=== PATIENT | male | born 1960 | race Caucasian/White ===

== ENCOUNTER → 2021-09-27 15:05 | Outpatient (CLI) | payer BC, SELFPAY ==
--- NOTE | ~2021-09-27 | XR_ITS ---
XR cervical spine min 6V 09/27/2021 15:39 Indication: Neck pain. Limited mobility. Degenerative spondylosis. Procedure: 6 views of the cervical spine Comparison: No prior studies for comparison. Findings: There is disc narrowing at C3-4, C5-6 and C6-7. There are prominent marginal osteophytes at C5-6. No acute fracture or traumatic malalignment. There is uncinate hypertrophy at C5-6 and C6-7. L ateral masses are normally aligned. No listhesis. Impression: 1: Mild-moderate cervical spondylosis. Reviewed, dictated and finalized at location A. Impression: 1: Mild-moderate cervical spondylosis.
== END ==
PROVIDERS: PCP Family Medicine; Visit Provider Chiropractor
DX: M54.2 Cervicalgia (principal); M47.812 Spondylosis without myelopathy or radiculopathy, cervical region
CPT/HCPCS: 72052

== ENCOUNTER 2024-03-02 08:04 | Emergency (ER) | payer BC, SELFPAY ==
--- NOTE | 2024-03-02 08:15 | ED.GENADULT ---
HPI - General Adult General Chief complaint: Urogenital-Male Stated complaint: possible UTI Time Seen by Provider: 03/02/24 08:16 Source: patient Mode of arrival: ambulatory Limitations: no limitations History of Present Illness HPI narrative: 63-year-old male patient presents to the [facility] with complaints of urinary symptoms for the past week. Patient states he has had increase in urgency, burning pain with urination and when he describes as cloudy urine. Denies any odor that he is aware of. Denies low back pain or obvious blood. Denies any lower abdominal pain. Denies fevers, body aches or chills. Patient states he does have an enlarged prostate that he is supposed to be having surgery on. Denies any use of Flomax. Related Data Allergies Allergy/AdvReac Type Severity Reaction Status Date / Time morphine Allergy Mild Rash Verified 03/02/24 08:24 Contrast Media Allergy Unknown Rash Uncoded 03/02/24 08:24 Review of Systems Review of Systems: CONSTITUTIONAL: Denies fever, chills, or sweats. EYES: Denies visual changes, redness, or discharge. ENT: Denies rhinorrhea, congestion, sore throat, or otalgia. CARDIOVASCULAR: Denies chest pain, palpitations, or edema. RESPIRATORY: Denies cough or dyspnea. GASTROINTESTINAL: Denies abdominal pain, nausea, vomiting, or diarrhea. GENITOURINARY: Positive dysuria x1 week, denies gross hematuria. SKIN: Denies rash or itching. MUSCULOSKELETAL: Denies back pain, joint pain, or myalgia. NEUROLOGIC: Denies headache, numbness, or weakness. PSYCHIATRIC: Denies anxiety or depression. PMFSH Past Medical History Medical History Hypercholesteremia Surgical History Surgical History History of orthopedic surgery ORIF Right Fibula Hx of appendectomy H/O inguinal hernia repair Comments At the time of my signature I agree with nursing past medical history, surgical, social, and family history. There is no relevant family history pertinent to the presenting complaint. Exam Narrative: GENERAL: Well-appearing, well-nourished, and in no acute distress. HEAD: Normocephalic, atraumatic. EYES: PERRLA and EOMI. ENT: Nares clear, no rhinorrhea or epistaxis. Mucous membranes moist. NECK: Supple. No lymphadenopathy CHEST: Clear to auscultation. No respiratory distress. HEART: Regular rate and rhythm. No murmur heard. Normal peripheral pulses. ABDOMEN: Soft, nontender, nondistended, normal active bowel sounds. no CVA tenderness on percussion EXTREMITIES: Normal range of motion. No edema. SKIN: Warm, dry, no rash. NEURO: No focal deficits. Alert and oriented x3. Course Course Level of Care: Express Care Visit Reevaluation(s) Reevaluation #1: re-evaluated patient notified him that his urine dip is consistent with a urinary tract infection therefore we will discharge him home with an oral antibiotic. Discussed with patient to increase his water intake to help flush out the system as well as he may use some mgdo-awz-pionsoo azo help with the pain. Patient should follow-up with his urologist to evaluate his prostate issue as well. Patient verbalized understanding denies any other questions or concerns at this time. Date: 03/02/24 Time: 08:59 Vital Signs Vital signs: vital signs reviewed. Medical Decision Making MDM Narrative Medical decision making narrative: plan of care for patient is to obtain a urine sample dip the urine to assess for possible urinary tract infection. Will reassess once this has resulted. Differential Diagnosis Differential Diagnosis: Differential diagnosis: Uncomplicated lower UTI, uncomplicated UTI, polynephritis, penile trauma,balanoposthitis, phimosis, paraphimosis, testicular torsion, epididymitis, prostatitis, varicocele, spermatocele, hydrocele, hernia. Critical Care Time Critical Care Time Critical Care Time: No Discharge Plan Discharge Clinical Impression: Urinary tract infection Qualifiers: Urinary tract infection type: acute cystitis Hematuria presence: with hematuria Qualified Code(s): N30.01 - Acute cystitis with hematuria Patient Disposition: Home, Self-Care Condition: Stable Instructions: Antibiotic Form, Urinary Tract Infection in Men (ED) Additional Instructions: We will send a urine culture off to the lab; if the culture identifies an organism that the prescribed antibiotic will not treat, you will receive a phone call from an urgent care staff member and an appropriate antibiotic will be prescribed. -Your symptoms should begin to improve within a day of starting antibiotics. But you should finish all the antibiotic pills you get. Otherwise your infection might come back. -Also recommend: drink more fluid. It might help flush out germs, and it does no harm -Tylenol/ibuprofen prn for pain or fever -Follow-up with your primary care provider for urine recheck or seek ER visit if condition worsens with high fever, nausea, vomiting and severe back pain. Patient Language: Algerian Prescriptions: New nitrofurantoin monohyd/m-cryst [Macrobid] 100 mg capsule 100 mg PO Q12H 5 Days Qty: 10 0RF Rx Instructions: must administer with a meal/food Follow-up/Referrals: Irish,Jorje Elam MD [Primary Care Provider] - Time of Disposition: 08:53
[2024-03-02 08:20] VITALS: BP 149/79; PULSE 61; RESP 18; TEMP 36.3; O2SAT 97
[2024-03-02 09:34] LABS: EDUAAPPEAR Cloudy; EDUABILI Negative (Negative); EDUABLOOD 3+ (Negative); EDUACOLOR1 Yellow; EDUAGLUCOSE Negative (Negative); EDUAKETONE Negative (Negative); EDUALEUKO Negative (Negative); EDUANITRATE Negative (Negative); EDUAPH 5.5; EDUAPROTEIN 3+ (Negative); EDUAUROBILI 0.2
--- OUTSIDE RECORDS SUMMARY | 2024-03-05 21:49 | XMS_ITS | Encounter Summary ---
Author Organization [facility] Address [facility] [facility]. [place], [place] [address] [place] [address] Care Team Providers Care Director Paid Media Name Role Phone Jorje Lainez Primary Care Provider [phone] Reason for Visit * Auth/Cert (Routine) Specialty Diagnoses / Procedures Referred By Star t Referred To Contact Diagnoses BENIGN PROSTATIC HYPERTROPHY WITH URINARY OBSTRUCTION, FREQUENCY OF MICTURITION N40.1, R35.0, E29.1 Procedures CYSTOURETHROSCOPY US TRANSRECTAL CYSTOSCOPY AND TRANSRECTAL ULTRASOUND Ruben Miller MD 3 [facility] [address] [place] [address] Phone: tel: fax: Referral ID Status Reason Start Date Expiration Date Visits Re quested Visits Authorized [id number] 1 1 Encounter Details Date Type Department Care Team (Late st Contact Info) Description 01/31/2024 2:25 PM HR OPERATIONS ADVISOR Anesthesia Event [facility] [place], [place] [id number] Rufus Urbina MD [address] [facility] [address] [id number] Jessica Villanueva, CAD MANAGER 1 [place], [place] [id number] Anesthesia Record Procedure Summary Procedure Name Responsible Anesthesiologist Anesthesia Start Time Anesthesia Stop Time CYSTOSCOPY AND TRANSRECTAL ULTRASOUND (Anus) Rufus Urbina MD 01/31/24 1425 01/31/24 1446 Events Date Time Event Comment 01/31/2024 1129 1129 AN Anesthesia Prepped 1425 An Start Patient ID and consent checked and patient reassessed. 1425 An Start Data 1425 Quick Note SR BRENDAN Guadarrama introduced to the patient and the patient verbally consents for the SRNA to participate in all appropriate aspects of perioperative care under the direct supervision of the HEAVY EQUIPMENT OPERATING ENGINEER. HEAVY EQUIPMENT OPERATING ENGINEER remains present for continuous supervision of the SRNA and maintains responsibility for documentation. 1427 Face Mask Applied 1429 An Induction The patient was reevaluated immediately before moderate or deep sedation use and before anesthesia induction. 1429 Anesthesia Ready 1437 Quick Note Turn left later al. Head in neutral alignment. Arms supported and padded. 1439 An Emergence 1444 an stop data 1446 Post Anesthetic Care Handoff I completed my handoff to the receiving nurse during which we: 1. Identified the patient 2. Identified the responsible provider 3. Reviewed the pertinent medical history 4. Discussed the surgical course 5. Reviewed intra-op anesthesia management and issues during anesthesia 6. Set expectations for post-procedure period 7. Allowed opportunity for questions and acknowledgement of understanding. 1446 An Stop Meds Name Total lidocaine (PF) (XYLOCAINE) 2% injection 100 mg propofol (DIPRIVAN) 200 mg/20 mL injecti on 50 mg propofol (DIPRIVAN) 1000 mg/100 mL infus ion 110.71 mg midazolam (VERSED) 1 mg/mL injection 2 m g fentaNYL (SUBLIMAZE) 100 mcg/2 mL inject ion 50 mcg ceFAZolin (ANCEF) 2 g in NS 100 mL IVPB 2 g * Agents Name O2 Inspired Sevoflurane Sevoflurane Ancillary O2 * Blood No blood administrations on file. Lines, Drains, and Airways Type Details Placement Removal Peripheral IV Placement Date: 01/18 06/10; Placement Time: 1130; Placed Outside of This Facility?: No; Size: 20 G; Orientation: Right; Location: Wrist; Site Prep: Alcohol; Local Anesthetic: None; Insertion attempts: 1; Ultrasound-guided Placement?: No; Patient Tolerance: Tolerated well; Removal Date: 01/31/24; Removal Time: 1610; Removal Reason: Patient Discharged 01/31/24 1130 by Lacey Chew RN 01/31/24 1610 by Gisselle Alberto RN documented in this encounter Social History Tobacco Use Types Packs/Day Years Used Date Smoking Tobacco: Former Cigarettes 1.5 30 1 977 - 2006 Smokeless Tobacco: Never Alcohol Use Standard Drinks/Week Comments Yes 6.7 (1 standard drink = 0.6 oz p ure alcohol) social Sex and Gender Information Value Date Recorded Sex Assigned at Not on file Legal Sex Male 4:30 PM CDT Gender Identity Not on file Sexual Orientation Not on file documented as of this encounter OR Notes * Anesthesia Postprocedure Evaluation - Rufus Urbina MD - 01/31/2024 3:53 PM HR OPERATIONS ADVISOR Anesthesia Post-op Note Benja Gallagher Procedure(s): CYSTOSCOPY AND TRANSRECTAL ULTRASOUND (Anus) Anesthesia type: general Vitals: 01/31/24 1610 BP: (!) 155/87 Vitals: 01/31/24 1610 Pulse: (!) 57 Vitals: 01/31/24 1610 Resp: 16 Vitals: 01/31/24 1610 Temp: 36.2 ??C Vitals: 01/31/24 1610 SpO2: 98% Patient Location: Phase II/Outpatient Level of Consciousness: awake Pain Management: adequate analgesia Airway Patency: patent Respiratory Status: acceptable Cardiovascular Status: acceptable Post-Op Nausea: none Postoperative Hydration: euvolemic There were no known notable events for this encounter. OPERATIONS ADVISOR * Anesthesia Postprocedure Evaluation - Rufus Urbina MD - 01/31/2024 3:00 PM HR OPERATIONS ADVISOR Anesthesia Post-op Note Benja Gallagher Procedure(s): CYSTOSCOPY AND TRANSRECTAL ULTRASOUND (Anus) Anesthesia type: general Vitals: 01/31/24 1445 BP: 125/76 Vitals: 01/31/24 1450 Pulse: (!) 55 Vitals: 01/31/24 1450 Resp: 15 Vitals: 01/31/24 1445 Temp: 36.1 ??C Vitals: 01/31/24 1450 SpO2: 99% Patient Location: PACU Level of Consciousness: awake Pain Management: adequate analgesia Airway Patency: patent Respiratory Status: acceptable Cardiovascular Status: acceptable Post-Op Nausea: none Postoperative Hydration: euvolemic No notable events documented. OPERATIONS ADVISOR * Anesthesia Preprocedure Evaluation - Cliff Moore MD - 01/31/2024 11:28 AM CST Anesthesia ROS/MED History Reviewed: Patient summary , Family history anesthesia, Anesthesia history , Medications , Labs Pre-Anesthetic State: alert, awake and responds appropriately no history of anesthetic complications Pulmonary (+) sleep apnea(-) COPD, asthma Cardiovascular (+) hypertension, hyperlipidemia(-) Valvular problems/Murmurs, past AR, CHF, arrhythmia Neuro/Psych (-) no seizures, no CVA Substance Use (-) smoker, vaping user GI/Hepatic/Renal (+) GERD, (well controlled)(-) PUD, liver disease, renal disease Endo/Other (-) diabetes, normal weight range, blood dyscrasia GENERAL COMMENTS Review of patient's allergies indicates: Contrast [iodine] and Morphine NPO Past Medical History: No date: Acid reflux No date: BPH with urinary obstruction No date: High cholesterol No date: Hypertension No date: Obesity, unspecified No date: Sleep apnea, unspecified Comment: no cpap Past Surgical History: No date: APPENDECTOMY No date: CARPAL TUNNEL RELEASE 01/2023: CYSTOSCOPY No date: HERNIA REPAIR Comment: x2 No date: PC ANESTH LOWER LEG BONE SURG; Right No date: SCREENING COLONOSCOPY NPO Status: Physical Evaluation Airway Mallampati: III Dental (crowns), (implants) Pulmonary Breath sounds clear to auscultation Cardiovascular Rhythm: regular Rate: normal STOP-Bang Assessment: Anesthesia Plan ASA 3 Intravenous Induction Anesthesia type: general Plan for Airway: nasal cannula/simple face mask TIVA Informed Consent Anesthetic plan and risks discussed with patient of whom consent was obtained. . OPERATIONS ADVISOR documented in this encounter Plan of Treatment Not on file documented as of this encounter Visit Diagnoses Not on filedocumented in this encounter Administered Medications Inactive Administered Medications - up to 3 most recent administrations Medication Order MAR Action Action Date Dose Rate Site ceFAZolin (ANCEF) 2 g in NS 100 mL IVPB 2 g, Intravenous, at 400 mL/hr, cutting and splicing supervisor to O.R., 1 dose, First dose on Mon01/31/24 at 1100, Pre-OpIndications:Hype rtrophy of prostate with urinary obstruction,Urinary frequency,Male hypogonadism New Bag 01/31/2024 2:31 PM HR OPERATIONS ADVISOR 2 g fentaNYL (SUBLIMAZE) injection Intravenous, PRN, Starting on Mon01/31/24 at 1430, Until Mon01/31/24 at 1447, Anesthesia Intra-Op Given 01/31/2024 2:30 PM HR OPERATIONS ADVISOR 50 mcg lidocaine (PF) (XYLOCAINE) 2 % injection Intravenous, PRN, Starting on Mon01/31/24 at 1429, Until Mon01/31/24 at 1447, Anesthesia Intra-Op Given 01/31/2024 2:29 PM HR OPERATIONS ADVISOR 100 mg midazolam (VERSED) injection Intravenous, PRN, Starting on Mon01/31/24 at 1425, Until Mon01/31/24 at 1447, Anesthesia Intra-Op Given 01/31/2024 2:25 PM HR OPERATIONS ADVISOR 2 mg propofol (DIPRIVAN) infusion Intravenous, Continuous PRN, Starting on Mon01/31/24 at 1429, Until Mon01/31/24 at 1447, Anesthesia Intra-Op Rate/Dose Change 01/31/2024 2:38 PM HR OPERATIONS ADVISOR 85 mcg/kg/min 57.324 mL/hr New Bag 01/31/2024 2:29 PM HR OPERATIONS ADVISOR 100 mcg/kg/min 67.44 mL/ hr propofol (DIPRIVAN) IV bolus Intravenous, PRN, Starting on Mon01/31/24 at 1429, Until Mon01/31/24 at 1447, Anesthesia Intra-Op Given 01/31/2024 2:29 PM HR OPERATIONS ADVISOR 50 mg documented in this encounter Care Teams Director Paid Media Relationship Specialty Start Date End Date Jorje Lainez DO PCP - General FAMILY PRACTICE 08/12/22 documented as of this encounter
--- OUTSIDE RECORDS SUMMARY | 2024-03-05 21:49 | XMS_ITS | Encounter Summary ---
Author Organization [facility] Address [facility] [place] [address] [place] [address] Care Team Providers Care Studio Operator Name Role Phone Unavailable Primary Care Provider Unavailabl e Encounter Details Date Type Department Care Team (Late st Contact Info) Description 12/16/2006 Emergency [facility] [place] [address] Aubree Hankins MD [address] [place] [address] Social History Tobacco Use Types Packs/Day Years Used Date Smoking Tobacco: Never Assessed Sex and Gender Information Value Date Recorded Sex Assigned at Not on file Legal Sex Male 4:30 PM CDT Gender Identity Not on file Sexual Orientation Not on file documented as of this encounter Plan of Treatment Not on file documented as of this encounter Visit Diagnoses Not on filedocumented in this encounter
--- OUTSIDE RECORDS SUMMARY | 2024-03-05 21:49 | XMS_ITS | Encounter Summary ---
Author Organization [facility] Address [address] [place] [address]. [place] [address] [place] [address] Care Team Providers Care Test Car Driver Name Role Phone Unavailable Primary Care Provider Unavailabl e Reason for Visit * Auth/Cert Specialty Diagnoses / Procedures Referred By Star t Referred To Contact Diagnoses right carpal tunnel syndrome, right cubital tunnel syndrome Procedures WRIST ARTHROSCOP,RELEASE XVERS LIG REVISE ULNAR NERVE AT ELBOW RIGHT ENDOSCOPIC CARPAL TUNNEL RELEASE, POSSIBLE OPEN RIGHT CUBITAL TUNNEL RELEASE, POSSIBLE TRANSPOSITION Referral ID Status Reason Start Date Expiration Date Visits Re quested Visits Authorized [id number] 1 1 Encounter Details Date Type Department Care Team (Late st Contact Info) Description 01/11/2022 10:05 AM CDT Ancillary Procedure [facility] [address] [place] [address] Janett Srinivasan MD [address] [place] [address] [address] Social History Tobacco Use Types Packs/Day Years Used Date Smoking Tobacco: Never Smokeless Tobacco: Never Alcohol Use Standard Drinks/Week Comments Yes 11.7 (1 standard drink = 0.6 oz pure alcohol) Sex and Gender Information Value Date Recorded Sex Assigned at Not on file Legal Sex Male 4:30 PM CDT Gender Identity Not on file Sexual Orientation Not on file COVID-19 Exposure Response Date Recorded In the last 10 days, have yo u been in contact with someone who was confirmed or suspected to have Coronavirus/COVID-19? No / Unsure 01/11/2022 9:56 AM CDT documented as of this encounter Plan of Treatment Not on file documented as of this encounter Procedures Procedure Name Priority Date/Time Associated Diagnosis Comments US GD NDL PLACEMENT ANES Today 01/11/2022 10:04 AM CDT documented in this encounter Results * US GD NDL PLACEMENT ANES (01/11/2022 10:04 AM CDT) Anatomical Region Laterality Modality NA Ultrasound 01/11/2022 8:44 AM CDT Narrative 01/11/2022 8:44 AM CDT This report does not contain a radiologist's interpretation. Please review associated procedure and/or operative report. Procedure Note Javier Baltazar, - 01/11/2022 This report does not contain a radiologist's interpretation. Please review associated procedure and/or operative report. us Janett Srinivasan MD ULTRASOUND Final Result documented in this encounter Visit Diagnoses Not on filedocumented in this encounter
--- OUTSIDE RECORDS SUMMARY | 2024-03-05 21:49 | XMS_ITS | Encounter Summary ---
Author Organization [facility] Address [address] [place] [address]. [place], [place] [address] [place] [address] Care Team Providers Care Hydraulic Press Operator Name Role Phone Jorje Lainez Primary Care Provider [phone] Encounter Details Date Type Department Care Team (Late st Contact Info) Description 02/01/2023 3:40 PM EMAIL MARKETING ASSISTANT - 02/01/2023 11:59 PM [facility] Hospital Encounter [facility] [place] [address] Ruben Miller MD 3 [facility] [address] [facility] [place] [address] Discharge Disposition: Home or Self Care (Routine Discharge) Social History Tobacco Use Types Packs/Day Years Used Date Smoking Tobacco: Former Cigarettes 1.5 30 1 977 - 2007 Smokeless Tobacco: Never Alcohol Use Standard Drinks/Week Comments Yes 6.7 (1 standard drink = 0.6 oz p ure alcohol) social Sex and Gender Information Value Date Recorded Sex Assigned at Not on file Legal Sex Male 4:30 PM CDT Gender Identity Not on file Sexual Orientation Not on file documented as of this encounter Medications at Time of Discharge amLODIPine (NORVASC) 5 MG tablet Take 1 tablet (5 mg total) by mouth daily. aspirin EC (ECOTRIN) 81 MG tablet Take 1 tablet (81 mg total) by mouth daily. omega-3 fatty acid (FISH OIL) 500 MG capsule Take 1 capsule (500 mg total) by mouth daily. omeprazole EC (PRILOSEC OTC) 20 MG tablet Take 1 tablet (20 mg total) by mouth daily. rosuvastatin (CRESTOR) 20 MG tablet Take 1 tablet (20 mg total) by mouth daily. sildenafil (VIAGRA) 100 MG tablet Take 1 tablet (100 mg total) by mouth daily as needed for Erectile Dysfunction. testosterone cypionate (DEPO TESTOSTERONE) 100 MG/ML injection Inject 1 mL (100 mg total) into the muscle once a week. Vitamin D3, cholecalciferol, 2000 UNIT Tab tablet Take 1 tablet (2,000 Units total) by mouth daily. 01/23/2024 documented as of this encounter Plan of Treatment Not on file documented as of this encounter Procedures Procedure Name Priority Date/Time Associated Diagnosis Comments HC URINALYSIS AUTO W/O MICRO Routine 02/01/2023 3:45 PM EMAIL MARKETING ASSISTANT BPH with urinary obstruction Frequency of micturition Hypogonadism male URINE BACTERIA CULTURE Routine 02/01/2023 3:45 PM EMAIL MARKETING ASSISTANT BPH with urinary obstruction Frequency of micturition Hypogonadism male documented in this encounter Results * CULTURE URINE (02/01/2023 3:45 PM EMAIL MARKETING ASSISTANT) SPEC DESCRIPTION URINE CLEAN CATCH 02/01/2023 3:46 PM EMAIL MARKETING ASSISTANT [facility] SPECIAL REQUESTS NO SPECIAL REQUEST 02/01/2023 3:46 PM EMAIL MARKETING ASSISTANT [facility] CULTURE RESULT NO GROWTH 2 DAYS 02/03/2023 7:59 AM EMAIL MARKETING ASSISTANT [facility] URINE SPECIMEN OBTAINED BY CLEAN CATCH PROCEDURE / Unknown 02/01/2023 3:45 PM EMAIL MARKETING ASSISTANT 02/01/2023 3:46 PM EMAIL MARKETING ASSISTANT us Ruben Miller MD MICROBIOLOGY - GENERAL OR DERABLES Final Result [facility] [address] [place] [address], [place] [phone] * URINALYSIS (02/01/2023 3:45 PM EMAIL MARKETING ASSISTANT) SPECIMEN TYPE URINE CLEAN CATCH 02/01/2023 3:46 PM EMAIL MARKETING ASSISTANT [facility] COLOR (U) YELLOW 02/01/2023 3:58 PM EMAIL MARKETING ASSISTANT [facility] TRANSPARENCY CLEAR 02/01/2023 3:58 PM EMAIL MARKETING ASSISTANT [facility] SPECIFIC GRAVITY (U) 1.029 1.001 - 1.030 02/01/2023 3:58 PM EMAIL MARKETING ASSISTANT [facility] U PH 6.0 5.0 - 9.0 02/01/2023 3:58 PM EMAIL MARKETING ASSISTANT [facility] LEUKOCYTES (U) NEGATIVE NEGATIVE 02/01/2023 3:58 PM EMAIL MARKETING ASSISTANT [facility] NITRITES NEGATIVE NEGATIVE 02/01/2023 3:58 PM EMAIL MARKETING ASSISTANT [facility] PROTEIN RANDOM (U) 20 <30 MG/DL 02/01/2023 3:58 PM EMAIL MARKETING ASSISTANT [facility] GLUCOSE (U) NORMAL NORMAL MG/DL 02/01/2023 3:58 PM EMAIL MARKETING ASSISTANT [facility] KETONES MG/DL (U) NEGATIVE NEGATIVE MG/DL 02/01/2023 3:58 PM EMAIL MARKETING ASSISTANT [facility] UROBILINOGEN NORMAL NORMAL MG/DL 02/01/2023 3:58 PM EMAIL MARKETING ASSISTANT [facility] BILIRUBIN (U) NEGATIVE NEGATIVE MG/DL 02/01/2023 3:58 PM EMAIL MARKETING ASSISTANT [facility] BLOOD (U) NEGATIVE NEGATIVE 02/01/2023 3:58 PM EMAIL MARKETING ASSISTANT [facility] URINE SPECIMEN OBTAINED BY CLEAN CATCH PROCEDURE / Unknown 02/01/2023 3:45 PM EMAIL MARKETING ASSISTANT Ruben Miller MD URINE ORDERABLES Final Re sult [facility] [address] [place] [address], documented in this encounter Visit Diagnoses Diagnosis BPH with urinary obstruction Hypertrophy of prostate with urinary obstruction and other lower urinary tract symptoms (LUTS) Frequency of micturition Urinary frequency Hypogonadism male Other testicular hypofunction documented in this encounter Care Teams Hydraulic Press Operator Relationship Specialty Start Date End Date Jorje Lainez DO PCP - General FAMILY PRACTICE 08/12/22 documented as of this encounter
--- OUTSIDE RECORDS SUMMARY | 2024-03-05 21:49 | XMS_ITS | Encounter Summary ---
Author Organization [facility] Address [facility]. [place], [place] [address] [place] [address] Care Team Providers Care Licensed Esthetician Name Role Phone LainezJorje mera Ada YU Primary Care Provider [phone] Reason for Visit * Auth/Cert (Routine) Specialty Diagnoses / Procedures Referred By Star t Referred To Contact Diagnoses BENIGN PROSTATIC HYPERTROPHY WITH URINARY OBSTRUCTION, FREQUENCY OF MICTURITION N40.1, R35.0, E29.1 Procedures FLEXIBLE CYSTOSCOPY Marley Ibrahim MD 3 [facility] [address] [place] [address] Phone: tel: fax: Referral ID Status Reason Start Date Expiration Date Visits Re quested Visits Authorized [id number] 1 1 Encounter Details Date Type Department Care Team (Late st Contact Info) Description 02/07/2023 5:20 AM SOURCER - 02/07/2023 9:10 AM [facility] Hospital Encounter [facility] [place] [address] Marley Ibrahim MD 3 [facility] [address] [place] [address] [id number] Discharge Disposition: Home or Self Care (Routine Discharge) Social History Tobacco Use Types Packs/Day Years Used Date Smoking Tobacco: Former Cigarettes 1.5 30 1 977 - 2007 Smokeless Tobacco: Never Tobacco Cessation:Counseling Given: Not Answered Alcohol Use Standard Drinks/Week Comments Yes 6.7 (1 standard drink = 0.6 oz p ure alcohol) social Sex and Gender Information Value Date Recorded Sex Assigned at Not on file Legal Sex Male 4:30 PM CDT Gender Identity Not on file Sexual Orientation Not on file documented as of this encounter Last Filed Vital Signs Vital Sign Reading Time Taken Comments Blood Pressure 153/80 02/07/2023 9:05 AM SOURCER Pulse 63 02/07/2023 9:05 AM SOURCER Temperature 36.3 ??C (97.3 ??F) 02/07/2023 9:05 AM CS T Respiratory Rate 18 02/07/2023 9:05 AM SOURCER Oxygen Saturation 98% 02/07/2023 9:05 AM SOURCER Inhaled Oxygen Concentration - - Weight 109.8 kg (242 lb 1 oz) 02/07/2023 6:48 AM SOURCER Height 177.8 cm (5' 10 ) 02/07/2023 6:48 AM SOURCER Body Mass Index 34.73 02/07/2023 6:48 AM SOURCER documented in this encounter Discharge Instructions * Discharge Instructions* Lacey Chew RN - 02/07/2023 7:55 AM SOURCER Call if excessive bleeding, voiding difficulties, fevers chills or if any other concerning symptomsdevelop. Because you had anesthesia NO DRIVING FOR 24 HRS/ OR WHILE TAKING NARCOTIC PAIN MEDICATION NO ALCOHOL, NO OPERATING MACHINERY, DO NOT SIGN ANY BINDING CONTRACTS FOR 24 HOURS/ OR WHILE TAKINGNARCOTIC PAIN MEDICATION AVOID GREASY, FRIED OR SPICY FOODS MUST HAVE A RESPONSIBLE ADULT STAY WITH YOU FOR THE REST OF TODAY AND TONIGHT If you have chest pain, shortness of breath, excessive bleeding or drainage, if you cannot hold down anything to eat or drink, or if you cannot urinate, please call 911 or go to the nearest emergencyroom. If you have fever, pain not controlled by your medication, signs of infection such as redness or discharge or swelling at the site, or any other questions or concerns, please call your surgeon. CER CER CER * Attachments The following attachments cannot be sent through Care Everywhere. * Cystoscopy Discharge Instructions (Syrian) * General Anesthesia Discharge Instructions (Syrian) documented in this encounter Medications at Time of Discharge [...] daily. 01/23/2024 documented as of this encounter H&P Notes * Marley Ibrahim MD - 02/07/2023 7:22 AM CST Attending Provider: Marley Ibrahim MD PCP: DO Benja SMITH Nuckolls is an 62-year-old male. Reason for Admission: * No active hospital problems. * HPI: This is a 62-year-old gentleman with history of microscopic hematuria presents today for cystoscopy. In office cystoscopy was declined. Urine culture is negative. Currently feels well with no urinaryor respiratory complaints he had a cough which resolved last week. Past Medical History: Diagnosis Date Acid reflux BPH with urinary obstruction High cholesterol Hypertension Obesity, unspecified Allergies: Allergies Allergen Reactions Contrast [Iodine] Rash Morphine Rash and Swelling Social History Tobacco Use Smoking status: Former Packs/day: 1.50 Years: 30.00 Additional pack years: 0.00 Total pack years: 45.00 Types: Cigarettes Quit date: 2007 Years since quittin.8 Smokeless tobacco: Never Substance Use Topics Alcohol use: Yes Alcohol/week: 6.7 standard drinks of alcohol Types: 4 Cans of beer per week Comment: social Past Surgical History: Procedure Laterality Date APPENDECTOMY HERNIA REPAIR x2 PC ANESTH LOWER LEG BONE SURG Right SCREENING COLONOSCOPY No family history on file. Travel Exposure: No current facility-administered medications on file prior to encounter. Current Outpatient Medications on File Prior to Encounter Medication Sig amLODIPine (NORVASC) 5 MG tablet Take 1 tablet (5 mg total) by mouth daily. aspirin EC (ECOTRIN) 81 MG tablet Take 1 tablet (81 mg total) by mouth daily. omega-3 fatty acid (FISH OIL) 500 MG capsule Take 1 capsule (500 mg total) by mouth daily. omeprazole EC (PRILOSEC OTC) 20 MG tablet Take 1 tablet (20 mg total) by mouth daily. As needed rosuvastatin (CRESTOR) 20 MG tablet Take 1 tablet (20 mg total) by mouth daily. testosterone cypionate (DEPO TESTOSTERONE) 100 MG/ML injection Inject 1 mL (100 mg total) into the muscle once a week. Vitamin D3, cholecalciferol, 2000 UNIT Tab tablet Take 1 tablet (2,000 Units total) by mouth daily. sildenafil (VIAGRA) 100 MG tablet Take 1 tablet (100 mg total) by mouth daily as needed for Erectile Dysfunction. Blood pressure (!) 165/94, pulse 66, temperature 97.9 ??F (36.6 ??C), temperature source Temporal, resp. rate 18, height 1.778 m (5' 10 ), weight 109.8 kg (242 lb 1 oz), SpO2 96 %. Review of Systems Constitutional: Negative. Negative for chills and fever. HENT: Negative. Eyes: Negative. Respiratory: Negative. Negative for shortness of breath. Cardiovascular: Negative. Negative for chest pain. Gastrointestinal: Negative. Negative for abdominal pain, heartburn, nausea and vomiting. Genitourinary: Negative for dysuria, flank pain and hematuria. Musculoskeletal: Negative. Skin: Negative. Neurological: Negative. Negative for dizziness. Endo/Heme/Allergies: Negative. Psychiatric/Behavioral: Negative. Physical Exam Vitals reviewed. Constitutional: Appearance: Normal appearance. HENT: Head: Normocephalic and atraumatic. Mouth/Throat: Pharynx: Oropharynx is clear. Eyes: General: No scleral icterus. Cardiovascular: Rate and Rhythm: Normal rate and regular rhythm. Pulmonary: Effort: Pulmonary effort is normal. No respiratory distress. Breath sounds: No wheezing. Abdominal: General: Abdomen is flat. There is no distension. Neurological: General: No focal deficit present. Mental Status: He is alert and oriented to person, place, and time. Psychiatric: Mood and Affect: Mood normal. Assessment: Microhematuria, history of smoking Plan: Flexible cystoscopy under anesthesia. Risk, benefits, alternatives, nature of the procedure and potential complications reviewed patient is agreeable to proceed risk including the limited to bleeding, infection, trauma to surrounding/adjacent structures damage to the urethra, bladder need for additi onal procedures pending intraoperative findings in addition anesthesia and positioning complications heart attack, stroke, blood clots, pulmonary embolus without possibility antibiotics and complications reviewed. Reports understanding agreeable to proceed all questions answered. MARLEY IBRAHIM MD 02/07/2023 HISTORY AND PHYSICAL INTERVAL NOTE: I have reviewed Benja Yee Aileen History & Physical which was performed within the past 30 days. After examining Benja Joselito Gallagher, no change has occurred in the patient's condition since the H&P was completed. Informed Consent Discussion: Potential benefits, risks, and side effects of the patient's procedure/surgery; the likelihood of the patient achieving his or her goals; and any potential problems that might occur during recuperation were discussed with the patient/family/personal customer service representative teacher. Reasonable alternatives to the patient's proposed procedure/surgery including benefits, risks, and side effects related to the alternatives and the risks related to not receiving the proposed care were also discussed with the patient/family/personal customer service representative teacher. Questions were answered and the patient /family/personal customer service representative teacher verbalized understanding and desires to proceed. CER documented in this encounter OR Notes * Op Note - Marley Ibrahim MD - 02/07/2023 7:52 AM CST FLEXIBLE CYSTOSCOPY Procedure Note Indications: The patient underwent surgery on 02/07/2023 for hematuria. Procedure Details Description of procedure: Patient brought back to the operating room he received monitored anesthesia care via ice to the sedation he was prepped and draped in standard surgical fashion in the supineposition with Betadine to the genitalia. 10 cc of lidocaine urethral jelly were used for local anesthetic. SCD boots were on and functional preoperatively for DVT prophylaxis. Care was taken to not Hy perflex or hyperextend any extremity or bony prominences thoroughly padded. He received a preoperative dose of intravenous cefazolin. After appropriate timeout appropriate patient identifiers were used a 16 [place]ankan flexible cystoscope was inserted urethra the urethra is grossly normal the prostate had trilobar hyperplasia with a moderate size middle lobe with no evidence of stricture. Endoscopy bladder was performed in systematic fashion and the mucosa was grossly normal with no papillary tumor,erythema or mucosal change. He had moderate trabeculation of the bladder wall with no diverticula. He had single orthotopic bilateral ureteral offices effluxing clear yellow urine. The scope was retro flexed and the bladder neck the bladder neck showed median lobe intravesical excursion, no papillary tumors were seen. No stones were seen. The scope was removed and the patient was awoken and transferred to postoperative recovery in stable condition. No immediate complications. I discussed the intraoperative findings with the family Findings: Expected/anticipated Complications: None immediate Estimated Blood Loss: Minimal Drains: Total IV Fluids: See anesthesia record Specimens: * No specimens in log * Implants: None Disposition: PACU Condition: stable CER * OR PreOp - Jessica Villanueva CNP - 02/02/2023 10:40 AM CST Chart reviewed. Per phone interview, patient denies any SOB/CP with 2 FOS or recent changes in activity tolerance in past 6 months. Per phone interview, patient denies having a agriculture intern or previous cardiac testing. EKG found in Care Everywhere copied. EKG 08/06/21 normal sinus rhythm Left axis deviation Abnormal ECG When compared with ECG of 19-SEP-2000 09:47, No significant change was found Rate 66 CER * OR PreOp - Leslie Ni RN - 01/31/2023 10:54 AM CST Can you climb 2 flights of stairs without severe SOB or chest pain? Yes Are you physically able to do the same things today as 6 months ago? Yes Have you had any heart testing? None recently Avg BP? 140/80's Do you have a agriculture intern? No Emailed patient his instructions, verbalized understanding. CER CER documented in this encounter Plan of Treatment Not on file documented as of this encounter Procedures Procedure Name Priority Date/Time Associated Diagnosis Comments CYSTOSCOPY FLEXIBLE 02/07/2023 7 :27 AM SOURCER BENIGN PROSTATIC HYPERTROPHY WITH URINARY OBSTRUCTION, FREQUENCY OF MICTURITION N40.1, R35.0, E29.1 Case Notes SCHED BY FAX 01/16/2023 LCS PHONE ASSESS documented in this encounter Visit Diagnoses Diagnosis BPH with urinary obstruction- Primary Hypertrophy of prostate with urinary obstruction and other lower urinary tract symptoms (LUTS) Frequency of micturition Urinary frequency Hypogonadism male Other testicular hypofunction documented in this encounter Administered Medications Inactive Administered Medications - up to 3 most recent administrations Medication Order MAR Action Action Date Dose Rate Site famotidine (PEPCID) tablet 20 mg 20 mg, Oral, Once, 1 dose, On Mon02/07/23 at 0615, On admission, Pre-Op Given 02/07/2023 6:41 AM SOURCER 20 mg lactated ringers infusion at 10 mL/hr, Intravenous, Continuous, Starting on Mon02/07/23 at 0615, Until Mon02/07/23 at 1154, Infuse at TKO rate, Pre-Op Restarted 02/07/2023 7:28 AM SOURCER Continued by Anesthesia 02/07/2023 7:27 AM SOURCER 10 mL/hr New Bag 02/07/2023 6:41 AM SOURCER 10 mL/hr ondansetron (ZOFRAN-ODT) disintegrating tablet 8 mg 8 mg, Oral, Once, 1 dose, On Mon02/07/23 at 0615, On admission, Pre-Op Given 02/07/2023 6:41 AM SOURCER 8 mg documented in this encounter Active and Recently Administered Medications Times are shown in SOURCER. Scheduled Medication Order 02/05/2023 02/06/2023 02/07/2023 ceFAZolin (ANCEF) 2 g in NS 100 mL IVPB (COMPLETED) 2 g, Intravenous, at 200 mL/hr, call center operations manager to O.R., 1 dose, First dose on Mon02/07/23 at 0615, Pre-Op 0728 (Given - Provid er: Krista Moncada CRNA) famotidine (PEPCID) tablet 20 mg (COMPLETED) 20 mg, Oral, Once, 1 dose, On Mon02/07/23 at 0615, On admission, Pre-Op 0641 (Given - Provid er: Lolis Beverly RN) ondansetron (ZOFRAN-ODT) disintegrating tablet 8 mg (COMPLETED) 8 mg, Oral, Once, 1 dose, On Mon02/07/23 at 0615, On admission, Pre-Op 0641 (Given - Provid er: Lolis Beverly RN) Continuous Medication Order 02/05/2023 02/06/2023 02/07/2023 lactated ringers infusion at 10 mL/hr, Intravenous, Continuous, Starting on Mon02/07/23 at 0615, Until Mon02/07/23 at 1154, Infuse at TKO rate, Pre-Op 0641 (New Bag - Prov ider: Lolis Beverly RN)0727 (Continued by Anesthesia - Provider: Krista Moncada CRNA)0727 (Paused - Provider: Krista Moncada CRNA - Comment: Switch to gravity)0728 (Restarted - Provider: Krista Moncada CRNA)0741 (Infusion Stop Time - Provider: Krista Moncada CRNA) PRN Medication Order 02/05/2023 02/06/2023 02/07/2023 lidocaine 2 % URO-JET jelly (CANCELED) As needed, Starting on Mon02/07/23 at 0735, Until Mon02/07/23 at 0741, Intra-Op 0735 (Given - Provid er: Marley Ibrahim MD) documented in this encounter Care Teams Licensed Esthetician Relationship Specialty Start Date End Date Jorje Lainez DO PCP - General FAMILY PRACTICE 5/26/23 documented as of this encounter
--- OUTSIDE RECORDS SUMMARY | 2024-03-05 21:49 | XMS_ITS | Encounter Summary ---
Author Organization [facility] Address [address] [place] [address]. [place], [place] [address] [place] [address] Care Team Providers Care Rock Duster Name Role Phone Deidra Lainez DO Primary Care Provider [phone] Reason for Referral * Imaging (Routine) - Closed Specialty Diagnoses / Procedures Referred By Star gandara Referred To Contact RADIOLOGY Diagnoses Solitary pulmonary nodule Procedures CT CHEST WO CON Deidra Lainez DO [address] [place], [place] [address] Phone: tel: fax: Referral ID Status Reason Start Date Expiration Date Visits Re quested Visits Authorized [id number] Closed 02/01/2024 03/01/2024 1 1 GENERATION MARKETING MANAGER Reason for Visit * Imaging (Routine) - Closed Specialty Diagnoses / Procedures Referred By Star gandara Referred To Contact RADIOLOGY Diagnoses Solitary pulmonary nodule Procedures CT CHEST WO CON Deidra Lainez DO [address] [address] Phone: tel: fax: Referral ID Status Reason Start Date Expiration Date Visits Re quested Visits Authorized [id number] Closed 02/01/2024 03/01/2024 1 1 Encounter Details Date Type Department Care Team (Latest Contact Info) Description 02/26/2024 8:03 AM LEAD GENERATION MARKETING MANAGER - 02/26/2024 11:59 PM LEAD GENERATION MARKETING MANAGER Hospital Encounter [facility] [address] [place] [address] Deidra Lainez, DO [address] [place] [address] [address] [place] [address] Discharge Disposition: Home or Self Care (Routine [...] total) into the muscle once a week. vitamin D2, ergocalciferol, (DRISDOL) 1.25 mg capsule Take 1 capsule (1.25 mg total) by mouth every 7 days. documented as of this encounter Plan of Treatment Not on file documented as of this encounter Procedures Procedure Name Priority Date/Time Associated Diagnosis Comments CT CHEST WO CON Routine 02/26/2024 8:14 AM LEAD GENERATION MARKETING MANAGER Solitary pulmonary nodule documented in this encounter Results * CT CHEST WO CON (02/26/2024 8:14 AM LEAD GENERATION MARKETING MANAGER) Anatomical Region Laterality Modality Chest Computed Tomogra phy 03/01/2024 9:13 AM LEAD GENERATION MARKETING MANAGER Impressions 03/01/2024 9:25 AM LEAD GENERATION MARKETING MANAGER Impression: 1. Resolution of left peripheral lower lobe probable post infectious inflammatory cluster of tree-in-bud micronodules. 2. Stable bilateral lower lobe sub-6 mm micronodules; no specific follow-up indicated. 3. Sequela of prior granulomatous exposure. 4. Biapical paraseptal emphysema. 5. Hepatic steatosis. 6. No new or acute cardiopulmonary finding; other nonemergent, incidental, stable and potential chronic findings as discussed in the report body above. Ordered By: DEIDRA LAINEZ Interpreted By: Yumiko Aragon MD, 03/01/2024 9:13 AM Narrative 03/01/2024 9:25 AM LEAD GENERATION MARKETING MANAGER [address] [address] Exam: CT CHEST WO CON Exam Date/Time: 02/26/2024 8:04 AM Indication: 63 male pulmonary nodule follow-up. History of smoking, quit 2006. Comparison: CT chest 08/31/2023; CT calcium scoring study 09/14/2022 Technique: Computed tomography of the chest performed without contrast. A dose lowering technique was used for this procedure, which may include, but is not limited to, dose reduction technique, automated exposure control, the use of iterative reconstruction, and ALARA (As Low As Reasonably Achievable) / Image Gently techniques.. CT findings: Support tubes and lines: None. Base of neck/thyroid: Negative. MEDIASTINUM: Heart: Normal in size. No pericardial effusion. Lymph nodes: No supraclavicular, axillary, internal mammary, mediastinal, or hilar adenopathy. VASCULATURE Minimal thoracic aortic atherosclerotic sclerosis. Normal diameter. No central pulmonary arterial enlarged. LUNGS AND PLEURA Lungs: Stable calcified granulomas bilateral lower lobes. Resolution of the probably post infectious inflammatory cluster tree-in-bud micronodules in the posterior left lower lobe. 2000 and morphology of a couple of the bilateral lower lobe sub-6 mm micronodules. These include a 2 mm left lower lobe micronodule (axial lung window image 124) and a right lower lobe micronodule (axial lung window image 92). There is chronic focal curvilinear density in peripheral left upper lobe, that may represent focal subsegmental scarring. No new focal airspace finding. Biapical scarring and paraseptal bullae. Airways are clear and unremarkable without thickening or mucous plugging Pleura: No pleural effusion, thickening, or calcification. UPPER ABDOMEN Stable. Diffuse hepatic steatosis and hepatomegaly. Small sliding hiatal hernia. No acute finding.. BONES/SOFT TISSUES Normal bone density. Multilevel early disc and endplate degenerative change. No concerning focal lytic or blastic lesion. Procedure Note Yumiko Aragon MD - 03/01/[address] [address] Exam: CT CHEST WO CON Exam Date/Time: 02/26/2024 8:04 AM Indication: 63 male pulmonary nodule follow-up. History of smoking, [id number]. Comparison: CT chest 08/31/2023; CT calcium scoring study 09/14/2022 Technique: Computed tomography of the chest performed without contrast. Adose lowering technique was used for this procedure, which may include,but is not limited to, dose reduction technique, automated exposurecontrol, the use of iterative reconstruction, and ALARA (As Low AsReasonably Achievable) / Image Gently techniques.. CT findings: Support tubes and lines: None. Base of neck/thyroid: Negative. MEDIASTINUM: Heart: Normal in size. No pericardial effusion. Lymph nodes: No supraclavicular, axillary, internal mammary, mediastinal,or hilar adenopathy. VASCULATURE Minimal thoracic aortic atherosclerotic sclerosis. Normal diameter. Nocentral pulmonary arterial enlarged. LUNGS AND PLEURA Lungs: Stable calcified granulomas bilateral lower lobes. Resolution of the probably post infectious inflammatory [id number] micronodules in the posterior left lower lobe. 2000 andmorphology of a couple of the bilateral lower lobe sub-6 mm micronodules.These include a 2 mm left lower lobe micronodule (axial lung window [id number]) and a right lower lobe micronodule (axial lung window image 92).There is chronic focal curvilinear density in peripheral left upper lobe,that may represent focal subsegmental scarring. No new focal airspacefinding. Biapical scarring and paraseptal bullae. Airways are clear and unremarkable without thickening or mucous plugging Pleura: No pleural effusion, thickening, or calcification. UPPER ABDOMEN Stable. Diffuse hepatic steatosis and hepatomegaly. Small sliding hiatalhernia. No acute finding.. BONES/SOFT TISSUES Normal bone density. Multilevel early disc and endplate degenerativechange. No concerning focal lytic or blastic lesion. Impression: 1. Resolution of left peripheral lower lobe probable post infectiousinflammatory cluster of tree-in-bud micronodules. 2. Stable bilateral lower lobe sub-6 mm micronodules; no specificfollow-up indicated. 3. Sequela of prior granulomatous exposure. 4. Biapical paraseptal emphysema. 5. Hepatic steatosis. 6. No new or acute cardiopulmonary finding; other nonemergent, incidental,stable and potential chronic findings as discussed in the report bodyabove. Ordered By: DEIDRA LAINEZ Interpreted By: Yumiko Aragon MD, 03/01/2024 9:13 AM us Deidra Lainez DO CT Final Result documented in this encounter Visit Diagnoses Diagnosis Solitary pulmonary nodule documented in this encounter Care Teams Rock Duster Relationship Specialty Start Date End Date Deidra Lainez DO PCP - General FAMILY PRACTICE 08/12/22 documented as of this encounter
--- OUTSIDE RECORDS SUMMARY | 2024-03-05 21:49 | XMS_ITS | Encounter Summary ---
Author Organization [facility] Address [facility]. [place], [place] [address] [place] [address] Care Team Providers Care Theatrical Dresser Name Role Phone Jorje Lainez DO Primary Care Provider [phone] Encounter Details Date Type Department Care Team (Latest Contact Info) Description 02/07/2023 Travel Social History Tobacco Use Types Packs/Day Years [...] Diagnoses Not on filedocumented in this encounter Care Teams Theatrical Dresser Relationship Specialty Start Date End Date Jorje Lainez DO PCP - General FAMILY PRACTICE 08/12/22 documented as of this encounter
--- OUTSIDE RECORDS SUMMARY | 2024-03-05 21:49 | XMS_ITS | Encounter Summary ---
Author Organization [facility] Address [address] [place] [address]. [place] [address] [place] [address] Care Team Providers Care Plate Setter Name Role Phone Unavailable Primary Care Provider Unavailabl e Reason for Visit * Reason Comments Hospital H&P (SCAN) Encounter Details Date Type Department Care Team (Late st Contact Info) Description 09/03/2021 Scan [facility] Information Services [address] [place] [address] Scanned, Documents Hospital H&P (SCAN) Social History Tobacco Use Types Packs/Day Years [...] suspected to have Coronavirus/COVID-19? No / Unsure 08/25/2021 10:05 AM CDT documented as of this encounter Plan of Treatment Not on file documented as of this encounter Visit Diagnoses Not on filedocumented in this encounter
--- OUTSIDE RECORDS SUMMARY | 2024-03-05 21:49 | XMS_ITS | Encounter Summary ---
Author Organization [facility] Address [facility]. [place], [place] [address] [place] [address] Care Team Providers Care Automotive Parts Counter Associate Name Role Phone Jorje Lainez DO Primary Care Provider [phone] Encounter Details Date Type Department Care Team (Latest Contact Info) Description 02/26/2024 Travel Social History Tobacco Use Types Packs/Day [...] on filedocumented in this encounter Care Teams Automotive Parts Counter Associate Relationship Specialty Start Date End Date Jorje Lainez DO PCP - General FAMILY PRACTICE 08/12/22 documented as of this encounter
--- OUTSIDE RECORDS SUMMARY | 2024-03-05 21:49 | XMS_ITS | Encounter Summary ---
Author Organization [facility] Address [address] [place] [address]. [place], [place] [address] [place] [address] Care Team Providers Care Vending Supervisor Name Role Phone Unavailable Primary Care Provider Unavailabl e Encounter Details Date Type Department Care Team (Latest Contact Info) Description 08/25/2021 Travel Social History Tobacco Use Types Packs/Day [...]
--- OUTSIDE RECORDS SUMMARY | 2024-03-05 21:49 | XMS_ITS | Encounter Summary ---
Author Organization [facility] Address [facility] [place] [address] [place] [address] Care Team Providers Care Set Up Mold Technician Name Role Phone Unavailable Primary Care Provider Unavailabl e Reason for Referral * Imaging (Urgent) - Closed Specialty Diagnoses / Procedures Referred By Star gandara Referred To Contact RADIOLOGY Diagnoses . Procedures US NDL PLACEMENT ANES [facility] [address] [place] [address] Phone: tel: Referral ID Status Reason Start Date Expiration Date Visits Re quested Visits Authorized [id number] Closed 01/11/2022 01/10/2023 1 1 Reason for Visit * Auth/Cert Specialty Diagnoses / Procedures Referred By Star gandara Referred To Contact Diagnoses right carpal tunnel syndrome, right cubital tunnel syndrome Procedures WRIST ARTHROSCOP,RELEASE XVERS LIG REVISE ULNAR NERVE AT ELBOW RIGHT ENDOSCOPIC CARPAL TUNNEL RELEASE, POSSIBLE OPEN RIGHT CUBITAL TUNNEL RELEASE, POSSIBLE TRANSPOSITION Referral ID Status Reason Start Date Expiration Date Visits Re quested Visits Authorized [id number] 1 1 Encounter Details Date Type Department Care Team (Latest Contact Info) Description 01/11/2022 9:58 AM CDT - 01/11/2022 2:05 PM CDT Hospital Encounter [facility] [address] [place] [address] Janett Srinivasan MD [address] [place] [address] [address] Discharge Disposition: Home or Self Care (Routine [...] AM CDT documented as of this encounter Last Filed Vital Signs Vital Sign Reading Time Taken Comments Blood Pressure 154/76 01/11/2022 1:45 PM CDT Pulse 58 01/11/2022 2:00 PM CDT Temperature 36.6 ??C (97.9 ??F) 01/11/2022 1:21 PM CD T Respiratory Rate 18 01/11/2022 2:00 PM CDT Oxygen Saturation 96% 01/11/2022 2:00 PM CDT Inhaled Oxygen Concentration - - Weight 108.9 kg (240 lb) 01/03/2022 2:51 PM CDT Height 177.8 cm (5' 10 ) 01/03/2022 2:51 PM CDT Body Mass Index 34.44 01/03/2022 2:51 PM CDT documented in this encounter Discharge Instructions * Discharge Instructions* Marnie Stevens RN - 01/11/2022 1:04 PM CDT REGIONAL/GENERAL ANESTHESIA- DR. SRINIVASAN 1. Routine Vital Signs per PACU Protocol 2. Keep right hand elevated. 3. Encourage active range of motion of fingers within limits of the dressing (unless specifically instructed otherwise). Office appointment on: 01/18 at 8:45 May discharge with discharge instruction sheet from [facility] If an Axillary Block is performed please discharge patient with a sling and instruct patient to remove the sling once the block has worn off and they have regained control of the extremity to allow for elevation. Pain Medications as indicated: ___x___Alternate OTC Extra Strength Tylenol/Ibuprofen as needed JANETT SRINIVASAN MD 01/11/2022 1:04 PM PATIENT INSTRUCTIONS POST-ANESTHESIA IMMEDIATELY FOLLOWING SURGERY: Do not drive or operate machinery for day of surgery. Do not make any important decisions for twenty four hours after surgery or while taking narcotic pain medications or sedatives. If you develop intractable nausea and vomiting or a severe headache please notify yourdoctor immediately. FOLLOW-UP: Please follow up on 01/18/2022 @ 8:45am QUESTIONS?: Please feel free to call your physician or Outpatient Surgery at [phone] Monday through Monday 8:00am to 4:00pm. If you have any questions after hours, you may call the hospital railroad supervisor of engines at [phone]. Discharge Instructions for Hand Surgery The following instructions will help you in the postoperative care for your hand or upper extremity. If you have any questions or if you develop any problems, please feel free to contact us. You may contact us at our office at or after hours you may call [facility] and ask the fruit thinner machine operator to page one of us. 1. It is extremely important to keep the operative hand above the level of the heart at all times. This elevations will reduce swelling which will improve any pain that you might experience. The upper extremely could be elevated on two or three pillows at your side. 2. Unless you are instructed otherwise, it is important to exercise all the fingers of the operatedhand with full flexion to make a fist and full extension to make the fingers straight. The exercises should be performed almost continuously. These exercises will prevent stiffness of the fingers, and would also any swelling of the fingers or the hand and that will significantly improve any degree of pain. Please move the shoulder and the elbow 2-3 times per hour to prevent stiffness. 3. If you had a tendon repair, then follow the instructions that will be given to you regarding movements of the fingers. 4. The dressing, the splint or the cast should be kept dry at all times. This can be achieved by covering it with a plastic bag with bathing or showering. 5. Please do not change the dressing unless you are given other instructions. The dressing will be changed when you come to the office for the postoperative visit. 6. You may be prescribed a strong pain medication or antibiotics. Please follow the label instructions for taking these medications. You should not drive or operate any machinery while you are takingpain medications. If any reactions from medications occur, please stop the medication and contact us as soon as possible. 7. If you develop any of the following, please notify us immediately. A. Severe pain that does not respond to pain medication. B. Swelling of the fingers that does not improve with elevation and exercises. C. Bluish discoloration of the fingers or the fingernails. D. Numbness of the fingers that does not improve 24 hours after the surgery. E. Elevated temperature over 101. 8. If you have not been given an appointment for a postoperative follow-up visit in the office, please contact our office the next business day for an appointment. Our office number is . documented in this encounter Medications at Time [...] total) into the muscle once a week. diclofenac EC (VOLTAREN) 75 MG tablet Take 75 mg by mouth 2 (two) times daily. 01/31/2023 traZODone (DESYREL) 50 MG tablet Take 50 mg by mouth nightly at bedtime. 01/31/2023 Vitamin D3, cholecalciferol, 2000 UNIT Tab tablet Take 1 tablet (2,000 Units total) by mouth daily. 01/23/2024 documented as of this encounter OR Notes * Brief Op Note - Janett Srinivasan MD - 01/11/2022 1:02 PM CDT Patient: Benja Gallagher 1960 [id number] Preoperative Diagnosis: right carpal tunnel syndrome, right cubital tunnel syndrome Postoperative Diagnosis: * No Diagnosis Codes entered * Procedure: Procedure(s): Right - RIGHT ENDOSCOPIC CARPAL TUNNEL RELEASE - Wound Class: Clean Right - RIGHT CUBITAL TUNNEL RELEASE - Wound Class: Clean Surgeon: Surgeon(s): Janett Srinivasan MD Environmental Director: Sulma Gómez Anesthesia: General/Block Implant: * No implants in log * Specimen: * No orders in the log * Estimated Blood Loss: 0 ml Procedure in detail: Please see full operative note for details. Disposition: Patient was taken to the PACU in stable condition. JANETT SRINIVASAN MD 01/11/2022 1:02 PM * Op Note - Janett Srinivasan MD - 01/11/2022 12:00 AM CDT PREOPERATIVE DIAGNOSES: 1. Right carpal tunnel syndrome. 2. Right cubital tunnel syndrome. POSTOPERATIVE DIAGNOSES: 1. Right carpal tunnel syndrome. 2. Right cubital tunnel syndrome. PROCEDURES: 1. Right endoscopic carpal tunnel release. 2. Right cubital tunnel release. SURGEON: Janett Srinivasan MD. POLISHER DIAL: Sulma Gómez. ANESTHESIA: Axillary block with sedation. BLOOD LOSS: Minimal. COMPLICATIONS: None. CONDITION: Stable. DISPOSITION: To recovery room. INDICATIONS FOR PROCEDURE: The patient is a 61-year-old male with the above issues. He failed conservative treatment and wanted to have it surgically treated. He knew the risks and benefits which were including but not limited to infection, bleeding, nerve injury, artery injury and the need for further surgery. He wanted to proceed. DESCRIPTION OF PROCEDURE: The patient was identified preoperatively. The right wrist and elbow wereidentified as correct sites. He was brought to the OR suite and placed supine on the OR table. A nonsterile tourniquet was placed on the patient's right upper arm. The arm was prepped and draped in the usual sterile fashion. A timeout was called which confirmed the patient's name, surgery, and surgical site. My initials were visible on the patient's right wrist and elbow. He was not indicated forany DVT prophylaxis and he did receive preoperative antibiotics as he had scratched his arm. After a timeout was called, the arm was exsanguinated and then the tourniquet was inflated to 250 mmHg. Next, a 7 mm transverse incision was made starting at the palmaris longus tendon and extending in ulnar direction. A 15 blade scalpel was used to go down through the skin. Tenotomy scissors was used to dissect down through the subcutaneous tissues until the distal forearm fascia was identified. A distally-based U- shaped fascial flap was created using the tenotomy scissors. Next, a synovial elevator was placed underneath the transverse carpal ligament which was cleaned off using a gentle scraping motion. Next, the endoscope was placed as far distal as the palmar fat pad which was ensured by palpation in the palm. The blade was triggered and the ligament was released in distal to proximal direction. The scope was once again advanced to make sure it was completely released and it was. Next, using the tenotomy scissors, the fascia was released proximally about 3 cm from the incision. The wound was irrigated with normal saline solution and closed with a 7-0 nylon simple interrupted stitch. Next, a 6 cm slightly curved incision was made overlying the cubital tunnel centered between the medial epicondyle and the olecranon. A 15 blade scalpel was used to go down through the skin. Tenotomyscissors was used to dissect down through the subcutaneous tissue until the fascia was identified. The ulnar nerve was palpable just proximal to the Smith's ligament. The fascia was pierced throughat this level identifying the ulnar nerve. Next, the fascia was released proximally by about 8 cm from the medial epicondyle. Next, the Smith's ligament was released in its more posterior border where it inserted into the olecranon. Next, the fascia overlying the flexor pronator muscle mass was re leased. The muscle was bluntly dissected through and the fascia underneath the muscle mass was released as well. This went as far distal as 8 cm from the medial epicondyle. Next, the elbow was taken through flexion and extension. The nerve did not subluxate anterior to the medial epicondyle and therefore was not transposed. The wound was irrigated with normal saline solution and closed with a 4-0PDS inverted interrupted and a 5-0 nylon simple interrupted stitch. Local was given using 0.75% Marcaine without Epinephrine. Xeroform was placed along with sterile dressing and Minor bandage. The tourniquet was let down, fingers pinked up well, and he was brought to the recovery room in good condition. #[id number] /ROSEMARIE documented in this encounter Plan of Treatment Not on file documented as of this encounter Procedures Procedure Name Priority Date/Time Associated Diagnosis Comments REVISE ULNAR NERVE AT ELBOW 01/11/2022 12:07 PM CDT right carpal tunnel syndrome, right cubital tunnel syndrome Case Notes General/axillary block WRIST ARTHROSCOP,RELEAS E XVERS LIG 01/11/2022 12:07 PM CDT right carpal tunnel syndrome, right cubital tunnel syndrome Case Notes General/axillary block US GD NDL PLACEMENT ANES Today 01/11/2022 10:04 AM CDT documented in this encounter Results * US GD NDL PLACEMENT ANES (01/11/2022 10:04 AM CDT) Anatomical Region Laterality Modality NA Ultrasound 01/11/2022 8:44 AM CDT Narrative 01/11/2022 8:44 AM CDT This report does not contain a radiologist's interpretation. Please review associated procedure and/or operative report. Procedure Note Javier Baltazar MD - 01/11/2022 This report does not contain a radiologist's interpretation. Please review associated procedure and/or operative report. us Janett Srinivasan MD ULTRASOUND Final Result documented in this encounter Visit Diagnoses Not on filedocumented in this encounter Administered Medications Inactive Administered Medications - up to 3 most recent administrations Medication Order MAR Action Action Date Dose Rate Site acetaminophen (TYLENOL) tablet 1,000 mg 1,000 mg, Oral, Once, 1 dose, On Mon01/11/22 at 1030, Maximum dose of acetaminophen is 4000 mg from all sources in 24 hours., Pre-Op Given 01/11/2022 10:51 AM CDT 1,000 mg gabapentin (NEURONTIN) capsule 300 mg 300 mg, Oral, Once, 1 dose, On Mon01/11/22 at 1030, Pre-Op Given 01/11/2022 10:52 AM CDT 300 mg lactated ringers infusion at 10 mL/hr, Intravenous, Continuous, Starting on Mon01/11/22 at 1030, Until Mon01/11/22 at 1708, Infuse at TKO rate, Pre-Op Continued by Anesthesia 01/11/2022 12:07 PM CDT 10 mL/hr New Bag 01/11/2022 10:52 AM CDT 10 mL/hr ondansetron (ZOFRAN-ODT) disintegrating tablet 8 mg 8 mg, Oral, Once, 1 dose, On Mon01/11/22 at 1030, On admission, Pre-Op Given 01/11/2022 10:52 AM CDT 8 mg documented in this encounter Active and Recently Administered Medications Times are shown in CDT. Scheduled Medication Order 01/09/2022 01/10/2022 01/11/2022 acetaminophen (TYLENOL) tablet 1,000 mg (COMPLETED) 1,000 mg, Oral, Once, 1 dose, On Mon01/11/22 at 1030, Maximum dose of acetaminophen is 4000 mg from all sources in 24 hours., Pre-Op 1051 (Given - Provid er: Marnie Stevens RN - Comment: given pre op for post op pain) gabapentin (NEURONTIN) capsule 300 mg (COMPLETED) 300 mg, Oral, Once, 1 dose, On Mon01/11/22 at 1030, Pre-Op 1052 (Given - Provid er: Marnie Stevens RN) ondansetron (ZOFRAN-ODT) disintegrating tablet 8 mg (COMPLETED) 8 mg, Oral, Once, 1 dose, On Mon01/11/22 at 1030, On admission, Pre-Op 1052 (Given - Provid er: Marnie Stevens RN) Continuous Medication Order 01/09/2022 01/10/2022 01/11/2022 lactated ringers infusion at 10 mL/hr, Intravenous, Continuous, Starting on Mon01/11/22 at 1030, Until Mon01/11/22 at 1708, Infuse at TKO rate, Pre-Op 1052 (New Bag - Prov ider: Marnie Stevens RN)1207 (Continued by Anesthesia - Provider: Cliff Nugent CRNA)1256 (Anesthesia Volume Adjustment - Provider: Cliff Nugent CRNA)1350 (Infusion Stop Time - Provider: Manrie Stevens RN) PRN Medication Order 01/09/2022 01/10/2022 01/11/2022 bupivacaine (PF) (MARCAINE) 0.75 % injection (CANCELED) As needed, Starting on Mon01/11/22 at 1251, Until Mon01/11/22 at 1312, Intra-Op 1251 (Given - Provid er: Janett Srinivasan MD) documented in this encounter
--- OUTSIDE RECORDS SUMMARY | 2024-03-05 21:49 | XMS_ITS | Encounter Summary ---
Author Organization [facility] Address [facility] [place] [address] [place] [address] Care Team Providers Care Branch Operations Specialist Name Role Phone Unavailable Primary Care Provider Unavailabl e Encounter Details Date Type Department Care Team (Late st Contact Info) Description 12/09/2010 Abstract [facility] [place] [place], [place] [address] Jorje Lainez, [address] [place] [address] [address] [place] [address] Social History Tobacco Use Types Packs/Day Years Used Date Smoking Tobacco: Never Assessed Sex and Gender Information Value Date Recorded Sex Assigned at Not on file Legal Sex Male 4:30 PM CDT Gender Identity Not on file Sexual Orientation Not on file documented as of this encounter Plan of Treatment Not on file documented as of this encounter Visit Diagnoses Diagnosis Other and unspecified hyperlipidemia documented in this encounter
--- OUTSIDE RECORDS SUMMARY | 2024-03-05 21:49 | XMS_ITS | Encounter Summary ---
Author Organization [facility] Address [address] [place] [address]. [place], [place] [address] [place] [address] Care Team Providers Care Director Design Name Role Phone Jorje Lainez Primary Care Provider [phone] Encounter Details Date Type Department Care Team (Late st Contact Info) Description 01/23/2024 Prep for Procedure [facility] [place] [address] Ruben Miller MD [address] [facility] [address] [place] [address] Social History Tobacco Use Types Packs/Day Years [...] on file documented as of this encounter Results * URINALYSIS (01/25/2024 3:35 PM LANDCARE OFFICER) SPECIMEN TYPE URINE CLEAN CATCH 01/25/2024 3:30 PM LANDCARE OFFICER [facility] COLOR (U) LIGHT YELLOW 01/25/2024 5:07 PM LANDCARE OFFICER [facility] TRANSPARENCY CLEAR 01/25/2024 5:07 PM [facility] SPECIFIC GRAVITY (U) 1.016 1.001 - 1.030 01/25/2024 5:07 PM [facility] U PH 6.5 5.0 - 9.0 01/25/2024 5:07 PM [facility] LEUKOCYTES (U) NEGATIVE NEGATIVE 01/25/2024 5:07 PM [facility] NITRITES NEGATIVE NEGATIVE 01/25/2024 5:07 PM [facility] PROTEIN RANDOM (U) NEGATIVE <30 MG/DL 01/25/2024 5:07 PM [facility] GLUCOSE (U) NORMAL NORMAL MG/DL 01/25/2024 5:07 PM [facility] KETONES MG/DL (U) NEGATIVE NEGATIVE MG/DL 01/25/2024 5:07 PM [facility] UROBILINOGEN NORMAL NORMAL MG/DL 01/25/2024 5:07 PM [facility] BILIRUBIN (U) NEGATIVE NEGATIVE MG/DL 01/25/2024 5:07 PM [facility] BLOOD (U) NEGATIVE NEGATIVE 01/25/2024 5:07 PM [facility] URINE SPECIMEN OBTAINED BY CLEAN CATCH PROCEDURE / Unknown 01/25/2024 3:35 PM LANDCARE OFFICER us Ruben Miller MD URINE ORDERABLES Final Re sult [facility] [address] [place] [address], [place] [phone] * (ABNORMAL) URINE BACTERIA CULTURE (01/25/2024 3:35 PM LANDCARE OFFICER) SPEC DESCRIPTION URINE CLEAN CATCH 01/25/2024 3:30 PM LANDCARE OFFICER [facility] SPECIAL REQUESTS NO SPECIAL REQUEST 01/25/2024 3:30 PM LANDCARE OFFICER [facility] CULTURE RESULT 10,000-49,000 COL/ML DIPHTHEROIDS SUSCEPTIBILTY NOT ROUTINELY PERFORMED. SAVING ISOLATE FOR 5 DAYS. CONTACT MICROBIOLOGY DEPARTMENT IF FURTHER WORKUP IS INDICATED. (A) 01/27/2024 1:55 PM LANDCARE OFFICER [facility] URINE SPECIMEN OBTAINED BY CLEAN CATCH PROCEDURE / Unknown 01/25/2024 3:35 PM LANDCARE OFFICER 01/25/2024 3:43 PM LANDCARE OFFICER us Ruben Miller MD MICROBIOLOGY - GENERAL OR DERABLES Final Result [facility] [address] [place] [address], documented in this encounter Visit Diagnoses Diagnosis Hypertrophy of prostate with urinary obstruction- Primary Hypertrophy of prostate with urinary obstruction and other lower urinary tract symptoms (LUTS) Urinary frequency Male hypogonadism Other testicular hypofunction documented in this encounter Care Teams Director Design Relationship Specialty Start Date End Date Jorje Lainez DO PCP - General FAMILY PRACTICE 08/12/22 documented as of this encounter
--- OUTSIDE RECORDS SUMMARY | 2024-03-05 21:49 | XMS_ITS | Encounter Summary ---
Author Organization [facility] Address [facility] [place] [address] [place] [address] Care Team Providers Care Bakery Machine Mechanic Name Role Phone Unavailable Primary Care Provider Unavailabl e Encounter Details Date Type Department Care Team (Late st Contact Info) Description 02/01/[address] [facility] [address] [place] [address] , Javier Benitez MD Social History Tobacco Use Types Packs/Day Years [...]
--- OUTSIDE RECORDS SUMMARY | 2024-03-05 21:49 | XMS_ITS | Encounter Summary ---
Author Organization [facility] Address [facility]6 [facility] [place] [address] [place] [address] Care Team Providers Care Manager Cancer Name Role Phone Unavailable Primary Care Provider [...] Expiration Date Visits Re quested Visits Authorized [id number] 1 1 Encounter Details Date Type Department Care Team (Late st Contact Info) Description 01/11/2022 12:07 PM CDT Anesthesia Event [facility] [place] [address] [place] [address] Cliff Nugent CRNA [address] [place] [id number] Angel Skinner MD [address] [facility] [address] [place] [address] Anesthesia Record Procedure Summary Procedure Name Responsible Anesthesiologist Anesthesia Start Time Anesthesia Stop Time RIGHT ENDOSCOPIC CARPAL TUNNEL RELEASE (Right: Wrist) Cliff Nugent CRNA 01/11/22 1207 01/11/22 1312 Events Date Time Event Comment 01/11/2022 1015 1015 AN Anesthesia Prepped 1142 AN HELP DESK OPERATOR Prepped 1207 An Start Patient ID and consent checked and patient reassessed. 1207 An Start Data 1210 Face Mask Applied 1212 An Induction The patient was reevaluated immediately before moderate or deep sedation use and before anesthesia induction. 1214 Bite Block Inserted 1214 Anesthesia Ready 1223 An Tourn Inflated 250 mmhg 1255 An Tourn Deflated 1259 Face Mask Removed 1312 An Emergence 1312 an stop data 1312 Post Anesthetic Care Handoff I completed my handoff to the receiving nurse during which we: 1. Identified the patient 2. Identified the responsible provider 3. Reviewed the pertinent medical history 4. Discussed the surgical course 5. Reviewed intra-op anesthesia management and issues during anesthesia 6. Set expectations for post-procedure period 7. Allowed opportunity for questions and acknowledgement of understanding. 1312 An Stop Meds Name Total midazolam 2 mg/2 mL injection 3 mg ROpivacaine 0.5% injection 30 mL lidocaine 2%-EPINEPHrine 1:200,000 injec tion 15 mL dexamethasone (DECADRON) PF 10 mg/mL inj ection 10 mg fentaNYL (SUBLIMAZE) 100 mcg/2 mL inject ion 50 mcg propofol (DIPRIVAN) 200 mg/20 mL injecti on 739.93 mg lidocaine (PF) (XYLOCAINE) 1% injection 50 mg ceFAZolin (ANCEF) 1 g injection 3 g lactated ringers infusion 900 mL * Agents Name O2 N2O Air Ancillary O2 * Blood No blood administrations on file. Lines, Drains, and Airways Type Details Placement Removal Peripheral IV Placement Date: 01/11/22; Placement Time: 1052; Size: 20 G; Orientation: Left; Site Prep: Chlorhexidine; Insertion attempts: 1; Patient Tolerance: Tolerated well; Removal Date: 01/11/22; Removal Time: 1350; Removal Reason: Therapy Completed 01/11/22 1052 by Marnie Stevens RN 01/11/22 1350 by Marnie Stevens RN Supraglottic Airway Placement Date: 01/11/22; Placement Time: 1142; Airway Device: Facemask; Placed By: LISA; Breath Sounds:Clear bilaterally, Equal bilaterally; Breath Sound:Clear Bilaterally; Placement Verified By: Capnography; Removal Date: 01/11/22; Removal Time: 1259; Removal Person: LISA; Removal Reason: End of Case 01/11/22 1142 by Cliff Nugent CRNA 01/11/22 1259 by Cliff Nugent CRNA Surgical/Incision 01/11/22; 1249; Surgical Wound; Other (Comment); Right; Right Arm: closed with sutures- xeroform, kerlix fluffs, kerlix roll, ge wrap x2; 01/11/22; 1708 01/11/22 1249 by Alicia Jamison RN 01/11/22 1708 by Automatic Discharge Provider documented in this encounter Social History Tobacco [...] AM CDT documented as of this encounter OR Notes * Anesthesia Postprocedure Evaluation - Cliff Nugent CRNA - 01/12/2022 9:15 AM CDT Anesthesia Post-op Note Benja Gallagher Procedure(s): RIGHT ENDOSCOPIC CARPAL TUNNEL RELEASE (Right Wrist) RIGHT CUBITAL TUNNEL RELEASE (Right Arm Lower) Anesthesia type: general Vitals: 01/11/22 1345 BP: (!) 154/76 Vitals: 01/11/22 1400 Pulse: 58 Vitals: 01/11/22 1400 Resp: 18 Vitals: 01/11/22 1321 Temp: 36.6 ??C Vitals: 01/11/22 1400 SpO2: 96% Patient Location: Phase II/Outpatient Level of Consciousness: awake, alert and oriented Pain Management: adequate analgesia Airway Patency: patent Respiratory Status: acceptable Cardiovascular Status: acceptable Post-Op Nausea: none Postoperative Hydration: euvolemic There were no known complications for this encounter. * Anesthesia Procedure Notes - Angel Skinner MD - 01/11/2022 11:24 AM CDT Associated Order(s): Peripheral Block Peripheral Block Performed by: Angel Skinner MD Authorized by: Angel Skinner MD Procedure Start: 01/11/2022 11:10 AM Procedure Stop: 01/11/2022 11:15 AM Patient Location: Pre-op Reason for Block: at surgeon's request and post-op pain management patient identified, IV checked, site marked, risks and benefits discussed, consent, monitors and equipment checked, pre-op evaluation and timeout performed Patient Position: Semi-recumbent Monitoring: Blood pressure, continuous pulse ox, ECG/EKG and heart rate Prep: Alcohol swabs Draping: Sterile technique maintained Block Type: Axillary Laterality: Right Injection Technique: Single-shot Technique: ultrasound guided Needle Type: Stimuplex Needle Gauge: 22 G Needle Length: 4 in Needle Localization: Anatomical landmarks and ultrasound guidance Local Volume: 45 Insertion Attempts: 1 Injection Assessment/ Attestation: Incremental injection, local visualized surrounding nerve on ultrasound, negative aspiration for heme, no apparent complications, no paresthesia on injection, ultrasound image saved and well tolerated Consent for Axillary block obtained per request of Dr. Srinivasan. Pt in semirecumbent position with right forearm flexed behind head. 2 mg of IV midazolam given IVP. Right axilla prepped with chlorprep. Using ultrasound and #22 G stimuplex nerve block needle Axillary block done by injecting 30 ml of 0.5 % Ropivacaine+ 15 ml of 2% Lidocaine with epi 1:200,000 and 10 mg of PF Dexamethasone in 5 ml increments with intermittent aspirations. Pt tolerated procedure well. Vitals stable. O2 via Nasal canula * Anesthesia Preprocedure Evaluation - Angel Skinner MD - 01/11/2022 10:13 AM CDT Anesthesia ROS/MED History Reviewed: Patient summary , Family history anesthesia, Anesthesia history , Medications , Unchecked boxes arenot applicable Pre-Anesthetic State: alert, awake and responds appropriately no history of anesthetic complications Pulmonary (+) sleep apnea, (CPAP)(-) asthma, smoker Cardiovascular (+) hypertension, (well controlled)(-) past ID, CAD, angina Neuro/Psych neg neuro/psych ROS (-) no TIA, no CVA, no substance use GI/Hepatic/Renal (+) GERD, (well controlled)(-) liver disease, renal disease Endo/Other (+) obese (-) diabetes, hypothyroidism, hyperthyroidism, arthritis, blood dyscrasia GENERAL COMMENTS -- Contrast (Iodine) -- Rash -- Morphine -- Rash and Swelling Past Medical History: No date: Hypertension Past Surgical History: No date: APPENDECTOMY No date: PC ANESTH LOWER LEG BONE SURG; Right No date: SCREENING COLONOSCOPY Physical Evaluation Airway Mallampati: II TM Distance: >3 FB Neck ROM: normal Dental No notable dental history Pulmonary Pulmonary exam normal Breath sounds clear to auscultation Cardiovascular Rhythm: regular Rate: normal Cardiovascular exam normal Anesthesia Plan ASA 2 Intravenous Induction Anesthesia type: general Plan for Airway: nasal cannula/simple face mask and LMA Plan for Post-op Pain Plan: block, as per surgeon, oral pain medication and IV analgesics Discussed potential risks of preoperative placement of regional nerve blockade (see procedure note)and General Anesthesia including but not limited to corneal abrasion, visual impairment or visual loss, mouth injury, dental damage, sore throat, hoarseness, esophageal injury, awareness under anesthesia, nerve injury, nerve injury due to positioning, aspiration, pneumonia, stroke, cardiac event, adverse drug reactions and . TIVA vs Gen with LMA and Axillary block for post op analgesia per surgeon's request Informed Consent Anesthetic plan and risks discussed with patient of whom consent was obtained. . documented in this encounter Plan of Treatment Not on file documented as of this encounter Procedures Procedure Name Priority Date/Time Associated Diagnosis Comments VA AN PERIPHERAL BLOCK SINGLE-SHOT Routine 01/11/2022 11:24 AM CDT documented in this encounter Results * VA AN PERIPHERAL BLOCK SINGLE-SHOT (01/11/2022 11:24 AM CDT) Narrative Angel Skinner MD - 01/11/2022 11:24 AM CDT Angel Skinner MD ? 01/11/2022 11:40 AM Peripheral Block Performed by: Angel Skinner MD Authorized by: Angel Skinner MD Procedure Start: ??01/11/2022 11:10 AM Procedure Stop: ??01/11/2022 11:15 AM Patient Location: ??Pre-op Reason for Block: at surgeon's request and post-op pain management ?? patient identified, IV checked, site marked, risks and benefits discussed, consent, monitors and equipment checked, pre-op evaluation and timeout performed ?? Patient Position: ??Semi-recumbent Monitoring: ??Blood pressure, continuous pulse ox, ECG/EKG and heart rate Prep: Alcohol swabs ?? Draping: ??Sterile technique maintained Block Type: ??Axillary Laterality: ??Right Injection Technique: ??Single-shot Technique: ultrasound guided ?? Needle Type: ??Stimuplex Needle Gauge: ??22 G Needle Length: ??4 in Needle Localization: ??Anatomical landmarks and ultrasound guidance Local Volume: ??45 Insertion Attempts: ??1 Injection Assessment/ Attestation: ??Incremental injection, local visualized surrounding nerve on ultrasound, negative aspiration for heme, no apparent complications, no paresthesia on injection, ultrasound image saved and well tolerated Consent for Axillary block obtained per request of Dr. Srinivasan. Pt in semirecumbent position with right forearm flexed behind head. 2 mg of IV midazolam given IVP. Right axilla prepped with chlorprep. Using ultrasound and #22 G stimuplex nerve block needle Axillary block done by injecting 30 ml of 0.5% Ropivacaine+ 15 ml of 2% Lidocaine with epi 1:200,000 and 10 mg of PF Dexamethasone in 5 ml increments with intermittent aspirations. Pt tolerated procedure well. Vitals stable. O2 via Nasal canula us Angel Skinner MD [facility] ANESTHESIA Edited Result - Final documented in this encounter Visit Diagnoses Not on filedocumented in this encounter Administered Medications Inactive Administered Medications - up to 3 most recent administrations Medication Order MAR Action Action Date Dose Rate Site ceFAZolin (ANCEF) injection Intravenous, PRN, Starting on Mon01/11/22 at 1211, Until Mon01/11/22 at 1312, Anesthesia Intra-Op Given 01/11/2022 12:11 PM CDT 3 g dexamethasone PF (DECADRON) injection Other, PRN, Starting on Mon01/11/22 at 1115, Until Mon01/11/22 at 1312, Anesthesia Intra-Op Given 01/11/2022 11:15 AM CDT 10 mg fentaNYL (SUBLIMAZE) injection Intravenous, PRN, Starting on Mon01/11/22 at 1209, Until Mon01/11/22 at 1312, Anesthesia Intra-Op Given 01/11/2022 12:09 PM CDT 50 mcg lactated ringers infusion at 10 mL/hr, Intravenous, Continuous, Starting on Mon01/11/22 at 1030, Until Mon01/11/22 at 1708, Infuse at TKO rate, Pre-Op Continued by Anesthesia 01/11/2022 12:07 PM CDT 10 mL/hr New Bag 01/11/2022 10:52 AM CDT 10 mL/hr lidocaine (PF) (XYLOCAINE) 1 % injection Intravenous, PRN, Starting on Mon01/11/22 at 1212, Until Mon01/11/22 at 1312, Anesthesia Intra-Op Given 01/11/2022 12:12 PM CDT 50 mg lidocaine-EPINEPHrine 2 %-1:[id number] injection Other, PRN, Starting on Mon01/11/22 at 1115, Until Mon01/11/22 at 1312, Anesthesia Intra-Op Given 01/11/2022 11:15 AM CDT 15 mLs midazolam (VERSED) injection Intravenous, PRN, Starting on Mon01/11/22 at 1111, Until Mon01/11/22 at 1312, Anesthesia Intra-Op Given 01/11/2022 12:09 PM CDT 1 mg Given 01/11/2022 11:11 AM CDT 2 mg propofol (DIPRIVAN) IV bolus Intravenous, PRN, Starting on Mon01/11/22 at 1212, Until Mon01/11/22 at 1312, Anesthesia Intra-Op Rate/Dose Change 01/11/2022 12:47 PM CDT 120 mcg/kg/min 78.408 mL/hr Rate/Dose Change 01/11/2022 12:42 PM CDT 140 mcg/kg/min 91 .476 mL/hr New Bag 01/11/2022 12:13 PM CDT 160 mcg/kg/min 104.544 mL/hr ropivacaine (NAROPIN) injection Other, PRN, Starting on Mon01/11/22 at 1114, Until Mon01/11/22 at 1312, Anesthesia Intra-Op Given 01/11/2022 11:14 AM CDT 30 mLs documented in this encounter
--- OUTSIDE RECORDS SUMMARY | 2024-03-05 21:49 | XMS_ITS | Encounter Summary ---
Author Organization [facility] Address [facility]6 [facility]. [place], [place] [address] [place] [address] Care Team Providers Care Reticle Printer Name Role Phone Jorje Lainez DO Primary Care Provider [phone] Encounter Details Date Type Department Care Team (Latest Contact Info) Description 02/01/2023 Travel Social History Tobacco Use Types Packs/Day [...] on filedocumented in this encounter Care Teams Reticle Printer Relationship Specialty Start Date End Date Jorje Lainez DO PCP - General FAMILY PRACTICE 08/12/22 documented as of this encounter
--- OUTSIDE RECORDS SUMMARY | 2024-03-05 21:49 | XMS_ITS | Encounter Summary ---
Author Organization [facility] Address [facility]6 [facility]. [place], [place] [address] [place] [address] Care Team Providers Care Vulnerability Assessment Analyst Name Role Phone Jorje Lainez DO Primary Care Provider [phone] Encounter Details Date Type Department Care Team (Latest Contact Info) Description 09/14/2022 Travel Social History Tobacco Use Types Packs/Day [...] on filedocumented in this encounter Care Teams Vulnerability Assessment Analyst Relationship Specialty Start Date End Date Jorje Lainez DO PCP - General FAMILY PRACTICE 08/12/22 documented as of this encounter
--- OUTSIDE RECORDS SUMMARY | 2024-03-05 21:49 | XMS_ITS | Encounter Summary ---
Author Organization [facility] Address [facility]6 [facility]. [place], [place] [address] [place] [address] Care Team Providers Care Sample Tailor Name Role Phone Jorje Lainez DO Primary Care Provider [phone] Encounter Details Date Type Department Care Team (Latest Contact Info) Description 01/31/2023 Travel Social History Tobacco Use Types Packs/Day [...] on filedocumented in this encounter Care Teams Sample Tailor Relationship Specialty Start Date End Date Jorje Lainez DO PCP - General FAMILY PRACTICE 08/12/22 documented as of this encounter
--- OUTSIDE RECORDS SUMMARY | 2024-03-05 21:49 | XMS_ITS | Encounter Summary ---
Author Organization [facility] Address [facility]6 [facility]. [place], [place] [address] [place] [address] Care Team Providers Care Inspector Aide Name Role Phone Jorje Lainez Primary Care Provider [phone] Reason for Visit * Auth/Cert (Routine) Specialty Diagnoses / Procedures Referred By Star t Referred To Contact Diagnoses BENIGN PROSTATIC HYPERTROPHY WITH URINARY OBSTRUCTION, FREQUENCY OF MICTURITION N40.1, R35.0, E29.1 Procedures FLEXIBLE CYSTOSCOPY Marley Ibrahim MD 3 [facility] [address] [place] [address] Phone: tel: fax: Referral ID Status Reason Start Date Expiration Date Visits Re quested Visits Authorized [id number] 1 1 Encounter Details Date Type Department Care Team (Late st Contact Info) Description 02/07/2023 7:30 AM SUPERVISOR CAB - 02/07/2023 8:25 AM SUPERVISOR CAB Surgery [place] [address] Marley Ibrahim MD 3 [facility] [address] [place] [id number] FLEXIBLE CYSTOSCOPY Surgery Details Date/Time Status Location OR Service Patient Class Case Class Case Type Trauma Case? 02/07/2023 7:30 AM Posted [facility] OR OR 10 Urology Short Stay/Outpat ient Surgery E - Elective No Panel 1 Procedure LRB Anes Op Region Wound Class Comments FLEXIBLE CYSTOSCOPY N/A Choice Bladder Clean Cont aminated Surgeon Surgeon Role Service Panel Marley Ibrahim MD Primary Urology 1 Case Notes SCHED BY FAX 01/16/2023 LCS PHONE ASSESS documented in this encounter Social History Tobacco Use Types Packs/Day Years Used Date Smoking Tobacco: Former Cigarettes 1.5 30 1 977 - 2006 Smokeless Tobacco: Never Tobacco Cessation:Counseling Given: Not [...] Sign Reading Time Taken Comments Blood Pressure 125/74 02/07/2023 8:20 AM SUPERVISOR CAB Pulse 62 02/07/2023 8:20 AM SUPERVISOR CAB Temperature 36.8 ??C (98.2 ??F) 02/07/2023 8:12 AM CS T Respiratory Rate 18 02/07/2023 8:20 AM SUPERVISOR CAB Oxygen Saturation 96% 02/07/2023 8:20 AM SUPERVISOR CAB Inhaled Oxygen Concentration - - Weight 109.8 kg (242 lb 1 oz) 02/07/2023 6:48 AM SUPERVISOR CAB Height 177.8 cm (5' 10 ) 02/07/2023 6:48 AM SUPERVISOR CAB Body Mass Index 34.73 02/07/2023 6:48 AM SUPERVISOR CAB documented in this encounter Discharge Instructions * Discharge Instructions* Lacey Chew RN - 02/07/2023 7:55 AM SUPERVISOR CAB Call if excessive bleeding, voiding difficulties, fevers [...] questions or concerns, please call your surgeon. RVISOR CAB RVISOR CAB RVISOR CAB * Attachments The following attachments cannot be sent through Care Everywhere. * Cystoscopy Discharge Instructions (Puerto Rican) * General Anesthesia Discharge Instructions (Puerto Rican) documented in this encounter Medications at Time [...] Marley Ibrahim MD PCP: DO Benja SMITH Joselito Gallagher is an 62-year-old male. Reason for Admission: [...] pack years: 45.00 Types: Cigarettes Quit date: 2006 Years since quittin.8 Smokeless tobacco: Never Substance [...] PHYSICAL INTERVAL NOTE: I have reviewed Benja Gallagher History & Physical which was performed within the past 30 days. After examining Benja Gallagher, no change has occurred in the patient's condition since the H&P was completed. Informed Consent Discussion: Potential benefits, risks, and side effects of the patient's procedure/surgery; the likelihood of the patient achieving his or her goals; and any potential problems that might occur during recuperation were discussed with the patient/family/personal field representative/health education. Reasonable alternatives to the patient's proposed procedure/surgery including benefits, risks, and side effects related to the alternatives and the risks related to not receiving the proposed care were also discussed with the patient/family/personal field representative/health education. Questions were answered and the patient /family/personal field representative/health education verbalized understanding and desires to proceed. RVISOR CAB documented in this encounter OR Notes * [...] appropriate patient identifiers were used a 16 Maltese flexible cystoscope was inserted urethra the urethra [...] * Implants: None Disposition: PACU Condition: stable RVISOR CAB * OR PreOp - Jessica Villanueva CNP - 02/02/2023 10:40 AM CST Chart reviewed. Per phone interview, patient denies any SOB/CP with 2 FOS or recent changes in activity tolerance in past 6 months. Per phone interview, patient denies having a phone specialist or previous cardiac testing. EKG found in Care Everywhere copied. EKG 08/06/21 normal sinus rhythm Left axis deviation Abnormal ECG When compared with ECG of 19-SEP-2000 09:47, No significant change was found Rate 66 RVISOR CAB * OR PreOp - Leslie Ni RN - 01/31/2023 10:54 AM CST Can you climb 2 flights of stairs without severe SOB or chest pain? Yes Are you physically able to do the same things today as 6 months ago? Yes Have you had any heart testing? None recently Avg BP? 140/80's Do you have a phone specialist? No Emailed patient his instructions, verbalized understanding. RVISOR CAB RVISOR CAB documented in this encounter Plan of Treatment Not on file documented as of this encounter Procedures Procedure Name Priority Date/Time Associated Diagnosis Comments CYSTOSCOPY FLEXIBLE 02/07/2023 7 :27 AM SUPERVISOR CAB BENIGN PROSTATIC HYPERTROPHY WITH URINARY OBSTRUCTION, FREQUENCY OF MICTURITION N40.1, R35.0, E29.1 Case Notes SCHED BY FAX 01/16/2023 LCS PHONE ASSESS documented in this encounter Visit Diagnoses Not on filedocumented in this encounter Administered Medications Inactive Administered Medications - up to 3 most recent administrations Medication Order MAR Action Action Date Dose Rate Site famotidine (PEPCID) tablet 20 mg 20 mg, Oral, Once, 1 dose, On Mon02/07/23 at 0615, On admission, Pre-Op Given 02/07/2023 6:41 AM SUPERVISOR CAB 20 mg lactated ringers infusion at 10 mL/hr, Intravenous, Continuous, Starting on Mon02/07/23 at 0615, Until Mon02/07/23 at 1154, Infuse at TKO rate, Pre-Op Restarted 02/07/2023 7:28 AM SUPERVISOR CAB Continued by Anesthesia 02/07/2023 7:27 AM SUPERVISOR CAB 10 mL/hr New Bag 02/07/2023 6:41 AM SUPERVISOR CAB 10 mL/hr lidocaine 2 % URO-JET jelly As needed, Starting on Mon02/07/23 at 0735, Until Mon02/07/23 at 0741, Intra-Op Given 02/07/2023 7:35 AM SUPERVISOR CAB 1 Application. Operative Site ondansetron (ZOFRAN-ODT) disintegrating tablet 8 mg 8 mg, Oral, Once, 1 dose, On Mon02/07/23 at 0615, On admission, Pre-Op Given 02/07/2023 6:41 AM SUPERVISOR CAB 8 mg documented in this encounter Active and Recently Administered Medications Times are shown in SUPERVISOR CAB. Scheduled Medication Order 02/05/2023 02/06/2023 02/07/2023 ceFAZolin (ANCEF) 2 g in NS 100 mL IVPB (COMPLETED) 2 g, Intravenous, at 200 mL/hr, scallop cutter to O.R., 1 dose, First dose on [...] MD) documented in this encounter Care Teams Inspector Aide Relationship Specialty Start Date End Date Jorje Lainez DO PCP - General FAMILY PRACTICE 08/12/22 documented as of this encounter
--- OUTSIDE RECORDS SUMMARY | 2024-03-05 21:49 | XMS_ITS | Encounter Summary ---
Author Organization [facility] Address [address] [place] [address]. [place], [place] [id number] [place] [address] Care Team Providers Care Supervisor Self Service Store Name Role Phone Jorje Lainez Primary Care Provider [phone] Reason for Referral * Imaging (Routine) - Closed Specialty Diagnoses / Procedures Referred By Barbieac t Referred To Contact RADIOLOGY Diagnoses Screening for heart disease Procedures CT HEART DIAG CALCIUM SCORE Otis Bass MD [address] [place] [address] Phone: tel: fax: Referral ID Status Reason Start Date Expiration Date Visits Re quested Visits Authorized [id number] Closed 08/12/2022 09/12/2023 1 1 Reason for Visit * Imaging (Routine) - Closed Specialty Diagnoses / Procedures Referred By Contac t Referred To Contact RADIOLOGY Diagnoses Screening for heart disease Procedures CT HEART DIAG CALCIUM SCORE Otis Bass MD [address] [place] [address] Phone: tel: fax: Referral ID Status Reason Start Date Expiration Date Visits Re quested Visits Authorized [id number] Closed 08/12/2022 09/12/2023 1 1 Encounter Details Date Type Department Care Team (Late st Contact Info) Description 09/14/2022 3:32 PM CDT - 09/14/2022 11:59 PM CDT Hospital Encounter [place] [address] [address] Otis Bass MD [address] [place] [address] Discharge Disposition: Home or Self Care (Routine [...] Name Priority Date/Time Associated Diagnosis Comments CT HEART DIAG CALCIUM SCORE Routine 09/14/2022 4:14 PM CDT Screening for heart disease documented in this encounter Results * CT HEART DIAG CALCIUM SCORE (09/14/2022 4:14 PM CDT) Anatomical Region Laterality Modality Computed Tomogra phy 09/15/2022 5:10 AM CDT Impressions 09/15/2022 5:13 AM CDT IMPRESSION:===== 1. Total Score: 28 Mild plaque, moderate risk, low likelihood of significant stenosis (<50%). 2. 3 mm pulmonary nodule. ??Fleischner Society guidelines recommend optional follow-up noncontrast chest CT in 12 months for high risk individuals. ??No specific follow-up indicated for low risk individuals. Any follow-up recommendations contained in this report for incidentally detected pulmonary nodules were made according to current recommended guidelines based at a minimum on nodule size and patient risk factors. Referred By: OTIS BASS Interpreted By: Glenn Thompson MD, 09/15/2022 5:10 AM Narrative 09/15/2022 5:13 AM CDT EXAMINATION: Multislice Helical CT Coronary Calcium Scoring EXAM DATE/TIME: 09/14/2022 3:59 PM REASON FOR EXAM: Screening for heart disease COMPARISON: None TECHNIQUE: ??Multislice helical CT images of the proximal coronary arteries with a computer generated calcification score. Automated exposure control was utilized for dose reduction. Results: Left main: 18.9 ?LAD: 9.1 Circumflex: 0 ? Right coronary: 0 ?? Total Score: 28 ? Comments: Multiple old left rib fractures in [id number]. ??Calcified granuloma in the superior segment left lower lobe. ??3 mm nodule posterior right lung on image 53 of series 3. ??Visualized central airways are patent. ??Calcified left hilar lymph nodes. ??No pericardial effusion. ??Visualized portion of thoracic aorta normal in caliber. ??No acute abnormalities in the visualized upper abdomen. ??Mild hepatic steatosis. Calcium score guidelines: Total Score* Calcium Plaque Kinsey ??*Risk ?*Probability of significant CAD 0 ?No Plaque ?Very Low ? Very unlikely 1-10 ?Minimal Plaque ? Low ?Unlikely 11-100 ?Mild Plaque ?Moderate ? Low likelihood of significant ? stenosis <50% ? 101-400 ? Moderate Plaque ?Moderately High ?Moderate likelihood of ? significant stenosis (>50%) Over 400 ?Extensive Plaque ? High ?High likelihood of ?significant stenosis (>50%) The amount of coronary artery calcification correlates with the severity of coronary atherosclerosis and the probability of future significant event. Calcification is not site specific for stenosis and does not identify non-calcified atherosclerotic plaque, but rather indicates the extent of atherosclerosis in the coronary arteries overall. The score may be used as an indicator for risk factor modification or additional cardiac testing. Significant change in calcium score over time may be indicative of subsequent disease development or useful as a benchmark to assess preventative programs. ===== Procedure Note Glenn Thompson MD - 09/15/2022 EXAMINATION: Multislice Helical CT Coronary Calcium Scoring EXAM DATE/TIME: 09/14/2022 3:59 PM REASON FOR EXAM: Screening for heart disease COMPARISON: None TECHNIQUE: Multislice helical CT images of the proximal coronary arterieswith a computer generated calcification score. Automated exposure controlwas utilized for dose reduction. Results: Left main: 18.9 LAD: 9.1 Circumflex: 0 Right coronary: 0 Total Score: 28 Comments: Multiple old left rib fractures in [id number]. Calcifiedgranuloma in the superior segment left lower lobe. 3 mm nodule posteriorright lung on image 53 of series 3. Visualized central airways arepatent. Calcified left hilar lymph nodes. No pericardial effusion.Visualized portion of thoracic aorta normal in caliber. No acuteabnormalities in the visualized upper abdomen. Mild hepatic steatosis. Calcium score guidelines: Total Score* Calcium Plaque Kinsey *Risk *Probability ofsignificant CAD 0 No Plaque Very LowVery unlikely 1-10 Minimal Plaque LowUnlikely 11-100 Mild Plaque ModerateLow likelihood of significant stenosis <50% 101-400 Moderate Plaque Moderately HighModerate likelihood of significant stenosis (>50%) Over 400 Extensive Plaque HighHigh likelihood of significant stenosis (>50%) The amount of coronary artery calcification correlates with the severityof coronary atherosclerosis and the probability of future significantevent. Calcification is not site specific for stenosis and does not identify non- calcifiedatherosclerotic plaque, but rather indicates the extent of atherosclerosisin the coronary arteries overall. The score may be used as an indicator for risk factor modification oradditional cardiac testing. Significant change in calcium score over timemay be indicative of subsequent disease development or useful as a benchmark to assess preventativeprograms. ===== IMPRESSION:===== 1. Total Score: 28 Mild plaque, moderate risk, low likelihood ofsignificant stenosis (<50%). 2. 3 mm pulmonary nodule. Fleischner Society guidelines recommendoptional follow-up noncontrast chest CT in 12 months for high riskindividuals. No specific follow- up indicated for low risk individuals. Any follow-up recommendations contained in this report for incidentallydetected pulmonary nodules were made according to current recommendedguidelines based at a minimum on nodule size and patient risk factors. Referred By: OTIS BASS Interpreted By: Glenn Thompson MD, 09/15/2022 5:10 AM us Otis Bass MD CT Final Res ult documented in this encounter Visit Diagnoses Diagnosis Screening for heart disease Screening for other and unspecified cardiovascular conditions documented in this encounter Care Teams Supervisor Self [employer] Store Relationship Specialty Start Date End Date Jorje Lainez DO PCP - General FAMILY PRACTICE 08/12/22 documented as of this encounter
--- OUTSIDE RECORDS SUMMARY | 2024-03-05 21:49 | XMS_ITS | Encounter Summary ---
Author Organization [facility] Address [facility]. [place], [place] [id number] [place] [address] Care Team Providers Care Toe Stapler Name Role Phone Deidra Lainez Primary Care Provider [phone] Reason for Visit * Auth/Cert (Routine) Specialty Diagnoses / Procedures Referred By Star t Referred To Contact Diagnoses BENIGN PROSTATIC HYPERTROPHY WITH URINARY OBSTRUCTION, FREQUENCY OF MICTURITION N40.1, R35.0, E29.1 Procedures CYSTOURETHROSCOPY US TRANSRECTAL CYSTOSCOPY AND TRANSRECTAL ULTRASOUND Marley Ibrahim MD [address] [facility] [address] [place] [address] Phone: tel: fax: Referral ID Status Reason Start Date Expiration Date Visits Re quested Visits Authorized [id number] 1 1 Encounter Details Date Type Department Care Team (Late st Contact Info) Description 01/31/2024 2:03 PM MANUFACTURER'S SERVICE REPRESENTATIVE - 01/31/2024 2:50 PM MANUFACTURER'S SERVICE REPRESENTATIVE Surgery [facility] [place], [place] [id number] Marley Ibrahim MD [address] [facility] [address] [place] [address] [phone] CYSTOSCOPY AND TRANSRECTAL ULTRASOUND Surgery Details Date/Time Status Location OR Service Patient Class Case Class Case Type Trauma Case? 01/31/2024 2:03 PM Posted [facility] OR OR 1 Urology Short Stay/Outpati ent Surgery E - Elective No Panel 1 Procedure LRB Anes Op Region Wound Class Comments CYSTOSCOPY AND TRANSRECTAL ULTRASOUND N/A Choice Anus Clean Contaminated Surgeon Surgeon Role Service Panel Marley Ibrahim MD Primary Urology 1 Case Notes SCHED BY FAX 01/19/2024 [facility] PHONE ASSESS Special Needs [facility] # [id number] documented in this encounter Social History Tobacco [...] Sign Reading Time Taken Comments Blood Pressure 125/76 01/31/2024 2:45 PM MANUFACTURER'S SERVICE REPRESENTATIVE Pulse 55 01/31/2024 2:50 PM MANUFACTURER'S SERVICE REPRESENTATIVE Temperature 36.1 ??C (97 ??F) 01/31/2024 2:45 PM MANUFACTURER'S SERVICE REPRESENTATIVE Respiratory Rate 15 01/31/2024 2:50 PM MANUFACTURER'S SERVICE REPRESENTATIVE Oxygen Saturation 99% 01/31/2024 2:50 PM MANUFACTURER'S SERVICE REPRESENTATIVE Inhaled Oxygen Concentration - - Weight 112.4 kg (247 lb 12.8 oz) 2023 11:00 AM MANUFACTURER'S SERVICE REPRESENTATIVE Height 177.8 cm (5' 10 ) 01/31/2024 11: 00 AM MANUFACTURER'S SERVICE REPRESENTATIVE Body Mass Index 35.56 01/31/2024 11:00 AM MANUFACTURER'S SERVICE REPRESENTATIVE documented in this encounter Discharge Instructions * Discharge Instructions* Gisselle Alberto RN - 01/31/2024 2:53 PM MANUFACTURER'S SERVICE REPRESENTATIVE Because you had anesthesia, we suggest these things: -Avoid greasy, fried or spicy foods for today -Have a responsible adult stay with you the rest of today and overnight -No alcohol, driving, making major decision or operating machinery for 24 hours or while taking pain medication If you have chest pain, shortness of [...] questions or concerns, please call your surgeon. FACTURER'S SERVICE REPRESENTATIVE FACTURER'S SERVICE REPRESENTATIVE FACTURER'S SERVICE REPRESENTATIVE * Attachments The following attachments cannot be sent through Care Everywhere. * Cystoscopy Discharge Instructions (Tongan) * Transrectal Ultrasound (Tongan) * General Anesthesia Discharge Instructions (Tongan) documented in this encounter Medications at Time [...] 7 days. documented as of this encounter H&P Notes * Marley Ibrahim MD - 01/31/2024 2:00 PM CST Attending Provider: Marley Ibrahim MD PCP: DEIDRA LAINEZ DO Benja Gallagher is an 63-year-old male. Reason for Admission: * No active hospital problems. * HPI: This is a 63-year-old gentleman with a history of BPH who underwent prostate artery embolization however only side was able to be treated he has persistent lower urinary tract symptoms despite this. He has persistent obstructive LUTS. He presents today for diagnostic cystoscopy and transrectal ultrasound to assess for change in bladder volume and evaluate his lower urinary tract. His urine culture showed 10-40 9K diphtheroids his urinalysis was otherwise unremarkable. Ultimately he is interested in undergoing a aqua ablation of the prostate Past Medical History: Diagnosis Date Acid reflux BPH with urinary obstruction High cholesterol Hypertension Obesity, unspecified Sleep apnea, unspecified no cpap Allergies: Allergies Allergen Reactions Contrast [Iodine] Rash Morphine Rash and Swelling Social History Tobacco Use Smoking status: Former Current packs/day: 0.00 Average packs/day: 1.5 packs/day for 30.0 years (45.0 ttl pk-yrs) Types: Cigarettes Start date: 1976 Quit date: 2006 Years since quittin.8 Smokeless tobacco: Never Substance Use Topics Alcohol use: Yes Alcohol/week: 6.7 standard drinks of alcohol Types: 4 Cans of beer per week Comment: social Past Surgical History: Procedure Laterality Date APPENDECTOMY CARPAL TUNNEL RELEASE CYSTOSCOPY 01/2023 HERNIA REPAIR x2 PC ANESTH LOWER LEG [...] 1 capsule (1.25 mg total) by mouth every7 days. Blood pressure (!) 140/78, pulse 64, temperature 98.1 ??F (36.7 ??C), temperature source Temporal, resp. rate 16, height 1.778 m (5' 10 ), weight 112.4 kg (247 lb 12.8 oz), SpO2 95%. Review of Systems Constitutional: Negative. Negative for chills and fever. HENT: Negative. Eyes: Negative. Respiratory: Negative. Cardiovascular: Negative. Gastrointestinal: Negative. Genitourinary: Negative. Musculoskeletal: Negative. Skin: Negative. Neurological: Negative. Endo/Heme/Allergies: Negative. Psychiatric/Behavioral: Negative. Physical Exam Constitutional: Appearance: Normal appearance. HENT: Head: Normocephalic and atraumatic. Mouth/Throat: Mouth: Mucous membranes are moist. Eyes: General: No scleral icterus. Cardiovascular: Rate and Rhythm: Normal rate and regular rhythm. Pulmonary: Effort: Pulmonary effort is normal. No respiratory distress. Breath sounds: No wheezing. Abdominal: General: Abdomen is flat. There is no distension. Tenderness: There is no abdominal tenderness. Neurological: General: No focal deficit present. Mental Status: He is alert and oriented to person, place, and time. Psychiatric: Mood and Affect: Mood normal. Assessment: BPH with LUTS Plan: Diagnostic cystoscopy, transrectal ultrasound Patient unable to tolerate this in the office plan for this here under IV sedation. The risk, benefits alternatives, nature the procedure and potential complications were reviewed he voiced understanding is agreeable proceed MARLEY IBRAHIM MD 01/31/2024 FACTURER'S SERVICE REPRESENTATIVE documented in this encounter Nursing Notes * Cathy Boyer RN - 01/31/2024 3:19 PM CSTSummary: PACU No complaints of eye pain or irritation, no redness noted upon discharge from PACU. FACTURER'S SERVICE REPRESENTATIVE * Cathy Boyer RN - 01/31/2024 3:00 PM CSTSummary: PACU Called patient's , [place] for update. FACTURER'S SERVICE REPRESENTATIVE * Sharon Garcia RN - 01/31/2024 2:59 PM CSTSummary: Intraoperative Nursing Note Warm blankets applied to the patient upon arrival to the OR. Patient's requested to be updated after the procedure by Dr. Ibrahim. FACTURER'S SERVICE REPRESENTATIVE documented in this encounter OR Notes * Op Note - Marley Ibrahim MD - 01/31/2024 2:48 PM CST CYSTOSCOPY AND TRANSRECTAL ULTRASOUND Procedure Note Indications: The patient underwent surgery on 01/31/2024 for BPH with LUTS. Procedure Details Description of procedure: Patient brought back to the operating room received a IV sedation via MAC, was prepped and draped in standard surgical fashion in the supine position baby soap to the genitalia. He received a preoperative dose of intravenous 2 g cefazolin. SCD boots were on and functional preoperatively for DVT prophylaxis. After appropriate timeout and appropriate patient identifiers were used, the urethra was anesthetized with use of 10 cc of 2% lidocaine jelly. A 16 Bruneian cystoscope was inserted into the urethra, the urethra was grossly normal, the prostatic urethra was obstructive with prostate had trilobar hyperplasia with a small ball valving 5 mm middle lobe. Endoscopy the bladder was performed in systematic fashion there were no papillary tumors, erythematous lesions foreign bodies or mucosal abnormalities visualized. He had single orthotopic bilateral ureter orifices effluxing clear yellow urine. There were no other anomalies seen. The scope was retroflexed to inspect the bladder neck the bladder neck appeared grossly normal. The cystoscope was removed. Patient was subsequently repositioned in the left lateral decubitus position, the transrectal ultrasound probewas inserted into the rectum and volume study was obtained. Prostate measured ~ 60 cc in size. 48mmW, 38.5mm H, 61.3mm L. Patient was awoken and transferred to postoperative recovery in stable condition there were no immediate complications I discussed the intraoperative findings with the family all questions answered. Findings: 60 cc prostate small middle lobe Complications: None immediate Estimated Blood Loss: Minimal Drains: Total IV Fluids: See anesthesia records Specimens: * No specimens in log * Implants: None Disposition: PACU Condition: stable FACTURER'S SERVICE REPRESENTATIVE * OR PreOp - Jessica Villanueva CNP - 01/23/2024 12:57 PM CST Chart reviewed. Per phone interview, patient denies any SOB/CP with 2 FOS or recent changes in activity tolerance in past 6 months. Per phone interview, patient denies having a foundation relations director. PreviousEKG in Care Everywhere and results copied. EKG 08/06/21 Normal sinus rhythm Left axis deviation Abnormal ECG When compared with ECG of 19-SEP-2000 09:47, No significant change was found Rate 66 FACTURER'S SERVICE REPRESENTATIVE * OR PreOp - Janessa Oro RN - 01/23/2024 11:41 AM CST Can you climb 2 flights of stairs without CP or extreme SOB? yes Are you physically able to do the same things today that you could 6 months ago? yes Any recent heart testing? (EKG, stress test, Echo?) no - see EKG 2021 - [facility] Do you see a foundation relations director? Who is it? No Will get urine test this week Instructions emailed to patient- patient received instructions Per Starla with Dr Ibrahim- keep consent order as it is and patient does not need to hold asa- patientaware Dr Ibrahim informed of urine culture- ok to proceed FACTURER'S SERVICE REPRESENTATIVE FACTURER'S SERVICE REPRESENTATIVE FACTURER'S SERVICE REPRESENTATIVE FACTURER'S SERVICE REPRESENTATIVE documented in this encounter Plan of Treatment Not on file documented as of this encounter Procedures Procedure Name Priority Date/Time Associated Diagnosis Comments BIOPSY PROSTATE TRANSRECTAL WITH ULTRASOUND 01/31/2024 2:24 PM MANUFACTURER'S SERVICE REPRESENTATIVE BENIGN PROSTATIC HYPERTROPHY WITH URINARY OBSTRUCTION, FREQUENCY OF MICTURITION N40.1, R35.0, E29.1 Case Notes SCHED BY FAX 01/19/2024 LCS PHONE ASSESS Special Needs [facility] # [phone] documented in this encounter Visit Diagnoses Not on filedocumented in this encounter Administered Medications Inactive Administered Medications - up to 3 most recent administrations Medication Order MAR Action Action Date Dose Rate Site lidocaine 2 % URO-JET jelly As needed, Starting on Mon01/31/24 at 1436, Until Mon01/31/24 at 1459, Intra-Op Given 01/31/2024 2:36 PM MANUFACTURER'S SERVICE REPRESENTATIVE 10 mLs Operative Site oxyCODONE immediate release (ROXICODONE) tablet 5 mg 5 mg, Oral, Once as needed, Mild pain (Scale 1 - 3), 1 dose, Starting on Mon01/31/24 at 1443, Until Mon01/31/24 at 1515, Do not administer if patient is overly sedated, SpO2 LESS than 90%, or Respiratory Rate LESS than 12., PACU Given 01/31/2024 3:15 PM MANUFACTURER'S SERVICE REPRESENTATIVE 5 mg documented in this encounter Active and Recently Administered Medications Times are shown in MANUFACTURER'S SERVICE REPRESENTATIVE. Scheduled Medication Order 01/29/2024 01/30/2024 01/31/2024 ceFAZolin (ANCEF) 2 g in NS 100 mL IVPB (COMPLETED) 2 g, Intravenous, at 400 mL/hr, body recall instructor to O.R., 1 dose, First dose on Mon01/31/24 at 1100, Pre-Op 1431 (New Bag - Prov ider: May Mathur CRNA) PRN Medication Order 01/29/2024 01/30/2024 01/31/2024 lidocaine 2 % URO-JET jelly (CANCELED) As needed, Starting on Mon01/31/24 at 1436, Until Mon01/31/24 at 1459, Intra-Op 1436 (Given - Provid er: Marley Ibrahim MD) oxyCODONE immediate release (ROXICODONE) tablet 5 mg (COMPLETED) 5 mg, Oral, Once as needed, Mild pain (Scale 1 - 3), 1 dose, Starting on Mon01/31/24 at 1443, Until Mon01/31/24 at 1515, Do not administer if patient is overly sedated, SpO2 LESS than 90%, or Respiratory Rate LESS than 12., PACU 1515 (Given - Provid er: Cathy Boyer RN - Comment: preventive) documented in this encounter Care Teams Toe Stapler Relationship Specialty Start Date End Date Deidra Lainez DO PCP - General FAMILY PRACTICE 08/12/22 documented as of this encounter
--- OUTSIDE RECORDS SUMMARY | 2024-03-05 21:49 | XMS_ITS | Data Portability ---
Author Organization [facility], [facility] Address [address] [address] Care Team Providers Care Manhole Builder Name Role Phone AMYSTEVE CUNNINGHAM Primary Care Provider Unavailabl e Assessment No assessment recorded. Plan of Treatment Reminders Order Date Submit Date Provider Last Modified By Organization Details Last Modified Time Details Appointments None recorded. Lab None recorded. Referral None recorded. Procedures None recorded. Surgeries None recorded. Imaging XR, elbow - rm 14 2018 019 [email or web address] Not available 9 13:56:06 XR, shoulder - rm 14 2018 019 [email or web address] Not available 9 13:56:06 Medication Orders diclofenac sodium 75 mg tablet,jeannie yed release 2018 019 [email or web address] [id number], [address], [place], [id number], 9 13:56:06 Patient TargetsNo targets recorded. Patient Instructions Encounter Date Encounter Id Patient Instructions Last Modified By Organization Details Last Modified Time 11/29/2018 [id number] shoulder pain: care instructions [email or web address] Not available 11/29/2018 13:56:06 Reason for Referral None Reported. Problems No Known Problems Procedures Surgical History Date Name Laterality Status Provider Name and Address Organization Details Recorded Time 7 Orthopedic Surgery completed Elvis Georges [facility] [employer] 11/29/2018 12:17:23 1 Hernia Repair completed Elvis Georges [facility] [employer] 11/29/2018 12:17:05 Imaging Results None recorded. Procedure Notes None recorded. Medical Equipment None Reported. Allergies No known drug allergies Medications Name Sig Start Date Stop Date Status Note LastModified by Organization Details LastModified Time azithromycin 250 mg tablet active Not Available Not Availabl e Not Available sildenafil 100 mg tablet active Not Available Not Available No t Available simvastatin 40 mg tablet active Not Available Not Available No t Available neomycin-polym yxin-dexameth 3.5 mg/mL-10,000 unit/mL-0.1% eye drops active Not Available Not Available No t Available diclofenac sodium 75 mg tablet,delayed release TAKE 1 TABLET BY MOUTH TWICE DAILY 019 active Not Available Not Available Not Avai lable doxycycline hyclate 100 mg tablet active Not Available Not Available Not Available neomycin 3.5 mg/g-polymyxin B 10,000 unit/g-dexamet h 0.1 % eye oint active Not Available Not Available Not Available Restasis 0.05 % eye drops in a dropperette active Not Available Not Availabl e Not Available Vitals Date Recorded Body height Body mass index (BMI) Body weight Heart rate Systolic blood pressure Diastolic blood pressure Provider Name and Address Organization Details Last Updated DateTime 9 177.8 cm 32.3 kg/m2 682629. 28 g 64 /min 161 mm[Hg] 94 mm[Hg] Elvis Georges [facility] [employer] 9 12:15:31 Social History Question Answer Notes LastModified by Organizat ion Details LastModified Time Tobacco Smoking Status Never Smoker Elvis Georges [facility] [employer] 11/29/2018 12:16:49 How Much Tobacco Do You Smoke? No [email or web address] Information not available 11/29/2018 Sex: Unknown Functional Status None recorded. Mental Status None recorded. Family History Relationship Description Onset Age of this Age Resolved Age Notes LastModified by Organization Details LastModified Time Unspecified Relation Hypercholest erolemia [email or web address] Not available 2018 12:16:45 Medical History Condition Response HIV or AIDS N Coronary Artery Disease N Hyperthyroidism N Blood Clots N COPD N Depression N Anxiety Disorder N Stroke N Neck Injury N Rheumatoid Arthritis N Fibromyalgia N Kidney Disease N Tuberculosis N Asthma N Peripheral Vascular Disease N Sleep Disorder N Pulmonary Embolism N Lung Disease N Pacemaker N Liver Disease N Thyroid Problems N Anemia N Multiple Sclerosis N Heart Attack (AR) N Diabetes N Lupus N Aneurysm N Heart Disease N Hypertension N Gout N Kidney Stones N Head Trauma/Injury N Arthritis N Cancer N Leg or Foot Ulcers N Headaches N Heart Problems N Migraines N Ulcers N Bleeding Disorder N Urinary Tract Infection N Back Problems N GERD/Reflux N Hepatitis N Hernia Y Hypothyroidism N High Cholesterol N Tendon Tear N Seizures/Epilepsy N Diverticulitis N Osteoporosis N Past Encounters Encounter ID Performer Location Encounter Start Date Encounter Closed Date Diagnosis/Indication Diagnosis SNOMED-CT Code Diagnosis ICD10 Code [id number] [facility] [id number] [facility] [place] [phone] 11/29/2018 11:15:55 11/29/2018 13:03:51 Shoulder pain 88808109 M25.511 Pain in elbow 70432274 M 25.521 Health Concerns Section Related Observation LastModified by Organization Detai ls LastModified Time None Recorded Concern Status LastModified by Organization Details LastModified Time None Recorded Advance Directives Directive None Recorded Payers Encounter Date Sequence Insurance Name Policy Number Policy Randolph Covered Member ID Randolph Member ID Guarantor Name 11/29/2018 1 FÉLIX-[place]: JEM HEARD (PPO) [id number] Benja Gallagher [id number] Benja Gallagher
--- OUTSIDE RECORDS SUMMARY | 2024-03-05 21:49 | XMS_ITS | Encounter Summary ---
Author Organization [facility] Address [facility]6 [facility]. [place], [place] [address] [place] [address] Care Team Providers Care Sole Blacker Name Role Phone Unavailable Primary Care Provider Unavailabl e Encounter Details Date Type Department Care Team (Latest Contact Info) Description 01/03/2022 Travel Social History Tobacco Use Types Packs/Day [...] suspected to have Coronavirus/COVID-19? No / Unsure 01/03/2022 2:41 PM CDT documented as of this encounter Plan of Treatment Not on file documented as of this encounter Visit Diagnoses Not on filedocumented in this encounter
--- OUTSIDE RECORDS SUMMARY | 2024-03-05 21:49 | XMS_ITS | Encounter Summary ---
Author Organization [facility] Address [facility]6 [facility]. [place], [place] [address] [place] [address] Care Team Providers Care Protection Consultant Name Role Phone Jorje Lainez DO Primary Care Provider [phone] Encounter Details Date Type Department Care Team (Latest Contact Info) Description 08/31/2023 Travel Social History Tobacco Use Types Packs/Day [...] on filedocumented in this encounter Care Teams Protection Consultant Relationship Specialty Start Date End Date Jorje Lainez DO PCP - General FAMILY PRACTICE 08/12/22 documented as of this encounter
--- OUTSIDE RECORDS SUMMARY | 2024-03-05 21:49 | XMS_ITS | Encounter Summary ---
Author Organization [facility] Address [facility]6 [facility]. [place], [place] [address] [place] [address] Care Team Providers Care Field Support Engineer Name Role Phone LainezJorje mera Ada YU Primary Care Provider [phone] Reason for Visit * Auth/Cert (Routine) Specialty Diagnoses / Procedures Referred By Star t Referred To Contact Diagnoses BENIGN PROSTATIC HYPERTROPHY WITH URINARY OBSTRUCTION, FREQUENCY OF MICTURITION N40.1, R35.0, E29.1 Procedures FLEXIBLE CYSTOSCOPY Ruben Miller MD 3 [facility] [address] [place] [address] Phone: tel: fax: Referral ID Status Reason Start Date Expiration Date Visits Re quested Visits Authorized [id number] 1 1 Encounter Details Date Type Department Care Team (Late st Contact Info) Description 02/07/2023 7:27 AM PLANT ETIOLOGIST Anesthesia Event [place] [address] Kapil Ruiz MD [address] [place] [address] [phone] (Work) Jessica Villanueva CNP [address] [place], [place] [id number] Anesthesia Record Procedure Summary Procedure Name Responsible Anesthesiologist Anesthesia Start Time Anesthesia Stop Time FLEXIBLE CYSTOSCOPY (Bladder) Kapil Ruiz MD 02/07/23 0727 02/07/23 0745 Events Date Time Event Comment 02/07/2023 0640 0640 AN Anesthesia Prepped 0727 An Start Patient ID and consent checked and patient reassessed. 0727 An Start Data 0729 Face Mask Applied 0730 An Induction The patient was reevaluated immediately before moderate or deep sedation use and before anesthesia induction. 0733 Anesthesia Ready 0739 An Emergence 0739 an stop data 0745 Post Anesthetic Care Handoff I completed my handoff to the receiving nurse during which we: 1. Identified the patient 2. Identified the responsible provider 3. Reviewed the pertinent medical history 4. Discussed the surgical course 5. Reviewed intra-op anesthesia management and issues during anesthesia 6. Set expectations for post-procedure period 7. Allowed opportunity for questions and acknowledgement of understanding. 0745 An Stop Meds Name Total ceFAZolin (ANCEF) 2 g in NS 100 mL IVPB 2 g midazolam (VERSED) 1 mg/mL injection 2 m g fentaNYL (SUBLIMAZE) 100 mcg/2 mL inject ion 50 mcg lidocaine (PF) (XYLOCAINE) 2% injection 50 mg propofol (DIPRIVAN) 200 mg/20 mL injecti on 264.7 mg lactated ringers infusion 400 mL * Agents Name O2 * Blood No blood administrations on file. Lines, Drains, and Airways Type Details Placement Removal Peripheral IV Placement Date: 02/07/23; Placement Time: 0640; Placed Outside of This Facility?: No; Size: 18 G; Orientation: Left; Location: Wrist; Site Prep: Chlorhexidine; Local Anesthetic: None; Insertion attempts: 1; Ultrasound-guided Placement?: No; Patient Tolerance: Tolerated well; Removal Date: 02/07/23; Removal Time: 1149 02/07/23 0640 by Lolis Beverly RN 02/07/23 1149 by Automatic Discharge Provider documented in this [...] OR Notes * Anesthesia Postprocedure Evaluation - Kapil Ruiz MD - 02/07/2023 10:20 AM CST Anesthesia Post-op Note Benja Gallagher Procedure(s): FLEXIBLE CYSTOSCOPY (Bladder) Anesthesia type: general Vitals: 02/07/23904 BP: (!) 153/80 Vitals: 02/07/23 09 Pulse: 63 Vitals: 02/07/2305 Resp: 18 Vitals: 02/07/23904 Temp: 36.3 ??C Vitals: 02/07/23904 SpO2: 98% Patient Location: Phase II/Outpatient Level of Consciousness: awake, alert and oriented Pain Management: adequate analgesia Airway Patency: patent Respiratory Status: spontaneous ventilation, nonlabored ventilation and room air Cardiovascular Status: hemodynamically stable Post-Op Nausea: none Postoperative Hydration: euvolemic There were no known notable events for this encounter. T ETIOLOGIST * Anesthesia Postprocedure Evaluation - Kapil Ruiz MD - 02/07/2023 10:20 AM CST Anesthesia Post-op Note Bejna Gallagher Procedure(s): FLEXIBLE CYSTOSCOPY (Bladder) Anesthesia type: general Vitals: 02/07/23904 BP: (!) 153/80 Vitals: 02/07/23904 Pulse: 63 Vitals: 02/07/23904 Resp: 18 Vitals: 02/07/23904 Temp: 36.3 ??C Vitals: 02/07/23904 SpO2: 98% Patient Location: PACU Level of Consciousness: awake, alert and oriented Pain Management: adequate analgesia Airway Patency: patent Respiratory Status: spontaneous ventilation, nonlabored ventilation, unassisted and acceptable Cardiovascular Status: hemodynamically stable Post-Op Nausea: none Postoperative Hydration: euvolemic There were no known notable events for this encounter. T ETIOLOGIST * Anesthesia Preprocedure Evaluation - Kapil Ruiz MD - 02/06/2023 12:29 PM CST Anesthesia ROS/MED History Reviewed: Patient summary , Family history anesthesia, Anesthesia history , Medications Pre-Anesthetic State: alert, awake and responds appropriately no history of anesthetic complications Pulmonary (+) sleep apnea, (CPAP)(-) asthma Cardiovascular (+) hypertension, (well controlled), hyperlipidemia(-) past MT, CAD, angina Neuro/Psych neg neuro/psych ROS (-) no TIA, no CVA Substance Use (-) smoker GI/Hepatic/Renal (+) GERD, (well controlled)(-) liver disease, renal disease Endo/Other (+) obese (-) diabetes, hypothyroidism, hyperthyroidism, arthritis, blood dyscrasia GENERAL COMMENTS -- Contrast [Iodine] -- Rash -- Morphine -- Rash and Swelling Past Medical History: No date: Hypertension Past Surgical History: No date: APPENDECTOMY No date: PC ANESTH LOWER LEG BONE SURG; Right No date: SCREENING COLONOSCOPY NPO Status: Physical Evaluation Airway Mallampati: III TM Distance: >3 FB Neck ROM: normal Dental No notable dental history Pulmonary Pulmonary exam normal Breath sounds clear to auscultation Cardiovascular Rhythm: regular Rate: normal Cardiovascular exam normal Other findings: Height 1.778 m (5' 10 ), weight 104.3 kg (230 lb). No results for input(s): WBC , RBC , HGB , HCT , PLT , NA , K , CL , CO2 , AGAP , BUN , CR , BUNCREATININ , GFRNON , GFR , GLU , CA in the last 72 hours. STOP-Bang Assessment: Anesthesia Plan ASA 2 Intravenous Induction Anesthesia type: general Plan for Airway: nasal cannula/simple face mask Plan for Post-op Pain Plan: as per surgeon, oral pain medication and IV analgesics Discussed potential risks of General Anesthesia including but not limited to corneal abrasion, visual impairment or visual loss, mouth injury, dental damage, sore throat, hoarseness, esophageal injury, awareness under anesthesia, nerve injury due to positioning, aspiration, pneumonia, stroke, cardiac event, adverse drug reactions and . Tiva anesthetic planned and discussed. Possible GA as needed. Informed Consent Anesthetic plan and risks discussed with patient of whom consent was obtained. . T ETIOLOGIST documented in this encounter Plan of Treatment Not on file documented as of this encounter Visit Diagnoses Not on filedocumented in this encounter Administered Medications Inactive Administered Medications - up to 3 most recent administrations Medication Order MAR Action Action Date Dose Rate Site ceFAZolin (ANCEF) 2 g in NS 100 mL IVPB 2 g, Intravenous, at 200 mL/hr, orthopedically impaired teacher to O.R., 1 dose, First dose on Mon02/07/23 at 0615, Pre-OpIndications:BPH with urinary obstruction,Frequency of micturition,Hypogonadism male Given 02/07/2023 7:28 AM PLANT ETIOLOGIST 2 g fentaNYL (SUBLIMAZE) injection Intravenous, PRN, Starting on Mon02/07/23 at 0735, Until Mon02/07/23 at 0745, Anesthesia Intra-Op Given 02/07/2023 7:35 AM PLANT ETIOLOGIST 50 mcg lactated ringers infusion at 10 mL/hr, Intravenous, Continuous, Starting on Mon02/07/23 at 0615, Until Mon02/07/23 at 1154, Infuse at TKO rate, Pre-Op Restarted 02/07/2023 7:28 AM PLANT ETIOLOGIST Continued by Anesthesia 02/07/2023 7:27 AM PLANT ETIOLOGIST 10 mL/hr New Bag 02/07/2023 6:41 AM PLANT ETIOLOGIST 10 mL/hr lidocaine (PF) (XYLOCAINE) 2 % injection Intravenous, PRN, Starting on Mon02/07/23 at 0729, Until Mon02/07/23 at 0745, Anesthesia Intra-Op Given 02/07/2023 7:29 AM PLANT ETIOLOGIST 50 mg midazolam (VERSED) injection Intravenous, PRN, Starting on Mon02/07/23 at 0728, Until Mon02/07/23 at 0745, Anesthesia Intra-Op Given 02/07/2023 7:28 AM PLANT ETIOLOGIST 2 mg propofol (DIPRIVAN) IV bolus Intravenous, PRN, Starting on Mon02/07/23 at 0729, Until Mon02/07/23 at 0745, Anesthesia Intra-Op New Bag 02/07/2023 7:36 AM PLANT ETIOLOGIST 100 mcg/kg/min 65.88 mL/hr New Bag 02/07/2023 7:30 AM PLANT ETIOLOGIST 100 mcg/kg/min 65.88 mL/ hr Given 02/07/2023 7:29 AM PLANT ETIOLOGIST 100 mg documented in this encounter Care Teams Field Support Engineer Relationship Specialty Start Date End Date Jorje Lainez DO PCP - General FAMILY PRACTICE 08/12/22 documented as of this encounter
--- OUTSIDE RECORDS SUMMARY | 2024-03-05 21:49 | XMS_ITS | Encounter Summary ---
Author Organization [facility] Address [facility]. [place], [place] [address] [place] [address] Care Team Providers Care Slice Cutting Machine Operator Name Role Phone Unavailable Primary Care Provider Unavailabl e Encounter Details Date Type Department Care Team (Late st Contact Info) Description 08/06/2008 Abstract [facility] [place] [address] Jorje Lainez, DO [address] [place] [phone] Social History Tobacco Use Types Packs/Day Years [...]
--- OUTSIDE RECORDS SUMMARY | 2024-03-05 21:49 | XMS_ITS | Encounter Summary ---
Author Organization [facility] Address [facility]6 [place] [address] [place] [address] Care Team Providers Care Supervising Chef Name Role Phone Unavailable Primary Care Provider [...] Expiration Date Visits Re quested Visits Authorized [id number] 1 1 Encounter Details Date Type Department Care Team (Late st Contact Info) Description 01/11/2022 12:40 PM CDT - 01/11/2022 1:20 PM CDT Surgery [address] [address] Janett Srinivasan MD [address] [place] [address] [address] RIGHT ENDOSCOPIC CARPAL TUNNEL RELEASE Surgery Details Date/Time Status Location OR Service Patient Class Case Class Case Type Trauma Case? 01/11/2022 12:40 PM Posted [facility] OR OR 2 Orthopedics Short Stay/Outpat ient Surgery E - Elective No Panel 1 Procedure LRB Anes Op Region Wound Class Comments RIGHT ENDOSCOPIC CARPAL TUNN EL RELEASE Right General/Block Wrist Clean RIGHT CUBITAL TUNNEL RELEASE Right General/Block Arm Low er Clean Surgeon Surgeon Role Service Panel Janett Srinivasan MD Primary Orthopedics 1 Case Notes General/axillary block documented in this encounter Social History Tobacco [...] Sign Reading Time Taken Comments Blood Pressure 128/69 01/11/2022 1:18 PM CDT Pulse 57 01/11/2022 1:18 PM CDT Temperature 36.8 ??C (98.3 ??F) 01/11/2022 11:20 AM C DT Respiratory Rate 20 01/11/2022 1:18 PM CDT Oxygen Saturation 94% 01/11/2022 1:18 PM CDT Inhaled Oxygen Concentration - - [...] May discharge with discharge instruction sheet from [facility] If an Axillary Block is performed please [...] call your physician or Outpatient Surgery at [phone] Monday through Monday 8:00am to 4:00pm. If you have any questions after hours, you may call the hospital solar panel installation supervisor at [phone]. Discharge Instructions for Hand Surgery The following instructions will help you in the postoperative care for your hand or upper extremity. If you have any questions or if you develop any problems, please feel free to contact us. You may contact us at our office at or after hours you may call [facility] and ask the automatic profile shaper operator to page one of us. 1. [...] 1:02 PM CDT Patient: Benja Gallagher 1960 [id number] Preoperative Diagnosis: right carpal tunnel syndrome, right cubital tunnel syndrome Postoperative Diagnosis: * No Diagnosis Codes entered * Procedure: Procedure(s): Right - RIGHT ENDOSCOPIC CARPAL TUNNEL RELEASE - Wound Class: Clean Right - RIGHT CUBITAL TUNNEL RELEASE - Wound Class: Clean Surgeon: Surgeon(s): Janett Srinivasan MD Spline Rolling Machine Job Setter: Sulma Gómez Anesthesia: General/Block Implant: * No [...] cubital tunnel release. SURGEON: Janett Srinivasan MD. ADMINISTRATIVE UNDERWRITER: Sulma Gómez. ANESTHESIA: Axillary block with sedation. [...] to the recovery room in good condition. #[id number] /ROSEMARIE documented in this encounter Plan of [...] Given 01/11/2022 10:51 AM CDT 1,000 mg bupivacaine (PF) (MARCAINE) 0.75 % injection As needed, Starting on Mon01/11/22 at 1251, Until Mon01/11/22 at 1312, Intra-Op Given 01/11/2022 12:51 PM CDT 13 mLs Right Arm gabapentin (NEURONTIN) capsule 300 mg 300 mg, [...] Nugent CRNA)1350 (Infusion Stop Time - Provider: Marnie Stevens RN) PRN Medication Order 01/09/2022 01/10/2022 01/11/2022 bupivacaine (PF) (MARCAINE) 0.75 % injection (CANCELED) As needed, Starting on Mon01/11/22 at 1251, Until Mon01/11/22 at 1312, Intra-Op 1251 (Given - Provid er: Janett Srinivasan MD) documented in this encounter
--- OUTSIDE RECORDS SUMMARY | 2024-03-05 21:49 | XMS_ITS | Encounter Summary ---
Author Organization [facility] Address [facility]6 [facility]. [place], [place] [address] [place] [address] Care Team Providers Care Assistant Passenger Locomotive Engineer Name Role Phone Jorje Lainez DO Primary Care Provider [phone] Encounter Details Date Type Department Care Team (Latest Contact Info) Description 01/31/2024 Travel Social History Tobacco Use Types Packs/Day [...] on filedocumented in this encounter Care Teams Assistant Passenger Locomotive Engineer Relationship Specialty Start Date End Date Jorje Lainez DO PCP - General FAMILY PRACTICE 08/12/22 documented as of this encounter
--- OUTSIDE RECORDS SUMMARY | 2024-03-05 21:49 | XMS_ITS | Encounter Summary ---
Author Organization [facility] Address [address] [place] [address]. [place], [place] [address] [place] [address] Care Team Providers Care Boom Truck Driver Name Role Phone Jorje Lainez Primary Care Provider [phone] Encounter Details Date Type Department Care Team (Late st Contact Info) Description 01/25/2024 3:29 PM PHYSICIAN - 01/25/2024 11:59 PM [facility] Hospital Encounter [facility] [place] [address] Ruben Miller MD 3 [facility] Suite [facility] [place] [address] Discharge Disposition: Home or Self Care (Routine [...] Comments HC URINALYSIS AUTO W/O MICRO Routine 01/25/2024 3:35 PM PHYSICIAN Hypertrophy of prostate with urinary obstruction Urinary frequency Male hypogonadism URINE BACTERIA CULTURE Routine 01/25/2024 3:35 PM PHYSICIAN Hypertrophy of prostate with urinary obstruction Urinary frequency Male hypogonadism documented in this encounter Results * URINALYSIS (01/25/2024 3:35 PM PHYSICIAN) SPECIMEN TYPE URINE CLEAN CATCH 01/25/2024 3:30 PM [facility] COLOR (U) LIGHT YELLOW 01/25/2024 5:07 PM [facility] TRANSPARENCY CLEAR 01/25/2024 5:07 PM [facility] SPECIFIC GRAVITY (U) 1.016 1.001 - 1.030 01/25/2024 5:07 PM [facility] U PH 6.5 5.0 - 9.0 01/25/2024 5:07 PM [facility] LEUKOCYTES (U) NEGATIVE NEGATIVE 01/25/2024 5:07 PM [facility] NITRITES NEGATIVE NEGATIVE 01/25/2024 5:07 PM PHYSICIAN [facility] PROTEIN RANDOM (U) NEGATIVE <30 MG/DL 01/25/2024 5:07 PM PHYSICIAN [facility] GLUCOSE (U) NORMAL NORMAL MG/DL 01/25/2024 5:07 PM PHYSICIAN [facility] KETONES MG/DL (U) NEGATIVE NEGATIVE MG/DL 01/25/2024 5:07 PM PHYSICIAN [facility] UROBILINOGEN NORMAL NORMAL MG/DL 01/25/2024 5:07 PM PHYSICIAN [facility] BILIRUBIN (U) NEGATIVE NEGATIVE MG/DL 01/25/2024 5:07 PM PHYSICIAN [facility] BLOOD (U) NEGATIVE NEGATIVE 01/25/2024 5:07 PM PHYSICIAN [facility] URINE SPECIMEN OBTAINED BY CLEAN CATCH PROCEDURE / Unknown 01/25/2024 3:35 PM PHYSICIAN Ruben Miller MD URINE ORDERABLES Final Re sult [facility] [address] [place] [id number], * (ABNORMAL) URINE BACTERIA CULTURE (01/25/2024 3:35 PM PHYSICIAN) SPEC DESCRIPTION URINE CLEAN CATCH 01/25/2024 3:30 PM PHYSICIAN [facility] SPECIAL REQUESTS NO SPECIAL REQUEST 01/25/2024 3:30 PM PHYSICIAN [facility] CULTURE RESULT 10,000-49,000 COL/ML DIPHTHEROIDS SUSCEPTIBILTY NOT ROUTINELY PERFORMED. SAVING ISOLATE FOR 5 DAYS. CONTACT MICROBIOLOGY DEPARTMENT IF FURTHER WORKUP IS INDICATED. (A) 01/27/2024 1:55 PM PHYSICIAN [facility] URINE SPECIMEN OBTAINED BY CLEAN CATCH PROCEDURE / Unknown 01/25/2024 3:35 PM PHYSICIAN 01/25/2024 3:43 PM PHYSICIAN us Ruben Miller MD MICROBIOLOGY - GENERAL OR DERABLES Final Result [facility] [address] [place] [address], documented in this encounter Visit Diagnoses Diagnosis Hypertrophy of prostate with urinary obstruction Hypertrophy of prostate with urinary obstruction and other lower urinary tract symptoms (LUTS) Urinary frequency Male hypogonadism Other testicular hypofunction documented in this encounter Care Teams Boom Truck Driver Relationship Specialty Start Date End Date Jorje Lainez DO PCP - General FAMILY PRACTICE 08/12/22 documented as of this encounter
--- OUTSIDE RECORDS SUMMARY | 2024-03-05 21:49 | XMS_ITS | Encounter Summary ---
Author Organization [facility] Address formerly [facility]6 [facility]. [place], [place] [address] [place] [address] Care Team Providers Care Custom Miller Name Role Phone Unavailable Primary Care Provider Unavailabl e Encounter Details Date Type Department Care Team (Late st Contact Info) Description 06/15/2007 Abstract [place] [address] Jorje Lainez, DO [address] [place] [id number] Social History Tobacco Use Types Packs/Day Years [...]
--- OUTSIDE RECORDS SUMMARY | 2024-03-05 21:49 | XMS_ITS | Encounter Summary ---
Author Organization [facility] Address Counts include 234 beds at the [facility]6 [facility]. [place], [place] [address] [place] [address] Care Team Providers Care Spring Tester Name Role Phone Deidra Lainez Primary Care Provider [phone] Reason for Visit * Auth/Cert (Routine) Specialty Diagnoses / Procedures Referred By Star t Referred To Contact Diagnoses BENIGN PROSTATIC HYPERTROPHY WITH URINARY OBSTRUCTION, FREQUENCY OF MICTURITION N40.1, R35.0, E29.1 Procedures CYSTOURETHROSCOPY US TRANSRECTAL CYSTOSCOPY AND TRANSRECTAL ULTRASOUND Marley Miller MD 3 [facility] [address] [place] [address] Phone: tel: fax: Referral ID Status Reason Start Date Expiration Date Visits Re quested Visits Authorized [id number] 1 1 Encounter Details Date Type Department Care Team (Late st Contact Info) Description 01/31/2024 10:38 AM [facility] - 01/31/2024 4:15 PM [facility] Hospital Encounter [facility] [place] [address] Marley Miller MD 3 [facility] [address] [place] [id number] Discharge Disposition: Home or Self Care (Routine [...] Sign Reading Time Taken Comments Blood Pressure 155/87 01/31/2024 4:10 PM KICKING MACHINE OPERATOR Pulse 57 01/31/2024 4:10 PM KICKING MACHINE OPERATOR Temperature 36.2 ??C (97.1 ??F) 01/31/2024 4:10 PM CS T Respiratory Rate 16 01/31/2024 4:10 PM KICKING MACHINE OPERATOR Oxygen Saturation 98% 01/31/2024 4:10 PM KICKING MACHINE OPERATOR Inhaled Oxygen Concentration - - Weight 112.4 kg (247 lb 12.8 oz) 2023 11:00 AM KICKING MACHINE OPERATOR Height 177.8 cm (5' 10 ) 01/31/2024 11: 00 AM KICKING MACHINE OPERATOR Body Mass Index 35.56 01/31/2024 11:00 AM KICKING MACHINE OPERATOR documented in this encounter Discharge Instructions * Discharge Instructions* Gisselle Alberto RN - 01/31/2024 2:53 PM KICKING MACHINE OPERATOR Because you had anesthesia, we suggest these [...] questions or concerns, please call your surgeon. ING MACHINE OPERATOR ING MACHINE OPERATOR ING MACHINE OPERATOR * Attachments The following attachments cannot be sent through Care Everywhere. * Cystoscopy Discharge Instructions (American) * Transrectal Ultrasound (American) * General Anesthesia Discharge Instructions (American) documented in this encounter Medications at Time [...] of this encounter H&P Notes * Marley Miller MD - 01/31/2024 2:00 PM CST Attending Provider: Marley Miller MD PCP: DEIDRA LAINEZ DO Benja Mojica Steele is an 63-year-old male. Reason for Admission: [...] he voiced understanding is agreeable proceed MARLEY MILLER MD 01/31/2024 ING MACHINE OPERATOR documented in this encounter Nursing Notes * Cathy Boyer RN - 01/31/2024 3:19 PM CSTSummary: PACU No complaints of eye pain or irritation, no redness noted upon discharge from PACU. ING MACHINE OPERATOR * Cathy Boyer RN - 01/31/2024 3:00 PM CSTSummary: PACU Called patient's , [place] for update. ING MACHINE OPERATOR * Sharon Garcia RN - 01/31/2024 2:59 PM CSTSummary: Intraoperative Nursing Note Warm blankets applied to the patient upon arrival to the OR. Patient's requested to be updated after the procedure by Dr. Miller. ING MACHINE OPERATOR documented in this encounter OR Notes * Op Note - Marley Miller MD - 01/31/2024 2:48 PM CST CYSTOSCOPY [...] cc of 2% lidocaine jelly. A 16 [place] cystoscope was inserted into the urethra, the [...] * Implants: None Disposition: PACU Condition: stable ING MACHINE OPERATOR * OR PreOp - Jessica Villanueva CNP - 01/23/2024 12:57 PM CST Chart reviewed. Per phone interview, patient denies any SOB/CP with 2 FOS or recent changes in activity tolerance in past 6 months. 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 PreviousEKG in Care Everywhere and results copied. EKG 08/06/21 Normal sinus rhythm Left axis deviation Abnormal ECG When compared with ECG of 19-SEP-2000 09:47, No significant change was found Rate 66 ING MACHINE OPERATOR * OR PreOp - Janessa Oro RN - 01/23/2024 11:41 AM CST Can you climb 2 flights of stairs without CP or extreme SOB? yes Are you physically able to do the same things today that you could 6 months ago? yes Any recent heart testing? (EKG, stress test, Echo?) no - see EKG 2021 - Do you see a on air talent? Who is it? No Will get urine test this week Instructions emailed to patient- patient received instructions Per Starla with Dr Miller- keep consent order as it is and patient does not need to hold asa- patientaware Dr Miller informed of urine culture- ok to proceed ING MACHINE OPERATOR ING MACHINE OPERATOR ING MACHINE OPERATOR ING MACHINE OPERATOR documented in this encounter Plan of Treatment Not on file documented as of this encounter Procedures Procedure Name Priority Date/Time Associated Diagnosis Comments BIOPSY PROSTATE TRANSRECTAL WITH ULTRASOUND 01/31/2024 2:24 PM KICKING MACHINE OPERATOR BENIGN PROSTATIC HYPERTROPHY WITH URINARY OBSTRUCTION, FREQUENCY OF MICTURITION N40.1, R35.0, E29.1 Case Notes SCHED BY FAX 01/19/2024 LCS PHONE ASSESS Special Needs [facility] # [phone] documented in this encounter Visit Diagnoses Diagnosis Hypertrophy of prostate with urinary obstruction- Primary Hypertrophy of prostate with urinary obstruction and other lower urinary tract symptoms (LUTS) Urinary frequency Male hypogonadism Other testicular hypofunction BPH with obstruction/lower urinary tract symptoms Hypertrophy of prostate with urinary obstruction and other lower urinary tract symptoms (LUTS) documented in this encounter Administered Medications Inactive Administered Medications - up to 3 most recent administrations Medication Order MAR Action Action Date Dose Rate Site oxyCODONE immediate release (ROXICODONE) tablet 5 mg 5 mg, Oral, Once as needed, Mild pain (Scale 1 - 3), 1 dose, Starting on Mon01/31/24 at 1443, Until Mon01/31/24 at 1515, Do not administer if patient is overly sedated, SpO2 LESS than 90%, or Respiratory Rate LESS than 12., PACU Given 01/31/2024 3:15 PM KICKING MACHINE OPERATOR 5 mg documented in this encounter Active and Recently Administered Medications Times are shown in KICKING MACHINE OPERATOR. Scheduled Medication Order 01/29/2024 01/30/2024 01/31/2024 ceFAZolin (ANCEF) 2 g in NS 100 mL IVPB (COMPLETED) 2 g, Intravenous, at 400 mL/hr, callisthenics instructor to O.R., 1 dose, First dose on Mon01/31/24 at 1100, Pre-Op 1431 (New Bag - Prov ider: May Mathur CRNA) PRN Medication Order 01/29/2024 01/30/2024 01/31/2024 lidocaine 2 % URO-JET jelly (CANCELED) As needed, Starting on Mon01/31/24 at 1436, Until Mon01/31/24 at 1459, Intra-Op 1436 (Given - Provid er: Marley Miller MD) oxyCODONE immediate release (ROXICODONE) tablet 5 [...] preventive) documented in this encounter Care Teams Spring Tester Relationship Specialty Start Date End Date Deidra Lainez DO PCP - General FAMILY PRACTICE 08/12/22 documented as of this encounter
--- OUTSIDE RECORDS SUMMARY | 2024-03-05 21:49 | XMS_ITS | Encounter Summary ---
Author Organization [facility] Address [address] [place] [address]. [place], [place] [address] [place] [address] Care Team Providers Care Sagger Maker Name Role Phone Deidra Lainez DO Primary Care Provider [phone] Reason for Referral * Imaging (Routine) - Closed Specialty Diagnoses / Procedures Referred By Star gandara Referred To Contact RADIOLOGY Diagnoses Solitary pulmonary nodule Procedures CT CHEST WO CON Deidra Lainez DO [address] [place], [place] [address] Phone: tel: fax: Referral ID Status Reason Start Date Expiration Date Visits Re quested Visits Authorized [id number] Closed 08/25/2023 09/23/2023 1 1 Reason for Visit * Imaging (Routine) - Closed Specialty Diagnoses / Procedures Referred By Star gandara Referred To Contact RADIOLOGY Diagnoses Solitary pulmonary nodule Procedures CT CHEST WO CON Deidra Lainez DO [address] [address] Phone: tel: fax: Referral ID Status Reason Start Date Expiration Date Visits Re quested Visits Authorized [id number] Closed 08/25/2023 09/23/2023 1 1 Encounter Details Date Type Department Care Team (Latest Contact Info) Description 08/31/2023 3:56 PM CDT - 08/31/2023 11:59 PM CDT Hospital Encounter [facility] [address] [place] [address] Deidra Lainez, DO [address] [place] [address] [address] [place] [address] Discharge Disposition: Home or Self Care (Routine [...] Diagnosis Comments CT CHEST WO CON Routine 08/31/2023 4:07 PM CDT Solitary pulmonary nodule documented in this encounter Results * CT CHEST WO CON (08/31/2023 4:07 PM CDT) Anatomical Region Laterality Modality Chest Computed Tomogra phy 09/06/2023 10:1 1 AM CDT Impressions 09/06/2023 10:15 AM CDT IMPRESSION: 1. ?? 3 mm nodule right lower lobe unchanged compared with 09/14/2022, no specific follow-up necessary, consistent with Fleischner Society criteria. 2. ??Cluster of tree-in-bud opacities of the left lower lobe is progressive, but most likely postinflammatory. ??As a precaution, 6 month follow-up CT chest without contrast recommended. 3. ??Mild emphysema. 4. ??Atherosclerosis and coronary calcifications. 5. ??Diffuse hepatic steatosis. Referred By: DEIDRA LAINEZ Interpreted By: Maxime Brewer MD, 09/06/2023 10:11 AM Narrative 09/06/2023 10:15 AM CDT EXAMINATION: CT CHEST WITHOUT CONTRAST EXAM DATE: 08/31/2023 3:57 PM REASON FOR EXAM: ??solitary pulmonary nodule ?? COMPARISON: Coronary calcium CT from 09/06/2022 TECHNIQUE: Axial images through the chest without intravenous contrast. Dose lowering technique was used for this study which may include, but is not limited to, dose reduction techniques, automated exposure control, use of iterative ??reconstruction and ALARA (As low As Reasonably Achievable)/Image Gently techniques. FINDINGS: 3 mm nodule right lower lobe axial image 96, stable. Calcified granulomas indicate healed granulomatous disease. Mild paraseptal and centrilobular emphysema. ??Subsegmental atelectasis left upper lobe is stable. Cluster of tree-in-bud opacities of the left lower lobe is progressive, likely postinflammatory. Airways within normal limits. No axillary or supraclavicular lymphadenopathy. Atherosclerosis and coronary calcifications. Limited evaluation of the upper abdomen demonstrates diffuse hepatic steatosis. Bones: Scattered degenerative changes of the spine. Procedure Note Maxime Brewer MD - 09/06/2023 EXAMINATION: CT CHEST WITHOUT CONTRAST EXAM DATE: 08/31/2023 3:57 PM REASON FOR EXAM: solitary pulmonary nodule COMPARISON: Coronary calcium CT from 09/06/2022 TECHNIQUE: Axial images through the chest without intravenous contrast. Dose lowering technique was used for this study which may include, but isnot limited to, dose reduction techniques, automated exposure control, use of iterativereconstruction and ALARA (As low As Reasonably Achievable)/Image Gently techniques. FINDINGS: 3 mm nodule right lower lobe axial image 96, stable. Calcified granulomas indicate healed granulomatous disease. Mild paraseptal and centrilobular emphysema. Subsegmental atelectasisleft upper lobe is stable. Cluster of tree-in-bud opacities of the left lower lobe is progressive,likely postinflammatory. Airways within normal limits. No axillary or supraclavicular lymphadenopathy. Atherosclerosis and coronary calcifications. Limited evaluation of the upper abdomen demonstrates diffuse hepaticsteatosis. Bones: Scattered degenerative changes of the spine. IMPRESSION: 1. 3 mm nodule right lower lobe unchanged compared with 09/14/2022, nospecific follow-up necessary, consistent with Fleischner Societycriteria. 2. Cluster of tree-in-bud opacities of the left lower lobe isprogressive, but most likely postinflammatory. As a precaution, 6 monthfollow-up CT chest without contrast recommended. 3. Mild emphysema. 4. Atherosclerosis and coronary calcifications. 5. Diffuse hepatic steatosis. Referred By: DEIDRA LAINEZ Interpreted By: Maxime Brewer MD, 09/06/2023 10:11 AM Deidra Lainez DO CT Final Result documented in this encounter Visit Diagnoses Diagnosis Solitary pulmonary nodule documented in this encounter Care Teams Sagger Maker Relationship Specialty Start Date End Date Deidra Lainez DO PCP - General FAMILY PRACTICE 08/12/22 documented as of this encounter
--- OUTSIDE RECORDS SUMMARY | 2024-03-05 21:49 | XMS_ITS | Encounter Summary ---
Author Organization [facility] Address [address] [place] [address]. [place], [place] [address] [place] [address] Care Team Providers Care In Room Dining Server Name Role Phone Jorje Lainez Primary Care Provider [phone] Encounter Details Date Type Department Care Team (Late st Contact Info) Description 01/31/2023 Prep for Procedure [facility] [place] [address] Ruben Miller MD 3 [facility] Suite [facility] [place], [place] [address] Social History Tobacco Use Types Packs/Day Years [...] documented as of this encounter Results * CULTURE URINE (02/01/2023 3:45 PM PETROPHYSICAL ENGINEER) SPEC DESCRIPTION URINE CLEAN CATCH 02/01/2023 3:46 PM PETROPHYSICAL ENGINEER [facility] SPECIAL REQUESTS NO SPECIAL REQUEST 02/01/2023 3:46 PM PETROPHYSICAL ENGINEER [facility] CULTURE RESULT NO GROWTH 2 DAYS 02/03/2023 7:59 AM PETROPHYSICAL ENGINEER [facility] URINE SPECIMEN OBTAINED BY CLEAN CATCH PROCEDURE / Unknown 02/01/2023 3:45 PM PETROPHYSICAL ENGINEER 02/01/2023 3:46 PM PETROPHYSICAL ENGINEER us Ruben Miller MD MICROBIOLOGY - GENERAL OR DERABLES Final Result [facility] [address] [place] [address], [place] [phone] * URINALYSIS (02/01/2023 3:45 PM PETROPHYSICAL ENGINEER) SPECIMEN TYPE URINE CLEAN CATCH 02/01/2023 3:46 PM PETROPHYSICAL ENGINEER [facility] COLOR (U) YELLOW 02/01/2023 3:58 PM [facility] TRANSPARENCY CLEAR 02/01/2023 3:58 PM PETROPHYSICAL ENGINEER [facility] SPECIFIC GRAVITY (U) 1.029 1.001 - 1.030 02/01/2023 3:58 PM PETROPHYSICAL ENGINEER [facility] U PH 6.0 5.0 - 9.0 02/01/2023 3:58 PM [facility] LEUKOCYTES (U) NEGATIVE NEGATIVE 02/01/2023 3:58 PM PETROPHYSICAL ENGINEER [facility] NITRITES NEGATIVE NEGATIVE 02/01/2023 3:58 PM PETROPHYSICAL ENGINEER [facility] PROTEIN RANDOM (U) 20 <30 MG/DL 02/01/2023 3:58 PM PETROPHYSICAL ENGINEER [facility] GLUCOSE (U) NORMAL NORMAL MG/DL 02/01/2023 3:58 PM [facility] KETONES MG/DL (U) NEGATIVE NEGATIVE MG/DL 02/01/2023 3:58 PM [facility] UROBILINOGEN NORMAL NORMAL MG/DL 02/01/2023 3:58 PM PETROPHYSICAL ENGINEER [facility] BILIRUBIN (U) NEGATIVE NEGATIVE MG/DL 02/01/2023 3:58 PM PETROPHYSICAL ENGINEER [facility] BLOOD (U) NEGATIVE NEGATIVE 02/01/2023 3:58 PM PETROPHYSICAL ENGINEER [facility] URINE SPECIMEN OBTAINED BY CLEAN CATCH PROCEDURE / Unknown 02/01/2023 3:45 PM PETROPHYSICAL ENGINEER us Ruben Miller MD URINE ORDERABLES Final Re sult [facility] [address] [place] [address], [place] [phone] documented in this encounter Visit Diagnoses Diagnosis BPH (benign prostatic hyperplasia)- Primary Unspecified hyperplasia of prostate without urinary obstruction and other lower urinary tract symptoms (LUTS) BPH with urinary obstruction Hypertrophy of prostate with urinary obstruction and other lower urinary tract symptoms (LUTS) Frequency of micturition Urinary frequency Hypogonadism male Other testicular hypofunction documented in this encounter Care Teams In Room Dining Server Relationship Specialty Start Date End Date Jorje Lainez DO PCP - General FAMILY PRACTICE 08/12/22 documented as of this encounter
--- OUTSIDE RECORDS SUMMARY | 2024-03-05 21:49 | XMS_ITS | Encounter Summary ---
Author Organization [facility] Address [address] [place] [address]. [place], [place] [address] [place] [address] Care Team Providers Care Tutor Name Role Phone Unavailable Primary Care Provider Unavailabl e Encounter Details Date Type Department Care Team (Latest Contact Info) Description 01/11/2022 Travel Social History Tobacco Use Types Packs/Day [...]
--- OUTSIDE RECORDS SUMMARY | 2024-03-05 21:49 | XMS_ITS | Encounter Summary ---
Author Organization [facility] Address [facility]. [place], [place] [address] [place] [address] Care Team Providers Care Retail Wireless Sales Representative Name Role Phone Jorje Lainez DO Primary Care Provider [phone] Encounter Details Date Type Department Care Team (Latest Contact Info) Description 01/25/2024 Travel Social History Tobacco Use Types Packs/Day [...] on filedocumented in this encounter Care Teams Retail Wireless Sales Representative Relationship Specialty Start Date End Date Jorje Lainez DO PCP - General FAMILY PRACTICE 08/12/22 documented as of this encounter
--- OUTSIDE RECORDS SUMMARY | 2024-03-05 21:49 | XMS_ITS | Clinical Summary ---
Author Organization [facility] Address [address] [place] [address] [place] [address] Care Team Providers Care Delivery Table Operator Name Role Phone Deidra Lainez Primary Care Provider [phone] Allergies Active Allergy Reactions Criticality Noted Date Comments Iodine Rash Low 01/03/2022 Morphine Rash,Swelling Low 08/25/2021 Medications rosuvastatin (CRESTOR) 20 MG tablet Take 1 tablet (20 mg total) by mouth daily. Active amLODIPine (NORVASC) 5 MG tablet Take 1 tablet (5 mg total) by mouth daily. Active omeprazole EC (PRILOSEC OTC) 20 MG tablet Take 1 tablet (20 mg total) by mouth daily. Active sildenafil (VIAGRA) 100 MG tablet Take 1 tablet (100 mg total) by mouth daily as needed for Erectile Dysfunction. Active omega-3 fatty acid (FISH OIL) 500 MG capsule Take 1 capsule (500 mg total) by mouth daily. Active testosterone cypionate (DEPO TESTOSTERONE) 100 MG/ML injection Inject 1 mL (100 mg total) into the muscle once a week. Active aspirin EC (ECOTRIN) 81 MG tablet Take 1 tablet (81 mg total) by mouth daily. Active vitamin D2, ergocalciferol, (DRISDOL) 1.25 mg capsule Take 1 capsule (1.25 mg total) by mouth every 7 days. Active Active Problems Problem Noted Date Diagnosed Date BPH with obstruction/lower urinary tract symptom s 01/31/2024 Encounters Date Type Department Care Team Description 02/26/2024 8:03 AM SHOP TECHNICIAN - 02/26/2024 11:59 PM SHOP TECHNICIAN Hospital Encounter [facility] [address] [place] [address] Deidra Lainez DO Discharge Disposition: Home or Self Care (Routine Discharge) 02/26/2024 Travel 01/31/2024 2:25 PM SHOP TECHNICIAN Anesthesia Event [place] [address] Rufus Urbina MD Jarvis, Brittany L, SAND MOLDER 01/31/2024 2:03 PM SHOP TECHNICIAN - 01/31/2024 2:50 PM SHOP TECHNICIAN Surgery [facility] [place] [address] Ruben Miller MD CYSTOSCOPY AND TRANSRECTAL ULTRASOUND 01/31/2024 10:38 AM SHOP TECHNICIAN - 01/31/2024 4:15 PM SHOP TECHNICIAN Hospital Encounter [facility] [address] Ruben Miller MD Discharge Disposition: Home or Self Care (Routine Discharge) 01/31/2024 Travel 01/25/2024 3:29 PM SHOP TECHNICIAN - 01/25/2024 11:59 PM SHOP TECHNICIAN [place] [address] Ruben Miller MD Discharge Disposition: Home or Self Care (Routine Discharge) 01/25/2024 Travel 01/23/2024 [place] [address] Ruben Miller MD from Last 3 Months Social History Tobacco Use Types Packs/Day Years [...] on file Sexual Orientation Not on file Last Filed Vital Signs Vital Sign Reading Time Taken Comments Blood Pressure 155/87 01/31/2024 4:10 PM SHOP TECHNICIAN Pulse 57 01/31/2024 4:10 PM SHOP TECHNICIAN Temperature 36.2 ??C (97.1 ??F) 01/31/2024 4:10 PM CS T Respiratory Rate 16 01/31/2024 4:10 PM SHOP TECHNICIAN Oxygen Saturation 98% 01/31/2024 4:10 PM SHOP TECHNICIAN Inhaled Oxygen Concentration - - Weight 112.4 kg (247 lb 12.8 oz) 2023 11:00 AM SHOP TECHNICIAN Height 177.8 cm (5' 10 ) 01/31/2024 11: 00 AM SHOP TECHNICIAN Body Mass Index 35.56 01/31/2024 11:00 AM SHOP TECHNICIAN Plan of Treatment Health Maintenance Due Date Last Done Comments Colorectal Cancer Screening Colonoscopy (10 Years) 1960 Annual Physical 05/21/1963 Hepatitis C 1978 DTaP, Tdap and Td Vaccines ( 1 - Tdap) 05/21/1979 Zoster Vaccines (1 of 2) 2010 RSV Immunization or 60+ Years (1 - 1-dose 60+ series) 2020 COVID-19 Vaccine (3 - 2023-2 5 season) 2023 11/18/2020, 10/13/2020 Influenza Adult (#1) 2023 12/18/2020, 01/10/2020, 12/17/2018 Meningococcal Vaccine Aged Out No anabela dhaval eligible based on patient's age to complete this topic Pneumococcal Vaccine: Pediatrics (0 to 5 Years) and At-Risk Patients (6 to 64 Years) Aged Out No longer eligible b ased on patient's age to complete this topic RSV Immunizations Under 20 Months Aged Out No longer eligible b ased on patient's age to complete this topic Medical Devices Implanted Type Area Bottom Cementer Device Identifier Shelf Expiration Date Model / Serial / Lot Plate Plate Right: Leg Procedures Procedure Name Priority Date/Time Associated Diagnosis Comments CT CHEST WO CON Routine 02/26/2024 8:14 AM SHOP TECHNICIAN Solitary pulmonary nodule BIOPSY PROSTATE TRANSRECTAL WITH ULTRASOUND 01/31/2024 2:24 PM SHOP TECHNICIAN BENIGN PROSTATIC HYPERTROPHY WITH URINARY OBSTRUCTION, FREQUENCY OF MICTURITION N40.1, R35.0, E29.1 Case Notes SCHED BY FAX 01/19/2024 LCS PHONE ASSESS Special Needs RAJIV TO # [id number] URINE BACTERIA CULTURE Routine 01/25/2024 3:35 PM SHOP TECHNICIAN Hypertrophy of prostate with urinary obstruction Urinary frequency Male hypogonadism HC URINALYSIS AUTO W/O MICRO Routine 01/25/2024 3:35 PM SHOP TECHNICIAN Hypertrophy of prostate with urinary obstruction Urinary frequency Male hypogonadism from Last 3 Months Results * CT CHEST WO CON (02/26/2024 8:14 AM SHOP TECHNICIAN) Anatomical Region Laterality Modality Chest Computed Tomogra phy 03/01/2024 9:13 AM SHOP TECHNICIAN Impressions 03/01/2024 9:25 AM SHOP TECHNICIAN Impression: 1. Resolution of left peripheral lower [...] 03/01/2024 9:13 AM Narrative 03/01/2024 9:25 AM SHOP TECHNICIAN [address] [address] Exam: CT CHEST WO CON Exam Date/Time: [...] Procedure Note Yumiko Aragon MD - 03/01/2024 [address] [place] [address] Exam: CT CHEST WO CON Exam Date/Time: 02/26/2024 8:04 AM Indication: 63 male pulmonary nodule follow-up. History of smoking, [id number]. Comparison: CT chest 08/31/2023; CT calcium scoring [...] Resolution of the probably post infectious inflammatory [id number]-[id number] micronodules in the posterior left lower lobe. 2000 andmorphology of a couple of the bilateral lower lobe sub-6 mm micronodules.These include a 2 mm left lower lobe micronodule (axial lung window [id number]) and a right lower lobe micronodule (axial [...] us Deidra Lainez DO CT Final Result * URINALYSIS (01/25/2024 3:35 PM SHOP TECHNICIAN) SPECIMEN TYPE URINE CLEAN CATCH 01/25/2024 3:30 PM SHOP TECHNICIAN [facility] COLOR (U) LIGHT YELLOW 01/25/2024 5:07 PM SHOP TECHNICIAN [facility] TRANSPARENCY CLEAR 01/25/2024 5:07 PM [facility] SPECIFIC GRAVITY (U) 1.016 1.001 - 1.030 01/25/2024 5:07 PM SHOP TECHNICIAN [facility] U PH 6.5 5.0 - 9.0 01/25/2024 5:07 PM [facility] LEUKOCYTES (U) NEGATIVE NEGATIVE 01/25/2024 5:07 PM [facility] NITRITES NEGATIVE NEGATIVE 01/25/2024 5:07 PM [facility] PROTEIN RANDOM (U) NEGATIVE <30 MG/DL 01/25/2024 5:07 PM [facility] GLUCOSE (U) NORMAL NORMAL MG/DL 01/25/2024 5:07 PM [facility] KETONES MG/DL (U) NEGATIVE NEGATIVE MG/DL 01/25/2024 5:07 PM [facility] UROBILINOGEN NORMAL NORMAL MG/DL 01/25/2024 5:07 PM [facility] BILIRUBIN (U) NEGATIVE NEGATIVE MG/DL 01/25/2024 5:07 PM [facility] BLOOD (U) NEGATIVE NEGATIVE 01/25/2024 5:07 PM [facility] URINE SPECIMEN OBTAINED BY CLEAN CATCH PROCEDURE / Unknown 01/25/2024 3:35 PM SHOP TECHNICIAN us Ruben Miller MD URINE ORDERABLES Final Re sult [facility] [address] [place] [address], * (ABNORMAL) URINE BACTERIA CULTURE (01/25/2024 3:35 PM SHOP TECHNICIAN) SPEC DESCRIPTION URINE CLEAN CATCH 01/25/2024 3:30 PM SHOP TECHNICIAN [facility] SPECIAL REQUESTS NO SPECIAL REQUEST 01/25/2024 3:30 PM SHOP TECHNICIAN [facility] CULTURE RESULT 10,000-49,000 COL/ML DIPHTHEROIDS SUSCEPTIBILTY NOT ROUTINELY PERFORMED. SAVING ISOLATE FOR 5 DAYS. CONTACT MICROBIOLOGY DEPARTMENT IF FURTHER WORKUP IS INDICATED. (A) 01/27/2024 1:55 PM SHOP TECHNICIAN [facility] URINE SPECIMEN OBTAINED BY CLEAN CATCH PROCEDURE / Unknown 01/25/2024 3:35 PM SHOP TECHNICIAN 01/25/2024 3:43 PM SHOP TECHNICIAN Ruben Miller MD MICROBIOLOGY - GENERAL OR DERABLES Final Result [facility] [address] [place] [address], from Last 3 Months Insurance Care Teams Delivery Table Operator Relationship Specialty Start Date End Date Deidra Lainez DO PCP - General FAMILY PRACTICE 08/12/22
--- OUTSIDE RECORDS SUMMARY | 2024-03-05 21:51 | XMS_ITS | Encounter Summary ---
Author Organization [facility] Healthcare Address [address] [place] [address] Care Team Providers Care Pe Electrical Engineer Name Role Phone Jorje Coburn DO Primary Care Provider + Reason for Visit * Reason Onset Date Comments Medication Request 10/26/2023 Encounter Details Date Type Department Care Team (Late st Contact Info) Description 10/26/2023 Telephone [facility] Medical Group Family Medicine [address] [place] [address] Jorje Coburn DO [address] [place] [address] [address] [place] [address] Medication Request Social History Tobacco Use Types Packs/Day Years Used Date Smoking Tobacco: Former Cigarettes 2 30 0 11/18/1976 - 11/18/2006 Smokeless Tobacco: Never Alcohol Use Standard Drinks/Week Comments Yes 0 (1 standard drink = 0.6 oz pur e alcohol) AUDIT-C Answer Date Recorded Q1: How often do you have a drink containing alc ohol? 2-4 times a month 10/04/2022 Q2: How many drinks containi ng alcohol do you have on a typical day when you are drinking? 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 Patient needs medications represcribed. If needed, Pharmacy(s) medication(s) should be sent to: NA Additional Comments: Caller advised that patient is out of refills. Patient last OV was 10/04/22. Advised that he would need to schedule New Patient appointment at practice. Caller advised she will try to reach Dr. Coburn at his other location. She will call back if she needs further assistance. Does message need to be routed? No documented in this encounter Plan of Treatment Not on file documented as of this encounter Visit Diagnoses Not on filedocumented in this encounter Care Teams Pe Electrical Engineer Relationship Specialty Start Date End Date Jorje Coburn DO PCP - General Family Medicine 06/18/18 documented as of this encounter
--- OUTSIDE RECORDS SUMMARY | 2024-03-05 21:51 | XMS_ITS | Encounter Summary ---
Author Organization [facility] Healthcare Address [address] [place] [address] Care Team Providers Care Manufacturing Manager Name Role Phone Jorje Coburn DO Primary Care Provider + Encounter Details Date Type Department Care Team (Latest Contact Info) Description 09/14/2022 4:05 PM CDT - 09/14/2022 11:59 PM CDT Hospital Encounter [facility] [address] [place] [address] Discharge Disposition: Discharge to home or self care Social History Tobacco Use Types Packs/Day Years Used Date Smoking Tobacco: Never Smokeless Tobacco: Never Alcohol Use Standard Drinks/Week Comments Yes 0 (1 standard drink = 0.6 oz pur e alcohol) AUDIT-C Answer Date Recorded Q1: How often do you have a drink containing alc ohol? 2-4 times a month 04/11/2022 Q2: How many drinks containi ng alcohol do you have on a typical day when you are drinking? 5 or 6 04/11/2022 Q3: How often do you have si x or more drinks on one occasion? 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 Gender Identity Not on file Sexual Orientation Not on file documented as of this encounter Medications at Time of Discharge cholecalciferol (VITAMIN D-3) 2,000 unit tablet 1 tablet (2,000 Units total) daily metoprolol XL (TOPROL-XL) 25 mg extended release tablet Take 1 tablet (25 mg total) by mouth daily 30 tablet 4 08/09/2022 omega-3 fatty acids (LOVAZA) 1 gram capsule Take 1 capsule (1,000 mg total) by mouth 09/25/2016 omeprazole (PriLOSEC) 20 mg capsuleIndicatio ns:Stomach acid Take 1 capsule (20 mg total) by mouth daily 90 capsule 3 08/09/2022 rosuvastatin (CRESTOR) 20 mg tabletIndication s:Dyslipidemia Take 1 tablet (20 mg total) by mouth daily 90 tablet 3 08/09/2022 sildenafiL (VIAGRA) 100 mg tablet TAKE 1 TABLET BY MOUTH ONCE DAILY NEEDED 6 tablet 02/03/2020 tamsulosin (FLOMAX) 0.4 mg extended release capsule Take 1 capsule (0.4 mg total) by mouth daily 90 capsule 3 08/09/2022 testosterone cypionate (DEPO-TESTOTERON E) 100 mg/mL injection Inject 100 mg/mL into the muscle as instructed amLODIPine (NORVASC) 10 mg tabletIndication s:Hypertension, essential Take 0.5 tablets (5 mg total) by mouth daily 45 tablet 3 08/09/2022 3 fexofenadine (AVE) 180 mg tablet TAKE 1 TABLET BY MOUTH DAILY NEEDED (ALLERGIES). 90 tablet 07/14/2022 3 documented as of this encounter Discharge Disposition Disposition Code Departure Means Destination Discharge to home or self care documented in this encounter Plan of Treatment Not on file documented as of this encounter Procedures Procedure Name Priority Date/Time Associated Diagnosis Comments CT BODY OUTSIDE REFERENCE Routine 09/14/2022 4:05 PM CDT documented in this encounter Results * CT Body Outside Reference (09/14/2022 4:05 PM CDT) Narrative [facility] - 11/09/2022 11:12 AM CDT This order has been auto-finalized and does not contain a result. us Provider Transcribed Order IMG CT PROCEDURES Fin al Result [facility] documented in this encounter Visit Diagnoses Not on filedocumented in this encounter Care Teams Manufacturing Manager Relationship Specialty Start Date End Date Jorje Coburn DO PCP - General Family Medicine 06/18/18 documented as of this encounter
--- OUTSIDE RECORDS SUMMARY | 2024-03-05 21:51 | XMS_ITS | Encounter Summary ---
Author Organization [facility] Healthcare Address [address] [place] [address] Care Team Providers Care Entry Analyst Name Role Phone Jorje Coburn DO Primary Care Provider + Reason for Visit * Reason Onset Date Comments Medical Question/Miscellaneous 03/02/2023 Encounter Details Date Type Department Care Team (Late st Contact Info) Description 03/02/2023 Telephone [facility] Medical Group Family Medicine [address] [place] [address] Jorje Coburn DO [address] [place] [address] [address] [place] [address] Medical Question/Miscellaneous Social History Tobacco Use Types Packs/Day Years [...] on file Legal Sex Male 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 He will continue to monitor and call if he becomes symptomatic. LE STITCH OPERATOR * Telephone Encounter - Jorje Coburn DO - 03/02/2023 12:49 PM SADDLE STITCH OPERATOR The daytime average is in the normal range but on the low end of normal if he is feeling fine I do not have any problems with this medication if he is feeling tired we can adjust LE STITCH OPERATOR * Telephone Encounter - Susanna Bob MA - 03/02/2023 8:21 AM CST Medical Question/Miscellaneous Caller???s Concern: heart rate readings Wants to make s sure the BP meds aren't making heart rate to low. Nights average of 46 Day average of 64 Does message need to be routed? Yes-Action Needed LE STITCH OPERATOR documented in this encounter Plan of Treatment Not on file documented as of this encounter Visit Diagnoses Not on filedocumented in this encounter Care Teams Entry Analyst Relationship Specialty Start Date End Date Jorje Coburn DO PCP - General Family Medicine 06/18/18 documented as of this encounter
--- OUTSIDE RECORDS SUMMARY | 2024-03-05 21:51 | XMS_ITS | Encounter Summary ---
Author Organization [facility] Healthcare Address [address] [place] [address] Care Team Providers Care Hat Brusher Machine Name Role Phone Jorje Coburn DO Primary Care Provider + Reason for Visit * Reason Onset Date Comments Medication Request 02/15/2023 Encounter Details Date Type Department Care Team (Late st Contact Info) Description 02/15/[address] 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 ANALYSIS OR RESEARCH SAFETY INSPECTOR relayed message from PRASANNA Reyes and notified caller of the prescription that was sent. Caller understands - no additional questions. Does message need to be routed? No VIORAL HEALTH CARE MANAGER * Telephone Encounter - Sharon Guo RN - 02/16/2023 12:19 PM CST Left VM to call back VIORAL HEALTH CARE MANAGER * Telephone Encounter - Shayy Reyes PA - 02/15/2023 8:05 PM CST I'm not seeing any encounters advising discontinuing metoprolol but if he's not taking and BP is doing okay, he can remain off. VIORAL HEALTH CARE MANAGER * Telephone Encounter - Sharon Guo RN - 02/15/2023 4:30 PM CST Per has been on amlodipine 5 mg or half of a 10 mg tab, would like to have a 5 mg tab as they are hard to break. She thinks he was to stop the metoprolol. Sent a 5 mg tab to see if they will letit go through the insurance. Need to know more about if he is to be off the metoprolol? VIORAL HEALTH CARE MANAGER * Telephone Encounter - June - 02/15/2023 3:54 PM CST Medication Question/Clarification Medication Name(s): metoprolol XL (TOPROL-XL) 25 mg extended release tablet amLODIPine (NORVASC) 10 mg tablet What is the question or clarification needed? Pt spouse stated that one of the above medication wasto be discontinued and they are not sure which one/ also the pt spilled some of the amLODIPine (NORVASC) 10 mg tablet and the pharmacy stated that to early for a refill and wants to know if there is any samples of the medication If needed, Pharmacy(s) medication(s) should be sent to: n/a Additional Comments: please call [facility] Does message need to be routed? Yes-Action Needed VIORAL HEALTH CARE MANAGER documented in this encounter Plan of Treatment Not on file documented as of this encounter Visit Diagnoses Not on filedocumented in this encounter Discontinued Medications Medication Sig Discontinue Reason Start Date End Da te amLODIPine (NORVASC) 10 mg tabletIndications:Hypert ension, essential Take 0.5 tablets (5 mg total) by mouth daily 08/09/2022 02/15/2023 documented as of this encounter Care Teams Hat Brusher Machine Relationship Specialty Start Date End Date Jorje Coburn DO PCP - General Family Medicine 06/18/18 documented as of this encounter
--- OUTSIDE RECORDS SUMMARY | 2024-03-05 21:51 | XMS_ITS | Encounter Summary ---
Author Organization [facility] Address [address] [place] [address] Care Team Providers Care Senior Physician Name Role Phone Jorje Coburn DO Primary Care Provider + Reason for Referral * MRI/CAT/PET Scan (Routine) - Closed Specialty Diagnoses / Procedures Referred By Contjenae t Referred To Contact Radiology Diagnoses Pulmonary nodule Procedures CT Chest WO Contrast Jorje Coburn DO Phone: tel: fax: [facility] [address] [place] [address] Referral ID Status Reason Start Date Expiration Date Visits Re quested Visits Authorized [id number] Closed 11/15/2022 12/15/2023 1 1 Encounter Details Date Type Department Care Team (Late st Contact Info) Description 11/15/2022 Orders Only [facility] Family Medicine [address] [place] [address] Jorje Coburn DO [address] [place] [address] Pulmonary nodule (Primary Dx) Social History Tobacco Use Types Packs/Day Years [...] on file 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 Gender Identity Not on file Sexual Orientation Not on file documented as of this encounter Plan of Treatment Scheduled Orders Name Type Priority Associated Diagnoses Orde r Schedule CT Chest WO Contrast Imaging Schedule Routine, Read Routine (OP Routine) Pulmonary nodule Expected: 11/16/2023, Expires: 11/15/2024 documented as of this encounter Visit Diagnoses Diagnosis Pulmonary nodule- Primary Other diseases of lung, not elsewhere classified documented in this encounter Care Teams Senior Physician Relationship Specialty Start Date End Date Jorje Coburn DO PCP - General Family Medicine 06/18/18 documented as of this encounter
--- OUTSIDE RECORDS SUMMARY | 2024-03-05 21:51 | XMS_ITS | Encounter Summary ---
Author Organization [facility] Healthcare Address [address] [place] [address] Care Team Providers Care Journal Clerk Name Role Phone Jorje Coburn DO Primary Care Provider + Reason for Visit * Reason Onset Date Comments Medical Records Request 01/17/2023 Encounter Details Date Type Department Care Team (Late st Contact Info) Description 01/17/2023 Telephone [facility] Medical [facility] Family Medicine [address] [place] [address] Jorje Coburn DO [address] [place] [address] [address] [place] [address] Medical Records Request Social History Tobacco Use Types Packs/Day [...] on file 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 Can the one from 04/2022 be faxed to them? Does message need to be routed? Yes-Action Needed * Telephone Encounter - Karin Roman - 01/17/2023 12:09 PM CDT Labs printed and faxed. * Telephone Encounter - Yumiko Castro - 01/17/2023 8:44 AM CDT Medical Records Request Request Type: Records Request Practice Will Complete What records are being requested:most recent hemoglobin A1c and CBC with auto differential Who will the records be sent to (if being sent to another doctor, list the doctor's name and specialty)? Dr. Rufus Rojas's Office Date Needed: [facility] Delivery Method: Fax Fax number to use for return of records: [phone] Additional Comments/Concerns: n/a Does the message need to be routed? Yes-Action Needed documented in this encounter Plan of Treatment Not on file documented as of this encounter Visit Diagnoses Not on filedocumented in this encounter Care Teams Journal Clerk Relationship Specialty Start Date End Date Jorje Coburn DO PCP - General Family Medicine 06/18/18 documented as of this encounter
--- OUTSIDE RECORDS SUMMARY | 2024-03-05 21:51 | XMS_ITS | Encounter Summary ---
Author Organization [facility] Address [address] [place] [address] Care Team Providers Care Press Brake Operator Name Role Phone Jorje Coburn DO Primary Care Provider + Reason for Referral * MRI/CAT/PET Scan (Routine) - Closed Specialty Diagnoses / Procedures Referred By Star gandara Referred To Contact Radiology Diagnoses Pulmonary nodule Procedures CT Chest WO Contrast Jorje Coburn DO Phone: tel: fax: [address] [phone] Referral ID Status Reason Start Date Expiration Date Visits Re quested Visits Authorized [id number] Closed 10/19/2022 11/17/2022 1 1 Reason for Visit * MRI/CAT/PET Scan (Routine) - Closed Specialty Diagnoses / Procedures Referred By Star gandara Referred To Contact Radiology Diagnoses Pulmonary nodule Procedures CT Chest WO Contrast Jorje Coburn DO Phone: tel: fax: [address] [phone] Referral ID Status Reason Start Date Expiration Date Visits Re quested Visits Authorized [id number] Closed 10/19/2022 11/17/2022 1 1 Encounter Details Date Type Department Care Team (Latest Contact Info) Description 11/07/2022 4:28 PM CDT - 11/07/2022 11:59 PM CDT Hospital Encounter [facility] [address] [place] [address] Pulmonary nodule Discharge Disposition: Discharge to home or self [...] on file 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 Gender Identity Not on file Sexual Orientation Not on file documented as of this encounter Medications at Time of Discharge cholecalciferol (VITAMIN D-3) 2,000 unit tablet 1 tablet (2,000 Units total) daily cyanocobalamin (Vitamin B-12) 1,000 mcg tabletIndication s:Prevention of Vitamin B12 Deficiency Take 1 tablet (1,000 mcg total) by mouth daily metoprolol XL (TOPROL-XL) 25 mg extended [...] Date/Time Associated Diagnosis Comments CT CHEST WO CONTRAST Schedule Routine, Read Routine (OP Routine) 11/07/2022 5:24 PM CDT Pulmonary nodule documented in this encounter Results * CT Chest WO Contrast (11/07/2022 5:24 PM CDT) Anatomical Region Laterality Modality Body N/A Computed Tomogra phy 11/10/2022 2:23 PM CDT Narrative 11/10/2022 2:35 PM CDT EXAM DESCRIPTION: ?? CT CHEST WO CONTRAST REASON FOR STUDY: ?? Lung nodule, < 6mm, high cancer risk, initial follow up exam, pulmonary nodule ?? Annual follow up lung nodule ?? TECHNIQUE: CT scan of the chest performed without intravenous contrast using helical scanning technique. Reconstructed coronal and sagittal MPR images reviewed. ??All images stored on PACS. ??Automated exposure control was used as a dose optimization technique for this examination. COMPARISON: Coronary ??calcium score CT dated 09/14/2022 REFERENCE: Per ACR white paper recommendations, unless otherwise specified no follow-up imaging is recommended for incidental renal and adrenal lesions per consensus recommendations based on imaging criteria. Further lab evaluation could be pursued based on clinical findings. FINDINGS: The sensitivity for detection of solid visceral lesions is diminished without the use of intravenous contrast. LUNGS: ?? There are multiple calcified granulomas within the lung parenchyma. ?? There are 2 clustered pulmonary nodules with central popcorn calcifications which may represent pulmonary hamartomas or calcified granulomas. ??These pulmonary nodules are unchanged from the prior study on 09/14/2022. ??There is a 3 mm pulmonary nodule ??identified on series 3, image 196 which may have a tiny focus of internal calcification. ??Mild emphysematous changes are noted. PLEURA: ?? No effusion. No pneumothorax. MEDIASTINUM/NICOLE: ?? No identified masses or abnormal nodes. HEART: ?? Heart size is normal with no pericardial effusion. CORONARY ARTERY CALCIFICATION: ??Please refer to prior coronary CT for further details VASCULATURE: ?? Mild atherosclerotic calcification of the thoracic aorta without aneurysm. AXILLA: ?? No adenopathy. CHEST WALL: ?? No masses. ??No subcutaneous air. HARDWARE/LINES/TUBES: ?? None. UPPER ABDOMEN: ?? No significant abnormality. MUSCULOSKELETAL: ?? No significant abnormality. OTHER: ?? No other significant abnormality. IMPRESSION: Right lower lobe 3 mm pulmonary nodule is unchanged from 09/14/2022. ??This may have a small internal focus of calcification. ??Chest CT 1 year from 09/14/2022 could be considered per Fleischner criteria if the patient is high risk for lung cancer. ??There are multiple benign granulomas and likely hamartomas. THIS IS AN ELECTRONICALLY VERIFIED FINAL REPORT 11/10/2022 2:35 PM - Electronically signed by ??Mukund Tilley M.D. MM: MM D: ??11/10/2022 2:35 PM T: ??11/10/2022 2:35 PM Report ID: [id number] Reading Location: ??[id number] Procedure Note Mukund Tilley MD - 11/10/2022 EXAM DESCRIPTION: CT CHEST WO CONTRAST REASON FOR STUDY: Lung nodule, < 6mm, high cancer risk, initial followup exam, pulmonary nodule Annual follow up lung nodule TECHNIQUE: CT scan of the chest performed without intravenous contrastusing helical scanning technique. Reconstructed coronal and sagittal MPR images reviewed. All images stored on PACS. Automated exposure control was usedas a dose optimization technique for this examination. COMPARISON: Coronary calcium score CT dated 09/14/2022 REFERENCE: Per ACR white paper recommendations, unless otherwise specifiedno follow-up imaging is recommended for incidental renal and adrenal lesionsper consensus recommendations based on imaging criteria. Further labevaluation could be pursued based on clinical findings. FINDINGS: The sensitivity for detection of solid visceral lesions is diminished without the use of intravenous contrast. LUNGS: There are multiple calcified granulomas within the lungparenchyma. There are 2 clustered pulmonary nodules with central popcorncalcifications which may represent pulmonary hamartomas or calcified granulomas. These pulmonary nodules are unchanged from the prior study on 09/14/2022. Thereis a 3 mm pulmonary nodule identified on series 3, image 196 which may havea tiny focus of internal calcification. Mild emphysematous changes arenoted. PLEURA: No effusion. No pneumothorax. MEDIASTINUM/NICOLE: No identified masses or abnormal nodes. HEART: Heart size is normal with no pericardial effusion. CORONARY ARTERY CALCIFICATION: Please refer to prior coronary CT forfurther details VASCULATURE: Mild atherosclerotic calcification of the thoracic aorta without aneurysm. AXILLA: No adenopathy. CHEST WALL: No masses. No subcutaneous air. HARDWARE/LINES/TUBES: None. UPPER ABDOMEN: No significant abnormality. MUSCULOSKELETAL: No significant abnormality. OTHER: No other significant abnormality. IMPRESSION: Right lower lobe 3 mm pulmonary nodule is unchanged from 09/14/2022. This may have a small internal focus of calcification. ChestCT 1 year from 09/14/2022 could be considered per Fleischner criteria if the patient is high risk for lung cancer. There are multiple benigngranulomas and likely hamartomas. THIS IS AN ELECTRONICALLY VERIFIED FINAL REPORT 11/10/2022 2:35 PM - Electronically signed by Mukund Tilley M.D. MM: MM Report ID: [id number] Reading Location: [id number] Jorje Coburn DO [facility] CT PROCEDURES Final Result documented in this encounter Visit Diagnoses Diagnosis Pulmonary nodule Other diseases of lung, not elsewhere classified documented in this encounter Care Teams Press Brake Operator Relationship Specialty Start Date End Date Jorje Coburn DO PCP - General Family Medicine 06/18/18 documented as of this encounter
--- OUTSIDE RECORDS SUMMARY | 2024-03-05 21:51 | XMS_ITS | Encounter Summary ---
Author Organization [facility] Address [address] [place] [address] Care Team Providers Care Urgent Care Nurse Practitioner Name Role Phone Jorje Coburn DO Primary Care Provider + Reason for Referral * MRI/CAT/PET Scan (Routine) - Closed Specialty Diagnoses / Procedures Referred By Contjenae t Referred To Contact Radiology Diagnoses Pulmonary nodule Procedures CT Chest WO Contrast Jorje Coburn DO Phone: tel: fax: [address] [phone] Referral ID Status Reason Start Date Expiration Date Visits Re quested Visits Authorized [id number] Closed 10/19/2022 11/17/2022 1 1 Reason for Visit * Reason Onset Date Comments Lung Screening 10/17/2022 Encounter Details Date Type Department Care Team (Late st Contact Info) Description 10/17/2022 Telephone [facility] [address] [place] [id number] Martha Peguero RN Lung Screening Social History Tobacco Use Types Packs/Day Years [...] on file 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 * Telephone Encounter - Jorje Coburn DO - 10/17/2022 5:30 PM CDT We can just order a CT of the chest diagnosis pulmonary nodule * Telephone Encounter - Nithya Anne RN - 10/17/2022 5:05 PM CDT Do you want me to order the CT of chest since they can't do a CT lung CA screen? * Telephone Encounter - Martha Peguero RN - 10/17/2022 2:12 PM CDT Phoned patient regarding lung screening hx form. Upon assessing smoking hx he tells me he quit smoking November of 2006. I inform him that he quit smoking over 15 years ago so he is not in lung screen criteria. Informed him that I would reach out to office for guidance on next step since there was a nodule seen on a cardiac screening. Phoned Nithya at office. Informed her patient is not in screening criteria due to quitting smoking in 2006. Asked Nithya if would like toget a CT chest for nodule follow up and when would he like that. She states she will ask him for next step. documented in this encounter Plan of Treatment Not on file documented as of this encounter Results * CT Chest WO [...] PM T: ??11/10/2022 2:35 PM Report ID: [id number] Reading Location: ??[id number] Procedure Note Mukund Tilley MD - 11/10/2022 [...] Mukund Tilley M.D. MM: MM Report ID: [id number] Reading Location: [place] [address] Jorje Coburn DO [facility] CT PROCEDURES Final Result documented in this encounter Visit Diagnoses Diagnosis Pulmonary nodule- Primary Other diseases of lung, not elsewhere classified Pulmonary nodule Other diseases of lung, not elsewhere classified documented in this encounter Care Teams Urgent Care Nurse Practitioner Relationship Specialty Start Date End Date Jorje Coburn DO PCP - General Family Medicine 06/18/18 documented as of this encounter
--- OUTSIDE RECORDS SUMMARY | 2024-03-05 21:51 | XMS_ITS | Clinical Summary ---
Author Organization [facility] Address [address] [place] [address] Care Team Providers Care Metal Bumper Name Role Phone Jorje Coburn DO Primary Care Provider + Allergies Active Allergy Reactions Criticality Noted Date Comments Iodinated Contrast Media Swelling Medium 09/25/2016 Iodine Rash Medium 01/03/2022 Morphine Rash Medium 09/25/2016 Medications testosterone cypionate (DEPO-TESTOTERO NE) 100 mg/mL injection Inject 100 mg/mL into the muscle as instructed Active omega-3 fatty acids (LOVAZA) 1 gram capsule Take 1 capsule (1,000 mg total) by mouth 7 Active cholecalciferol (VITAMIN D-3) 2,000 unit tablet 1 tablet (2,000 Units total) daily Active sildenafiL (VIAGRA) 100 mg tablet TAKE 1 TABLET BY MOUTH ONCE DAILY NEEDED 6 tablet 0 Active omeprazole (PriLOSEC) 20 mg capsuleIndicati ons:Stomach acid Take 1 capsule (20 mg total) by mouth daily 90 capsule 3 3 Active rosuvastatin (CRESTOR) 20 mg tabletIndicatio ns:Dyslipidemia Take 1 tablet (20 mg total) by mouth daily 90 tablet 3 3 Active tamsulosin (FLOMAX) 0.4 mg extended release capsule Take 1 capsule (0.4 mg total) by mouth daily 90 capsule 3 3 Active metoprolol XL (TOPROL-XL) 25 mg extended release tablet Take 1 tablet (25 mg total) by mouth daily 30 tablet 4 3 Active cyanocobalamin (Vitamin B-12) 1,000 mcg tabletIndicatio ns:Prevention of Vitamin B12 Deficiency Take 1 tablet (1,000 mcg total) by mouth daily Active fexofenadine (AVE) 180 mg tablet TAKE 1 TABLET BY MOUTH DAILY NEEDED (ALLERGIES). 90 tablet 1 3 Active amLODIPine (NORVASC) 5 mg tablet Take 1 tablet (5 mg total) by mouth daily 90 tablet 1 3 Active Active Problems Problem Noted Date Diagnosed Date Pulmonary nodule 10/04/2022 Assessment & Plan (10/04/2022 12:13 PM CDT): Get a CT coronary calcium score. His overall score was 28 which puts him in the range of mild plaquing. He did have a 3 mm pulmonary nodule. I will recheck a CT lung cancer screen in 12 months Thyromegaly 08/09/2022 Assessment & Plan (08/09/2022 8:10 AM CDT): Right sided Will order a thyroid us Benign prostatic hyperplasia with urinary freque ncy 05/10/2022 Assessment & Plan (10/04/2022 12:15 PM CDT): Psa is normal Assessment & Plan (08/09/2022 8:02 AM CDT): psa is normal Up 4 x night Assessment & Plan (05/10/2022 9:16 AM RABBIT BREEDER): Add flomax Severe obesity (BMI 35.0-39.9) with comorbidity 04/11/2022 Assessment & Plan (10/04/2022 12:14 PM CDT): Healthy diet Has lost 10 pounds Assessment & Plan (08/09/2022 8:00 AM CDT): Healthy diet Assessment & Plan (05/10/2022 9:08 AM RABBIT BREEDER): Healthy diet Weight loss Assessment & Plan (04/11/2022 9:05 AM RABBIT BREEDER): Healthy diet Hypertension, essential 08/06/2021 Assessment & Plan (10/04/2022 12:14 PM CDT): Patient is well controlled. Continue current treatment. Assessment & Plan (08/09/2022 8:05 AM CDT): Remains on amlodipine 5 mg Add toprol xl 25 mg daily Chronic condition Not at goal Assessment & Plan (06/22/2022 11:34 AM CDT): Elevated today but not feeling well. Continue norvasc 10 mg daily. F/u in 6 weeks as scheduled for recheck. Assessment & Plan (05/10/2022 9:09 AM RABBIT BREEDER): Cont amlodipine Assessment & Plan (04/11/2022 9:04 AM RABBIT BREEDER): Check bp routinely Update Assessment & Plan (08/13/2021 7:27 AM CDT): He has been on amlodipine for 1 week. His blood pressure is borderline. He is cleared for surgery. We need to continue to monitor his blood pressure and see where sees at after a full month of treatment. Assessment & Plan (08/06/2021 10:08 AM CDT): New diagnosis. Recommend starting medication. Patient is very hesitant but discussed risks of leaving BP untreated including heart attack, stroke, and renal failure. Patient will work on cutting back on salt, increasing exercise to at least 30 minutes 5 days a week, and losing weight. I do recommend starting amlodipine 5 mg daily as well. Patient hesitant but agreeable. Discussed BP will need to be better before I clear him for surgery. Obstructive sleep apnea 01/20/2021 Assessment & Plan (08/09/2022 8:01 AM CDT): Doing ok Fatigue 09/16/2020 Psychophysiological insomnia 09/16/2020 Dyslipidemia 06/18/2018 Assessment & Plan (10/04/2022 12:14 PM CDT): Patient is well controlled. Continue current treatment. Assessment & Plan (08/09/2022 8:00 AM CDT): He remains on rosuvastatin 20 mg daily I will check a coronary calcium CT screen Assessment & Plan (05/10/2022 9:09 AM RABBIT BREEDER): Continue rosuvastatin 20 mg daily Assessment & Plan (06/18/2018 3:55 PM CDT): REFILL MED ROUTINE LAB Annual physical exam 06/18/2018 Assessment & Plan (04/11/2022 8:58 AM RABBIT BREEDER): Chart reviewed Lab ordered Assessment & Plan (10/12/2020 5:14 PM CDT): hgb sl [facility] Will discuss testosterone with [facility] Assessment & Plan (06/18/2018 3:56 PM CDT): ROUTINE LABS Resolved Problems Problem Noted Date Diagnosed Date Resolved Date Snoring 09/16/2020 08/09/2022 Sleep disorder 09/16/2020 08/09/2022 Hypersomnia 09/16/2020 08/09/2022 Overweight 09/16/2020 05/10/2022 Bronchitis 05/21/2019 05/10/2022 Assessment & Plan (05/21/2019 5:52 PM RABBIT BREEDER): z tigre\cbc Acute non-recurrent frontal sinusitis 06/18/2018 08/09/2022 Immunizations Name Administration Dates Next Due Influenza, Quadrivalent, Spl it, Preservative Free, Intramuscular 01/10/2020,12/17/2018 Influenza, Unspecified 05/10/2022(Deferr ed: Patient Refused),04/11/2022(Deferred: Patient Refused),01/19/2022(Deferred: Patient Refused),01/06/2022(Deferred: Patient Refused),12/18/2020,12/18/2020(Deferre d: Patient Refused) Surgical History Surgery Date Site/Laterality Comments HERNIA REPAIR CARPAL TUNNEL RELEASE Medical History Medical History Date Comments Neck mass Inguinal hernia Hyperlipidemia Family History Medical History Relation Name Comments Mental illness Father Diabetes Mother Relation Name Status Comments Father Mother Social History Tobacco Use Types Packs/Day Years Used Date Smoking Tobacco: Former Cigarettes 2 30 0 11/18/1976 - 11/18/2006 Smokeless Tobacco: Never Tobacco Cessation:Counseling Given: Not Answered Alcohol Use Standard Drinks/Week Comments Yes 0 [...] on file 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 Gender Identity Not on file Sexual Orientation Not on file Obstetrics History Last Filed Vital Signs Vital Sign Reading Time Taken Comments Blood Pressure 136/82 10/04/2022 11:01 AM CDT Pulse 57 10/04/2022 11:01 AM CDT Temperature 36.7 ??C (98 ??F) 10/04/2022 11:01 AM CDT Respiratory Rate 18 10/04/2022 11:01 AM CDT Oxygen Saturation 96% 10/04/2022 11:01 AM CDT Inhaled Oxygen Concentration - - Weight 112 kg (247 lb) 10/04/2022 11:01 AM CDT Height 177.8 cm (5' 10 ) 10/04/2022 11:01 AM CDT Body Mass Index 35.44 10/04/2022 11:01 AM CDT Plan of Treatment Health Maintenance Due Date Last Done Comments DTaP/Tdap/Td Vaccine (1 - Tdap) 05/21/1971 Hepatitis B Screening 1978 Zoster Vaccine (1 of 2) 2010 Regular Well Visit/Exam 18-64 04/11/2023 04/11/2022, 10/12/2020 Depression Screening 08/10/2023 08/09/2022, 08/06/2021, 06/18/2018 Covid-19 Vaccine ( season) 2023 11/18/2020, 10/13/2020 Influenza Vaccine (#1) 2023 , 01/10/2020, 12/17/2018 Prostate Cancer Screening-PSA 04/22/2024 04/22/2022, 10/09/2020, 01/02/2019, Additional history exists Colon Cancer Screening-Colonoscopy 02/24/2031 02/24/2021 Colon Cancer Screening-CT Colonography Discontinued 02/24/2021 Colon Cancer Screening-DNA Stool Discontinued 02/24/2021 Colon Cancer Screening-FIT Discontinued 02/24/2021 Colon Cancer Screening-Sigmoidoscopy Discontinued 02/24/2021 Hepatitis C Screening Completed 04/22/2022 Pneumococcal vaccine <65 Aged Out No longer eligible based on patient's age to complete this topic Procedures Procedure Name Priority Date/Time Associated Diagnosis Comments HEPATITIS C ANTIBODY Routine 04/22/2022 6:16 AM RABBIT BREEDER Need for hepatitis C screening test PSA SCREEN Routine 04/22/2022 6:16 AM RABBIT BREEDER COLONOSCOPY Routine 02/24/2021 from Last 3 Months or Most Recently Relevant to Health Maintenance Results * PSA screen (04/22/2022 6:16 AM RABBIT BREEDER) PSA 1.61 < OR = 4.00 ng/mL [facility] Comment: The total PSA value from this assay system is standardized against the WHO standard. The test result will be approximately 20% lower when compared to the equimolar-standardized total PSA (Alexia Kristi). Comparison of serial PSA results should be interpreted with this fact in mind. This test was performed using the Siemens chemiluminescent method. Values obtained from different assay methods cannot be used interchangeably. PSA levels, regardless of value, should not be interpreted as absolute evidence of the presence or absence of disease. 04/22/2022 6:16 AM RABBIT BREEDER 04/22/2022 6:19 AM RABBIT BREEDER Narrative [facility] - 04/23/2022 3:01 AM RABBIT BREEDER FASTING:YES FASTING: YES Jorje Coburn DO LAB BLOOD ORDERABLES Fin al Result Performing Organization Address [facility] de Phone Number [facility] [address] [place] [address] * Hepatitis C antibody (04/22/2022 6:16 AM RABBIT BREEDER) Hep C Ab NON-REACTI VE NON-REACT GLORIA [facility] SIGNAL TO CUT-OFF 0.06 <1.00 [facility] Comment: HCV antibody was non-reactive. There is no laboratory evidence of HCV infection. In most cases, no further action is required. However, if recent HCV exposure is suspected, a test for HCV RNA (test code 45650) is suggested. For additional information please refer to http://education.LogLogic/faq/DVT65m8 (This link is being provided for informational/ educational purposes only.) Blood specimen (specimen) 04/22/2022 6:16 AM RABBIT BREEDER 04/22/2022 6:19 AM RABBIT BREEDER Narrative [facility] - 04/23/2022 3:01 AM RABBIT BREEDER FASTING:YES FASTING: YES Jorje Coburn DO LAB MICROBIOLOGY - GENER AL ORDERABLES Final Result Performing Organization Address [facility] de Phone Number [facility] [address] [place] [address] * (ABNORMAL) Colonoscopy (02/24/2021) Anatomical Region Laterality Modality Other 02/24/2021 Historical Provider ENDOSCOPY PROCEDURES Anna l Result from Last 3 Months or Most Recently Relevant to Health Maintenance Insurance ANTHEM ACCESS CHOICE ANTHEM ACCESS CHOICE Care Teams Metal Bumper Relationship Specialty Start Date End Date Jorje Coburn DO PCP - General Family Medicine 06/18/18
--- OUTSIDE RECORDS SUMMARY | 2024-03-05 21:51 | XMS_ITS | Encounter Summary ---
Author Organization [facility] Address [address] [place] [address] Care Team Providers Care Peoplesoft Programmer Name Role Phone Jorje Coburn DO Primary Care Provider + Reason for Visit * Reason Comments Hypertension Hyperlipidemia Encounter Details Date Type Department Care Team (Late st Contact Info) Description 10/04/2022 11:15 AM CDT Office Visit [facility] Family Medicine [address] [place] [address] Jorje Coburn DO [address] [place] [address] Pulmonary nodule (Primary Dx); Severe obesity (BMI 35.0-39.9) with comorbidity (HCC); Hypertension, essential; Dyslipidemia; Benign prostatic hyperplasia with urinary frequency; Cigarette nicotine dependence in remission Social History Tobacco Use Types Packs/Day Years [...] on file 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 Subjective/Objective Patient ID: Benja Gallagher is a 62 y.o. male. Chief Complaint Hypertension and Hyperlipidemia HPI Routine check Doing well Watching diet Past Medical History: Diagnosis Date Hyperlipidemia Inguinal hernia Neck mass Past Surgical History: Procedure Laterality Date CARPAL TUNNEL RELEASE HERNIA REPAIR Patient Active Problem List Diagnosis Date Noted Pulmonary nodule 10/04/2022 Thyromegaly 08/09/2022 Benign prostatic hyperplasia with urinary frequency 05/10/2022 Severe obesity (BMI 35.0-39.9) with comorbidity (HCC) 04/11/2022 Hypertension, essential 08/06/2021 Obstructive sleep apnea 01/20/2021 Fatigue 09/16/2020 Psychophysiological insomnia 09/16/2020 Dyslipidemia 06/18/2018 Annual physical exam 06/18/2018 Current Outpatient Medications Medication Sig Dispense Refill cholecalciferol (VITAMIN D-3) 2,000 unit tablet 1 tablet (2,000 Units total) daily cyanocobalamin (Vitamin B-12) 1,000 mcg tablet Take 1 tablet (1,000 mcg total) by mouth daily fexofenadine (AVE) 180 mg tablet TAKE 1 TABLET BY MOUTH DAILY NEEDED (ALLERGIES). 90 tablet 0 metoprolol XL (TOPROL-XL) 25 mg extended release tablet Take 1 tablet (25 mg total) by mouth daily 30 tablet 4 omega-3 fatty acids (LOVAZA) 1 gram capsule Take 1 capsule (1,000 mg total) by mouth omeprazole (PriLOSEC) 20 mg capsule Take 1 capsule (20 mg total) by mouth daily 90 capsule 3 rosuvastatin (CRESTOR) 20 mg tablet Take 1 tablet (20 mg total) by mouth daily 90 tablet 3 sildenafiL (VIAGRA) 100 mg tablet TAKE 1 TABLET BY MOUTH ONCE DAILY NEEDED 6 tablet 0 tamsulosin (FLOMAX) 0.4 mg extended release capsule Take 1 capsule (0.4 mg total) by mouth daily 90capsule 3 testosterone cypionate (DEPO-TESTOTERONE) 100 mg/mL injection Inject 100 mg/mL into the muscle as instructed amLODIPine (NORVASC) 10 mg tablet Take 0.5 tablets (5 mg total) by mouth daily (Patient not taking:Reported on 10/04/2022) 45 tablet 3 No current facility-administered medications for this visit. Allergies as of 10/04/2022 - Reviewed 10/04/2022 Allergen Reaction Noted Iodinated contrast media Swelling 09/25/2016 Iodine Rash 01/03/2022 Morphine Rash 09/25/2016 Social History Tobacco Use Smoking status: Never Smokeless tobacco: Never Substance and Sexual Activity Drug use: Yes Types: Alcohol Comment: occas Sexual activity: Defer Alcohol Use: Heavy Drinker (10/04/2022) AUDIT-C Frequency of Alcohol Consumption: 2-4 times a month Average Number of Drinks: 3 or 4 Frequency of Binge Drinking: Less than monthly Family History Problem Relation Age of Onset Diabetes Mother Mental illness Father PHQ Screening Review of Systems Constitutional: Negative for activity change. HENT: Negative for congestion. Eyes: Negative for visual disturbance. Respiratory: Negative for shortness of breath. Cardiovascular: Negative for chest pain. Gastrointestinal: Negative for abdominal pain. Endocrine: Negative for polyuria. Genitourinary: Negative for difficulty urinating. Musculoskeletal: Negative for arthralgias. BP 136/82 Pulse 57 Temp 36.7 ??C (98 ??F) Resp 18 Ht 177.8 cm (5' 10 ) Wt 112 kg (247 lb) SpO2 96% BMI 35.44 kg/m?? Physical Exam Constitutional: Appearance: Normal appearance. HENT: Head: Atraumatic. Cardiovascular: Rate and Rhythm: Regular rhythm. Heart sounds: Normal heart sounds. Pulmonary: Breath sounds: Normal breath sounds. Abdominal: Palpations: Abdomen is soft. Musculoskeletal: Cervical back: Neck supple. Neurological: Mental Status: He is oriented to person, place, and time. No visits with results within 2 Week(s) from this visit. Latest known visit with results is: Office Visit on 08/13/2021 Component Date Value Hep C Ab 04/22/2022 NON-REACTIVE SIGNAL TO CUT-OFF 04/22/2022 0.06 Hgb A1C 04/22/2022 5.6 PSA 04/22/2022 1.61 WBC 04/22/2022 5.6 RBC, POC 04/22/2022 6.03 (H) Hgb 04/22/2022 17.6 (H) Hct 04/22/2022 55.5 (H) MCV 04/22/2022 92.0 MCH 04/22/2022 29.2 MCHC 04/22/2022 31.7 (L) Rdw 04/22/2022 13.5 Platelets 04/22/2022 184 MPV 04/22/2022 11.2 Neutrophils, abs 04/22/2022 3,158 Lymphocytes, abs 04/22/2022 1,663 Monocyte abs 04/22/2022 599 Eosinophils, abs 04/22/2022 151 Basophils, abs 04/22/2022 28 Neutrophils 04/22/2022 56.4 Lymphocyte pct 04/22/2022 29.7 Monocytes 04/22/2022 10.7 Eosinophils 04/22/2022 2.7 Basophils 04/22/2022 0.5 Glucose 04/22/2022 108 (H) BUN 04/22/2022 17 Creatinine 04/22/2022 1.18 eGFR 04/22/2022 70 BUN/creat ratio 04/22/2022 NOT APPLICABLE Sodium 04/22/2022 136 Potassium, pl 04/22/2022 4.2 Chloride 04/22/2022 100 CO2 04/22/2022 29 Calcium 04/22/2022 9.2 Assessment/Plan Diagnoses and all orders for this visit: Pulmonary nodule (R91.1) (Primary) Assessment & Plan: Get a CT coronary calcium score. His overall score was 28 which puts him in the range of mild plaquing. He did have a 3 mm pulmonary nodule. I will recheck a CT lung cancer screen in 12 months Severe obesity (BMI 35.0-39.9) with comorbidity (HCC) (E66.01) Assessment & Plan: Healthy diet Has lost 10 pounds Hypertension, essential (I10) Assessment & Plan: Patient is well controlled. Continue current treatment. Dyslipidemia (E78.5) Assessment & Plan: Patient is well controlled. Continue current treatment. Benign prostatic hyperplasia with urinary frequency (N40.1, R35.0) Assessment & Plan: Psa is normal Jorje Coburn DO documented in this encounter Miscellaneous Notes * Assessment & Plan Note - Jorje Coburn, - 10/04/2022 12:15 PM CDT Associated Problem(s): Benign prostatic hyperplasia with urinary frequency Psa is normal * Assessment & Plan Note - Jorje Coburn DO - 10/04/2022 12:14 PM CDT Associated Problem(s): Dyslipidemia Patient is well controlled. Continue current treatment. * Assessment & Plan Note - Jorje Coburn DO - 10/04/2022 12:14 PM CDT Associated Problem(s): Hypertension, essential Patient is well controlled. Continue current treatment. * Assessment & Plan Note - Jorje Coburn DO - 10/04/2022 12:14 PM CDT Associated Problem(s): Severe obesity (BMI 35.0-39.9) with comorbidity (HCC) Healthy diet Has lost 10 pounds * Assessment & Plan Note - Jorje Coburn DO - 10/04/2022 12:13 PM CDT Associated Problem(s): Pulmonary nodule Get a CT coronary calcium score. His overall score was 28 which puts him in the range of mild plaquing. He did have a 3 mm pulmonary nodule. I will recheck a CT lung cancer screen in 12 months documented in this encounter Plan of Treatment Not on file documented as of this encounter Visit Diagnoses Diagnosis Pulmonary nodule- Primary Other diseases of lung, not elsewhere classified Severe obesity (BMI 35.0-39.9) with comorbidity (HCC) Hypertension, essential Unspecified essential hypertension Dyslipidemia Other and unspecified hyperlipidemia Benign prostatic hyperplasia with urinary frequency Cigarette nicotine dependence in remission documented in this encounter Historical Medications * This list may reflect changes made after this encounter. cyanocobalamin (Vitamin B-12) 1,000 mcg tabletIndications :Prevention of Vitamin B12 Deficiency Take 1 tablet (1,000 mcg total) by mouth daily added in this encounter Care Teams Peoplesoft Programmer Relationship Specialty Start Date End Date Jorje Coburn DO PCP - General Family Medicine 06/18/18 documented as of this encounter
--- OUTSIDE RECORDS SUMMARY | 2024-03-05 21:51 | XMS_ITS | Referral Summary ---
Author Organization [facility] [place] [facility] Address [address] [place] [address] Care Team Providers Care Residential Tech Name Role Phone Jorje Coburn DO Primary [...] night Assessment & Plan (05/10/2022 9:16 AM JOCKEY AGENT): Add flomax Severe obesity (BMI 35.0-39.9) with comorbidity 04/11/2022 Assessment & Plan (10/04/2022 12:14 PM CDT): Healthy diet Has lost 10 pounds Assessment & Plan (08/09/2022 8:00 AM CDT): Healthy diet Assessment & Plan (05/10/2022 9:08 AM JOCKEY AGENT): Healthy diet Weight loss Assessment & Plan (04/11/2022 9:05 AM JOCKEY AGENT): Healthy diet Hypertension, essential 08/06/2021 Assessment & [...] recheck. Assessment & Plan (05/10/2022 9:09 AM JOCKEY AGENT): Cont amlodipine Assessment & Plan (04/11/2022 9:04 AM JOCKEY AGENT): Check bp routinely Update Assessment & Plan [...] screen Assessment & Plan (05/10/2022 9:09 AM JOCKEY AGENT): Continue rosuvastatin 20 mg daily Assessment & Plan (06/18/2018 3:55 PM CDT): REFILL MED ROUTINE LAB Annual physical exam 06/18/2018 Assessment & Plan (04/11/2022 8:58 AM JOCKEY AGENT): Chart reviewed Lab ordered Assessment & Plan (10/12/2020 5:14 PM CDT): hgb sl high basa Will discuss testosterone with [facility] Assessment & Plan (06/18/2018 3:56 PM CDT): ROUTINE LABS Resolved Problems Problem Noted Date Diagnosed Date Resolved Date Snoring 09/16/2020 08/09/2022 Sleep disorder 09/16/2020 08/09/2022 Hypersomnia 09/16/2020 08/09/2022 Overweight 09/16/2020 05/10/2022 Bronchitis 05/21/2019 05/10/2022 Assessment & Plan (05/21/2019 5:52 PM JOCKEY AGENT): z [id number]\cbc Acute non-recurrent frontal sinusitis 06/18/2018 08/09/2022 Immunizations Name Administration Dates Next Due Influenza, Quadrivalent, Spl it, Preservative Free, Intramuscular 01/10/2020,12/17/2018 Influenza, Unspecified 05/10/2022(Deferr ed: Patient Refused),04/11/2022(Deferred: Patient Refused),01/19/2022(Deferred: Patient Refused),01/06/2022(Deferred: Patient Refused),12/18/2020,12/18/2020(Deferre d: Patient Refused) Social History Tobacco Use Types Packs/Day Years [...] on file Legal Sex Male 1:20 AM JOCKEY AGENT Gender Identity Not on file Sexual Orientation [...] 10/04/2022 11:01 AM CDT Plan of Treatment Not on file Procedures Procedure Name Priority Date/Time Associated Diagnosis Comments HEPATITIS C ANTIBODY Routine 04/22/2022 6:16 AM JOCKEY AGENT Need for hepatitis C screening test PSA SCREEN Routine 04/22/2022 6:16 AM JOCKEY AGENT COLONOSCOPY Routine 02/24/2021 from Last 3 Months or Most Recently Relevant to Health Maintenance Results * PSA screen (04/22/2022 6:16 AM JOCKEY AGENT) PSA 1.61 < OR = 4.00 ng/mL [...] or absence of disease. 04/22/2022 6:16 AM JOCKEY AGENT 04/22/2022 6:19 AM JOCKEY AGENT Narrative [facility] - 04/23/2022 3:01 AM JOCKEY AGENT FASTING:YES FASTING: YES Jorje Coburn DO LAB BLOOD ORDERABLES Fin al Result [facility] [address] [place] [address] * Hepatitis C antibody (04/22/2022 6:16 AM JOCKEY AGENT) Hep C Ab NON-REACTI VE NON-REACT GLORIA [facility] SIGNAL TO CUT-OFF 0.06 <1.00 [facility] Comment: HCV antibody was non-reactive. There is no laboratory evidence of HCV infection. In most cases, no further action is required. However, if recent HCV exposure is suspected, a test for HCV RNA (test code 47606) is suggested. For additional information please refer to http://education.BackTrack.CrowdCan.Do/faq/WPF97g6 (This link is being provided for informational/ educational purposes only.) Blood specimen (specimen) 04/22/2022 6:16 AM JOCKEY AGENT 04/22/2022 6:19 AM JOCKEY AGENT Narrative [facility] - 04/23/2022 3:01 AM JOCKEY AGENT FASTING:YES FASTING: YES Jorje Coburn DO LAB MICROBIOLOGY - GENER AL ORDERABLES Final Result [facility] [address] [place] [id number] * (ABNORMAL) Colonoscopy (02/24/2021) Anatomical Region Laterality Modality Other 02/24/2021 Historical Provider MD ENDOSCOPY PROCEDURES Anna l Result from Last 3 Months or Most Recently Relevant to Health Maintenance Insurance [employer] CHOICE [employer] Care Teams Residential Tech Relationship Specialty Start Date End Date Jorje Coburn DO PCP - General Family Medicine 06/18/18
--- OUTSIDE RECORDS SUMMARY | 2024-03-05 21:52 | XMS_ITS | Encounter Summary ---
Author Organization [facility] Address [address] [place] [address] Care Team Providers Care Pt Escort Name Role Phone Jorje Coburn DO Primary Care Provider + Reason for Visit * Reason Onset Date Comments Med Refill 08/01/2022 Encounter Details Date Type Department Care Team (Late st Contact Info) Description 08/01/2022 Telephone [facility] Family Medicine [address] [place] [address] Jorje Coburn DO [address] [place] [address] [address] [place] [address] Med Refill Social History Tobacco Use Types Packs/Day Years [...] points, staff should administer the PHQ-9) 0 08/06/2021 Sex and Gender Information Value Date Recorded Sex Assigned at Not on file 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 * Telephone Encounter - Jorje Coburn DO - 08/04/2022 5:56 PM CDT Amlodipine 10 mg is known to cause people to have peripheral edema we can cut him down to 5 and seehow he does over the next week. Cut him down to 5 mg of amlodipine daily * Telephone Encounter - Sharon Guo RN - 08/04/2022 2:18 PM CDT Spoke with who said to call patient. Per patient no SOB or difficulty breathing, no change in urination, no fever, no redness and just a little bit of swelling in feet and legs, hand swelling gone now and pedal edema improved today but not gone. Was wondering if could be related to his new medications? * Telephone Encounter - Sharon Guo RN - 08/02/2022 10:44 AM CDT Left VM to call back * Telephone Encounter - Jorje Coburn DO - 08/01/2022 6:43 PM CDT Please call the patient give me a new note. Is he having any shortness of breath is he having any trouble urinating has he had any other recent medical issues? * Telephone Encounter - Haydee Castorena - 08/01/2022 1:01 PM CDT Symptom Based Call Caller's Callback #: [phone] Chief Complaint(s): A few days ago Duration: Swelling on his arms and leg area. Not painful and red. What type of symptom(s) is the patient experiencing? Non-Emergent. Is this a new or reoccurring symptom(s)? New What have you tried to help your symptom(s)? NA Why was appointment not scheduled? Patient refusing appointment regardless of availability. Additional Comments: Patient wanting to get Dr. Coburn advice. Does message need to be routed? Yes-Action Needed documented in this encounter Plan of Treatment Not on file documented as of this encounter Visit Diagnoses Diagnosis Hypertension, essential Unspecified essential hypertension documented in this encounter Discontinued Medications Medication Sig Discontinue Reason Start Date End Da te amLODIPine (NORVASC) 10 mg tabletIndications:Hypert ension, essential Take 1 tablet (10 mg total) by mouth daily Reorder 06/22/2022 08/05/2022 documented as of this encounter Care Teams Pt Escort Relationship Specialty Start Date End Date Jorje Coburn DO PCP - General Family Medicine 06/18/18 documented as of this encounter
--- OUTSIDE RECORDS SUMMARY | 2024-03-05 21:52 | XMS_ITS | Encounter Summary ---
Author Organization [facility] Address [address] [place] [address] Care Team Providers Care Microbiology Director Name Role Phone Jorje Coburn DO Primary Care Provider + Reason for Visit * Reason Onset Date Comments Medication Request 08/17/2022 Call Back 08/17/2022 Encounter Details Date Type Department Care Team (Late st Contact Info) Description 08/17/2022 Telephone [facility] Family Medicine [address] [place] [address] Jorje Coburn DO [address] [place] [address] [address] [place] [address] Medication Request; Call Back Social History Tobacco Use Types Packs/Day Years [...] on file 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 I advisedpatient is to take metoprolol and amlodipine, Per Dr. Coburn instructions. See attached, she voices understanding. Caller???s Call back #: n/a Does message need to be routed? No * Telephone Encounter - Jorje Coburn DO - 08/17/2022 5:55 PM CDT He is to take both the metoprolol and the amlodipine * Telephone Encounter - Una Caputo - 08/17/2022 8:40 AM CDT Medication Question/Clarification Medication Name(s): Blood pressure medications-patient unsure of the names What is the question or clarification needed? Does patient need to take both or only the newly prescribed medication If needed, Pharmacy(s) medication(s) should be sent to: \ Caller???s Callback #: [phone] Additional Comments: none Does message need to be routed? Yes-Action Needed documented in this encounter Plan of Treatment Not on file documented as of this encounter Visit Diagnoses Not on filedocumented in this encounter Care Teams Microbiology Director Relationship Specialty Start Date End Date Jorje Coburn DO PCP - General Family Medicine 06/18/18 documented as of this encounter
--- OUTSIDE RECORDS SUMMARY | 2024-03-05 21:52 | XMS_ITS | Encounter Summary ---
Author Organization [facility] Address [address] [place] [address] Care Team Providers Care Floor Polisher Name Role Phone Jorje Coburn DO Primary Care Provider + Reason for Visit * Reason Comments Follow-up Encounter Details Date Type Department Care Team (Late st Contact Info) Description 05/10/2022 8:15 AM BARNWORKER GROOM Office Visit [facility] [address] [place] [address] Jorje Coburn DO [address] [place] [address] Severe obesity (BMI 35.0-39.9) with comorbidity (CMS/HCC) (HCC) (Primary Dx); Hypertension, essential; Dyslipidemia; Benign prostatic hyperplasia with urinary frequency Social History Tobacco Use Types Packs/Day Years Used Date Smoking Tobacco: Never Smokeless Tobacco: Never Tobacco Cessation:Counseling Given: Not [...] on file Legal Sex Male 1:20 AM BARNWORKER GROOM Gender Identity Not on file Sexual Orientation Not on file documented as of this encounter Last Filed Vital Signs Vital Sign Reading Time Taken Comments Blood Pressure 140/82 05/10/2022 8:21 AM BARNWORKER GROOM Pulse 56 05/10/2022 8:21 AM BARNWORKER GROOM Temperature 36.7 ??C (98 ??F) 05/10/2022 8:21 AM BARNWORKER GROOM Respiratory Rate 18 05/10/2022 8:21 AM BARNWORKER GROOM Oxygen Saturation 95% 05/10/2022 8:21 AM BARNWORKER GROOM Inhaled Oxygen Concentration - - Weight 115 kg (253 lb 9.6 oz) 05/10/2022 8:21 AM BARNWORKER GROOM Height 177.8 cm (5' 10 ) 05/10/2022 8:21 AM BARNWORKER GROOM Body Mass Index 36.39 05/10/2022 8:21 AM BARNWORKER GROOM documented in this encounter Ordered Prescriptions Prescription Sig Dispense Quantity Refills Last Filled Start Date End Date tamsulosin (FLOMAX) 0.4 mg extended release capsule Take 1 capsule (0.4 mg total) by mouth daily 90 capsule 4 05/10/2022 3 documented in this encounter Progress Notes * Jorje Coburn, DO - 05/10/2022 8:15 AM CST Images from the original note were not included. Subjective/Objective Patient ID: Benja Gallagher is a 61 y.o. male. Chief Complaint Follow-up HPI Routine follow up Past Medical History: Diagnosis Date Hyperlipidemia Inguinal hernia Neck mass Past Surgical History: Procedure Laterality Date CARPAL TUNNEL RELEASE HERNIA REPAIR Patient Active Problem List Diagnosis Date Noted Benign prostatic hyperplasia with urinary frequency 05/10/2022 Severe obesity (BMI 35.0-39.9) with comorbidity (CMS/HCC) (HCC) 04/11/2022 Hypertension, essential 08/06/2021 Obstructive sleep apnea 01/20/2021 Snoring 09/16/2020 Sleep disorder 09/16/2020 Hypersomnia 09/16/2020 Fatigue 09/16/2020 Psychophysiological insomnia 09/16/2020 Acute non-recurrent frontal sinusitis 06/18/2018 Dyslipidemia 06/18/2018 Annual physical exam 06/18/2018 Current Outpatient Medications Medication Sig Dispense Refill amLODIPine (NORVASC) 10 mg tablet Take 1 tablet (10 mg total) by mouth daily 90 tablet 0 cholecalciferol (VITAMIN D-3) 2,000 unit tablet 2,000 Units daily fexofenadine (AVE) 180 mg tablet Take 1 tablet (180 mg total) by mouth daily as needed (allergies) 90 tablet 0 omega-3 fatty acids (LOVAZA) 1 gram capsule Take 1,000 mg by mouth omeprazole (PriLOSEC) 20 mg capsule Take 1 capsule (20 mg total) by mouth daily 90 capsule 1 rosuvastatin (CRESTOR) 20 mg tablet Take 1 tablet (20 mg total) by mouth daily 90 tablet 0 sildenafiL (VIAGRA) 100 mg tablet TAKE 1 TABLET BY MOUTH ONCE DAILY NEEDED 6 tablet 0 testosterone cypionate (DEPO-TESTOTERONE) 100 mg/mL injection Inject 100 mg/mL into the muscle as instructed tamsulosin (FLOMAX) 0.4 mg extended release capsule Take 1 capsule (0.4 mg total) by mouth daily 90capsule 4 No current facility-administered medications for this visit. Allergies as of 05/10/2022 - Reviewed 05/10/2022 Allergen Reaction Noted Iodinated contrast media Swelling 09/25/2016 Iodine Rash 01/03/2022 Morphine Rash 09/25/2016 Social History Tobacco Use Smoking status: Never Smokeless tobacco: Never Substance and Sexual Activity Drug use: Yes Types: Alcohol Comment: occas Sexual activity: Defer Alcohol Use: Heavy Drinker Frequency of Alcohol Consumption: 2-4 times a month Average Number of Drinks: 5 or 6 Frequency of Binge Drinking: Less than monthly [...] difficulty urinating. Musculoskeletal: Negative for arthralgias. BP 140/82 Pulse 56 Temp 36.7 ??C (98 ??F) Resp 18 Ht 177.8 cm (5' 10 ) Wt 115 kg (253 lb 9.6 oz) SpO2 95% BMI 36.39 kg/m?? Physical Exam Constitutional: Appearance: Normal appearance. HENT: Head: Atraumatic. Cardiovascular: Rate and Rhythm: Regular rhythm. Heart sounds: Normal heart sounds. Pulmonary: Breath sounds: Normal breath sounds. Abdominal: Palpations: Abdomen is soft. Musculoskeletal: Cervical back: Neck supple. No visits with results within 2 Week(s) [...] Diagnoses and all orders for this visit: Severe obesity (BMI 35.0-39.9) with comorbidity (CMS/HCC) (HCC) (E66.01) (Primary) Assessment & Plan: Healthy diet Weight loss Hypertension, essential (I10) Assessment & Plan: Cont amlodipine Dyslipidemia (E78.5) Assessment & Plan: Continue rosuvastatin 20 mg daily Benign prostatic hyperplasia with urinary frequency (N40.1, R35.0) Assessment & Plan: Add flomax Other orders - tamsulosin (FLOMAX) 0.4 mg extended release capsule; Take 1 capsule (0.4 mg total) by mouth daily My total encounter time on 05/10/2022 was 20 minutes which was spent in the activities documented inthe note. This includes time spent prior to the visit and after the visit in direct care of the patient. This time does not include time spent in any separately reportable services. Jorje Coburn DO WORKER GROOM documented in this encounter Miscellaneous Notes * Assessment & Plan Note - Jorje Coburn DO - 05/10/2022 9:16 AM BARNWORKER GROOM Associated Problem(s): Benign prostatic hyperplasia with urinary frequency Add flomax WORKER GROOM * Assessment & Plan Note - Jorje Coburn DO - 05/10/2022 9:09 AM BARNWORKER GROOM Associated Problem(s): Dyslipidemia Continue rosuvastatin 20 mg daily WORKER GROOM * Assessment & Plan Note - Jorje Coburn DO - 05/10/2022 9:08 AM BARNWORKER GROOM Associated Problem(s): Hypertension, essential Cont amlodipine WORKER GROOM * Assessment & Plan Note - Jorje Coburn DO - 05/10/2022 9:08 AM BARNWORKER GROOM Associated Problem(s): Severe obesity (BMI 35.0-39.9) with comorbidity (HCC) Healthy diet Weight loss WORKER GROOM documented in this encounter Plan of Treatment Not on file documented as of this encounter Visit Diagnoses Diagnosis Severe obesity (BMI 35.0-39.9) with comorbidity (HCC)- Primary Hypertension, essential Unspecified essential hypertension Dyslipidemia Other and unspecified hyperlipidemia Benign prostatic hyperplasia with urinary frequency documented in this encounter Care Teams Floor Polisher Relationship Specialty Start Date End Date Jorje Coburn DO PCP - General Family Medicine 06/18/18 documented as of this encounter
--- OUTSIDE RECORDS SUMMARY | 2024-03-05 21:52 | XMS_ITS | Encounter Summary ---
Author Organization [facility] Address [address] [place] [address] Care Team Providers Care Graphics Software Engineer Name Role Phone Jorje Coburn DO Primary Care Provider + Reason for Visit * Reason Comments Follow-up BP Encounter Details Date Type Department Care Team (Late st Contact Info) Description 08/13/2021 7:15 AM CDT Office Visit [facility] Family Medicine [address] [place] [phone] Jorje Coburn DO [address] [place], [place] [id number] Need for hepatitis C screening test (Primary Dx); Hypertension, essential Social History Tobacco Use Types Packs/Day Years Used Date Smoking Tobacco: Never Smokeless Tobacco: Never Alcohol Use Standard Drinks/Week Comments Yes 0 (1 standard drink = 0.6 oz pur e alcohol) AUDIT-C Answer Date Recorded Q1: How often do you have a drink containing alc ohol? 2-4 times a month 01/20/2021 Average Number of Drinks Not on file 021 Q3: How often do you have si x or more drinks on one occasion? Never 01/20/2021 PHQ-2 Answer Date Recorded PHQ-2 Total Score (If total score is 3 or more points, staff should administer the PHQ-9) 0 08/06/2021 Sex and Gender Information Value Date Recorded Sex Assigned at Not on file Legal Sex Male 1:20 AM REJOINER Gender Identity Not on file Sexual Orientation Not on file documented as of this encounter Last Filed Vital Signs Vital Sign Reading Time Taken Comments Blood Pressure 140/86 08/13/2021 7:04 AM CDT Pulse 68 08/13/2021 7:04 AM CDT Temperature 36.2 ??C (97.2 ??F) 08/13/2021 7:04 AM CD T Respiratory Rate 18 08/13/2021 7:04 AM CDT Oxygen Saturation 96% 08/13/2021 7:04 AM CDT Inhaled Oxygen Concentration - - Weight 114.2 kg (251 lb 12.8 oz) 08/13/2021 7:04 AM CDT Height 177.8 cm (5' 10 ) 08/13/2021 7:04 AM CDT Body Mass Index 36.13 08/13/2021 7:04 AM CDT documented in this encounter Progress Notes * Jorje Coburn, DO - 08/13/2021 7:15 AM CDT Images from the original note were not included. Subjective/Objective Patient ID: Benja Gallagher is a 61 y.o. male. Chief Complaint Follow-up (BP) HPI Follow-up blood pressure. His EKG is normal sinus rhythm with no acute changes. Ventricular rate of66. Chest x-ray shows no active disease. CBC Chem 7 PT INR normal. Very slight elevation of his hemoglobin. He is here for follow-up blood pressure check. He is taking amlodipine at 5 mg daily. Past Medical History: Diagnosis Date ??? Hyperlipidemia ??? Inguinal hernia ??? Neck mass Past Surgical History: Procedure Laterality Date ??? HERNIA REPAIR Patient Active Problem List Diagnosis Date Noted ??? Hypertension, essential 08/06/2021 ??? Obstructive sleep apnea 01/20/2021 ??? Snoring 09/16/2020 ??? Sleep disorder 09/16/2020 ??? Hypersomnia 09/16/2020 ??? Overweight 09/16/2020 ??? Fatigue 09/16/2020 ??? Psychophysiological insomnia 09/16/2020 ??? Bronchitis 05/21/2019 ??? Acute non-recurrent frontal sinusitis 06/18/2018 ??? Dyslipidemia 06/18/2018 ??? Annual physical exam 06/18/2018 Current Outpatient Medications Medication Sig Dispense Refill ??? amLODIPine (NORVASC) 5 mg tablet TAKE 1 TABLET(5 MG) BY MOUTH DAILY 90 tablet 0 ??? cholecalciferol (VITAMIN D-3) 2,000 unit tablet 2,000 Units daily ??? diclofenac DR (VOLTAREN) 75 mg EC tablet Take 75 mg by mouth 2 (two) times a day ??? omega-3 fatty acids (LOVAZA) 1 gram capsule Take 1,000 mg by mouth ??? omeprazole (PriLOSEC) 20 mg capsule TAKE 1 CAPSULE BY MOUTH EVERY DAY DIRECTED ??? rosuvastatin (CRESTOR) 20 mg tablet Take 1 tablet (20 mg total) by mouth daily 90 tablet 1 ??? sildenafiL (VIAGRA) 100 mg tablet TAKE 1 TABLET BY MOUTH ONCE DAILY NEEDED 6 tablet 0 ??? testosterone cypionate (DEPO-TESTOTERONE) 100 mg/mL injection Inject 100 mg/mL into the muscle as instructed ??? traZODone (DESYREL) 50 mg tablet Take 1 tablet (50 mg total) by mouth nightly 30 tablet 2 No current facility-administered medications for this visit. Allergies as of 08/13/2021 - Reviewed 08/13/2021 Allergen Reaction Noted ??? Iodinated contrast media Swelling 09/25/2016 ??? Morphine Rash 09/25/2016 Social History Socioeconomic History ??? Marital status: Tobacco Use ??? Smoking status: Never Smoker ??? Smokeless tobacco: Never Used Vaping Use ??? Vaping Use: Never used Substance and Sexual Activity ??? Alcohol use: Yes ??? Drug use: Yes Types: Alcohol Comment: occas Family History Problem Relation Age of Onset ??? Diabetes Mother ??? Mental illness Father PHQ Screening Review of Systems Constitutional: Negative for activity change. HENT: Negative for congestion. Eyes: Negative for visual disturbance. Respiratory: Negative for shortness of breath. Cardiovascular: Negative for chest pain. Gastrointestinal: Negative for abdominal pain. Endocrine: Negative for polyuria. Genitourinary: Negative for difficulty urinating. Musculoskeletal: Negative for arthralgias. BP 140/86 Pulse 68 Temp 36.2 ??C (97.2 ??F) Resp 18 Ht 177.8 cm (5' 10 ) Wt 114.2 kg (251lb 12.8 oz) SpO2 96% BMI 36.13 kg/m?? Physical Exam Constitutional: Appearance: Normal appearance. HENT: Head: Atraumatic. Cardiovascular: Rate and Rhythm: Normal rate and regular rhythm. Heart sounds: Normal heart sounds. Pulmonary: Effort: Pulmonary effort is normal. Breath sounds: Normal breath sounds. Abdominal: Palpations: Abdomen is soft. Musculoskeletal: Cervical back: Neck supple. Neurological: Mental Status: He is oriented to person, place, and time. Hospital Outpatient Visit on 08/06/2021 Component Date Value ??? Ventricular Rate EKG/Min 08/06/2021 66 ??? Atrial Rate 08/06/2021 66 ??? MS-Interval (MSEC) 08/06/2021 182 ??? QRS-Interval (MSEC) 08/06/2021 94 ??? QT-Interval (MSEC) 08/06/2021 360 ??? QTc 08/06/2021 377 ??? P [place] 08/06/2021 28 ??? R [place] 08/06/2021 -43 ??? T [place] 08/06/2021 8 ??? Diagnosis 08/06/2021 Value:Normal sinus rhythm Left axis deviation Abnormal ECG When compared with ECG of 19-SEP-2000 09:47, No significant change was found Office Visit on 08/06/2021 Component Date Value ??? WBC 08/12/2021 5.9 ??? RBC, POC 08/12/2021 5.64 ??? Hgb 08/12/2021 18.0 (A) ??? Hct 08/12/2021 52.5 (A) ??? MCV 08/12/2021 93.1 ??? MCH 08/12/2021 31.9 ??? MCHC 08/12/2021 34.3 ??? Rdw 08/12/2021 13.0 ??? Platelets 08/12/2021 172 ??? MPV 08/12/2021 11.3 ??? Neutrophils, abs 08/12/2021 3,157 ??? Lymphocytes, abs 08/12/2021 1,959 ??? Monocyte abs 08/12/2021 566 ??? Eosinophils, abs 08/12/2021 171 ??? Basophils, abs 08/12/2021 47 ??? Neutrophils 08/12/2021 53.5 ??? Lymphocyte pct 08/12/2021 33.2 ??? Monocytes 08/12/2021 9.6 ??? Eosinophils 08/12/2021 2.9 ??? Basophils 08/12/2021 0.8 ??? Glucose 08/12/2021 98 ??? BUN 08/12/2021 18 ??? Creatinine 08/12/2021 1.06 ??? eGFR NON-AFR. AUSTRIAN 08/12/2021 75 ??? EGFR 08/12/2021 87 ??? BUN/creat ratio 08/12/2021 NOT APPLICABLE ??? Sodium 08/12/2021 137 ??? Potassium, pl 08/12/2021 4.5 ??? Chloride 08/12/2021 102 ??? CO2 08/12/2021 27 ??? Calcium 08/12/2021 9.2 ??? Protein, sr 08/12/2021 7.7 ??? Albumin 08/12/2021 4.4 ??? GLOBULIN 08/12/2021 3.3 ??? Alb/glob ratio 08/12/2021 1.3 ??? Bilirubin, total 08/12/2021 0.8 ??? Alk phos 08/12/2021 44 ??? AST 08/12/2021 25 ??? ALT (SGPT) 08/12/2021 30 ??? INR 08/12/2021 1.1 ??? PT 08/12/2021 10.8 ??? aPTT 08/12/2021 32 Assessment/Plan Diagnoses and all orders for this visit: Hypertension, essential (I10) (Primary) Assessment & Plan: He has been on amlodipine for 1 week. His blood pressure is borderline. He is cleared for surgery. We need to continue to monitor his blood pressure and see where sees at after a full month of treatment. Jorje Coburn DO documented in this encounter Miscellaneous Notes * Assessment & Plan Note - Jorje Coburn DO - 08/13/2021 7:27 AM CDT Associated Problem(s): Hypertension, essential He has been on amlodipine for 1 week. His blood pressure is borderline. He is cleared for surgery. We need to continue to monitor his blood pressure and see where sees at after a full month of treatment. * Addendum Note - Karla Temple MA - 08/13/2021 7:15 AM CDTAddended by: KARLA TEMPLE on: 08/13/2021 07:36 AM Modules accepted: Orders documented in this encounter Plan of Treatment Not on file documented as of this encounter Procedures Procedure Name Priority Date/Time Associated Diagnosis Comments PSA SCREEN Routine 04/22/2022 6:16 AM REJOINER CBC WITH AUTO DIFFERENTIAL Routine 04/22/2022 6:16 AM REJOINER HEPATITIS C ANTIBODY Routine 04/22/2022 6:16 AM REJOINER Need for hepatitis C screening test HEMOGLOBIN A1C Routine 04/22/2022 6:16 AM REJOINER BASIC METABOLIC PANEL Routine 04/22/2022 6:16 AM REJOINER documented in this encounter Results * (ABNORMAL) Basic metabolic panel (04/22/2022 6:16 AM REJOINER) Glucose 108(H) 65 - 99 mg/dL [facility] Comment: ? Fasting reference interval For someone without known diabetes, a glucose value between 100 and 125 mg/dL is consistent with prediabetes and should be confirmed with a follow-up test. BUN 17 7 - 25 mg/dL [facility] Creatinine 1.18 0.70 - 1.35 mg/dL [facility] eGFR 70 > OR = 60 mL/min/1. 73m2 [facility] Comment: The eGFR is based on the CKD-EPI 2020 equation. To calculate the new eGFR from a previous Creatinine or Cystatin C result, go to https://www.kidney.org/professionals/ kdoqi/gfr%5Fcalculator BUN/creat ratio NOT APPLICABLE 6 - 22 (calc) [facility] Sodium 136 135 - 146 mmol/L [facility] Potassium, pl 4.2 3.5 - 5.3 mmol/L [facility] Chloride 100 98 - 110 mmol/L [facility] CO2 29 20 - 32 mmol/L [facility] Calcium 9.2 8.6 - 10.3 mg/dL [facility] 04/22/2022 6:16 AM REJOINER 04/22/2022 6:19 AM REJOINER Narrative [facility] - 04/23/2022 3:01 AM REJOINER FASTING:YES FASTING: YES Jorje Coburn DO LAB BLOOD ORDERABLES Fin al Result [facility] [address] [place] [address] * (ABNORMAL) CBC with auto differential (04/22/2022 6:16 AM REJOINER) WBC 5.6 3.8 - 10.8 Thousand/u L [facility] RBC, POC 6.03(H) 4.20 - 5.80 Million/uL [facility] Hgb 17.6(H) 13.2 - 17.1 g/dL [facility] Hct 55.5(H) 38.5 - 50.0 % [facility] MCV 92.0 80.0 - 100.0 fL [facility] MCH 29.2 27.0 - 33.0 pg [facility] MCHC 31.7(L) 32.0 - 36.0 g/dL [facility] Rdw 13.5 11.0 - 15.0 % [facility] Platelets 184 140 - 400 Thousand/u L [facility] MPV 11.2 7.5 - 12.5 fL [facility] Neutrophils, abs 3,158 1,500 - 7,800 cells/uL [facility] Lymphocytes, abs 1,663 850 - 3,900 cells/uL [facility] Monocyte abs 599 200 - 950 cells/uL [facility] Eosinophils, abs 151 15 - 500 cells/uL [facility] Basophils, abs 28 0 - 200 cells/uL [facility] Neutrophils 56.4 % [facility] Lymphocyte pct 29.7 % [facility] Monocytes 10.7 % [facility] Eosinophils 2.7 % [facility] Basophils 0.5 % [facility] 04/22/2022 6:16 AM REJOINER 04/22/2022 6:19 AM REJOINER Narrative [facility] - 04/23/2022 3:01 AM REJOINER FASTING:YES FASTING: YES Jorje Coburn DO LAB BLOOD ORDERABLES Fin al Result [facility] [address] [place] [address] * PSA screen (04/22/2022 6:16 AM REJOINER) PSA 1.61 < OR = 4.00 ng/mL [...] or absence of disease. 04/22/2022 6:16 AM REJOINER 04/22/2022 6:19 AM REJOINER Narrative [facility] - 04/23/2022 3:01 AM REJOINER FASTING:YES FASTING: YES Jorje Coburn DO LAB BLOOD ORDERABLES Fin al Result Performing Organization Address [facility]/ZIP Co de Phone Number [facility] [address] [place] [address] * Hemoglobin A1c (04/22/2022 6:16 AM REJOINER) Pathologist [facility] Hgb A1C 5.6 <5.7 % of total Hgb [facility] Comment: For the purpose of screening for the presence of diabetes: <5.7% ? Consistent with the absence of diabetes 5.7-6.4% ?Consistent with increased risk for diabetes ?(prediabetes) > or =6.5% ??Consistent with diabetes This assay result is consistent with a decreased risk of diabetes. Currently, no consensus exists regarding use of hemoglobin A1c for diagnosis of diabetes in children. According to [place] Diabetes Association (ADA) guidelines, hemoglobin A1c <7.0% represents optimal control in non- diabetic patients. Different metrics may apply to specific patient populations. Standards of Medical Care in Diabetes(ADA). ?? 04/22/2022 6:16 AM REJOINER 04/22/2022 6:19 AM REJOINER Narrative [facility] - 04/23/2022 3:01 AM REJOINER FASTING:YES FASTING: YES Jorje Coburn DO LAB BLOOD ORDERABLES Fin al Result Performing Organization Address [facility] Co de Phone Number [facility] [address] [place] [address] * Hepatitis C antibody (04/22/2022 6:16 AM REJOINER) Pathologist [facility] Hep C Ab NON-REACTI VE NON-REACT GLORIA [facility] SIGNAL TO CUT-OFF 0.06 <1.00 [facility] Comment: HCV antibody was non-reactive. There is no laboratory evidence of HCV infection. In most cases, no further action is required. However, if recent HCV exposure is suspected, a test for HCV RNA (test code 32029) is suggested. For additional information please refer to http://education.FittingRoom/faq/YSB35n1 (This link is being provided for informational/ educational purposes only.) Blood specimen (specimen) 04/22/2022 6:16 AM REJOINER 04/22/2022 6:19 AM REJOINER Narrative [facility] - 04/23/2022 3:01 AM REJOINER FASTING:YES FASTING: YES Jorje Coburn DO LAB MICROBIOLOGY - GENER AL ORDERABLES Final Result Performing Organization Address City/State/[facility] Co de Phone Number [facility] [address] [place] [address] documented in this encounter Visit Diagnoses Diagnosis Need for hepatitis C screening test- Primary Special screening examination for other specified viral diseases Hypertension, essential Unspecified essential hypertension documented in this encounter Care Teams Graphics Software Engineer Relationship Specialty Start Date End Date Jorje Coburn DO PCP - General Family Medicine 06/18/18 documented as of this encounter
--- OUTSIDE RECORDS SUMMARY | 2024-03-05 21:52 | XMS_ITS | Encounter Summary ---
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 He declined making a follow up. He stated he will try again to start using it. * Telephone Encounter - Alyssa Kaur, JUAN JOSE - 10/25/2021 10:56 AM CDT Pt was last seen on 05/12/2021 and was to follow up in 3 months. Please contact pt to schedule appt. Will need appt for cpap supplies. documented in this encounter Plan of Treatment Not on file documented as of this encounter Visit Diagnoses Not on filedocumented in this encounter Care Teams Electric Trucker Relationship Specialty Start Date End Date Jorje Coburn DO PCP - General Family Medicine 06/18/18 documented as of this encounter
--- OUTSIDE RECORDS SUMMARY | 2024-03-05 21:52 | XMS_ITS | Encounter Summary ---
Author Organization [facility] Address [address] [place] [address] Care Team Providers Care Carton Forming Machine Operator Name Role Phone [place]Jorje Sheldon Claude Primary Care Provider + Encounter Details Date Type Department Care Team (Late st Contact Info) Description 05/12/2021 Orders Only [facility] Pulmonology [address] [place] [address] Alyssa Kaur, JUAN JOSE Obstructive sleep apnea (Primary Dx) Social History Tobacco Use Types [...] Never 01/20/2021 PHQ-2 Answer Date Recorded PHQ-2 Score 0 11/09/2018 Sex and Gender Information Value Date Recorded Sex Assigned at Not on file 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 Gender Identity Not on file Sexual Orientation Not on file documented as of this encounter Progress Notes * Alyssa Kaur, JUAN JOSE - 05/12/2021 3:40 PM CST Order for cpap supplies has been sent to [facility] EE GRINDER documented in this encounter Plan of Treatment Not on file documented as of this encounter Visit Diagnoses Diagnosis Obstructive sleep apnea- Primary Obstructive sleep apnea (adult) (pediatric) documented in this encounter Care Teams Carton Forming Machine Operator Relationship Specialty Start Date End Date Jorje Coburn DO PCP - General Family Medicine 06/18/18 documented as of this encounter
--- OUTSIDE RECORDS SUMMARY | 2024-03-05 21:52 | XMS_ITS | Encounter Summary ---
Author Organization [facility] Address [address] [place] [address] Care Team Providers Care Cabin Service Agent Name Role Phone Jorje Coburn DO Primary Care Provider + Reason for Visit * Reason Onset Date Comments Medication Request 04/19/2022 Encounter Details Date Type Department Care Team (Late st Contact Info) Description 04/19/2022 Telephone [facility] Family Medicine [address] [place] [address] Jorje Coburn DO [address] [place] [address] [address] [place] [address] Medication Request Social History Tobacco [...] on file 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 Gender Identity Not on file Sexual Orientation Not on file documented as of this encounter Ordered Prescriptions Prescription Sig Dispense Quantity Refills Last Filled Start Date End Date fexofenadine (AVE) 180 mg tablet Take 1 tablet (180 mg total) by mouth daily as needed (allergies) 90 tablet 04/19/2022 07/14/2022 documented in this encounter Miscellaneous Notes * Telephone Encounter - Sharon Guo RN - 04/19/2022 3:34 PM CST sent RANCE LEGAL ASSISTANT * Telephone Encounter - Janett Devine - 04/19/2022 2:29 PM CST Medication sent to wrong pharmacy Medication Name(s): fexofenadine (AVE) 180 mg tablet Correct Pharmacy Medication should be sent to? [id number] Caller's Callback #: [phone] Additional Comments: none Does message need to be routed? Yes-Action Needed RANCE LEGAL ASSISTANT documented in this encounter Plan of Treatment Not on file documented as of this encounter Visit Diagnoses Not on filedocumented in this encounter Discontinued Medications Medication Sig Discontinue Reason Start Date End Da te fexofenadine (AVE) 180 mg tablet Take 1 tablet (180 mg total) by mouth daily as needed (allergies) Reorder 04/11/2022 04/19/2022 documented as of this encounter Care Teams Cabin Service Agent Relationship Specialty Start Date End Date Jorje Coburn DO PCP - General Family Medicine 06/18/18 documented as of this encounter
--- OUTSIDE RECORDS SUMMARY | 2024-03-05 21:52 | XMS_ITS | Encounter Summary ---
Author Organization [facility] Address [address] [place] [address] Care Team Providers Care Preparation Plant Supervisor Name Role Phone Jorje Coburn DO Primary Care Provider + Reason for Visit * Reason Onset Date Comments need copy of nerve conduction study 06/29/2021 Encounter Details Date Type Department Care Team (Late st Contact Info) Description 06/29/2021 Telephone [facility] Family Medicine [address] [place] [address] Jorje Coburn DO [address] [place] [address] need copy of nerve conduction study Social History Tobacco Use Types Packs/Day Years [...] on file 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 Can schedule his annual for September as well. * Telephone Encounter - Sharon Guo RN - 06/30/2021 10:41 AM CDT Copy mailed to patient * Telephone Encounter - Deonna Henderson - 06/30/2021 10:08 AM CDT Please mail copy of NCS on your desk to him. Pharmacy stated he is on his last refill so he needs to get his annual labs drawn. Can that be put in system? * Telephone Encounter - Sharon Guo RN - 06/29/2021 4:51 PM CDT Left VM to call back, found NCS under [facility] from 04/05/2016. Printed and scanned to media. Copy on my desk. * Telephone Encounter - Deonna Henderson - 06/29/2021 2:16 PM CDT Benja was sent to a Hand Physcian and now they needs to know nerve conductivity test that was done. They don't remember what hand specialist they was sent to . Around 5 years Call back number is [phone] documented in this encounter Plan of Treatment Scheduled Orders Name Type Priority Associated Diagnoses Orde r Schedule CBC with auto differential Lab Routine Annual physical exam Expected: 06/30/2021, Expires: 06/30/2022 Comprehensive metabolic panel Lab Routine Annual physical exam Expected: 06/30/2021, Expires: 06/30/2022 TSH reflex to free T4 Lab Routine Annual physical exam Expected: 06/30/2021, Expires: 06/30/2022 Lipid panel Lab Routine Annual physical exam Expected: 06/30/2021, Expires: 06/30/2022 PSA screen Lab Routine Screening for prostate cancer Expected: 06/30/2021, Expires: 06/30/2022 documented as of this encounter Visit Diagnoses Diagnosis Annual physical exam- Primary Routine general medical examination at a [facility] care facility Screening for prostate cancer Special screening for malignant neoplasm of prostate Prediabetes Other abnormal glucose documented in this encounter Discontinued Medications Medication Sig Discontinue Reason Start Date End Da te rosuvastatin (CRESTOR) 20 mg tablet TAKE 1 TABLET(20 MG) BY MOUTH DAILY Reorder 03/02/2021 06/30/2021 documented as of this encounter Care Teams Preparation Plant Supervisor Relationship Specialty Start Date End Date Jorje Coburn DO PCP - General Family Medicine 06/18/18 documented as of this encounter
--- OUTSIDE RECORDS SUMMARY | 2024-03-05 21:52 | XMS_ITS | Encounter Summary ---
Author Organization [facility] Address [address] [place] [address] Care Team Providers Care Bi Developer Name Role Phone Jorje Coburn DO Primary Care Provider + Reason for Visit * Diagnostic Imaging (Routine) - Closed Specialty Diagnoses / Procedures Referred By Star gandara Referred To Contact Diagnoses Thyromegaly Procedures US Thyroid Jorje Coburn DO Phone: tel: fax: External Order Referral ID Status Reason Start Date Expiration Date Visits Re quested Visits Authorized [id number] Closed 08/09/2022 09/08/2023 1 1 Encounter Details Date Type Department Care Team (Latest Contact Info) Description 08/19/2022 7:44 AM CDT - 08/19/2022 11:59 PM CDT Hospital Encounter [address] [address] Discharge Disposition: Discharge to home or self [...] on file 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 US THYROID REASON FOR STUDY: ?? Enlarged thyroid felt by doctor for 1 week. TECHNIQUE: Ultrasound of the thyroid was performed with grayscale and color doppler. COMPARISON: Thyroid ultrasound 10/01/2013 FINDINGS: RIGHT: The right thyroid lobe measures ??4.7 x 2 x 1.9 ??cm. ??The right thyroid lobe is normal in echotexture. LEFT: The left thyroid lobe measures ??4.5 x 1.7 x 1.5 ??cm. ??The left thyroid lobe is normal in echotexture. ISTHMUS: The isthmus measures ??0.5 cm ??in AP dimension. ??The isthmus is normal in echotexture. VASCULARITY: ??Normal. OTHER: ??No other significant finding. IMPRESSION: No sonographic abnormality of the thyroid. ACR TI-RADS Risk Category: ??Not applicable REFERENCE: According to the ACR Thyroid Imaging, Reporting and Data System (TI-RADS): White Paper of the ACR TI-RADS Committee Jul, 2016 recommendations regarding the management of thyroid nodules are as follows: 1. ?? TI-RADS 1: Risk of malignancy <2%, no FNA or follow up required. 2. ?? TI-RADS 2: Risk of malignancy <2%, no FNA or follow up required. 3. ?? TI-RADS 3: Risk of malignancy 2%-5%. Nodules 1.5 cm or greater follow up at 1, 3 and 5 years recommended, for nodules 2.5 cm or greater FNA recommended. 4. ?? TI-RADS 4: Risk of malignancy 5%-20% Nodules 1.0 cm or greater follow up at 1, 2, 3 and 5 years recommended, for nodules 1.5 cm or greater FNA recommended 5. ?? TI-RADS 5: Risk of malignancy >20%. Nodules 0.5 cm or greater annual follow up for 5 years recommended, for nodules 1.0 cm or greater FNA recommended. THIS IS AN ELECTRONICALLY VERIFIED FINAL REPORT 08/21/2022 6:01 PM - Electronically signed by ??Douglas MCCARTY D: ??08/21/2022 6:01 PM T: Report ID: [id number] Reading Location: ??[id number] Procedure Note Douglas Sidhu MD - 08/21/2022 EXAM DESCRIPTION: US THYROID REASON FOR STUDY: Enlarged thyroid felt by doctor for 1 week. TECHNIQUE: Ultrasound of the thyroid was performed with grayscale andcolor doppler. COMPARISON: Thyroid ultrasound 10/01/2013 FINDINGS: RIGHT: The right thyroid lobe measures 4.7 x 2 x 1.9 cm. The right thyroid lobe is normal in echotexture. LEFT: The left thyroid lobe measures 4.5 x 1.7 x 1.5 cm. The leftthyroid lobe is normal in echotexture. ISTHMUS: The isthmus measures 0.5 cm in AP dimension. The isthmus isnormal in echotexture. VASCULARITY: Normal. OTHER: No other significant finding. IMPRESSION: No sonographic abnormality of the thyroid. ACR TI-RADS Risk Category: Not applicable REFERENCE: According to the ACR Thyroid Imaging, Reporting and Data System (TI-RADS): White Paper of the ACR TI-RADS Committee Jul, 2016recommendations regarding the management of thyroid nodules are as follows: 1. TI-RADS 1: Risk of malignancy <2%, no FNA or follow up required. 2. TI-RADS 2: Risk of malignancy <2%, no FNA or follow up required. 3. TI-RADS 3: Risk of malignancy 2%-5%. Nodules 1.5 cm or greater followup at 1, 3 and 5 years recommended, for nodules 2.5 cm or greater FNArecommended. 4. TI-RADS 4: Risk of malignancy 5%-20% Nodules 1.0 cm or greater followup at 1, 2, 3 and 5 years recommended, for nodules 1.5 cm or greater FNA recommended 5. TI-RADS 5: Risk of malignancy >20%. Nodules 0.5 cm or greater annual follow up for 5 years recommended, for nodules 1.0 cm or greater FNA recommended. THIS IS AN ELECTRONICALLY VERIFIED FINAL REPORT 08/21/2022 6:01 PM - Electronically signed by Douglas MCCARTY T: Report ID: [id number] Reading Location: [place] [address] us Jorje Coburn DO IMG US PROCEDURES Final Result documented in this encounter Visit Diagnoses Not on filedocumented in this encounter Care Teams Bi Developer Relationship Specialty Start Date End Date Jorje Coburn DO PCP - General Family Medicine 06/18/18 documented as of this encounter
--- OUTSIDE RECORDS SUMMARY | 2024-03-05 21:52 | XMS_ITS | Encounter Summary ---
Author Organization [facility] Address [address] [place] [address] Care Team Providers Care Power Generation Technician Name Role Phone Jorje Coburn DO Primary Care Provider + Reason for Referral * Cardiology (Routine) - Closed Specialty Diagnoses / Procedures Referred By Star t Referred To Contact Diagnoses Preop examination Procedures ECG 12 lead Shayy Reyes PA Phone: tel: fax: [address] [phone] Referral ID Status Reason Start Date Expiration Date Visits Re quested Visits Authorized [id number] Closed 08/06/2021 09/05/2022 1 1 Reason for Visit * Cardiology (Routine) - Closed Specialty Diagnoses / Procedures Referred By Star gandara Referred To Contact Diagnoses Preop examination Procedures ECG 12 lead Shayy Reyes PA Phone: tel: fax: [address] [phone] Referral ID Status Reason Start Date Expiration Date Visits Re quested Visits Authorized [id number] Closed 08/06/2021 09/05/2022 1 1 Encounter Details Date Type Department Care Team (Latest Contact Info) Description 08/06/2021 10:30 AM CDT - 08/06/2021 10:52 AM CDT Hospital Encounter [facility] Cardiac Testing 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 Gender Identity Not on file Sexual Orientation Not on file documented as of this encounter Medications at Time of Discharge cholecalciferol (VITAMIN D-3) 2,000 unit tablet 1 tablet (2,000 Units total) daily omega-3 fatty acids (LOVAZA) 1 gram capsule Take 1 capsule (1,000 mg total) by mouth 09/25/2016 sildenafiL (VIAGRA) 100 mg tablet TAKE 1 TABLET BY MOUTH ONCE DAILY NEEDED 6 tablet 02/03/2020 testosterone cypionate (DEPO-TESTOTERON E) 100 mg/mL injection Inject 100 mg/mL into the muscle as instructed jakob HOUSTON) 75 mg EC tablet Take 75 mg by mouth 2 (two) times a day 3 omeprazole (PriLOSEC) 20 mg capsule TAKE 1 CAPSULE BY MOUTH EVERY DAY DIRECTED 02/24/2021 2 rosuvastatin (CRESTOR) 20 mg tablet Take 1 tablet (20 mg total) by mouth daily 90 tablet 1 06/30/2021 2 traZODone (DESYREL) 50 mg tablet Take 1 tablet (50 mg total) by mouth nightly 30 tablet 2 05/12/2021 3 documented as of this encounter Discharge Disposition Disposition Code Departure Means Destination Discharge to home or self care documented in this encounter Plan of Treatment Not on file documented as of this encounter Procedures Procedure Name Priority Date/Time Associated Diagnosis Comments ECG 12-LEAD Routine 08/06/2021 10:51 AM CDT Preop examination documented in this encounter Results * ECG 12 lead (08/06/2021 10:51 AM CDT) Ventricular Rate EKG/Min 66 BPM [facility] Atrial Rate 66 BPM [facility] WV-Interval (MSEC) 182 ms [facility] QRS-Interval (MSEC) 94 ms [facility] QT-Interval (MSEC) 360 ms [facility] QTc 377 ms [facility] P [place] 28 degrees [facility] R [place] -43 degrees [facility] T [place] 8 degrees [facility] Diagnosis Normal sinus rhythm Left axis deviation Abnormal ECG When compared with ECG of 19-SEP-2000 09:47, No significant change was found [facility] 08/06/2021 10:5 1 AM CDT 08/07/2021 1:05 AM CDT us Shayy MIMS ECG ORDERABLES Final Result [facility] documented in this encounter Visit Diagnoses Diagnosis Preop examination Unspecified pre-operative examination documented in this encounter Care Teams Power Generation Technician Relationship Specialty Start Date End Date Jorje Coburn DO PCP - General Family Medicine 06/18/18 documented as of this encounter
--- OUTSIDE RECORDS SUMMARY | 2024-03-05 21:52 | XMS_ITS | Encounter Summary ---
Author Organization [facility] Address [address] [place] [address] Care Team Providers Care Side Seam Envelope Machine Operator Name Role Phone Jorje Coburn DO Primary Care Provider + Reason for Visit * Reason Onset Date Comments Medical Question/Miscellaneous 08/16/2022 Encounter Details Date Type Department Care Team (Late st Contact Info) Description 08/16/2022 Telephone [facility] Family Medicine [address] [place] [address] Jorje Coburn DO [address] [place] [address] Medical Question/Miscellaneous Social History Tobacco [...] on file 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 Gender Identity Not on file Sexual Orientation Not on file documented as of this encounter Miscellaneous Notes * Telephone Encounter - Sharon Guo RN - 08/18/2022 11:23 AM CDT See duplicate encounter * Telephone Encounter - Sharon Guo RN - 08/16/2022 2:19 PM CDT Left VM to call back * Telephone Encounter - Sharon Guo RN - 08/16/2022 12:54 PM CDT Per last office visit: Hypertension, essential (I10) Assessment & Plan: Remains on amlodipine 5 mg Add toprol xl 25 mg daily Chronic condition Not at goal * Telephone Encounter - Vanesa Toscano - 08/16/2022 12:32 PM CDT Medical Question/Miscellaneous Caller???s Concern: Pt's called stating at the patient's last office visit, he was advised to start an additional blood pressure medication, and to cut in half the medication he is currently taking. She also stated, the patient did not remember being advised to start a new medication. The is requesting the patient be called with the correct instructions regarding his blood pressure medications. Please advise Caller???s Call back #: [phone] Does message need to be routed? Yes-Action Needed documented in this encounter Plan of Treatment Not on file documented as of this encounter Visit Diagnoses Not on filedocumented in this encounter Care Teams Side Seam Envelope Machine Operator Relationship Specialty Start Date End Date Jorje Coburn DO PCP - General Family Medicine 06/18/18 documented as of this encounter
--- OUTSIDE RECORDS SUMMARY | 2024-03-05 21:52 | XMS_ITS | Encounter Summary ---
Author Organization [facility] Address [address] [place] [address] Care Team Providers Care Cementing Bulk Material Operator Name Role Phone Jorje Coburn DO Primary Care Provider + Reason for Visit * Reason Onset Date Comments Appointment 05/05/2021 Encounter Details Date Type Department Care Team (Late st Contact Info) Description 05/05/2021 Telephone [facility] Pulmonology & Sleep Clinic [address] [address] Yumiko Krishnamurthy MA Appointment Social History Tobacco Use Types Packs/Day Years [...] on file 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 Stated that he has not been using his cpap machine due to being intolerant of the mask. Patient will speak to the doctor during OV appt. LE OPERATOR GARMENTS documented in this encounter Plan of Treatment Not on file documented as of this encounter Visit Diagnoses Not on filedocumented in this encounter Care Teams Cementing Bulk Material Operator Relationship Specialty Start Date End Date Jorje Coburn DO PCP - General Family Medicine 06/18/18 documented as of this encounter
--- OUTSIDE RECORDS SUMMARY | 2024-03-05 21:52 | XMS_ITS | Encounter Summary ---
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 Gender Identity Not on file Sexual Orientation Not on file documented as of this encounter Plan of Treatment Not on file documented as of this encounter Procedures Procedure Name Priority Date/Time Associated Diagnosis Comments SCAN - PATHOLOGY 02/24/2021 documented in this encounter Results * SCAN - PATHOLOGY (02/24/2021) us Provider Scanning Final Result documented in this encounter Visit Diagnoses Not on filedocumented in this encounter Care Teams Alteration Inspector Relationship Specialty Start Date End Date Jorje Coburn DO PCP - General Family Medicine 06/18/18 documented as of this encounter
--- OUTSIDE RECORDS SUMMARY | 2024-03-05 21:52 | XMS_ITS | Encounter Summary ---
Author Organization [facility] Address [address] [address] Care Team Providers Care Bookkeeping Clerk Name Role Phone Jorje Coburn DO Primary Care Provider + Reason for Referral * Diagnostic Imaging (Routine) - Closed Specialty Diagnoses / Procedures Referred By Star gandara Referred To Contact Diagnoses Thyromegaly Procedures US Thyroid Jorje Coburn DO Phone: tel: fax: External Order Referral ID Status Reason Start Date Expiration Date Visits Re quested Visits Authorized [id number] Closed 08/09/2022 09/08/2023 1 1 * MRI/CAT/PET Scan (Routine) - Closed Specialty Diagnoses / Procedures Referred By Star gandara Referred To Contact Diagnoses Dyslipidemia Procedures CT Coronary Calcium Scoring Jorje Coburn DO Phone: tel: fax: External Order Referral ID Status Reason Start Date Expiration Date Visits Re quested Visits Authorized [id number] Closed 08/09/2022 09/08/2023 1 1 Reason for Visit * Reason Comments Follow-up Encounter Details Date Type Department Care Team (Late st Contact Info) Description 08/09/2022 7:45 AM CDT Office Visit [facility] Family Medicine [address] [place] [address] [address] [place] [address] Jorje Coburn, DO [address] [facility] [address] [place] [address] Severe obesity (BMI 35.0-39.9) with comorbidity (HCC) (Primary Dx); Stomach acid; Dyslipidemia; Hypertension, essential; Benign prostatic hyperplasia with urinary frequency; Obstructive sleep apnea; Thyromegaly Social History Tobacco Use Types Packs/Day Years [...] on file 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 Gender Identity Not on file Sexual Orientation Not on file documented as of this encounter Last Filed Vital Signs Vital Sign Reading Time Taken Comments Blood Pressure 148/94 08/09/2022 7:49 AM CDT Pulse 57 08/09/2022 7:49 AM CDT Temperature 36.7 ??C (98 ??F) 08/09/2022 7:49 AM CDT Respiratory Rate 18 08/09/2022 7:49 AM CDT Oxygen Saturation 96% 08/09/2022 7:49 AM CDT Inhaled Oxygen Concentration - - Weight 116.6 kg (257 lb) 08/09/2022 7:49 AM CDT Height 177.8 cm (5' 10 ) 08/09/2022 7:49 AM CDT Body Mass Index 36.88 08/09/2022 7:49 AM CDT documented in this encounter Ordered Prescriptions Prescription Sig Dispense Quantity Refills Last Filled Start Date End Date metoprolol XL (TOPROL-XL) 25 mg extended release tablet Take 1 tablet (25 mg total) by mouth daily 30 tablet 4 08/09/2022 tamsulosin (FLOMAX) 0.4 mg extended release capsule Take 1 capsule (0.4 mg total) by mouth daily 90 capsule 3 08/09/2022 rosuvastatin (CRESTOR) 20 mg tabletIndications: Dyslipidemia Take 1 tablet (20 mg total) by mouth daily 90 tablet 3 08/09/2022 omeprazole (PriLOSEC) 20 mg capsuleIndications :Stomach acid Take 1 capsule (20 mg total) by mouth daily 90 capsule 3 08/09/2022 amLODIPine (NORVASC) 10 mg tabletIndications: Hypertension, essential Take 0.5 tablets (5 mg total) by mouth daily 45 tablet 3 08/09/2022 3 documented in this encounter Progress Notes * Jorje Coburn, DO - 08/09/2022 7:45 AM CDT Images from the original note were not included. Subjective/Objective Patient ID: Benja Gallagher is a 62 y.o. male. Chief Complaint Follow-up HPI Routine check Wishes to check coronary calcium score with a ct Past Medical History: Diagnosis Date Hyperlipidemia Inguinal hernia Neck mass Past Surgical History: Procedure Laterality Date CARPAL TUNNEL RELEASE HERNIA REPAIR Patient Active Problem List Diagnosis Date Noted Thyromegaly 08/09/2022 Benign prostatic hyperplasia with urinary frequency 05/10/2022 Severe obesity (BMI 35.0-39.9) with comorbidity (HCC) 04/11/2022 Hypertension, essential 08/06/2021 Obstructive sleep apnea 01/20/2021 Fatigue 09/16/2020 Psychophysiological insomnia 09/16/2020 Dyslipidemia 06/18/2018 Annual physical exam 06/18/2018 Current Outpatient Medications Medication Sig Dispense Refill cholecalciferol (VITAMIN D-3) 2,000 unit tablet 1 tablet (2,000 Units total) daily fexofenadine (AVE) 180 mg tablet TAKE 1 TABLET BY MOUTH DAILY NEEDED (ALLERGIES). 90 tablet 0 omega-3 fatty acids (LOVAZA) 1 gram capsule Take 1 capsule (1,000 mg total) by mouth sildenafiL (VIAGRA) 100 mg tablet TAKE 1 TABLET BY MOUTH ONCE DAILY NEEDED 6 tablet 0 testosterone cypionate (DEPO-TESTOTERONE) 100 mg/mL injection Inject 100 mg/mL into the muscle as instructed amLODIPine (NORVASC) 10 mg tablet Take 0.5 tablets (5 mg total) by mouth daily 45 tablet 3 metoprolol XL (TOPROL-XL) 25 mg extended release tablet Take 1 tablet (25 mg total) by mouth daily 30 tablet 4 omeprazole (PriLOSEC) 20 mg capsule Take 1 capsule (20 mg total) by mouth daily 90 capsule 3 rosuvastatin (CRESTOR) 20 mg tablet Take 1 tablet (20 mg total) by mouth daily 90 tablet 3 tamsulosin (FLOMAX) 0.4 mg extended release capsule Take 1 capsule (0.4 mg total) by mouth daily 90capsule 3 No current facility-administered medications for this visit. Allergies as of 08/09/2022 - Reviewed 08/09/2022 Allergen Reaction Noted Iodinated contrast media Swelling 09/25/2016 Iodine Rash 01/03/2022 Morphine Rash 09/25/2016 Social History Tobacco Use Smoking status: Never Smokeless tobacco: Never Substance and Sexual Activity Drug use: Yes Types: Alcohol Comment: occas Sexual activity: Defer Alcohol Use: Heavy Drinker (04/11/2022) AUDIT-C Frequency of Alcohol Consumption: 2-4 times a month Average Number of Drinks: 5 or 6 Frequency of Binge Drinking: Less than monthly Family History Problem Relation Age of Onset Diabetes Mother Mental illness Father PHQ Screening Over the last 2 weeks, how often have you been bothered by any of the following problems? Little Interest or Pleasure in Doing Things: Not at all Feeling Down, Depressed, or Hopeless: Not at all PHQ-2 Total Score (If total score is 3 or more points, staff should administer the PHQ-9): 0 Over the past 2 weeks, how often have you been bothered by any of the following problems? Little Interest or Pleasure in Doing Things: Not at all Feeling Down, Depressed, or Hopeless: Not at all PHQ-2 Total Score (If total score is 3 or more points, staff should administer the PHQ-9): 0 Review of Systems Constitutional: Negative for activity change. HENT: Negative for congestion. Eyes: Negative for visual disturbance. Respiratory: Negative for shortness of breath. Cardiovascular: Negative for chest pain. Gastrointestinal: Negative for abdominal pain. Endocrine: Negative for polyuria. Genitourinary: Negative for difficulty urinating. Musculoskeletal: Negative for arthralgias. BP 148/94 Pulse 57 Temp 36.7 ??C (98 ??F) Resp 18 Ht 177.8 cm (5' 10 ) Wt 116.6 kg (257 lb) SpO2 96% BMI 36.88 kg/m?? Physical Exam Constitutional: Appearance: Normal appearance. [...] visit: Severe obesity (BMI 35.0-39.9) with comorbidity (HCC) (E66.01) (Primary) Assessment & Plan: Healthy diet Stomach acid (R12) - omeprazole (PriLOSEC) 20 mg capsule; Take 1 capsule (20 mg total) by mouth daily Dyslipidemia (E78.5) Assessment & Plan: He remains on rosuvastatin 20 mg daily I will check a coronary calcium CT screen Orders: - rosuvastatin (CRESTOR) 20 mg tablet; Take 1 tablet (20 mg total) by mouth daily Hypertension, essential (I10) Assessment & Plan: Remains on amlodipine 5 mg Add toprol xl 25 mg daily Chronic condition Not at goal Orders: - amLODIPine (NORVASC) 10 mg tablet; Take 0.5 tablets (5 mg total) by mouth daily Benign prostatic hyperplasia with urinary frequency (N40.1, R35.0) Assessment & Plan: psa is normal Up 4 x night Obstructive sleep apnea (G47.33) Assessment & Plan: Doing ok Thyromegaly (E01.0) Assessment & Plan: Right sided Will order a thyroid us Other orders - tamsulosin (FLOMAX) 0.4 mg extended release capsule; Take 1 capsule (0.4 mg total) by mouth daily - metoprolol XL (TOPROL-XL) 25 mg extended release tablet; Take 1 tablet (25 mg total) by mouth daily Jorje Coburn DO documented in this encounter Miscellaneous Notes * Assessment & Plan Note - Jorje Coburn DO - 08/09/2022 8:10 AM CDT Associated Problem(s): Thyromegaly Right sided Will order a thyroid us * Assessment & Plan Note - Jorje Coburn, - 08/09/2022 8:01 AM CDT Associated Problem(s): Obstructive sleep apnea Doing ok * Assessment & Plan Note - Jorje Coburn DO - 08/09/2022 8:00 AM CDT Associated Problem(s): Benign prostatic hyperplasia with urinary frequency psa is normal Up 4 x night * Assessment & Plan Note - Jorje Coburn DO - 08/09/2022 8:00 AM CDT Associated Problem(s): Dyslipidemia He remains on rosuvastatin 20 mg daily I will check a coronary calcium CT screen * Assessment & Plan Note - Jorje Coburn DO - 08/09/2022 8:00 AM CDT Associated Problem(s): Hypertension, essential Remains on amlodipine 5 mg Add toprol xl 25 mg daily Chronic condition Not at goal * Assessment & Plan Note - Jorje Coburn DO - 08/09/2022 8:00 AM CDT Associated Problem(s): Severe obesity (BMI 35.0-39.9) with comorbidity (HCC) Healthy diet * Addendum Note - Nithya Anne RN - 08/09/2022 7:45 AM CDTAddended by: NITHYA ANNE on: 08/09/2022 08:23 AM Modules accepted: Orders documented in this encounter Plan of Treatment Not on file documented as of this encounter Procedures Procedure Name Priority Date/Time Associated Diagnosis Comments CT HEART CALCIUM Schedule Routine, Read Routine (OP Routine) 09/14/2022 Dyslipidemia US THYROID Schedule Routine, Read Routine (OP Routine) 08/19/2022 8:15 AM CDT Thyromegaly documented in this encounter Results * CT Coronary Calcium Scoring (09/14/2022) Anatomical Region Laterality Modality Chest Computed Tomogra phy Jorje Coburn DO IMG CT PROCEDURES Final Result * US Thyroid (08/19/2022 8:15 AM CDT) [...] D: ??08/21/2022 6:01 PM T: Report ID: [id number] Reading Location: ??[id number] Procedure Note Douglas Sidhu MD - 08/21/2022 [...] 6:01 PM - Electronically signed by Douglas Sidhu M.D. LB T: Report ID: [id number] Reading Location: [place] [address] Jorje Coburn DO IMG US PROCEDURES Final Result documented in this encounter Visit Diagnoses Diagnosis Severe obesity (BMI 35.0-39.9) with comorbidity (HCC)- Primary Stomach acid Heartburn Dyslipidemia Other and unspecified hyperlipidemia Hypertension, essential Unspecified essential hypertension Benign prostatic hyperplasia with urinary frequency Obstructive sleep apnea Obstructive sleep apnea (adult) (pediatric) Thyromegaly Goiter, unspecified documented in this encounter Discontinued Medications Medication Sig Discontinue Reason Start Date End Da te omeprazole (PriLOSEC) 20 mg capsuleIndications:Stom ach acid Take 1 capsule (20 mg total) by mouth daily Reorder 06/22/2022 08/09/2022 rosuvastatin (CRESTOR) 20 mg tabletIndications:Dysli pidemia Take 1 tablet (20 mg total) by mouth daily Reorder 06/22/2022 08/09/2022 tamsulosin (FLOMAX) 0.4 mg extended release capsule Take 1 capsule (0.4 mg total) by mouth daily Reorder 06/22/2022 08/09/2022 amLODIPine (NORVASC) 10 mg tabletIndications:Hyper tension, essential Take 0.5 tablets (5 mg total) by mouth daily Reorder 08/05/2022 08/09/2022 methylPREDNISolone (MEDROL DOSEPACK) 4 mg Dosepack Take as directed on package. Therapy completed 06/22/2022 08/09/2022 documented as of this encounter Care Teams Bookkeeping Clerk Relationship Specialty Start Date End Date Jorje Coburn DO PCP - General Family Medicine 06/18/18 documented as of this encounter
--- OUTSIDE RECORDS SUMMARY | 2024-03-05 21:52 | XMS_ITS | Encounter Summary ---
Author Organization [facility] Address [address] [place] [address] Care Team Providers Care Cooling Tower Operator Name Role Phone Jorje Coburn DO Primary Care Provider + Reason for Visit * Reason Onset Date Comments Appointment Request 03/08/2022 Encounter Details Date Type Department Care Team (Late st Contact Info) Description 03/08/2022 Telephone [facility] Family Medicine [address] [place] [address] Jorje Coburn DO [address] [place] [address] [address] [place] [address] Appointment Request Social History Tobacco Use Types Packs/Day [...] on file 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 Gender Identity Not on file Sexual Orientation Not on file documented as of this encounter Ordered Prescriptions Prescription Sig Dispense Quantity Refills Last Filled Start Date End Date rosuvastatin (CRESTOR) 20 mg tabletIndications: Dyslipidemia Take 1 tablet (20 mg total) by mouth daily 90 tablet 03/09/2022 3 omeprazole (PriLOSEC) 20 mg capsuleIndications :Stomach acid Take 1 capsule (20 mg total) by mouth daily 90 capsule 03/09/2022 3 amLODIPine (NORVASC) 5 mg tabletIndications: Hypertension, essential Take 1 tablet (5 mg total) by mouth daily 90 tablet 03/09/2022 3 documented in this encounter Miscellaneous Notes * Telephone Encounter - Nithya Bingham RN - 03/09/2022 8:45 AM CST Medications have been refilled. Instruct patient to be sure to keep 04-11-22 appointment in order for more refills. Unable to contact patient. ING MACHINE OPERATOR * Telephone Encounter - Jorje Coburn DO - 03/08/2022 5:51 PM WOOLING MACHINE OPERATOR Okay to refill. What I can see him earlier fit him in on the schedule any time that works for him ING MACHINE OPERATOR * Telephone Encounter - Nithya Bingham RN - 03/08/2022 11:31 AM WOOLING MACHINE OPERATOR Advise if meds can be ordered before office visit. ING MACHINE OPERATOR * Telephone Encounter - Susanna Bob MA - 03/08/2022 11:10 AM CST Appointment Request What visit type does the patient need? Visit Type: Established Patient What is the reason for the visit? Follow up and med refills What is the reason we were unable to schedule the appointment? Current appointment availability didnot meet patient's need. Into Apr If applicable, were all members of the patient's PCP care team offered (e.g., nurse practioner(s), physician accountant assistant(s)) ? Yes Caller's Callback #: [phone] Additional Comments: he needs meds refilled, I will send request. Does message need to be routed? Yes-Action Needed ING MACHINE OPERATOR documented in this encounter Plan of Treatment Not on file documented as of this encounter Visit Diagnoses Diagnosis Hypertension, essential- Primary Unspecified essential hypertension Stomach acid Heartburn Dyslipidemia Other and unspecified hyperlipidemia documented in this encounter Discontinued Medications Medication Sig Discontinue Reason Start Date End Da te amLODIPine (NORVASC) 5 mg tablet Take 1 tablet (5 mg total) by mouth daily Reorder 03/08/2022 03/09/2022 omeprazole (PriLOSEC) 20 mg capsule Take 1 capsule (20 mg total) by mouth daily Reorder 03/08/2022 03/09/2022 rosuvastatin (CRESTOR) 20 mg tablet Take 1 tablet (20 mg total) by mouth daily Reorder 03/08/2022 03/09/2022 documented as of this encounter Care Teams Cooling Tower Operator Relationship Specialty Start Date End Date Jorje Coburn DO PCP - General Family Medicine 06/18/18 documented as of this encounter
--- OUTSIDE RECORDS SUMMARY | 2024-03-05 21:52 | XMS_ITS | Encounter Summary ---
Author Organization [facility] Address [address] [place] [address] Care Team Providers Care Grapple Skidder Operator Name Role Phone Jorje Coburn DO Primary Care Provider + Reason for Visit * Reason Onset Date Comments Medical Question/Miscellaneous 04/28/2022 Encounter Details Date Type Department Care Team (Late st Contact Info) Description 04/28/2022 Telephone [facility] Family Medicine 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 Gender Identity Not on file Sexual Orientation Not on file documented as of this encounter Ordered Prescriptions Prescription Sig Dispense Quantity Refills Last Filled Start Date End Date amLODIPine (NORVASC) 10 mg tabletIndications: Hypertension, essential Take 1 tablet (10 mg total) by mouth daily 90 tablet 04/28/2022 06/22/2022 documented in this encounter Miscellaneous Notes * Telephone Encounter - Sharon Guo RN - 04/28/2022 5:03 PM CST noted CITY PLANNING ANALYST * Telephone Encounter - Rosalind Salvador - 04/28/2022 4:56 PM CST Call Back Caller???s Concern: Called back to see if someone had reviewed the BP readings. Let her know that they had been reviewed and an increase in medication was sent into the pharmacy. Caller???s Call back #: [phone] Does message need to be routed? Yes-FYI Only CITY PLANNING ANALYST * Telephone Encounter - Rosalind Barbosa PA - 04/28/2022 4:44 PM CAPACITY PLANNING ANALYST Increase amlodipine to 10mg CITY PLANNING ANALYST * Telephone Encounter - Nithya Bingham RN - 04/28/2022 4:24 PM CST Could you please check the media under patient supplied info and advise about BP readings? CITY PLANNING ANALYST * Telephone Encounter - Una Caputo - 04/28/2022 3:56 PM CST Medical Question/Miscellaneous Caller???s Concern: [place], patients , called in and wanted to know if Dr. Coburn had seen the blood pressures reported. Patient and are going out of town and would like to know if any changes to medication need to be made. They are leaving to go out of town for a week on Monday and would like to be able to pickle maker any changed medication before they leave if necessary Caller???s Call back #: [phone] Does message need to be routed?Yes-Action Needed CITY PLANNING ANALYST documented in this encounter Plan of Treatment Not on file documented as of this encounter Visit Diagnoses Diagnosis Hypertension, essential Unspecified essential hypertension documented in this encounter Discontinued Medications Medication Sig Discontinue Reason Start Date End Da te amLODIPine (NORVASC) 5 mg tabletIndications:Hypert ension, essential Take 1 tablet (5 mg total) by mouth daily Reorder 03/09/2022 04/28/2022 documented as of this encounter Care Teams Grapple Skidder Operator Relationship Specialty Start Date End Date Jorje Coburn DO PCP - General Family Medicine 06/18/18 documented as of this encounter
--- OUTSIDE RECORDS SUMMARY | 2024-03-05 21:52 | XMS_ITS | Encounter Summary ---
Author Organization [facility] Address [address] [facility] [address] [place] [address] Care Team Providers Care Formula Checker Name Role Phone Jorje Coburn DO Primary Care Provider + Encounter Details Date Type Department Care Team (Late st Contact Info) Description 05/12/2021 8:30 AM HOME BASED ASSISTANT Office Visit [facility] [address] [address] Dona Daniels MD [address] [facility] [address] [address] Obstructive sleep apnea (Primary Dx); Psychophysiological insomnia; Fatigue, unspecified type; Overweight; Hypersomnia Social History Tobacco Use Types Packs/Day Years [...] on file Legal Sex Male 1:20 AM HOME BASED ASSISTANT Gender Identity Not on file Sexual Orientation Not on file documented as of this encounter Last Filed Vital Signs Vital Sign Reading Time Taken Comments Blood Pressure 180/94 05/12/2021 8:21 AM HOME BASED ASSISTANT Pulse 74 05/12/2021 8:21 AM HOME BASED ASSISTANT Temperature 36.3 ??C (97.4 ??F) 05/12/2021 8:21 AM CS T Respiratory Rate 18 05/12/2021 8:21 AM HOME BASED ASSISTANT Oxygen Saturation 96% 05/12/2021 8:21 AM HOME BASED ASSISTANT Inhaled Oxygen Concentration - - Weight 117 kg (258 lb) 05/12/2021 8:21 AM HOME BASED ASSISTANT Height - - Body Mass Index 37.02 01/20/2021 8:09 AM CDT documented in this encounter Ordered Prescriptions Prescription Sig Dispense Quantity Refills Last Filled Start Date End Date traZODone (DESYREL) 50 mg tablet Take 1 tablet (50 mg total) by mouth nightly 30 tablet 2 05/12/2021 3 documented in this encounter Progress Notes * Dona Daniels MD - 05/12/2021 8:30 AM CST Subjective/Objective Patient ID: Benja Gallagher is a 60 y.o. male. Chief Complaint No chief complaint on file. HPI Active sleep problem list: Moderate obstructive sleep apnea syndrome, AHI 33 per hour, lowest oxygen saturation 77%. Hypersomnia. Overweight. Insomnia. Snoring. Fatigue. He does have a dog and a cat at home. His cat sometimes sleeps in his bed. Patient is here for follow-up. He had home sleep study which showed he has moderate obstructive sleep apnea with AHI 33 per hour. His lowest oxygen saturation was 77%. He spent 12 minutes with low oxygen saturation. He continued to have sleep disturbances and fatigue. Patient has been using CPAP but he is still having little trouble tolerating fullface mask. He is asking for a different mask. He relates to me that he is using it on off probably about an hour or 2. Allergies Allergen Reactions ??? Iodinated Contrast Media Swelling ??? Morphine Rash Review of Systems Constitutional: Negative for appetite change, chills, fatigue and fever. HENT: Negative for congestion, ear pain, mouth sores, tinnitus and voice change. Eyes: Negative for photophobia and pain. Respiratory: Negative for choking and stridor. Cardiovascular: Negative for chest pain and palpitations. Gastrointestinal: Negative for abdominal distention, abdominal pain and nausea. Endocrine: Negative for cold intolerance and polyphagia. Genitourinary: Negative for dysuria and hematuria. Musculoskeletal: Negative for gait problem and joint swelling. Skin: Negative for pallor and rash. Allergic/Immunologic: Negative for immunocompromised state. Neurological: Negative for seizures and facial asymmetry. Hematological: Negative for adenopathy. Does not bruise/bleed easily. Psychiatric/Behavioral: Negative for agitation and confusion. Vitals BP (!) 180/94 Pulse 74 Temp 36.3 ??C (97.4 ??F) Resp 18 Wt 117 kg (258 lb) SpO2 96% BMI 37.02 kg/m?? Physical Exam Constitutional: General: He is not in acute distress. Appearance: He is well-developed. He is not diaphoretic. HENT: Head: Normocephalic and atraumatic. Neck: Thyroid: No thyromegaly. Cardiovascular: Rate and Rhythm: Normal rate and regular rhythm. Heart sounds: No murmur heard. No gallop. Pulmonary: Effort: Pulmonary effort is normal. No accessory muscle usage or respiratory distress. Breath sounds: Normal breath sounds and air entry. No stridor. Chest: Chest wall: No mass, deformity or tenderness. Breasts: Right: No mass. Left: No mass. Abdominal: General: Bowel sounds are normal. There is no distension. Palpations: Abdomen is soft. Tenderness: There is no abdominal tenderness. Musculoskeletal: General: No tenderness or deformity. Normal range of motion. Cervical back: Normal range of motion and neck supple. Lymphadenopathy: Cervical: No cervical adenopathy. Skin: General: Skin is warm and dry. Capillary Refill: Capillary refill takes less than 2 seconds. Findings: No erythema or rash. Neurological: Mental Status: He is alert and oriented to person, place, and time. Cranial Nerves: No cranial nerve deficit. Coordination: Coordination normal. Psychiatric: Behavior: Behavior normal. Diagnoses and all orders for this visit: Obstructive sleep apnea (Primary) Psychophysiological insomnia Fatigue, unspecified type Overweight Hypersomnia Results: Lab Results Component Value Date WBC 6.6 11/11/2020 HGB 18.4 (H) 11/11/2020 HCT 54.2 (H) 11/11/2020 MCV 91.1 11/11/2020 LABPLAT 177 11/11/2020 Plan: Patient will return back in 3 months for re-evaluation. I will order new nasal mask, Eson and headgear. I will give the patient trazodone 50 mg at bedtime to be used on as needed basis to help desensitize the patient for the CPAP. DME is [employer]. I will get download. Patient was advised about keeping the pets out of his bedroom. Patient also was advised about sleep hygiene. He was advised about diet and exercise program for weight reduction. Patient will be sent for home sleep study for further evaluation. He did not receive COVID-19 vaccine. Patient was encouraged to call us with any inquiry, concern for question about their condition, lab work, x-rays or CT scans at any time, please see further details for assessment and plan in HPI THIS NOTE WAS CREATED IN PART WITH THE ASSISTANCE OF [employer] VOICE RECOGNITION SOFTWARE. DIRECTOR OF INTELLIGENCE VARIANCES MAY OCCUR. BASED ASSISTANT BASED ASSISTANT documented in this encounter Plan of Treatment Not on file documented as of this encounter Visit Diagnoses Diagnosis Obstructive sleep apnea- Primary Obstructive sleep apnea (adult) (pediatric) Psychophysiological insomnia Persistent disorder of initiating or maintaining sleep Fatigue, unspecified type Overweight Hypersomnia Hypersomnia, unspecified documented in this encounter Historical Medications * This list may reflect changes made after this encounter. omeprazole (PriLOSEC) 20 mg capsule TAKE 1 CAPSULE BY MOUTH EVERY DAY DIRECTED 02/24/2021 03/08/2022 added in this encounter Care Teams Formula Checker Relationship Specialty Start Date End Date Jorje Coburn DO PCP - General Family Medicine 06/18/18 documented as of this encounter
--- OUTSIDE RECORDS SUMMARY | 2024-03-05 21:52 | XMS_ITS | Encounter Summary ---
Author Organization [facility] Address [address] [place] [address] Care Team Providers Care Complaint Manager Name Role Phone Jorje Coburn DO Primary Care Provider + Reason for Referral * Diagnostic Imaging (Routine) - Closed Specialty Diagnoses / Procedures Referred By Star gandara Referred To Contact Diagnoses Preop examination Procedures XR Chest Pa Lateral 2 Views Shayy Reyes PA Phone: tel: fax: [address] [phone] Referral ID Status Reason Start Date Expiration Date Visits Re quested Visits Authorized [id number] Closed 08/06/2021 09/05/2022 1 1 Reason for Visit * Diagnostic Imaging (Routine) - Closed Specialty Diagnoses / Procedures Referred By Star gandara Referred To Contact Diagnoses Preop examination Procedures XR Chest Pa Lateral 2 Views Shayy Reyes PA Phone: tel: fax: [address] [phone] Referral ID Status Reason Start Date Expiration Date Visits Re quested Visits Authorized [id number] Closed 08/06/2021 09/05/2022 1 1 Encounter Details Date Type Department Care Team (Latest Contact Info) Description 08/06/2021 10:53 AM CDT - 08/06/2021 11:59 PM CDT Hospital Encounter [facility] Diagnostic Imaging [address] [place] [address] Preop examination Discharge Disposition: Discharge to home [...] on file 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 Gender Identity Not on file Sexual Orientation [...] into the muscle as instructed amLODIPine (NORVASC) 5 mg tablet TAKE 1 TABLET(5 MG) BY MOUTH DAILY 90 tablet 08/06/[address] (VOLTAREN) 75 mg EC tablet [...] Procedure Name Priority Date/Time Associated Diagnosis Comments XR CHEST PA LATERAL 2 VIEWS Schedule Routine, Read Routine (OP Routine) 08/06/2021 11:14 AM CDT Preop examination documented in this encounter Results * XR Chest Pa Lateral 2 Views (08/06/2021 11:14 AM CDT) Anatomical Region Laterality Modality Body, Chest N/A Computed Radiogr aphy 08/07/2021 12:0 0 AM CDT Narrative 08/07/2021 12:01 AM CDT EXAM DESCRIPTION: ?? XR CHEST PA LATERAL 2 VIEWS REASON FOR STUDY: ?? preop exam ?? Pre op cxr, pt has no current chest complaints, this is a follow up because pt had high bp last check up ? TECHNIQUE: ?? Frontal ??and lateral radiographic views of the chest acquired. COMPARISON: ?? 09/28/2016 FINDINGS: LUNGS/PLEURA: ?? No focal consolidation or pneumothorax. No pleural effusion. ?? Calcified granuloma left mid lung. HEART/MEDIASTINUM: ?? Heart size is normal. Normal mediastinal and hilar contours. HARDWARE/LINES/TUBES: ?? None. BONES: ?? Old, healed left rib fractures. ??Old, healed fracture of the left clavicle. OTHER: ?? No other significant finding. IMPRESSION: ?? No acute cardiopulmonary abnormality. THIS IS AN ELECTRONICALLY VERIFIED FINAL REPORT 08/07/2021 12:01 AM - Electronically signed by ??Wilner Mosquera M.D. KT D: ??08/07/2021 12:01 AM T: Report ID: [id number] Reading Location: ??[id number] Procedure Note Wilner Mosquera MD - 08/07/2021 EXAM DESCRIPTION: XR CHEST PA LATERAL 2 VIEWS REASON FOR STUDY: preop exam Pre op cxr, pt has no current chest complaints, this is a follow upbecause pt had high bp last check up TECHNIQUE: Frontal and lateral radiographic views of the chestacquired. COMPARISON: 09/28/2016 FINDINGS: LUNGS/PLEURA: No focal consolidation or pneumothorax. Nopleural effusion. Calcified granuloma left mid lung. HEART/MEDIASTINUM: Heart size is normal. Normal mediastinal and hilar contours. HARDWARE/LINES/TUBES: None. BONES: Old, healed left rib fractures. Old, healed fracture of the left clavicle. OTHER: No other significant finding. IMPRESSION: No acute cardiopulmonary abnormality. THIS IS AN ELECTRONICALLY VERIFIED FINAL REPORT 08/07/2021 12:01 AM - Electronically signed by Wilner Mosquera M.D. KT T: Report ID: [id number] Reading Location: [place] [address] Shayy [facility] IM[facility] XR PROCEDURES Final Result documented in this encounter Visit Diagnoses Diagnosis Preop examination Unspecified pre-operative examination documented in this encounter Care Teams Complaint Manager Relationship Specialty Start Date End Date Jorje Coburn DO PCP - General Family Medicine 06/18/18 documented as of this encounter
--- OUTSIDE RECORDS SUMMARY | 2024-03-05 21:52 | XMS_ITS | Encounter Summary ---
Author Organization [facility] Address [address] [facility] [address] [place] [address] Care Team Providers Care Homicide Investigator Name Role Phone DepewJorje Sheldon Claude Primary Care Provider + Encounter Details Date Type Department Care Team (Late st Contact Info) Description 01/21/2021 Orders Only [facility] Pulmonology [address] [facility] [address] [place] [address] Alyssa Kaur, JUAN JOSE Obstructive [...] Average Number of Drinks Not on file Q3: How often do you have si x or more drinks on one occasion? 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 Gender Identity Not on file Sexual Orientation Not on file documented as of this encounter Progress Notes * Alyssa Kaur, JUAN JOSE - 01/21/2021 11:29 AM CDT Order for auto cpap has been sent to [facility] documented in this encounter Plan of Treatment Not on file documented as of this encounter Visit Diagnoses Diagnosis Obstructive sleep apnea- Primary Obstructive sleep apnea (adult) (pediatric) documented in this encounter Care Teams Homicide Investigator Relationship Specialty Start Date End Date Jorje Coburn DO PCP - General Family Medicine 06/18/18 documented as of this encounter
--- OUTSIDE RECORDS SUMMARY | 2024-03-05 21:52 | XMS_ITS | Encounter Summary ---
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 BLENDER * Telephone Encounter - Luz Marina Lopez - 04/19/2021 8:08 AM CST Patient is requesting a new CPAP mask style, DME is [facility]. BLENDER documented in this encounter Plan of Treatment Not on file documented as of this encounter Visit Diagnoses Diagnosis Obstructive sleep apnea- Primary Obstructive sleep apnea (adult) (pediatric) documented in this encounter Care Teams Director Of Student Aid Relationship Specialty Start Date End Date Jorje Coburn DO PCP - General Family Medicine 06/18/18 documented as of this encounter
--- OUTSIDE RECORDS SUMMARY | 2024-03-05 21:52 | XMS_ITS | Encounter Summary ---
Author Organization [facility] Address [address] [facility] [address] [place] [address] Care Team Providers Care Proof Technician Name Role Phone Jorje Coburn DO Primary Care Provider + Reason for Visit * Reason Comments Pre-op Exam Pt is having left ca rpal tunnel surgery on 01/21 Encounter Details Date Type Department Care Team (Late st Contact Info) Description 01/19/2022 9:00 AM CDT Office Visit [facility] Family Medicine [address] [facility] [address] [place] [address] Shayy Reyes PA [address] [place] [phone] Preop examination (Primary Dx) Social History Tobacco Use Types [...] on file Legal Sex Male 1:20 AM BURSAR Gender Identity Not on file Sexual Orientation Not on file documented as of this encounter Last Filed Vital Signs Vital Sign Reading Time Taken Comments Blood Pressure 130/82 01/19/2022 8:51 AM CDT Pulse 73 01/19/2022 8:51 AM CDT Temperature 36.6 ??C (97.8 ??F) 01/19/2022 8:51 AM CD T Respiratory Rate 18 01/19/2022 8:51 AM CDT Oxygen Saturation 95% 01/19/2022 8:51 AM CDT Inhaled Oxygen Concentration - - Weight 113.2 kg (249 lb 9.6 oz) 01/19/2022 8:51 AM CDT Height 177.8 cm (5' 10 ) 01/19/2022 8:51 AM CDT Body Mass Index 35.81 01/19/2022 8:51 AM CDT documented in this encounter Progress Notes * Shayy Reyes PA - 01/19/2022 9:00 AM CDT Images from the original note were not included. Visit Date: 01/19/2022 Patient ID: Benja Gallagher is a 61 y.o. male. Chief Complaint(s): Pre-op Exam (Pt is having left carpal tunnel surgery on 01/21) HPI: Benja Gallagher is a 61 y.o. male here today for preop exam for left carpal tunnel release. Scheduled on 01/21/22. Had labs, EKG, and CXR in July as was originally scheduled in August but then got postponed. Had right side done on 01/11/22 without issue. His surgeon requires an updated H&P within 30days of this 2nd procedure and his last appt was 12/16/21. He denies any chest pain, SOB, or BLE edema. Feels well. Current Outpatient Medications Medication Sig Dispense Refill amLODIPine (NORVASC) 5 mg tablet TAKE 1 TABLET(5 MG) BY MOUTH DAILY 90 tablet 1 cholecalciferol (VITAMIN D-3) 2,000 unit tablet 2,[address] (VOLTAREN) 75 mg EC tablet Take 75 mg by mouth 2 (two) times a day omega-3 fatty acids (LOVAZA) 1 gram capsule Take 1,000 mg by mouth omeprazole (PriLOSEC) 20 mg capsule TAKE 1 CAPSULE BY MOUTH EVERY DAY DIRECTED rosuvastatin (CRESTOR) 20 mg tablet TAKE 1 TABLET(20 MG) BY MOUTH DAILY 90 tablet 1 sildenafiL (VIAGRA) 100 mg tablet TAKE 1 TABLET BY MOUTH ONCE DAILY NEEDED 6 tablet 0 testosterone cypionate (DEPO-TESTOTERONE) 100 mg/mL injection Inject 100 mg/mL into the muscle as instructed traZODone (DESYREL) 50 mg tablet Take 1 tablet (50 mg total) by mouth nightly 30 tablet 2 No current facility-administered medications for this visit. Allergies as of 01/19/2022 - Reviewed 01/19/2022 Allergen Reaction Noted Iodinated contrast media Swelling 09/25/2016 Iodine Rash 01/03/2022 Morphine Rash 09/25/2016 Review of Systems: Review of Systems Constitutional: Negative for chills and fever. Respiratory: Negative for shortness of breath. Cardiovascular: Negative for chest pain. Gastrointestinal: Negative for abdominal pain and vomiting. Skin: Negative for rash. Physical Examination: Vitals: 01/19/22 0851 BP: 130/82 BP Location: Left arm Patient Position: Sitting Pulse: 73 Resp: 18 Temp: 36.6 ??C (97.8 ??F) TempSrc: Temporal SpO2: 95% Weight: 113.2 kg (249 lb 9.6 oz) Height: 177.8 cm (5' 10 ) Physical Exam Vitals and nursing note reviewed. Constitutional: General: He is not in acute distress. Appearance: Normal appearance. HENT: Head: Normocephalic and atraumatic. Eyes: Extraocular Movements: Extraocular movements intact. Conjunctiva/sclera: Conjunctivae normal. Pupils: Pupils are equal, round, and reactive to light. Cardiovascular: Rate and Rhythm: Normal rate and regular rhythm. Heart sounds: Normal heart sounds. Pulmonary: Effort: Pulmonary effort is normal. No respiratory distress. Breath sounds: Normal breath sounds. No stridor. No wheezing, rhonchi or rales. Abdominal: General: There is no distension. Palpations: Abdomen is soft. Tenderness: There is no abdominal tenderness. There is no right CVA tenderness or left CVA tenderness. Musculoskeletal: Cervical back: Normal range of motion. Right lower leg: No edema. Left lower leg: No edema. Lymphadenopathy: Cervical: No cervical adenopathy. Skin: General: Skin is warm and dry. Findings: No lesion or rash. Neurological: General: No focal deficit present. Mental Status: He is alert and oriented to person, place, and time. Motor: No weakness. Gait: Gait normal. Psychiatric: Mood and Affect: Mood normal. Behavior: Behavior normal. Thought Content: Thought content normal. Judgment: Judgment normal. PHQ Screening Results Reviewed: No results found for this or any previous visit (from the past 2 hour(s)). No visits with results within 2 Week(s) from this visit. Latest known visit with results is: Hospital Outpatient Visit on 08/06/2021 Component Date Value Ventricular Rate EKG/Min 08/06/2021 66 Atrial Rate 08/06/2021 66 [place]-Interval (MSEC) 08/06/2021 182 QRS-Interval (MSEC) 08/06/2021 94 QT-Interval (MSEC) 08/06/2021 360 QTc 08/06/2021 377 P [place] 08/06/2021 28 R [place] 08/06/2021 -43 T [place] 08/06/2021 8 Diagnosis 08/06/2021 Value:Normal sinus rhythm Left axis deviation Abnormal ECG When compared with ECG of 19-SEP-2000 09:47, No significant change was found Assessment/Plan Diagnoses and all orders for this visit: Preop examination (Z01.818) (Primary) Comments: Cleared for left carpal tunnel release 01/21/22. Return if symptoms worsen or fail to improve. PRASANNA Bullock documented in this encounter Plan of Treatment Not on file documented as of this encounter Visit Diagnoses Diagnosis Preop examination- Primary Unspecified pre-operative examination documented in this encounter Care Teams Proof Technician Relationship Specialty Start Date End Date Jorje Coburn DO PCP - General Family Medicine 06/18/18 documented as of this encounter
--- OUTSIDE RECORDS SUMMARY | 2024-03-05 21:52 | XMS_ITS | Encounter Summary ---
Author Organization [facility] Address [address] [address] Care Team Providers Care Attorney Lawyer Name Role Phone Jorje Coburn DO Primary Care Provider + Reason for Referral * Diagnostic Imaging (Routine) - Closed Specialty Diagnoses / Procedures Referred By Contac t Referred To Contact Diagnoses Preop examination Procedures XR Chest Pa Lateral 2 Views Shayy Reyes PA Phone: tel: fax: [address] [phone] Referral ID Status Reason Start Date Expiration Date Visits Re quested Visits Authorized [id number] Closed 08/06/2021 09/05/2022 1 1 * Cardiology (Routine) - Closed Specialty Diagnoses / Procedures Referred By Contac t Referred To Contact Diagnoses Preop examination Procedures ECG 12 lead Shayy Reyes PA Phone: tel: fax: [address] [phone] Referral ID Status Reason Start Date Expiration Date Visits Re quested Visits Authorized [id number] Closed 08/06/2021 09/05/2022 1 1 Reason for Visit * Reason Comments surgical clearence Carpel tunnel Encounter Details Date Type Department Care Team (Rachel Contact Info) Description 08/06/2021 9:45 AM CDT Office Visit [facility] Family Medicine [facility] [address] [place] [phone] Shayy Reyes PA [address] [facility] [place] [address] Preop examination (Primary Dx); Hypertension, essential Social History Tobacco [...] on file 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 Gender Identity Not on file Sexual Orientation Not on file documented as of this encounter Last Filed Vital Signs Vital Sign Reading Time Taken Comments Blood Pressure 170/96 08/06/2021 10:06 AM CDT Pulse 69 08/06/2021 9:46 AM CDT Temperature 36.6 ??C (97.9 ??F) 08/06/2021 9:46 AM CD T Respiratory Rate 18 08/06/2021 9:46 AM CDT Oxygen Saturation 96% 08/06/2021 9:46 AM CDT Inhaled Oxygen Concentration - - Weight 113 kg (249 lb 3.2 oz) 08/06/2021 9:46 AM CDT Height 177.8 cm (5' 10 ) 08/06/2021 9:46 AM CDT Body Mass Index 35.76 08/06/2021 9:46 AM CDT documented in this encounter Ordered Prescriptions Prescription Sig Dispense Quantity Refills Last Filled Start Date End Date amLODIPine (NORVASC) 5 mg tablet Take 1 tablet (5 mg total) by mouth daily 30 tablet 1 08/06/2021 08/06/2021 documented in this encounter Progress Notes * Shayy Reyes PA - 08/06/2021 9:45 AM CDT Images from the original note were not included. Visit Date: 08/06/2021 Patient ID: Benja Gallagher is a 61 y.o. male. Chief Complaint(s): surgical clearence (Carpel tunnel ) HPI: Benja Gallagher is a 61 y.o. male here today for surgical clearance. Scheduled for bilateral carpal tunnel release 08/31/21 at [facility]. No chest pain, SOB, orthopnea, or BLE edema. Does have history of PEDRITO. Followed by pulm. Semi-compliant with CPAP machine. BP has been running high at his last few pulmonology appointments. States he checks at home but it's all over the place . Current Outpatient Medications Medication Sig Dispense Refill ??? cholecalciferol (VITAMIN D-3) 2,000 unit tablet [...] mg/mL into the muscle as instructed ??? amLODIPine (NORVASC) 5 mg tablet Take 1 tablet (5 mg total) by mouth daily 30 tablet 1 ??? traZODone (DESYREL) 50 mg tablet Take 1 tablet (50 mg total) by mouth nightly 30 tablet 2 No current facility-administered medications for this visit. Allergies as of 08/06/2021 - Reviewed 08/06/2021 Allergen Reaction Noted ??? Iodinated contrast media Swelling 09/25/2016 ??? Morphine Rash 09/25/2016 Review of Systems: Review of Systems Constitutional: Negative for chills and fever. Respiratory: Negative for shortness of breath. Cardiovascular: Negative for chest pain. Gastrointestinal: Negative for abdominal pain and vomiting. Skin: Negative for rash. Physical Examination: Vitals: 08/06/21 0946 08/06/21 1006 BP: 160/90 170/96 Pulse: 69 Resp: 18 Temp: 36.6 ??C (97.9 ??F) SpO2: 96% Weight: 113 kg (249 lb 3.2 oz) Height: 177.8 cm (5' 10 ) [...] dry. Findings: No lesion or rash. Neurological: Mental Status: He is alert. Results Reviewed: No results found for this or any previous visit (from the past 2 hour(s)). No visits with results within 2 Week(s) from this visit. Latest known visit with results is: Telephone on 10/14/2020 Component Date Value ??? WBC 11/11/2020 6.6 ??? RBC, POC 11/11/2020 5.95 (A) ??? Hgb 11/11/2020 18.4 (A) ??? Hct 11/11/2020 54.2 (A) ??? MCV 11/11/2020 91.1 ??? MCH 11/11/2020 30.9 ??? MCHC 11/11/2020 33.9 ??? Rdw 11/11/2020 13.2 ??? Platelets 11/11/2020 177 ??? MPV 11/11/2020 10.7 ??? Neutrophils, abs 11/11/2020 3,524 ??? Lymphocytes, abs 11/11/2020 2,145 ??? Monocyte abs 11/11/2020 700 ??? Eosinophils, abs 11/11/2020 178 ??? Basophils, abs 11/11/2020 53 ??? Neutrophils 11/11/2020 53.4 ??? Lymphocyte pct 11/11/2020 32.5 ??? Monocytes 11/11/2020 10.6 ??? Eosinophils 11/11/2020 2.7 ??? Basophils 11/11/2020 0.8 Assessment/Plan Diagnoses and all orders for this visit: Preop examination (Z01.818) (Primary) Comments: Evaluation per orders. Does need better BP control before clearance. Follow up in 1 week. Orders: - ECG 12 lead; Future - XR Chest Pa Lateral 2 Views; Future - CBC with auto differential; Future - Comprehensive metabolic panel; Future - Protime-INR; Future - aPTT; Future Hypertension, essential (I10) Assessment & Plan: New diagnosis. Recommend starting medication. Patient is very hesitant but discussed risks of leaving BP untreated including heart attack, stroke, and renal failure. Patient will work on cutting backon salt, increasing exercise to at least 30 minutes 5 days a week, and losing weight. I do recommend starting amlodipine 5 mg daily as well. Patient hesitant but agreeable. Discussed BP will need to be better before I clear him for surgery. Other orders - amLODIPine (NORVASC) 5 mg tablet; Take 1 tablet (5 mg total) by mouth daily Return in about 1 week (around 08/13/2021). PRASANNA Bullock documented in this encounter Miscellaneous Notes * Assessment & Plan Note - Shayy Reyes PA - 08/06/2021 10:07 AM CDTAssociated Problem(s): Hypertension, essential New diagnosis. Recommend starting medication. Patient is very hesitant but discussed risks of leaving BP untreated including heart attack, stroke, and renal failure. Patient will work on cutting backon salt, increasing exercise to at least 30 minutes 5 days a week, and losing weight. I do recommend starting amlodipine 5 mg daily as well. Patient hesitant but agreeable. Discussed BP will need to be better before I clear him for surgery. documented in this encounter Plan of Treatment Not on file documented as of this encounter Procedures Procedure Name Priority Date/Time Associated Diagnosis Comments CBC WITH AUTO DIFFERENTIAL Routine 08/12/2021 6:27 AM CDT Preop examination APTT Routine 08/12/2021 6:27 AM CDT Preop examination PROTIME-INR Routine 08/12/2021 6:27 AM CDT Preop examination COMPREHENSIVE METABOLIC PANEL Routine 08/12/2021 6:27 AM CDT Preop examination documented in this encounter Results * aPTT (08/12/2021 6:27 AM CDT) aPTT 32 23 - 32 sec [facility] Comment: This test has not been validated for monitoring unfractionated heparin therapy. For testing that is validated for this type of therapy, please refer to the Heparin Anti-Xa assay (test code 77676). For additional information, please refer to http://education.ShoutWire.[employer]/faq/UBF370 (This link is being provided for informational/educational purposes only.) Blood specimen (specimen) 08/12/2021 6:27 AM CDT 08/12/2021 6:27 AM CDT Narrative [facility] - 08/13/2021 5:08 AM CDT FASTING:YES FASTING: YES us Shayy [facility] LAB BLOOD ORDERABLES Final Resul t [facility] [address] [place] [address] * Protime-INR (08/12/2021 6:27 AM CDT) Pathologist [facility] INR 1.1 [facility] Comment: Reference Range ? 0.9-1.1 Moderate-intensity Warfarin Therapy 2.0-3.0 Higher-intensity Warfarin Therapy ?? 3.0-4.0 PT 10.8 9.0 - 11.5 sec [facility] Comment: For additional information, please refer to http://education.[employer]/faq/EVJ016 (This link is being provided for informational/ educational purposes only.) Blood specimen (specimen) 08/12/2021 6:27 AM CDT 08/12/2021 6:27 AM CDT Narrative [facility] - 08/13/2021 5:08 AM CDT FASTING:YES FASTING: YES Shayy MIM[facility] LAB BLOOD ORDERABLES Final Resul t [facility] [address] [place] [address] * Comprehensive metabolic panel (08/12/2021 6:27 AM CDT) Pathologist [facility] Glucose 98 65 - 99 mg/dL [facility] Comment: ? Fasting reference interval BUN 18 7 - 25 mg/dL [facility] Creatinine 1.06 0.70 - 1.25 mg/dL [facility] Comment: For patients >49 years of age, the reference limit for Creatinine is approximately 13% higher for people identified as -Micronesian. eGFR NON-AFR. MALIAN 75 > OR = 60 mL/min/1 .73m2 [facility] EGFR 87 > OR = 60 mL/min/1 .73m2 [facility] BUN/creat ratio NOT APPLICABLE 6 (calc) [facility] Sodium 137 135 - 146 mmol/L [facility] Potassium, pl 4.5 3.5 - 5.3 mmol/L [facility] Chloride 102 98 - 110 mmol/L [facility] CO2 27 20 - 32 mmol/L [facility] Calcium 9.2 8.6 - 10.3 mg/dL [facility] Protein, sr 7.7 6.1 - 8.1 g/dL [facility] Albumin 4.4 3.6 - 5.1 g/dL [facility] GLOBULIN 3.3 1.9 - 3.7 g/dL (calc) [facility] Alb/glob ratio 1.3 1.0 - 2.5 (calc) [facility] Bilirubin, total 0.8 0.2 - 1.2 mg/dL [facility] Alk phos 44 35 - 144 U/L [facility] AST 25 10 - 35 U/L [facility] ALT (SGPT) 30 9 - 46 U/L [facility] Blood specimen (specimen) 08/12/2021 6:27 AM CDT 08/12/2021 6:27 AM CDT Narrative [facility] - 08/13/2021 5:08 AM CDT FASTING:YES FASTING: YES us Shayy MIMS LAB BLOOD ORDERABLES Final Resul t [facility] [address] [place] [address] * (ABNORMAL) CBC with auto differential (08/12/2021 6:27 AM CDT) WBC 5.9 3.8 - 10.8 Thousand/u L [facility] RBC, POC 5.64 4.20 - 5.80 Million/uL [facility] Hgb 18.0(H) 13.2 - 17.1 g/dL [facility] Hct 52.5(H) 38.5 - 50.0 % [facility] MCV 93.1 80.0 - 100.0 fL [facility] MCH 31.9 27.0 - 33.0 pg [facility] MCHC 34.3 32.0 - 36.0 g/dL [facility] Rdw 13.0 11.0 - 15.0 % [facility] Platelets 172 140 - 400 Thousand/u L [facility] MPV 11.3 7.5 - 12.5 fL [facility] Neutrophils, abs 3,157 1,500 - 7,800 cells/uL [facility] Lymphocytes, abs 1,959 850 - 3,900 cells/uL [facility] Monocyte abs 566 200 - 950 cells/uL [facility] Eosinophils, abs 171 15 - 500 cells/uL [facility] Basophils, abs 47 0 - 200 cells/uL [facility] Neutrophils 53.5 % [facility] Lymphocyte pct 33.2 % [facility] Monocytes 9.6 % [facility] Eosinophils 2.9 % [facility] Basophils 0.8 % [facility] Blood specimen (specimen) 08/12/2021 6:27 AM CDT 08/12/2021 6:27 AM CDT Narrative [facility] - 08/13/2021 5:08 AM CDT FASTING:YES FASTING: YES Shayy MIMS LAB BLOOD ORDERABLES Final Resul t [facility] [address] [place] [address] * XR Chest Pa Lateral 2 Views [...] D: ??08/07/2021 12:01 AM T: Report ID: [id number] Reading Location: ??[id number] Procedure Note Wilner Mosquera MD - 08/07/2021 [...] Wilner Mosquera M.D. KT T: Report ID: [id number] Reading Location: [id number] Shayy MIMS IMG XR PROCEDURES Final Result * ECG 12 lead (08/06/2021 10:51 AM CDT) Ventricular Rate EKG/Min 66 BPM [facility] Atrial Rate 66 BPM [facility] FL-Interval (MSEC) 182 ms [facility] QRS-Interval (MSEC) 94 ms [facility] QT-Interval (MSEC) 360 ms [facility] QTc 377 ms [facility] P [place] 28 degrees [facility] R [place] -43 degrees [facility] T [place] 8 degrees [facility] Diagnosis Normal sinus rhythm Left axis deviation Abnormal ECG When compared with ECG of 19-SEP-2000 09:47, No significant change was found [facility] 08/06/2021 10:5 1 AM CDT 08/07/2021 1:05 AM CDT us Shayy MIMS ECG ORDERABLES Final Result [facility] documented in this encounter Visit Diagnoses Diagnosis Preop examination- Primary Unspecified pre-operative examination Hypertension, essential Unspecified essential hypertension Preop examination Unspecified pre-operative examination documented in this encounter Care Teams Attorney Lawyer Relationship Specialty Start Date End Date Jorje Coburn DO PCP - General Family Medicine 06/18/18 documented as of this encounter
--- OUTSIDE RECORDS SUMMARY | 2024-03-05 21:52 | XMS_ITS | Encounter Summary ---
Author Organization [facility] Address [address] [facility] [address] [place] [address] Care Team Providers Care Distribution Spec Name Role Phone Jorje Coburn DO Primary Care Provider + Reason for Visit * Reason Comments Cough Sinus Problem Congestion, wheezing at night Headache Sinus headache Encounter Details Date Type Department Care Team (Late st Contact Info) Description 06/22/2022 11:15 AM CDT Office Visit [facility] Family Medicine [address] [facility] [address] [place] [address] Shayy Reyes PA [address] [place] [phone] Bronchitis (Primary Dx); Hypertension, essential; Stomach acid; Dyslipidemia Social History Tobacco Use Types Packs/Day Years [...] on file 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 Gender Identity Not on file Sexual Orientation Not on file documented as of this encounter Last Filed Vital Signs Vital Sign Reading Time Taken Comments Blood Pressure 150/78 06/22/2022 11:10 AM CDT Pulse 68 06/22/2022 11:10 AM CDT Temperature 36.5 ??C (97.7 ??F) 06/22/2022 1 1:10 AM CDT Respiratory Rate 18 06/22/2022 11:1 0 AM CDT Oxygen Saturation 97% 06/22/2022 11: 10 AM CDT Inhaled Oxygen Concentration - - Weight 115.5 kg (254 lb 9.6 oz) 023 11:10 AM CDT Height 177.8 cm (5' 10 ) 06/22/2022 11: 10 AM CDT Body Mass Index 36.53 06/22/2022 11:10 AM CDT documented in this encounter Ordered Prescriptions Prescription Sig Dispense Quantity Refills Last Filled Start Date End Date tamsulosin (FLOMAX) 0.4 mg extended release capsule Take 1 capsule (0.4 mg total) by mouth daily 90 capsule 1 06/22/2022 3 rosuvastatin (CRESTOR) 20 mg tabletIndications: Dyslipidemia Take 1 tablet (20 mg total) by mouth daily 90 tablet 1 06/22/2022 3 omeprazole (PriLOSEC) 20 mg capsuleIndications :Stomach acid Take 1 capsule (20 mg total) by mouth daily 90 capsule 1 06/22/2022 3 amLODIPine (NORVASC) 10 mg tabletIndications: Hypertension, essential Take 1 tablet (10 mg total) by mouth daily 90 tablet 1 06/22/2022 3 methylPREDNISolone (MEDROL DOSEPACK) 4 mg Dosepack Take as directed on package. 21 tablet 06/22/2022 3 azithromycin (ZITHROMAX) 250 mg tablet Take 2 tabs (500 mg) by mouth today, than 1 tab (250 mg) daily for 4 days. 6 tablet 06/22/2022 3 documented in this encounter Progress Notes * Shayy Reyes PA - 06/22/2022 11:15 AM CDT Images from the original note were not included. Visit Date: 06/22/2022 Patient ID: Benja Gallagher is a 62 y.o. male. Chief Complaint(s): Cough, Sinus Problem (Congestion, wheezing at night), and Headache (Sinus headache) HPI: Benja Gallagher is a 62 y.o. male here today for cough, sinus congestion, headache, and wheezing forthe past 3 weeks. No fever or difficulty breathing. Have a lot of sinus drainage. Has tried OTC decongestants. Current Outpatient Medications Medication Sig Dispense Refill cholecalciferol (VITAMIN D-3) 2,000 unit tablet 1 tablet (2,000 Units total) daily fexofenadine (AVE) 180 mg tablet Take [...] instructed amLODIPine (NORVASC) 10 mg tablet Take 1 tablet (10 mg total) by mouth daily 90 tablet 1 azithromycin (ZITHROMAX) 250 mg tablet Take 2 tabs (500 mg) by mouth today, than 1 tab (250 mg) daily for 4 days. 6 tablet 0 methylPREDNISolone (MEDROL DOSEPACK) 4 mg Dosepack Take as directed on package. 21 tablet 0 omeprazole (PriLOSEC) 20 mg capsule Take 1 capsule (20 mg total) by mouth daily 90 capsule 1 rosuvastatin (CRESTOR) 20 mg tablet Take 1 tablet (20 mg total) by mouth daily 90 tablet 1 tamsulosin (FLOMAX) 0.4 mg extended release capsule Take 1 capsule (0.4 mg total) by mouth daily 90capsule 1 No current facility-administered medications for this visit. Allergies as of 06/22/2022 - Reviewed 06/22/2022 Allergen Reaction Noted Iodinated contrast media Swelling 09/25/2016 Iodine Rash 01/03/2022 Morphine Rash 09/25/2016 Review of Systems: Review of Systems Constitutional: Negative for chills and fever. HENT: Positive for congestion, rhinorrhea and sinus pressure. Negative for sore throat. Eyes: Negative for discharge. Respiratory: Positive for cough and wheezing. Negative for shortness of breath. Cardiovascular: Negative for chest pain. Gastrointestinal: Negative for abdominal pain, diarrhea, nausea and vomiting. Musculoskeletal: Negative for myalgias. Skin: Negative for rash. Neurological: Positive for headaches. Physical Examination: Vitals: 06/22/22 1110 BP: 150/78 BP Location: Left arm Patient Position: Sitting Pulse: 68 Resp: 18 Temp: 36.5 ??C (97.7 ??F) TempSrc: Temporal SpO2: 97% Weight: 115.5 kg (254 lb 9.6 oz) Height: 177.8 cm (5' 10 ) Physical Exam Vitals and nursing note reviewed. Constitutional: General: He is not in acute distress. Appearance: Normal appearance. He is not toxic-appearing. HENT: Head: Normocephalic and atraumatic. Right Ear: Tympanic membrane, ear canal and external ear normal. Left Ear: Tympanic membrane, ear canal and external ear normal. Nose: Congestion present. Mouth/Throat: Mouth: Mucous membranes are moist. Pharynx: Oropharynx is clear. Eyes: Extraocular Movements: Extraocular movements intact. Conjunctiva/sclera: Conjunctivae normal. Pupils: Pupils are equal, round, and reactive to light. Cardiovascular: Rate and Rhythm: Normal rate and regular rhythm. Heart sounds: Normal heart sounds. Pulmonary: Effort: Pulmonary effort is normal. No respiratory distress. Breath sounds: No stridor. Wheezing and rhonchi present. No rales. Musculoskeletal: General: Normal range of motion. Cervical back: Normal range of motion and neck supple. No tenderness. Lymphadenopathy: Cervical: No cervical adenopathy. Skin: General: Skin is warm and dry. Capillary Refill: Capillary refill takes less than 2 seconds. Neurological: General: No focal deficit present. Mental Status: He is alert and oriented to person, place, and time. Psychiatric: Behavior: Behavior normal. Thought Content: Thought content normal. PHQ Screening Results Reviewed: No results [...] Diagnoses and all orders for this visit: Bronchitis (J40) (Primary) Comments: Start zpak and medrol dosepak. Hypertension, essential (I10) Assessment & Plan: Elevated today but not feeling well. Continue norvasc 10 mg daily. F/u in 6 weeks as scheduled for recheck. Orders: - amLODIPine (NORVASC) 10 mg tablet; Take 1 tablet (10 mg total) by mouth daily Stomach acid (R12) - omeprazole (PriLOSEC) 20 mg capsule; Take 1 capsule (20 mg total) by mouth daily Dyslipidemia (E78.5) - rosuvastatin (CRESTOR) 20 mg tablet; Take 1 tablet (20 mg total) by mouth daily Other orders - azithromycin (ZITHROMAX) 250 mg tablet; Take 2 tabs (500 mg) by mouth today, than 1 tab (250 mg) daily for 4 days. - methylPREDNISolone (MEDROL DOSEPACK) 4 mg Dosepack; Take as directed on package. - tamsulosin (FLOMAX) 0.4 mg extended release capsule; Take 1 capsule (0.4 mg total) by mouth daily Complete all medications as prescribed. Push fluids and monitor temperature for fever. Can use humidifier/steam for congestion. Elevating head of bed can help reduce nighttime cough. May use OTC cough suppressants/expectorant if needed: Robitussin, Delsym, or Mucinex. Avoid decongestant if contraindicated. Recommend saline sinus washes as tolerated. Tylenol/Motrin for pain or fever. Practice goodhandwashing to avoid spreading illness. If shortness of breath, chest pain, wheezing, etc. develop or worsen, call office or go to ER/urgicare. If symptoms worsening or not improving despite treatment, return to office or go to urgicare/ER. Return in about 6 weeks (around 08/03/2022) for Next scheduled follow up. PRASANNA Bullock documented in this encounter Miscellaneous Notes * Assessment & Plan Note - Shayy Reyes PA - 06/22/2022 11:34 AM CDTAssociated Problem(s): Hypertension, essential Elevated today but not feeling well. Continue norvasc 10 mg daily. F/u in 6 weeks as scheduled for recheck. documented in this encounter Plan of Treatment Not on file documented as of this encounter Visit Diagnoses Diagnosis Bronchitis- Primary Bronchitis, not specified as acute or chronic Hypertension, essential Unspecified essential hypertension Stomach acid Heartburn Dyslipidemia Other and unspecified hyperlipidemia documented in this encounter Discontinued Medications Medication Sig Discontinue Reason Start Date End Da te amLODIPine (NORVASC) 5 mg tablet Duplicate order 05/04/2022 06/22/2022 amLODIPine (NORVASC) 10 mg tabletIndications:Hypert ension, essential Take 1 tablet (10 mg total) by mouth daily Reorder 04/28/2022 06/22/2022 omeprazole (PriLOSEC) 20 mg capsuleIndications:Stoma ch acid Take 1 capsule (20 mg total) by mouth daily Reorder 04/29/2022 06/22/2022 tamsulosin (FLOMAX) 0.4 mg extended release capsule Take 1 capsule (0.4 mg total) by mouth daily Reorder 05/10/2022 06/22/2022 rosuvastatin (CRESTOR) 20 mg tabletIndications:Dyslip idemia TAKE 1 TABLET(20 MG) BY MOUTH DAILY Reorder 06/09/2022 06/22/2022 documented as of this encounter Historical Medications * This list may reflect changes made after this encounter. Medication Sig Dispense Quantity Refills Last Filled Start D ate End Date amLODIPine (NORVASC) 5 mg tablet 05/04/2022 06/22/2022 added in this encounter Care Teams Distribution Spec Relationship Specialty Start Date End Date Jorje Coburn DO PCP - General Family Medicine 06/18/18 documented as of this encounter
--- OUTSIDE RECORDS SUMMARY | 2024-03-05 21:52 | XMS_ITS | Encounter Summary ---
Author Organization [facility] Address [address] [place] [address] Care Team Providers Care Architectural Associate Name Role Phone Jorje Coburn DO Primary Care Provider + Reason for Visit * Reason Onset Date Comments Carpal Naomy Release Surgical Clearance 2021 Encounter Details Date Type Department Care Team (Late st Contact Info) Description 08/23/2021 Telephone [facility] Family Medicine [address] [place] [address] Jorje Coburn, [address] [facility] [address] [place] [address] Carpal Naomy Release Surgical Clearance Social History Tobacco Use Types Packs/Day Years [...] on file 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 Copy scanned into pt's chart. Thanks! * Telephone Encounter - Nadia Forrester MA - 08/23/2021 8:22 AM CDT We received surgical clearance fax from [facility] regarding pt's Right endoscopic carpal tunnel release, R. Cubital tunnel release, excision of ganglion of Right hand. The clearance form has been placed in Dr. Coburn folder. Thanks! documented in this encounter Plan of Treatment Not on file documented as of this encounter Visit Diagnoses Not on filedocumented in this encounter Care Teams Architectural Associate Relationship Specialty Start Date End Date Jorje oCburn DO PCP - General Family Medicine 06/18/18 documented as of this encounter
--- OUTSIDE RECORDS SUMMARY | 2024-03-05 21:52 | XMS_ITS | Encounter Summary ---
Author Organization 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 Gender Identity Not on file Sexual Orientation Not on file documented as of this encounter Plan of Treatment Not on file documented as of this encounter Procedures Procedure Name Priority Date/Time Associated Diagnosis Comments SCAN - RADIOLOGY/IMAGING 09/27/2021 documented in this encounter Results * SCAN - RADIOLOGY/IMAGING (09/27/2021) Anatomical Region Laterality Modality Other us Provider Scanning Final Result documented in this encounter Visit Diagnoses Not on filedocumented in this encounter Care Teams High Scaler Relationship Specialty Start Date End Date Jorje Coburn DO PCP - General Family Medicine 06/18/18 documented as of this encounter
--- OUTSIDE RECORDS SUMMARY | 2024-03-05 21:52 | XMS_ITS | Encounter Summary ---
Author Organization [facility] Address [address] [place] [address] Care Team Providers Care Grievance And Appeals Coordinator Name Role Phone Jorje Coburn DO Primary Care Provider + Reason for Visit * Reason Comments Surgery clearance Encounter Details Date Type Department Care Team (Late st Contact Info) Description 12/16/2021 8:00 AM CDT Office Visit [facility] Family Medicine [address] [place] [phone] Shayy Reyes PA [address] [place] [address] Preop examination (Primary Dx) Social History [...] on file 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 Gender Identity Not on file Sexual Orientation Not on file documented as of this encounter Last Filed Vital Signs Vital Sign Reading Time Taken Comments Blood Pressure 130/82 12/16/2021 8:05 AM CDT Pulse 70 12/16/2021 8:05 AM CDT Temperature 36.6 ??C (97.8 ??F) 12/16/2021 8:05 AM CD T Respiratory Rate 16 12/16/2021 8:05 AM CDT Oxygen Saturation 98% 12/16/2021 8:05 AM CDT Inhaled Oxygen Concentration - - Weight 116.1 kg (256 lb) 12/16/2021 8:05 AM CDT Height 177.8 cm (5' 10 ) 12/16/2021 8:05 AM CDT Body Mass Index 36.73 12/16/2021 8:05 AM CDT documented in this encounter Progress Notes * Shayy Reyes PA - 12/16/2021 8:00 AM CDT Images from the original note were not included. Visit Date: 12/16/2021 Patient ID: Benja Gallagher is a 61 y.o. male. Chief Complaint(s): Surgery clearance HPI: Benja Gallagher is a 61 y.o. male here today for preop exam for bilateral carpal tunnel syndrome repair. Scheduled on 01/11/22. Had labs, EKG, and CXR in July as was originally scheduled in August but then got postponed. He denies any chest pain, SOB, or [...] medications for this visit. Allergies as of 12/16/2021 - Reviewed 12/16/2021 Allergen Reaction Noted Iodinated contrast media Swelling 09/25/2016 Morphine Rash 09/25/2016 Review of Systems: Review of Systems Constitutional: Negative for chills and fever. Respiratory: Negative for shortness of breath. Cardiovascular: Negative for chest pain. Gastrointestinal: Negative for abdominal pain and vomiting. Skin: Negative for rash. Physical Examination: Vitals: 12/16/21 0805 BP: 130/82 BP Location: Right arm Patient Position: Sitting Pulse: 70 Resp: 16 Temp: 36.6 ??C (97.8 ??F) SpO2: 98% Weight: 116.1 kg (256 lb) Height: 177.8 cm (5' 10 ) Physical [...] (MSEC) 08/06/2021 360 QTc 08/06/2021 377 P [place] 08/06/2021 28 R [place] 08/06/2021 -43 T [place] 08/06/2021 8 Diagnosis 08/06/2021 Value:Normal sinus rhythm Left axis deviation Abnormal ECG When compared with ECG of 19-SEP-2000 09:47, No significant change was found Assessment/Plan Diagnoses and all orders for this visit: Preop examination (Z01.818) (Primary) Comments: Cleared for carpal tunnel release. Labs, EKG, and CXR from July reviewed. Return if symptoms worsen or fail to improve. PRASANNA Bullock documented in this encounter Plan of Treatment Not on file documented as of this encounter Visit Diagnoses Diagnosis Preop examination- Primary Unspecified pre-operative examination documented in this encounter Care Teams Grievance And Appeals Coordinator Relationship Specialty Start Date End Date Jorje Coburn DO PCP - General Family Medicine 06/18/18 documented as of this encounter
--- OUTSIDE RECORDS SUMMARY | 2024-03-05 21:52 | XMS_ITS | Encounter Summary ---
Author Organization [facility] Address [address] [place] [address] Care Team Providers Care Roll Over Press Operator Name Role Phone Jorje Coburn DO Primary Care Provider + Reason for Visit * Reason Comments Follow-up Encounter Details Date Type Department Care Team (Late st Contact Info) Description 04/11/2022 8:15 AM SPRING TACKER Office Visit [facility] Family Medicine [address] [place] [address] Jorje Coburn DO [address] [place] [address] Annual physical exam (Primary Dx); Hypertension, essential; Severe obesity (BMI 35.0-39.9) with comorbidity (CMS/HCC) (HCC); Screening PSA (prostate specific antigen) Social History Tobacco Use Types Packs/Day Years [...] on file 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 Gender Identity Not on file Sexual Orientation Not on file documented as of this encounter Last Filed Vital Signs Vital Sign Reading Time Taken Comments Blood Pressure 170/94 04/11/2022 8:27 AM SPRING TACKER Pulse 68 04/11/2022 8:27 AM SPRING TACKER Temperature 36.7 ??C (98.1 ??F) 04/11/2022 8:27 AM CS T Respiratory Rate 20 04/11/2022 8:27 AM SPRING TACKER Oxygen Saturation 96% 04/11/2022 8:27 AM SPRING TACKER Inhaled Oxygen Concentration - - Weight 117.2 kg (258 lb 6.4 oz) 04/11/2022 8:27 AM SPRING TACKER Height 177.8 cm (5' 10 ) 04/11/2022 8:27 AM SPRING TACKER Body Mass Index 37.08 04/11/2022 8:27 AM SPRING TACKER documented in this encounter Ordered Prescriptions Prescription Sig Dispense Quantity Refills Last Filled Start Date End Date fexofenadine (AVE) 180 mg tablet Take 1 tablet (180 mg total) by mouth daily as needed (allergies) 90 tablet 4 04/11/2022 04/19/2022 documented in this encounter Progress Notes * Jorje Coburn, DO - 04/11/2022 8:15 AM CST Images from the original note were not included. Subjective/Objective Patient ID: Benja Gallagher is a 61 y.o. male. Chief Complaint Follow-up HPI Annual physical Doing well Optho wants a a1c Past Medical History: Diagnosis Date Hyperlipidemia Inguinal hernia Neck mass Past Surgical History: Procedure Laterality Date CARPAL TUNNEL RELEASE HERNIA REPAIR Patient Active Problem List Diagnosis Date Noted Severe obesity (BMI 35.0-39.9) with comorbidity (CMS/HCC) (HCC) 04/11/2022 Hypertension, essential 08/06/2021 Obstructive sleep apnea 01/20/2021 Snoring 09/16/2020 Sleep disorder 09/16/2020 Hypersomnia 09/16/2020 Overweight 09/16/2020 Fatigue 09/16/2020 Psychophysiological insomnia 09/16/2020 Bronchitis 05/21/2019 Acute non-recurrent frontal sinusitis 06/18/2018 Dyslipidemia 06/18/2018 Annual physical exam 06/18/2018 Current Outpatient Medications Medication Sig Dispense Refill amLODIPine (NORVASC) 5 mg tablet Take 1 tablet (5 mg total) by mouth daily 90 tablet 0 cholecalciferol (VITAMIN D-3) 2,000 unit tablet 2,000 Units daily omega-3 fatty acids (LOVAZA) 1 gram capsule Take 1,000 mg by mouth omeprazole (PriLOSEC) 20 mg capsule Take 1 capsule (20 mg total) by mouth daily 90 capsule 0 rosuvastatin (CRESTOR) 20 mg tablet Take 1 tablet (20 mg total) by mouth daily 90 tablet 0 sildenafiL (VIAGRA) 100 mg tablet TAKE 1 TABLET BY MOUTH ONCE DAILY NEEDED 6 tablet 0 testosterone cypionate (DEPO-TESTOTERONE) 100 mg/mL injection Inject 100 mg/mL into the muscle as instructed fexofenadine (AVE) 180 mg tablet Take 1 tablet (180 mg total) by mouth daily as needed (allergies) 90 tablet 4 No current facility-administered medications for this visit. Allergies as of 04/11/2022 - Reviewed 04/11/2022 Allergen Reaction Noted Iodinated contrast media Swelling [...] Father PHQ Screening Review of Systems Constitutional: Negative. HENT: Negative. Eyes: Negative. Respiratory: Negative. Cardiovascular: Negative. Gastrointestinal: Negative. BP 170/94 (BP Location: Left arm, Patient Position: Sitting) Pulse 68 Temp 36.7 ??C (98.1 ??F) Resp 20 Ht 177.8 cm (5' 10 ) Wt 117.2 kg (258 lb 6.4 oz) SpO2 96% BMI 37.08 kg/m?? Physical Exam Constitutional: Appearance: Normal appearance. [...] EKG/Min 08/06/2021 66 Atrial Rate 08/06/2021 66 WA-Interval (MSEC) 08/06/2021 182 QRS-Interval (MSEC) 08/06/2021 94 QT-Interval (MSEC) 08/06/2021 360 QTc 08/06/2021 377 P [place] 08/06/2021 28 R [place] 08/06/2021 -43 T [place] 08/06/2021 8 Diagnosis 08/06/2021 Value:Normal sinus rhythm Left axis deviation Abnormal ECG When compared with ECG of 19-SEP-2000 09:47, No significant change was found Assessment/Plan Diagnoses and all orders for this visit: Annual physical exam (Z00.00) (Primary) Assessment & Plan: Chart reviewed Lab ordered Hypertension, essential (I10) Assessment & Plan: Check bp routinely Update Severe obesity (BMI 35.0-39.9) with comorbidity (CMS/HCC) (HCC) (E66.01) Assessment & Plan: Healthy diet Other orders - fexofenadine (AVE) 180 mg tablet; Take 1 tablet (180 mg total) by mouth daily as needed (allergies) Jorje Coburn DO NG TACKER documented in this encounter Miscellaneous Notes * Assessment & Plan Note - Jorje Coburn DO - 04/11/2022 9:05 AM SPRING TACKER Associated Problem(s): Severe obesity (BMI 35.0-39.9) with comorbidity (HCC) Healthy diet NG TACKER * Assessment & Plan Note - Jorje Coburn DO - 04/11/2022 9:04 AM SPRING TACKER Associated Problem(s): Hypertension, essential Check bp routinely Update NG TACKER * Assessment & Plan Note - Jorej Coburn DO - 04/11/2022 8:57 AM SPRING TACKER Associated Problem(s): Annual physical exam Chart reviewed Lab ordered NG TACKER * Addendum Note - Chloe Dupree MA - 04/11/2022 8:15 AM CSTAddended by: CHLOE DUPREE on: 04/11/2022 09:16 AM Modules accepted: Orders NG TACKER documented in this encounter Plan of Treatment Not on file documented as of this encounter Visit Diagnoses Diagnosis Annual physical exam- Primary Routine general medical examination at a health care facility Hypertension, essential Unspecified essential hypertension Severe obesity (BMI 35.0-39.9) with comorbidity (HCC) Screening PSA (prostate specific antigen) Special screening for malignant neoplasm of prostate documented in this encounter Discontinued Medications Medication Sig Discontinue Reason Start Date End Da te traZODone (DESYREL) 50 mg tablet Take 1 tablet (50 mg total) by mouth nightly Therapy completed 05/12/2021 04/11/[address] (VOLTAREN) 75 mg EC tablet Take 75 mg by mouth 2 (two) times a day Therapy completed 04/11/2022 documented as of this encounter Orders Lab Orders Without Results Count Last Ordered D ate First Ordered Date BASIC METABOLIC PANEL 1 04/11/2022 CBC WITH AUTO DIFFERENTIAL 1 04/11/2022 HEMOGLOBIN A1C 1 04/11/2022 PSA SCREEN 1 04/11/2022 documented in this encounter Care Teams Roll Over Press Operator Relationship Specialty Start Date End Date Jorje Coburn DO PCP - General Family Medicine 06/18/18 documented as of this encounter
--- OUTSIDE RECORDS SUMMARY | 2024-03-05 21:52 | XMS_ITS | Encounter Summary ---
Author Organization [facility] Address [address] [place] [address] Care Team Providers Care Auto Heater Mechanic Name Role Phone Jorje Coburn DO Primary Care Provider + Reason for Visit * Reason Onset Date Comments Medical Question/Miscellaneous 09/02/2022 Call Back 09/02/2022 Encounter Details Date Type Department Care Team (Late st Contact Info) Description 09/02/2022 Telephone [facility] Family Medicine [address] [place] [address] Jorje Coburn, [address] [place] [address] [address] [place] [address] Medical Question/Miscellaneous; Call Back Social History Tobacco Use Types [...] on file 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 States the office did not get complete message. Patient has a new Fit Bit and pulse rate has gone down to 42 while sleeping. Asked to verify medications and she said she could not as she is at work. Explained Dr. Coburn out of the office; Dr. Verduzco said to watch itbelow 60. If develops any symptoms ER. Patient has 10-13-22 appointment w/Dr. Coburn. * Telephone Encounter - Susanna Bob MA - 09/02/2022 1:40 PM CDT Call Back Caller???s Concern: Patient called, stated his told him to call the office, he has questions about his heart rate, I see where Alexandra left a message for his , call warm transferred to backline. Spoke with Alicia. Caller???s Call back #: n/a Does message need to be routed? No * Telephone Encounter - Alexandra Ellis Ma, MA - 09/02/2022 1:12 PM CDT Detailed message left on voicemail. * Telephone Encounter - Jorje Verduzco MD - 09/02/2022 1:09 PM CDT Below 60 * Telephone Encounter - Yumiko Castro - 09/02/2022 12:45 PM CDT Medical Question/Miscellaneous Caller???s Concern: Juana, patient's spouse, calling. She states when they went to turkey picker patients blood pressure medication, that the pharmacist warned them to watch out for a drop in heart rate.Caller wants to know what is too low of a heart rate. Please advise Caller???s Call back #: [phone] Does message need to be routed? Yes-Action Needed documented in this encounter Plan of Treatment Not on file documented as of this encounter Visit Diagnoses Not on filedocumented in this encounter Care Teams Auto Heater Mechanic Relationship Specialty Start Date End Date Jorje Coburn DO PCP - General Family Medicine 06/18/18 documented as of this encounter
--- OUTSIDE RECORDS SUMMARY | 2024-03-05 21:52 | XMS_ITS | Encounter Summary ---
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 TROMECHANICAL EQUIPMENT ASSEMBLER documented in this encounter Plan of Treatment Not on file documented as of this encounter Visit Diagnoses Not on filedocumented in this encounter Care Teams Primary Care Physician Relationship Specialty Start Date End Date Jorje Coburn DO PCP - General Family Medicine 06/18/18 documented as of this encounter
--- OUTSIDE RECORDS SUMMARY | 2024-03-05 21:53 | XMS_ITS | Encounter Summary ---
Author Organization [facility] Address [address] [place] [address] Care Team Providers Care Promotion Manager Name Role Phone Jorje Coburn DO Primary Care Provider + Encounter Details Date Type Department Care Team (Late st Contact Info) Description 10/14/2020 Telephone [facility] Family Medicine [address] [place] [address] Jorje Coburn DO [address] [place] [address] Social History Tobacco Use Types Packs/Day Years Used Date Smoking Tobacco: Never Smokeless Tobacco: Never Alcohol Use Standard Drinks/Week Comments Yes 0 (1 standard drink = 0.6 oz pur e alcohol) AUDIT-C Answer Date Recorded Frequency of Alcohol Consumption 2-4 times a mon06/18/2018 Average Number of Drinks 1 or 2 019 Frequency of Binge Drinking Not on file 03/2018 PHQ-2 Answer Date Recorded PHQ-2 Score 0 11/09/2018 Sex and Gender Information Value Date Recorded Sex Assigned at Not on file 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 He states he is not taking baby Asprin yet, but his will go to the pharmacy today and get some. Pt is aware to get blood work completed in 4 weeks. Cbc ordered and mailedto pt. * Telephone Encounter - Xenia Jiménez MA - 10/14/2020 2:18 PM CDT ----- Message from Jorje Coburn DO sent at 10/12/2020 1:13 PM CDT ----- Hemoglobin is slightly high at 18.2. Is he taking a baby aspirin a day? I would recheck a CBC in 4 weeks. He should be taking a baby aspirin daily let me know documented in this encounter Plan of Treatment Not on file documented as of this encounter Procedures Procedure Name Priority Date/Time Associated Diagnosis Comments CBC WITH AUTO DIFFERENTIAL Routine 11/11/2020 6:17 AM CDT Elevated hemoglobin (CMS/HCC) (HCC) documented in this encounter Results * (ABNORMAL) CBC with auto differential (11/11/2020 6:17 AM CDT) WBC 6.6 3.8 - 10.8 Thousand/u L [facility] RBC, POC 5.95(H) 4.20 - 5.80 Million/uL [facility] Hgb 18.4(H) 13.2 - 17.1 g/dL [facility] Hct 54.2(H) 38.5 - 50.0 % [facility] MCV 91.1 80.0 - 100.0 fL [facility] MCH 30.9 27.0 - 33.0 pg [facility] MCHC 33.9 32.0 - 36.0 g/dL [facility] Rdw 13.2 11.0 - 15.0 % [facility] Platelets 177 140 - 400 Thousand/u L [facility] MPV 10.7 7.5 - 12.5 fL [facility] Neutrophils, abs 3,524 1,500 - 7,800 cells/uL [facility] Lymphocytes, abs 2,145 850 - 3,900 cells/uL [facility] Monocyte abs 700 200 - 950 cells/uL [facility] Eosinophils, abs 178 15 - 500 cells/uL [facility] Basophils, abs 53 0 - 200 cells/uL [facility] Neutrophils 53.4 % [facility] Lymphocyte pct 32.5 % [facility] Monocytes 10.6 % [facility] Eosinophils 2.7 % [facility] Basophils 0.8 % [facility] Blood specimen (specimen) 11/11/2020 6:17 AM CDT 11/11/2020 6:17 AM CDT Jorje Coburn DO LAB BLOOD ORDERABLES Fin al Result [facility] [address] [place] [address] documented in this encounter Visit Diagnoses Diagnosis Elevated hemoglobin (CMS/HCC) (HCC)- Primary documented in this encounter Care Teams Promotion Manager Relationship Specialty Start Date End Date Jorje Coburn DO PCP - General Family Medicine 06/18/18 documented as of this encounter
--- OUTSIDE RECORDS SUMMARY | 2024-03-05 21:53 | XMS_ITS | Encounter Summary ---
Author Organization [facility] Address [address] [place] [address] Care Team Providers Care Head Turbine Operator Name Role Phone Jorje Coburn DO Primary Care Provider + Reason for Visit * Reason Onset Date Comments Med Refill 09/01/2020 Encounter Details Date Type Department Care Team (Late st Contact Info) Description 09/01/2020 Telephone [facility] Family Medicine [address] [place] [address] Jorje Coburn DO [address] [address] [place], [place] [id number] Med Refill Social History Tobacco Use Types [...] on file 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 documented in this encounter Plan of Treatment Not on file documented as of this encounter Visit Diagnoses Not on filedocumented in this encounter Discontinued Medications Medication Sig Discontinue Reason Start Date End Da te rosuvastatin (CRESTOR) 20 mg tablet Take 1 tablet (20 mg total) by mouth daily Reorder 01/21/2020 09/01/2020 documented as of this encounter Care Teams Head Turbine Operator Relationship Specialty Start Date End Date Jorje Coburn DO PCP - General Family Medicine 06/18/18 documented as of this encounter
--- OUTSIDE RECORDS SUMMARY | 2024-03-05 21:53 | XMS_ITS | Encounter Summary ---
Author Organization [facility] Address [address] [place] [address] Care Team Providers Care Loss Claim Clerk Name Role Phone Jorje Coburn DO Primary Care Provider + Reason for Visit * Reason Comments Med Refill Sinusitis x 3 DAYS Nasal Congestion Encounter Details Date Type Department Care Team (Late st Contact Info) Description 06/18/2018 3:15 PM CDT Office Visit [facility] Family Medicine [address] [place] [phone] Jorje Coburn DO [address] [place] [address] Annual physical exam (Primary Dx); Acute non-recurrent frontal sinusitis; Dyslipidemia Social History Tobacco Use Types Packs/Day Years Used Date Smoking Tobacco: Never Smokeless Tobacco: Never Alcohol Use Standard Drinks/Week Comments Yes 0 (1 standard drink = 0.6 oz pur e alcohol) AUDIT-C Answer Date Recorded Frequency of Alcohol Consumption 2-4 times a mon06/18/2018 Average Number of Drinks 1 or 2 019 Frequency of Binge Drinking Not on file 03/2018 Sex and Gender Information Value Date Recorded Sex Assigned at Not on file 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 Gender Identity Not on file Sexual Orientation Not on file documented as of this encounter Last Filed Vital Signs Vital Sign Reading Time Taken Comments Blood Pressure 154/78 06/18/2018 3:32 PM CDT Pulse 70 06/18/2018 3:32 PM CDT Temperature 36.8 ??C (98.3 ??F) 06/18/2018 3:32 PM CD T Respiratory Rate - - Oxygen Saturation 97% 06/18/2018 3:32 PM CDT Inhaled Oxygen Concentration - - Weight 110.4 kg (243 lb 6.4 oz) 06/18/2018 3:32 PM CDT Height 177.8 cm (5' 10 ) 06/18/2018 3:32 PM CDT Body Mass Index 34.92 06/18/2018 3:32 PM CDT documented in this encounter Ordered Prescriptions Prescription Sig Dispense Quantity Refills Last Filled Start Date End Date simvastatin (ZOCOR) 40 mg tablet Take 1 tablet (40 mg total) by mouth nightly 90 tablet 06/19/2018 9 simvastatin (ZOCOR) 40 mg tablet Take 1 tablet (40 mg total) by mouth nightly 90 tablet 06/18/2018 9 azithromycin (ZITHROMAX) 250 mg tablet Take 2 tabs (500 mg) by mouth today, than 1 daily for 4 days. 6 tablet 06/18/2018 9 documented in this encounter Progress Notes * Jorje Coburn, DO - 06/18/2018 3:15 PM CDT Subjective/Objective Patient ID: Benja Gallagher is a 58 y.o. male. Chief Complaint Med Refill; Sinusitis (x 3 DAYS ); and Nasal Congestion HPI SINUS INFECTION HEAD CONGESTION SORE THROAT 3-4 DAYS Review of Systems Constitutional: Negative for activity change, appetite change and fatigue. HENT: Negative for sinus pressure and sore throat. Eyes: Negative for pain and visual disturbance. Respiratory: Negative for apnea, cough, chest tightness and shortness of breath. Cardiovascular: Negative for chest pain and palpitations. Gastrointestinal: Negative for abdominal distention, abdominal pain and nausea. Endocrine: Negative for cold intolerance, heat intolerance and polyuria. Genitourinary: Negative for difficulty urinating and frequency. Musculoskeletal: Negative for arthralgias and back pain. Skin: Negative for color change and rash. Allergic/Immunologic: Negative for environmental allergies and food allergies. Neurological: Negative for dizziness, speech difficulty and headaches. Hematological: Negative for adenopathy. Does not bruise/bleed easily. Psychiatric/Behavioral: Negative for confusion and sleep disturbance. BP 154/78 Pulse 70 Temp 36.8 ??C (98.3 ??F) Ht 177.8 cm (5' 10 ) Wt 110.4 kg (243 lb 6.4 oz) SpO2 97% BMI 34.92 kg/m?? Physical Exam Constitutional: He is oriented to person, place, and time. He appears well- developed and well-nourished. HENT: Head: Normocephalic and atraumatic. Right Ear: External ear normal. Left Ear: External ear normal. Nose: Nose normal. Mouth/Throat: Oropharynx is clear and moist. Eyes: Conjunctivae and EOM are normal. Neck: Normal range of motion. Neck supple. No thyromegaly present. Cardiovascular: Normal rate, regular rhythm and normal heart sounds. Pulmonary/Chest: Effort normal and breath sounds normal. Abdominal: Soft. He exhibits no distension. There is no tenderness. Musculoskeletal: Normal range of motion. He exhibits no deformity. Lymphadenopathy: He has no cervical adenopathy. Neurological: He is alert and oriented to person, place, and time. Coordination normal. Skin: Skin is warm and dry. Psychiatric: He has a normal mood and affect. His behavior is normal. Judgment and thought content normal. Nursing note and vitals reviewed. Assessment/Plan Diagnoses and all orders for this visit: Annual physical exam (Z00.00) (Primary) Assessment & Plan: ROUTINE LABS Orders: - CBC with auto differential; Future - Comprehensive metabolic panel; Future - Hepatic function panel; Future - PSA screen; Future - Lipid panel; Future - TSH; Future Acute non-recurrent frontal sinusitis (J01.10) Comments: lonnie landeros Dyslipidemia (E78.5) Assessment & Plan: REFILL MED ROUTINE LAB Orders: - CBC with auto differential; Future - Comprehensive metabolic panel; Future - Hepatic function panel; Future - PSA screen; Future - Lipid panel; Future - TSH; Future Other orders - azithromycin (ZITHROMAX) 250 mg tablet; Take 2 tabs (500 mg) by mouth today, than 1 daily for 4 days. - simvastatin (ZOCOR) 40 mg tablet; Take 1 tablet (40 mg total) by mouth nightly documented in this encounter Miscellaneous Notes * Assessment & Plan Note - Jorje Coburn DO - 06/18/2018 3:56 PM CDT Associated Problem(s): Annual physical exam ROUTINE LABS * Assessment & Plan Note - Jorje Coburn DO - 06/18/2018 3:55 PM CDT Associated Problem(s): Dyslipidemia REFILL MED ROUTINE LAB * Addendum Note - Melida Guillory MA - 06/18/2018 3:15 PM CDTAddended by: MELIDA GUILLORY on: 06/19/2018 10:12 AM Modules accepted: Orders * Addendum Note - Melida Guillory MA - 06/18/2018 3:15 PM CDTAddended by: MELIDA GUILLORY on: 06/19/2018 03:51 PM Modules accepted: Orders documented in this encounter Plan of Treatment Not on file documented as of this encounter Visit Diagnoses Diagnosis Annual physical exam- Primary Routine general medical examination at a health care facility Acute non-recurrent frontal sinusitis Dyslipidemia Other and unspecified hyperlipidemia documented in this encounter Discontinued Medications Medication Sig Discontinue Reason Start Date End Da te simvastatin (ZOCOR) 40 mg tablet TK 1 T PO QD IN THE BARRIE Reorder 05/23/2018 06/18/2018 simvastatin (ZOCOR) 40 mg tablet Take 1 tablet (40 mg total) by mouth nightly 06/18/2018 06/19/2018 documented as of this encounter Historical Medications * This list may reflect changes made after this encounter. cholecalciferol (VITAMIN D-3) 2,000 unit tablet 1 tablet (2,000 Units total) daily omega-3 fatty acids (LOVAZA) 1 gram capsule Take 1 capsule (1,000 mg total) by mouth 09/25/2016 testosterone cypionate (DEPO-TESTOTERON E) 100 mg/mL injection Inject 100 mg/mL into the muscle as instructed sildenafil (VIAGRA) 100 mg tablet 100 mg daily 06/12/2015 9 simvastatin (ZOCOR) 40 mg tablet TK 1 T PO QD IN THE BARRIE 0 05/23/2018 9 added in this encounter Orders Lab Orders Without Results Count Last Ordered D ate First Ordered Date CBC WITH AUTO DIFFERENTIAL 1 06/18/2018 COMPREHENSIVE METABOLIC PANEL 1 06/18/2018 HEPATIC FUNCTION PANEL 1 06/18/2018 LIPID PANEL 1 06/18/2018 PSA SCREEN 1 06/18/2018 TSH 1 06/18/2018 documented in this encounter Care Teams Loss Claim Clerk Relationship Specialty Start Date End Date Jorje Coburn DO PCP - General Family Medicine 06/18/18 documented as of this encounter
--- OUTSIDE RECORDS SUMMARY | 2024-03-05 21:53 | XMS_ITS | Encounter Summary ---
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 Gender Identity Not on file Sexual Orientation Not on file documented as of this encounter Ordered Prescriptions Prescription Sig Dispense Quantity Refills Last Filled Start Date End Date simvastatin (ZOCOR) 40 mg tablet Take 1 tablet (40 mg total) by mouth nightly 90 tablet 9 09/18/2018 9 documented in this encounter Plan of Treatment Not on file documented as of this encounter Visit Diagnoses Not on filedocumented in this encounter Discontinued Medications Medication Sig Discontinue Reason Start Date End Da te simvastatin (ZOCOR) 40 mg tablet Take 1 tablet (40 mg total) by mouth nightly Reorder 06/19/2018 09/18/2018 documented as of this encounter Care Teams Works Manager Relationship Specialty Start Date End Date Jorje Coburn DO PCP - General Family Medicine 06/18/18 documented as of this encounter
--- OUTSIDE RECORDS SUMMARY | 2024-03-05 21:53 | XMS_ITS | Encounter Summary ---
Author Organization [facility] Address [address] [place] [id number] Care Team Providers Care Instrument Maintenance Supervisor Name Role Phone Jorje Coburn DO Primary Care Provider + Reason for Visit * Reason Comments Follow-up Encounter Details Date Type Department Care Team (Late st Contact Info) Description 01/20/2021 8:15 AM CDT Office Visit [facility] [address] [address] Dona Daniels MD [address] [facility] [address] [address] Obstructive sleep apnea (Primary Dx); Psychophysiological insomnia; [...] on file 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 Gender Identity Not on file Sexual Orientation Not on file documented as of this encounter Last Filed Vital Signs Vital Sign Reading Time Taken Comments Blood Pressure 162/96 01/20/2021 8:09 AM CDT Pulse 69 01/20/2021 8:09 AM CDT Temperature 36.6 ??C (97.8 ??F) 01/20/2021 8:09 AM CD T Respiratory Rate 18 01/20/2021 8:09 AM CDT Oxygen Saturation 96% 01/20/2021 8:09 AM CDT Inhaled Oxygen Concentration - - Weight 114.8 kg (253 lb) 01/20/2021 8:09 AM CDT Height 177.8 cm (5' 10 ) 01/20/2021 8:09 AM CDT Body Mass Index 36.3 01/20/2021 8:09 AM CDT documented in this encounter Progress Notes * Dona Daniels MD - 01/20/2021 8:15 AM CDT Subjective/Objective Patient ID: Benja Gallagher is a 60 y.o. male. Chief Complaint Chief Complaint Patient presents with ??? Follow-up HPI Active sleep problem list: Moderate obstructive [...] continued to have sleep disturbances and fatigue. Allergies Allergen Reactions ??? Iodinated Contrast Media [...] Negative for agitation and confusion. Vitals BP 162/96 Pulse 69 Temp 36.6 ??C (97.8 ??F) Resp 18 Ht 177.8 cm (5' 10 ) Wt 114.8 kg (253 lb) SpO2 96% BMI 36.30 kg/m?? Physical Exam Constitutional: General: He is [...] 3 months for re-evaluation. I will order auto CPAP, 5-17 cm of water with heated humidity and supplies from [employer]. He was informed about his sleep study. Patient was advised about keeping the pets out of his bedroom. He was advised about the pathophysiology ofobstructive sleep apnea and the complication of untreated obstructive sleep apnea. Patient also wasadvised about sleep hygiene. He was advised about diet and exercise program for weight reduction. Patient will be sent for home sleep study for further evaluation. He did not receive COVID-19 vaccine. Patient was encouraged to call us with any inquiry, concern for question about their condition, lab work, x- rays or CT scans at any time, please see further details for assessment and plan in HPI THIS NOTE WAS CREATED IN PART WITH THE ASSISTANCE OF [email or web address] VOICE RECOGNITION SOFTWARE. ELECTRIC ARC FURNACE OPERATOR VARIANCES MAY OCCUR. documented in this encounter Plan of Treatment Not on file documented as of this encounter Visit Diagnoses Diagnosis Obstructive sleep apnea- Primary Obstructive sleep apnea (adult) (pediatric) Psychophysiological insomnia Persistent disorder of initiating or maintaining sleep Fatigue, unspecified type Overweight Hypersomnia Hypersomnia, unspecified documented in this encounter Care Teams Instrument Maintenance Supervisor Relationship Specialty Start Date End Date Jorje Coburn DO PCP - General Family Medicine 06/18/18 documented as of this encounter
--- OUTSIDE RECORDS SUMMARY | 2024-03-05 21:53 | XMS_ITS | Encounter Summary ---
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
--- OUTSIDE RECORDS SUMMARY | 2024-03-05 21:53 | XMS_ITS | Encounter Summary ---
Author Organization [facility] Address [address] [place] [address] Care Team Providers Care Employment Adjudicator Name Role Phone Jorje Coburn DO Primary Care Provider + Encounter Details Date Type Department Care Team (Late st Contact Info) Description 01/03/2019 Orders Only [facility] Medical [facility] Family Medicine [address] [place] [address] Jorje Coburn DO [address] [place] [address] Dyslipidemia (Primary Dx) Social History Tobacco Use Types [...] on file 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 [facility] 01/11/2019 6:57 AM CDT 01/11/2019 6:57 AM CDT Narrative [facility] - 01/12/2019 2:17 AM CDT FASTING:YES FASTING: YES Resulting Agency Comment Performing Organization Information: ?Site ID: [place] ?Name: [facility] ?Address: [address] [place] [id number] ?Director: Jony Roman D.O., MPH Jorje Coburn DO LAB BLOOD ORDERABLES Fin al Result [facility] - [place], [place] * (ABNORMAL) Lipid panel (01/11/2019 6:57 AM CDT) Pathologist [facility] Cholesterol 228(H) <200 mg/dL [facility] [place] HDL 29(L) >40 mg/dL [facility] [employer] [employer] [place] Triglycerides 601(H) <150 mg/dL [facility] - [place] Comment: If a non-fasting specimen was collected, consider repeat triglyceride testing on a fasting specimen if clinically indicated. Kiser et al. J. of Clin. Lipidol. 2015;9:129-169. There is increased risk of pancreatitis when the triglyceride concentration is very high (> or = 500 mg/dL, especially if > or = 1000 mg/dL). Kiser et al. J. of Clin. Lipidol. 2015;9:129-169. LDL mg/dL (calc) [facility] - [place] Comment: LDL cholesterol not calculated. Triglyceride levels greater than 400 mg/dL invalidate calculated LDL results. Reference range: <100 Desirable range <100 mg/dL for primary prevention; ?? <70 mg/dL for patients with CHD or diabetic patients with > or = 2 CHD risk factors. LDL-C is now calculated using the Dale calculation, which is a validated novel method providing better accuracy than the Friedewald equation in the estimation of LDL-C. Dashawn DÍAZ et al. CM. 2013;310(19): 3977-8512 (http://education.[employer]/faq/VXV224) Chol/HDL ratio 7.9(H) <5.0 (calc) [facility] [place] Non-HDL, (LDL+VLDL) 199(H) <130 mg/dL (calc) [facility] [place] Comment: For patients with diabetes plus 1 major ASCVD risk factor, treating to a non-HDL-C goal of <100 mg/dL (LDL-C of <70 mg/dL) is considered a therapeutic option. Blood specimen (specimen) 01/11/2019 6:57 AM CDT 01/11/2019 6:57 AM CDT Narrative [facility] - 01/12/2019 2:17 AM CDT FASTING:YES FASTING: YES Resulting Agency Comment Performing Organization Information: ?Site ID: [place] ?Name: [facility] ?Address: [address] [phone] ?Director: Jony Roman D.O., MPH Jorje Coburn DO LAB BLOOD ORDERABLES Fin al Result [facility] [place] * (ABNORMAL) CBC with auto differential (01/11/2019 6:57 AM CDT) WBC 6.0 3.8 - 10.8 Thousand/u L [facility] [place] RBC, POC 5.65 4.20 - 5.80 Million/uL [facility] [place] Hgb 18.0(H) 13.2 - 17.1 g/dL [facility] [place] Hct 51.4(H) 38.5 - 50.0 % [facility] [place] MCV 91.0 80.0 - 100.0 fL [facility] [place] MCH 31.9 27.0 - 33.0 pg [facility] [place] MCHC 35.0 32.0 - 36.0 g/dL [facility] [place] Rdw 13.6 11.0 - 15.0 % [facility] [place] Platelets 201 140 - 400 Thousand/u L [facility] [place] MPV 10.7 7.5 - 12.5 fL [facility] [place] Neutrophils, abs 2,994 1,500 - 7,800 cells/uL [facility] [place] Lymphocytes, abs 2,226 850 - 3,900 cells/uL [facility] [place] Monocyte abs 576 200 - 950 cells/uL [facility] [place] Eosinophils, abs 162 15 - 500 cells/uL [facility] [place] Basophils, abs 42 0 - 200 cells/uL [facility] [place] Neutrophils 49.9 % [facility] [place] Lymphocyte pct 37.1 % [facility] [place] Monocytes 9.6 % [facility] [place] Eosinophils 2.7 % [facility] [place] Basophils 0.7 % [facility] [place] Blood specimen (specimen) 01/11/2019 6:57 AM CDT 01/11/2019 6:57 AM CDT Narrative [facility] - 01/12/2019 2:17 AM CDT FASTING:YES FASTING: YES Resulting Agency Comment Performing Organization Information: ?Site ID: [place] ?Name: [facility] ?Address: [facility] [place] [phone] ?Director: Jony Roman D.O., MPH Jorje Coburn DO LAB BLOOD ORDERABLES Fin al Result [facility] [place] documented in this encounter Visit Diagnoses Diagnosis Dyslipidemia- Primary Other and unspecified hyperlipidemia documented in this encounter Care Teams Employment Adjudicator Relationship Specialty Start Date End Date Jorje Coburn DO PCP - General Family Medicine 06/18/18 documented as of this encounter
--- OUTSIDE RECORDS SUMMARY | 2024-03-05 21:53 | XMS_ITS | Encounter Summary ---
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 Historical Provider Final Res ult documented in this encounter Visit Diagnoses Not on filedocumented in this encounter Care Teams Solid Waste Truck Driver Relationship Specialty Start Date End Date Jorje Coburn DO PCP - General Family Medicine 06/18/18 documented as of this encounter
--- OUTSIDE RECORDS SUMMARY | 2024-03-05 21:53 | XMS_ITS | Encounter Summary ---
Author Organization [facility] Address [address] [place] [address] Care Team Providers Care Public Health Analyst Name Role Phone Jorje Coburn DO Primary Care Provider + Reason for Visit * Reason Onset Date Comments RX refill 12/06/2018 Encounter Details Date Type Department Care Team (Late st Contact Info) Description 12/06/2018 Telephone [facility] Family Medicine [address] [place] [address] Jorje Coburn DO [address] [place] [address] [address] [place] [address] RX refill Social History Tobacco Use Types Packs/Day Years [...] on file 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 * Telephone Encounter - Anette Segura - 12/06/2018 2:01 PM CDT Refill on Simvastatin 40 mg OD documented in this encounter Plan of Treatment Not on file documented as of this encounter Visit Diagnoses Not on filedocumented in this encounter Discontinued Medications Medication Sig Discontinue Reason Start Date End Da te simvastatin (ZOCOR) 40 mg tablet Take 1 tablet (40 mg total) by mouth nightly Reorder 09/18/2018 12/06/2018 documented as of this encounter Care Teams Public Health Analyst Relationship Specialty Start Date End Date Jorje Coburn DO PCP - General Family Medicine 06/18/18 documented as of this encounter
--- OUTSIDE RECORDS SUMMARY | 2024-03-05 21:53 | XMS_ITS | Encounter Summary ---
Author Organization [facility] Address [address] [facility] [address] [place] [address] Care Team Providers Care Government Contracts Manager Name Role Phone Jorje Coburn DO Primary Care Provider + Encounter Details Date Type Department Care Team (Late st Contact Info) Description 11/13/2020 Telephone [facility] Pulmonology & Sleep Clinic [address] [address] Dona Daniels MD [address] [facility] [address] [address] Social History Tobacco Use Types Packs/Day Years Used Date Smoking Tobacco: Never Smokeless Tobacco: Never Alcohol Use Standard Drinks/Week Comments Yes 0 (1 standard drink = 0.6 oz pur e alcohol) AUDIT-C Answer Date Recorded Q1: How often do you have a drink containing alc ohol? 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 When he called the sleep lab to ask if he could keep equipment one more night, he was told no and stated the girl he talked to was very rude to him. He now doesn't wantanything to do with the facility and wants to go somewhere else. I told him I would send a note to y jessica and make you aware of what had happened and that we would let him keep his appt on Nov 18 if he wanted to talk with you in person. documented in this encounter Plan of Treatment Not on file documented as of this encounter Visit Diagnoses Not on filedocumented in this encounter Care Teams Government Contracts Manager Relationship Specialty Start Date End Date Jorje Coburn DO PCP - General Family Medicine 06/18/18 documented as of this encounter
--- OUTSIDE RECORDS SUMMARY | 2024-03-05 21:53 | XMS_ITS | Encounter Summary ---
Author Organization [facility] Address [address] [place] [address] Care Team Providers Care Drafter Castings Name Role Phone Jorje Coburn DO Primary Care Provider + Encounter Details Date Type Department Care Team (Latest Contact Info) Description 06/28/2018 11:23 AM CDT - 06/28/2018 11:59 PM CDT Hospital Encounter [facility] Jorje Coburn DO [address] [place] [id number] Discharge Disposition: Discharge to home or self [...] on file Legal Sex Male 1:20 AM GRIP Gender Identity Not on file Sexual Orientation Not on file documented as of this encounter Last Filed Vital Signs Vital Sign Reading Time Taken Comments Blood Pressure - - Pulse - - Temperature - - Respiratory Rate - - Oxygen Saturation - - Inhaled Oxygen Concentration - - Weight 109.4 kg (241 lb 1.6 oz) 06/28/2018 2:46 PM CDT Height 175.9 cm (5' 9.25 ) 06/28/2018 2:46 PM CD T Body Mass Index 35.35 06/28/2018 2:46 PM CDT documented in this encounter Medications at Time [...] 06/12/2015 9 simvastatin (ZOCOR) 40 mg tablet Take 1 tablet (40 mg total) by mouth nightly 90 tablet 06/19/2018 9 documented as of this encounter Discharge Disposition Disposition Code Departure Means Destination Discharge to home or self care documented in this encounter Plan of Treatment Not on file documented as of this encounter Visit Diagnoses Not on filedocumented in this encounter Care Teams Drafter Castings Relationship Specialty Start Date End Date Jorje Coburn DO PCP - General Family Medicine 06/18/18 documented as of this encounter
--- OUTSIDE RECORDS SUMMARY | 2024-03-05 21:53 | XMS_ITS | Encounter Summary ---
Author Organization [facility] Address [address] [facility] [address] [place] [address] Care Team Providers Care Skein Winder Name Role Phone Jorje Coburn DO Primary Care Provider + Reason for Visit * Reason Onset Date Comments Med Refill 09/18/2018 Refill on Simvas tatin Encounter Details Date Type Department Care Team (Late st Contact Info) Description 09/18/2018 Telephone [facility] Family Medicine [address] [facility] [address] [place] [address] Jorje Coburn, [address] [facility] [address] [place] [address] Med Refill (Refill on Simvastatin) Social History Tobacco Use Types Packs/Day Years [...] on file 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
--- OUTSIDE RECORDS SUMMARY | 2024-03-05 21:53 | XMS_ITS | Encounter Summary ---
Author Organization [facility] Address [address] [address] Care Team Providers Care Courtroom Reporter Name Role Phone Jorje Coburn DO Primary Care Provider + Reason for Visit * Reason Comments Follow-up Encounter Details Date Type Department Care Team (Late st Contact Info) Description 11/18/2020 8:00 AM CDT Office Visit [facility] Pulmonology & Sleep Clinic [address] [address] Dona Daniels MD [address] [facility] [address] [address] Sleep disorder (Primary Dx); Hypersomnia; Overweight; Fatigue, unspecified type; Psychophysiological insomnia; Snoring Social History Tobacco Use Types Packs/Day Years [...] on file 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 Gender Identity Not on file Sexual Orientation Not on file documented as of this encounter Last Filed Vital Signs Vital Sign Reading Time Taken Comments Blood Pressure 158/94 11/18/2020 8:02 AM CDT Pulse 69 11/18/2020 8:02 AM CDT Temperature 36.6 ??C (97.9 ??F) 11/18/2020 8:02 AM CD T Respiratory Rate 20 11/18/2020 8:02 AM CDT Oxygen Saturation 94% 11/18/2020 8:02 AM CDT Inhaled Oxygen Concentration - - Weight 114.3 kg (252 lb) 11/18/2020 8:02 AM CDT Height 177.8 cm (5' 10 ) 11/18/2020 8:02 AM CDT Body Mass Index 36.16 11/18/2020 8:02 AM CDT documented in this encounter Progress Notes * Dona Daniels MD - 11/18/2020 8:00 AM CDT Subjective/Objective Patient ID: Benja Gallagher is a 60 y.o. male. Chief Complaint Chief Complaint Patient presents with ??? Follow-up HPI Active sleep problem list: Sleep disorder. Hypersomnia. Overweight. Insomnia. Snoring. Fatigue. He does have a dog and a cat at home. His cat sometimes sleeps in his bed. Patient is here for follow-up. He unfortunately was unable to do his home sleep study because of logistics. He was unable to keep the kit for another day. He is little bit frustrated. He continued tohave sleep disturbances and fatigue. Allergies Allergen Reactions [...] Negative for agitation and confusion. Vitals BP 158/94 Pulse 69 Temp 36.6 ??C (97.9 ??F) Resp 20 Ht 177.8 cm (5' 10 ) Wt 114.3 kg (252 lb) SpO2 94% BMI 36.16 kg/m?? Physical Exam Constitutional: General: He is [...] Diagnoses and all orders for this visit: Sleep disorder (Primary) Hypersomnia Overweight Fatigue, unspecified type Psychophysiological insomnia Snoring Results: Lab Results Component Value Date WBC 6.6 11/11/2020 HGB 18.4 (H) 11/11/2020 HCT 54.2 (H) 11/11/2020 MCV 91.1 11/11/2020 LABPLAT 177 11/11/2020 Plan: Patient will return back in 2 months for re-evaluation. I will order home sleep study through [facility].Patient was advised about keeping the pets out of his bedroom. He was advised about the pathophysiology of obstructive sleep apnea and the complication of untreated obstructive sleep apnea. Patient also was advised about sleep hygiene. [...] see further details for assessment and plan inHPI THIS NOTE WAS CREATED IN PART WITH THE ASSISTANCE OF [employer] VOICE RECOGNITION SOFTWARE. 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 documented in this encounter Plan of Treatment Not on file documented as of this encounter Visit Diagnoses Diagnosis Sleep disorder- Primary Unspecified sleep disturbance Hypersomnia Hypersomnia, unspecified Overweight Fatigue, unspecified type Psychophysiological insomnia Persistent disorder of initiating or maintaining sleep Snoring Other dyspnea and respiratory abnormality documented in this encounter Care Teams Courtroom Reporter Relationship Specialty Start Date End Date Jorje Coburn DO PCP - General Family Medicine 06/18/18 documented as of this encounter
--- OUTSIDE RECORDS SUMMARY | 2024-03-05 21:53 | XMS_ITS | Encounter Summary ---
Author Organization [facility] Address [address] [facility] [address] [place] [address] Care Team Providers Care Power Marketer Name Role Phone Jorje Coburn DO Primary Care Provider + Encounter Details Date Type Department Care Team (Late st Contact Info) Description 10/09/2020 Telephone [facility] Family Medicine [address] [facility] [address] [place] [address] Jorje Coburn DO [address] [place] [address] Social History Tobacco Use Types [...] on file 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
--- OUTSIDE RECORDS SUMMARY | 2024-03-05 21:53 | XMS_ITS | Encounter Summary ---
Author Organization [facility] Address [address] [facility] [address] [place] [address] Care Team Providers Care Architecture Intern Name Role Phone Jorje Coburn DO Primary Care Provider + Encounter Details Date Type Department Care Team (Late st Contact Info) Description 05/13/[address] 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 L DECORATOR * Telephone Encounter - Jorje Verduzco MD - 05/13/2019 3:27 PM CST SCOPOLAMINE PATCH 1 Q 3 DAYS THEN DC 4/0 L DECORATOR * Telephone Encounter - Latonia Harris - 05/13/2019 3:13 PM CST called. Leaving to go on a cruise tomorrow. Would like motion sickness patch called to pharmacy x 10 days L DECORATOR documented in this encounter Plan of Treatment Not on file documented as of this encounter Visit Diagnoses Not on filedocumented in this encounter Care Teams Architecture Intern Relationship Specialty Start Date End Date Jorje Coburn DO PCP - General Family Medicine 06/18/18 documented as of this encounter
--- OUTSIDE RECORDS SUMMARY | 2024-03-05 21:53 | XMS_ITS | Encounter Summary ---
Author Organization [facility] Address [address] [facility] [address] [place] [address] Care Team Providers Care Termite Control Technician Name Role Phone Jorje Coburn DO Primary Care Provider + Reason for Visit * Reason Onset Date Comments Lab Results 01/16/2019 Encounter Details Date Type Department Care Team (Late st Contact Info) Description 01/16/2019 Telephone [facility] Family Medicine [address] [facility] [address] [place] [address] Jorje Coburn DO [address] [facility] [address] [place] [address] Lab Results Social History Tobacco Use Types Packs/Day Years [...] on file 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 Rx and lab order sent. * Telephone Encounter - Pricila Lopez MA - 01/16/2019 11:36 AM CDT ----- Message from Jorje Coburn DO sent at 01/14/2019 8:09 AM CDT ----- Switch the simvastatin to crestor 20 mg daily Recheck a lipid and lft 3 months documented in this encounter Plan of Treatment Not on file documented as of this encounter Procedures Procedure Name Priority Date/Time Associated Diagnosis Comments HEPATIC FUNCTION PANEL Routine 04/19/2019 7:02 AM BUSINESS CONTINUITY ANALYST Dyslipidemia LIPID PANEL Routine 04/19/2019 7:02 AM BUSINESS CONTINUITY ANALYST Dyslipidemia documented in this encounter Results * Hepatic function panel (04/19/2019 7:02 AM BUSINESS CONTINUITY ANALYST) Protein, Total 7.6 6.4 - 8.4 g/dL [facility] [place] Albumin 4.4 3.6 - 5.1 g/dL [facility] [place] Globulin 3.2 2.2 - 4.0 g/dL (calc) [facility] [place] Alb/glob ratio 1.4 0.9 - 2.3 (calc) [facility] [place] Bilirubin, total 0.7 0.2 - 1.2 mg/dL [facility] [place] Bilirubin, direct 0.2 < OR = 0.2 mg/dL [facility] [place] Bilirubin, indirect 0.5 0.2 - 1.2 mg/dL (calc) [facility] [place] Alk phos 41 40 - 115 U/L [facility] [place] AST 23 10 - 35 U/L [facility] [place] ALT (SGPT) 31 9 - 46 U/L [facility] [place] Blood specimen (specimen) 04/19/2019 7:02 AM BUSINESS CONTINUITY ANALYST 04/19/2019 7:03 AM BUSINESS CONTINUITY ANALYST Narrative [facility] - 04/20/2019 3:17 AM BUSINESS CONTINUITY ANALYST FASTING:YES FASTING: YES Resulting Agency Comment Performing Organization Information: ?Site ID: [id number] ?Name: [facility] ?Address: [address] [id number] ?Director: Jony Roman D.O., MPH Jorje Coburn DO LAB BLOOD ORDERABLES Fin al Result [facility] [place] Richey * (ABNORMAL) Lipid panel (04/19/2019 7:02 AM BUSINESS CONTINUITY ANALYST) Cholesterol 136 <200 mg/dL [facility] [place] HDL 31(L) >40 mg/dL [facility] [place] Triglycerides 285(H) <150 mg/dL [facility] [place] Comment: If a non-fasting specimen was collected, consider repeat triglyceride testing on a fasting specimen if clinically indicated. Margi et al. J. of Clin. Lipidol. 2015;9:129-169. LDL 68 mg/dL (calc) [facility] [place] Comment: Reference range: <100 Desirable range <100 mg/dL for primary prevention; ?? <70 mg/dL for patients with CHD or diabetic patients with > or = 2 CHD risk factors. LDL-C is now calculated using the Dashawn-Whitney calculation, which is a validated novel method providing better accuracy than the Friedewald equation in the estimation of LDL-C. Dashawn DÍAZ et al. CM. 2013;310(19): 5340-7139 (http://education.Powelectrics.Missy's Candy/faq/MVF891) Chol/HDL ratio 4.4 <5.0 (calc) [facility] [place] Non-HDL, (LDL+VLDL) 105 <130 mg/dL (calc) [facility] [place] Comment: For patients with diabetes plus 1 major ASCVD risk factor, treating to a non-HDL-C goal of <100 mg/dL (LDL-C of <70 mg/dL) is considered a therapeutic option. Blood specimen (specimen) 04/19/2019 7:02 AM BUSINESS CONTINUITY ANALYST 04/19/2019 7:03 AM BUSINESS CONTINUITY ANALYST Narrative [facility] - 04/20/2019 3:17 AM BUSINESS CONTINUITY ANALYST FASTING:YES FASTING: YES Resulting Agency Comment Performing Organization Information: ?Site ID: [id number] ?Name: [facility] ?Address: [address] [place], [place] [address] [id number] ?Director: Jony Roman D.O., MPH us Jorje Coburn DO LAB BLOOD ORDERABLES Fin al Result [facility] [place] et[place] documented in this encounter Visit Diagnoses Diagnosis Dyslipidemia- Primary Other and unspecified hyperlipidemia documented in this encounter Discontinued Medications Medication Sig Discontinue Reason Start Date End Da te simvastatin (ZOCOR) 40 mg tablet Take 1 tablet (40 mg total) by mouth nightly 12/06/2018 01/16/2019 documented as of this encounter Care Teams Termite Control Technician Relationship Specialty Start Date End Date Jorje Coburn DO PCP - General Family Medicine 06/18/18 documented as of this encounter
--- OUTSIDE RECORDS SUMMARY | 2024-03-05 21:53 | XMS_ITS | Encounter Summary ---
Author Organization [facility] Healthcare Address [address] [place] [address] Care Team Providers Care User Interface Designer Name Role Phone Unavailable Primary Care Provider Unavailabl e Encounter Details Date Type Department Care Team (Latest Contact Info) Description 10/01/2013 3:14 PM CDT Hospital Encounter [facility] OP Jorje Coburn, [address] [facility] [address] [place] [address] Pain in joint, ankle and foot; Swelling, mass, or lump in head and neck; Localized osteoarthrosis, ankle and foot; Calcaneal spur Social History Tobacco Use Types Packs/Day Years Used Date Smoking Tobacco: Never Assessed Sex and Gender Information Value Date Recorded Sex Assigned at Not on file 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 1. Mild first MTP osteoarthritis. ??Small calcaneal spur. ??Otherwise unremarkable. THIS IS AN ELECTRONICALLY VERIFIED REPORT 10/02/2013 6:55 AM: ??Jeff Winter D.O. Jeff Winter D.O. :as 06:55 AM 06:55 AM [facility] [EOD] Narrative 10/02/2013 6:58 AM CDT EXAMINATION: ??Three views of the Left foot. HISTORY: ??Heel pain. TECHNIQUE: ??N/A COMPARISON: ??None. FINDINGS: ??There is no fracture or malalignment. ??Degenerative changes are noted at the first MTP manifested as loss of joint space with mild subchondral eburnation and periarticular osteophyte formation. ??There are erosive changes are noted. ??There is a small plantar calcaneal spur. ??The soft tissues are unremarkable. Procedure Note Provider, MD Terell - 08/03/2020 EXAMINATION: Three views of the Left foot. HISTORY: Heel pain. TECHNIQUE: N/A COMPARISON: None. FINDINGS: There is no fracture or malalignment. Degenerative changes are noted at the first MTP manifested as loss of joint space with mildsubchondral eburnation and periarticular osteophyte formation. There are erosivechanges are noted. There is a small plantar calcaneal spur. The soft tissues are unremarkable. IMPRESSION: 1. Mild first MTP osteoarthritis. Small calcaneal spur. Otherwise unremarkable. THIS IS AN ELECTRONICALLY VERIFIED REPORT 10/02/2013 6:55 AM: Jeff Winter D.O. Jeff Winter D.O. :as 06:55 AM 06:55 AM [facility] [EOD] us Jorje Arce [place] DO IMG XR PROCEDURES Final Result * US Head Neck Soft Tissue (10/01/2013 3:18 PM CDT) Anatomical Region Laterality Modality Head and Neck N/A Ultrasound 10/01/2013 3:18 PM CDT Impressions 10/02/2013 7:00 AM CDT ?? 1. ??Unremarkable. ??No sonographic abnormality is identified. THIS IS AN ELECTRONICALLY VERIFIED REPORT 10/02/2013 6:57 AM: ??Jeff Winter D.O. Jeff Winter D.O. :as 06:57 AM 06:57 AM [facility] [EOD] Narrative 10/02/2013 7:00 AM CDT EXAMINATION: ??Soft tissue ultrasound. HISTORY: ??Right anterior neck mass. TECHNIQUE: ??Real time olvera-scale sonography was performed. COMPARISON: ??None. FINDINGS: ??Targeted ultrasound in the region of clinical concern within the right anterior neck demonstrates no discrete mass. ??The soft tissues are homogeneous and are symmetric to the contralateral side. Procedure Note Provider, MD Terell - 08/03/2020 EXAMINATION: Soft tissue ultrasound. HISTORY: Right anterior neck mass. TECHNIQUE: Real time olvera-scale sonography was performed. COMPARISON: None. FINDINGS: Targeted ultrasound in the region of clinical concern withinthe right anterior neck demonstrates no discrete mass. The soft tissues are homogeneous and are symmetric to the contralateral side. IMPRESSION: 1. Unremarkable. No sonographic abnormality is identified. THIS IS AN ELECTRONICALLY VERIFIED REPORT 10/02/2013 6:57 AM: Jeff Winter D.O. Jeff Winter D.O. :as 06:57 AM 06:57 AM [facility] [EOD] us Jorje oCburn DO [facility] [place] PROCEDURES Final Result documented in this encounter Visit Diagnoses Diagnosis Pain in joint, ankle and foot Swelling, mass, or lump in head and neck Localized osteoarthrosis, ankle and foot Localized osteoarthrosis not specified whether primary or secondary, ankle and foot Calcaneal spur documented in this encounter
--- OUTSIDE RECORDS SUMMARY | 2024-03-05 21:53 | XMS_ITS | Encounter Summary ---
Author Organization [facility] Address [address] [facility] [address] [place] [address] Care Team Providers Care Associate Professor Of Church Music Name Role Phone Jorje Coburn DO Primary Care Provider + Reason for Referral * Sleep Medicine (Routine) - Closed Specialty Diagnoses / Procedures Referred By Contac t Referred To Contact Diagnoses Snoring Sleep disorder Hypersomnia Psychophysiological insomnia Overweight Fatigue, unspecified type Procedures Portable/Home Sleep Study Dona Daniels MD Phone: tel: fax: [address] [phone] Referral ID Status Reason Start Date Expiration Date Visits Re quested Visits Authorized [id number] Closed 09/17/2020 11/15/2020 1 1 Reason for Visit * Reason Comments New Patient Encounter Details Date Type Department Care Team (Late st Contact Info) Description 09/16/2020 8:45 AM CDT Office Visit [facility] Pulmonology & Sleep Clinic [address] [address] Dona Daniels MD [address] [address] Snoring (Primary Dx); Sleep disorder; Hypersomnia; Psychophysiological insomnia; Overweight; Fatigue, unspecified type Social History Tobacco Use Types Packs/Day Years Used Date Smoking Tobacco: Never Smokeless Tobacco: Never Alcohol Use Standard Drinks/Week Comments Yes 0 (1 standard drink = 0.6 oz pur e alcohol) AUDIT-C Answer Date Recorded Frequency of Alcohol Consumption 2-4 times a mon06/18/2018 Average Number of Drinks 1 or 2 019 Frequency of Binge Drinking Not on file 04/0 03/2018 PHQ-2 Answer Date Recorded PHQ-2 Score 0 11/09/2018 Sex and Gender Information Value Date Recorded Sex Assigned at Not on file 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 Gender Identity Not on file Sexual Orientation Not on file documented as of this encounter Last Filed Vital Signs Vital Sign Reading Time Taken Comments Blood Pressure 150/92 09/16/2020 8:54 AM CDT Pulse 84 09/16/2020 8:54 AM CDT Temperature 36.6 ??C (97.8 ??F) 09/16/2020 8:54 AM CD T Respiratory Rate 18 09/16/2020 8:54 AM CDT Oxygen Saturation 97% 09/16/2020 8:54 AM CDT Inhaled Oxygen Concentration - - Weight 112.5 kg (248 lb) 09/16/2020 8:54 AM CDT Height 177.8 cm (5' 10 ) 09/16/2020 8:54 AM CDT Body Mass Index 35.58 09/16/2020 8:54 AM CDT documented in this encounter Progress Notes * Dona Daniels MD - 09/16/2020 8:45 AM CDT Subjective/Objective Patient ID: Benja Gallagher is a 60 y.o. male. Chief Complaint Chief Complaint Patient presents with ??? New Patient HPI The patient is pleasant 60-year-old male who came to us complaining of sleep disturbances. Patient report history of snoring, waking up several times during the night, witnessed sleep apnea, waking up because snoring and excessive daytime fatigue. He denies any history of restless legs. Patient was referred to us for further evaluation management. Upon questioning the patient, he denies any history of gasping for breath, waking up with dry mouth, palpitation, sleep walking, sleep talking, wake up violence, wake-up confusion, nightmares, bedwetting, morning headache, nausea, jaw pain, teeth grinding, anxiety, disturbing thoughts or cataplexy.He does report history of insomnia, falling asleep at unwanted time, depending on alarm to wake up and sleep 1 hour past his normal wake-up time. He retires to bed at 10:30 p.m. and wake up at 6:30 a.m., takes him about 15 minutes ago sleep, wake up 5-6 times sometimes to go the bathroom, does not take nap during the day. He denies any history of smoking. He does drink alcoholic beverages occasionally. He does exercise on daily basis. He does drink caffeinated beverages on daily basis. He worksas a [employer] al[employer] in. He lives in [place], [place]. He lives in [facility]. He does have a dogand a cat at home. His CT sometimes sleeps in his bed. He did not receive COVID-19 vaccine. His Paris sleeping score is 8/24. Allergies Allergen Reactions ??? Iodinated Contrast Media [...] Negative for agitation and confusion. Vitals BP 150/92 Pulse 84 Temp 36.6 ??C (97.8 ??F) Resp 18 Ht 177.8 cm (5' 10 ) Wt 112.5 kg (248 lb) SpO2 97% BMI 35.58 kg/m?? Physical Exam Constitutional: General: He is [...] Diagnoses and all orders for this visit: Snoring (Primary) Sleep disorder Hypersomnia Psychophysiological insomnia Overweight Fatigue, unspecified type Results: Lab Results Component Value Date WBC 6.0 01/11/2019 HGB 18.0 (H) 01/11/2019 HCT 51.4 (H) 01/11/2019 MCV 91.0 01/11/2019 LABPLAT 201 01/11/2019 Plan: Patient will return back in 2 months for re-evaluation. He was advised about the pathophysiology ofobstructive [...] CREATED IN PART WITH THE ASSISTANCE OF [employer] VOICE RECOGNITION SOFTWARE. EQUIPMENT OILER VARIANCES MAY OCCUR. documented in this encounter Plan of Treatment Scheduled Orders Name Type Priority Associated Diagnoses Orde r Schedule Portable/Home Sleep Study Sleep Center Routine Snoring Sleep disorder Hypersomnia Psychophysiological insomnia Overweight Fatigue, unspecified type 1 Occurrences starting 09/16/2020 until 09/16/2021 documented as of this encounter Visit Diagnoses Diagnosis Snoring- Primary Other dyspnea and respiratory abnormality Sleep disorder Unspecified sleep disturbance Hypersomnia Hypersomnia, unspecified Psychophysiological insomnia Persistent disorder of initiating or maintaining sleep Overweight Fatigue, unspecified type documented in this encounter Historical Medications * This list may reflect changes made after this encounter. diclofenac DR (VOLTAREN) 75 mg EC tablet Take 75 mg by mouth 2 (two) times a day 04/11/2022 added in this encounter Care Teams Associate Professor Of Church Music Relationship Specialty Start Date End Date Jorje Coburn DO PCP - General Family Medicine 06/18/18 documented as of this encounter
--- OUTSIDE RECORDS SUMMARY | 2024-03-05 21:53 | XMS_ITS | Encounter Summary ---
Author Organization [facility] Address [address] [facility] [facility] [address] [place] [address] Care Team Providers Care Customer Accounts Advisor Name Role Phone Jorje Coburn DO Primary Care Provider + Reason for Visit * Reason Onset Date Comments Request for Orders 09/01/2020 Encounter Details Date Type Department Care Team (Late st Contact Info) Description 09/01/[address] 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 Detailed message left on voicemail. * Telephone Encounter - Jorje Coburn DO - 09/01/2020 12:56 PM CDT CBC, Chem 7, lipid profile, liver function tests, A1c of diabetic TSH of hypothyroid and a PSA * Telephone Encounter - Genevieve Barreto - 09/01/2020 12:11 PM CDT Patient scheduled for annual exam 09/16, previous lab work has . Would like new orders placed to [facility] and made aware once placed. documented in this encounter Plan of Treatment Not on file documented as of this encounter Visit Diagnoses Not on filedocumented in this encounter Care Teams Customer Accounts Advisor Relationship Specialty Start Date End Date Jorje Coburn DO PCP - General Family Medicine 06/18/18 documented as of this encounter
--- OUTSIDE RECORDS SUMMARY | 2024-03-05 21:53 | XMS_ITS | Encounter Summary ---
Author Organization [facility] Facility Care Team Providers Care Merchandiser Name Role Phone Unavailable Primary Care Provider Unavailabl e Encounter Details Date Type Department Care Team (Late st Contact Info) Description 04/02/2007 - 04/02/2007 11:59 PM TABLE TENDER SLUDGE Hospital Encounter [facility] Kulwinder Toledo MD [address] [facility] [address] [place] [address] Social History Tobacco Use Types Packs/Day Years Used Date Smoking Tobacco: Never Assessed Sex and Gender Information Value Date Recorded Sex Assigned at Not on file 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
--- OUTSIDE RECORDS SUMMARY | 2024-03-05 21:53 | XMS_ITS | Encounter Summary ---
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
--- OUTSIDE RECORDS SUMMARY | 2024-03-05 21:53 | XMS_ITS | Encounter Summary ---
Author Organization [facility] Address [address] [facility] [address] [place] [address] Care Team Providers Care Assembler Deck And Hull Name Role Phone CelebrationJorje Sheldon Claude Primary Care Provider + Encounter Details Date Type Department Care Team (Late st Contact Info) Description 08/06/2018 Orders Only [facility] Family Medicine [address] 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 Gender Identity Not on file Sexual Orientation Not on file documented as of this encounter Progress Notes * Margoth Garcia MA - 08/06/2018 8:46 AM CDT Ordering labs documented in this encounter Plan of Treatment Scheduled Orders Name Type Priority Associated Diagnoses Orde r Schedule CBC with auto differential Lab Routine Dyslipidemia Annual physical exam Expected: 08/06/2018, Expires: 08/07/2019 Comprehensive metabolic panel Lab Routine Dyslipidemia Annual physical exam Expected: 08/06/2018, Expires: 08/07/2019 Hepatic function panel Lab Routine Dyslipidemia Annual physical exam Expected: 08/06/2018, Expires: 08/07/2019 PSA screen Lab Routine Dyslipidemia Annual physical exam Expected: 08/06/2018, Expires: 08/07/2019 Lipid panel Lab Routine Dyslipidemia Annual physical exam Expected: 08/06/2018, Expires: 08/07/2019 TSH Lab Routine Dyslipidemia Annual physical exam Expected: 08/06/2018, Expires: 08/07/2019 documented as of this encounter Visit Diagnoses Diagnosis Dyslipidemia- Primary Other and unspecified hyperlipidemia Annual physical exam Routine general medical examination at a health care facility documented in this encounter Care Teams Assembler Deck And Hull Relationship Specialty Start Date End Date Jorje Coburn DO PCP - General Family Medicine 06/18/18 documented as of this encounter
--- OUTSIDE RECORDS SUMMARY | 2024-03-05 21:53 | XMS_ITS | Encounter Summary ---
Author Organization [facility] Address [address] [facility] [address] [place] [address] Care Team Providers Care Weight Clerk Name Role Phone Jorje Coburn DO Primary Care Provider + Reason for Visit * Reason Onset Date Comments Requesting Lab Work 10/06/2020 Encounter Details Date Type Department Care Team (Late st Contact Info) Description 10/06/2020 Telephone [facility] Family Medicine [address] [facility] [address] [place] [address] Jorje Coburn DO [address] [facility] [address] [place], [place] [address] Requesting Lab Work Social History Tobacco Use Types Packs/Day Years [...] on file 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 Please call him back. * Addendum Note - Karla Temple MA - 10/06/2020 5:31 PM CDTAddended by: KARLA TEMPLE on: 10/06/2020 05:31 PM Modules accepted: Orders * Telephone Encounter - Karla Temple MA - 10/06/2020 5:31 PM CDT LMTCB. I 've pended the order. There are some questions on there that pt needs to answer. * Telephone Encounter - Jorje Coburn DO - 10/06/2020 4:02 PM CDT Okay to order * Telephone Encounter - Karin Roman - 10/06/2020 3:25 PM CDT Patient is wanting to get the COVID antibody test added to his lab work order sent to [facility]. Patient will be going to get lab work done on or monday documented in this encounter Plan of Treatment Not on file documented as of this encounter Visit Diagnoses Diagnosis Bronchitis- Primary Bronchitis, not specified as acute or chronic documented in this encounter Orders Lab Orders Without Results Count Last Ordered D ate First Ordered Date SARS-COV-2 (COVID-19) ANTIBODY IGG 1 2020 documented in this encounter Care Teams Weight Clerk Relationship Specialty Start Date End Date Jorje Coburn DO PCP - General Family Medicine 06/18/18 documented as of this encounter
--- OUTSIDE RECORDS SUMMARY | 2024-03-05 21:53 | XMS_ITS | Encounter Summary ---
Author Organization [facility] Address [address] [place] [address] Care Team Providers Care Surveying Teacher Name Role Phone Unavailable Primary Care Provider Unavailabl e Encounter Details Date Type Department Care Team (Latest Contact Info) Description 09/28/2016 4:34 PM CDT Hospital Encounter [facility] OP Jorje Coburn, DO [address] [facility] [address] [place] [address] Traumatic pneumothorax, subsequent encounter Social History Tobacco Use Types Packs/Day Years Used Date Smoking Tobacco: Never Assessed Sex and Gender Information Value Date Recorded Sex Assigned at Not on file 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 Gender Identity Not on file Sexual Orientation Not on file documented as of this encounter Medications at Time of Discharge omega-3 fatty acids (LOVAZA) 1 gram capsule Take 1 capsule (1,000 mg total) by mouth 09/25/2016 sildenafil (VIAGRA) 100 mg tablet 100 mg daily 06/12/2015 08/21/2018 documented as of this encounter Plan of Treatment Not on file documented as of this encounter Procedures Procedure Name Priority Date/Time Associated Diagnosis Comments XR CHEST PA LATERAL 2 VIEWS Routine 09/28/2016 4:36 PM CDT documented in this encounter Results * XR Chest Pa Lateral 2 Views (09/28/2016 4:36 PM CDT) Anatomical Region Laterality Modality Body, Chest N/A Radiographic Demetrice ging 09/28/2016 4:36 PM CDT Impressions 09/28/2016 9:23 PM CDT ?? 1. ??Displaced left-sided rib fractures with adjacent hematoma. 2. ??Opacity within the left midlung region, likely pulmonary contusion. 3. ??No visible pneumothorax. THIS IS AN ELECTRONICALLY VERIFIED REPORT 09/28/2016 9:20 PM: ??Yemi Ellis M.D. ?? Yemi Ellis M.D. AT:at 09:20 PM 09:20 PM [facility] [EOD] Narrative 09/28/2016 9:23 PM CDT EXAMINATION: ??PA and Lateral Radiographs of the Chest DATE: ??09/28/2016 at 16:49 COMPARISON: ??None HISTORY: ??Traumatic pneumothorax, subsequent encounter. ??Minimal dyspnea. ?? Pneumothorax for 3 days. ??4 broken ribs. TECHNIQUE: ??PA and lateral radiographs of the chest were submitted for review. FINDINGS: ?? Cardiac silhouette is within normal limits. ??Trachea is midline. ??Displaced rib fractures are noted on the left at the fourth, fifth, sixth ribs. ??There is increased attenuation along the left lateral hemithorax, compatible with adjacent hematoma. ??Opacity within the left midlung region likely represents a pulmonary contusion. ??Mild osteoarthritic changes of the spine are noted. ?? Procedure Note Provider, MD Terell - 08/03/2020 EXAMINATION: PA and Lateral Radiographs of the Chest DATE: 09/28/2016 at 16:49 COMPARISON: None HISTORY: Traumatic pneumothorax, subsequent encounter. Minimal dyspnea. Pneumothorax for 3 days. 4 broken ribs. TECHNIQUE: PA and lateral radiographs of the chest were submitted forreview. FINDINGS: Cardiac silhouette is within normal limits. Trachea is midline.Displaced rib fractures are noted on the left at the fourth, fifth, sixth ribs.There is increased attenuation along the left lateral hemithorax, compatiblewith adjacent hematoma. Opacity within the left midlung region likelyrepresents a pulmonary contusion. Mild osteoarthritic changes of the spine are noted. IMPRESSION: 1. Displaced left-sided rib fractures with adjacent hematoma. 2. Opacity within the left midlung region, likely pulmonary contusion. 3. No visible pneumothorax. THIS IS AN ELECTRONICALLY VERIFIED REPORT 09/28/2016 9:20 PM: Yemi Ellis M.D. Yemi Ellis M.D. AT:at 09:20 PM 09:20 PM [facility] [EOD] Jorje Coburn DO IMG XR PROCEDURES Final Result documented in this encounter Visit Diagnoses Diagnosis Traumatic pneumothorax, subsequent encounter documented in this encounter
--- OUTSIDE RECORDS SUMMARY | 2024-03-05 21:53 | XMS_ITS | Encounter Summary ---
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
--- OUTSIDE RECORDS SUMMARY | 2024-03-05 21:53 | XMS_ITS | Encounter Summary ---
Author Organization [facility] Address [address] [facility] [address] [place] [address] Care Team Providers Care Director Craft Center Name Role Phone Jorje Coburn DO Primary Care Provider + Reason for Visit * Reason Onset Date Comments Sleep 11/18/2020 Encounter Details Date Type Department Care Team (Late st Contact Info) Description 11/18/2020 Telephone [facility] Pulmonology & Sleep Clinic [address] [address] Jane Lopez MA Sleep Social History Tobacco Use Types Packs/Day Years [...] on file Legal Sex Male 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 He verbalized understanding documented in this encounter Plan of Treatment Not on file documented as of this encounter Visit Diagnoses Not on filedocumented in this encounter Care Teams Director Craft Center Relationship Specialty Start Date End Date Jorje Coburn DO PCP - General Family Medicine 06/18/18 documented as of this encounter
--- OUTSIDE RECORDS SUMMARY | 2024-03-05 21:53 | XMS_ITS | Encounter Summary ---
Author Organization [facility] Address [address] [facility] [address] [place] [address] Care Team Providers Care Research Spec Name Role Phone Jorje Coburn DO Primary Care Provider + Encounter Details Date Type Department Care Team (Late st Contact Info) Description 09/03/2020 Telephone [facility] Family Medicine [address] [facility] [address] [place] [address] Jorje Coburn DO [address] [place] [address] Social History Tobacco Use Types [...] on file 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 Sex Male 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 Gender Identity Not on file Sexual Orientation Not on file documented as of this encounter Ordered Prescriptions Prescription Sig Dispense Quantity Refills Last Filled Start Date End Date rosuvastatin (CRESTOR) 20 mg tablet Take 1 tablet (20 mg total) by mouth daily 90 tablet 09/03/2020 11/30/2020 documented in this encounter Miscellaneous Notes * Telephone Encounter - Beishir, Sharon, RN - 09/04/2020 10:24 AM CDT aware * Telephone Encounter - Domonique Zarate PA - 09/04/2020 10:11 AM CDT Maybe wait 3-4 weeks to obtain * Telephone Encounter - Gela Meier - 09/04/2020 9:04 AM CDT Pt [place] called I did let her know that pt script for rosuvastatin 20mg was sent to Pharmacy. [place] also wants to know if pt should wait to get blood work done since he has been off of the rosuvastatin 20mg for 5-6 days? Should pt wait until he gets the medication gets back in his system so labs can be more accurate. * Telephone Encounter - Margoth Garcia MA - 09/03/2020 12:54 PM CDT Rx sent. * Telephone Encounter - Nithya Coulter - 09/03/2020 11:52 AM CDT [facility] called stating that insurance wont cover a 30 day supply of the Rosuvastatin 20 mg it has to be a 90 day supply. documented in this encounter Plan of Treatment Not on file documented as of this encounter Visit Diagnoses Not on filedocumented in this encounter Discontinued Medications Medication Sig Discontinue Reason Start Date End Da te rosuvastatin (CRESTOR) 20 mg tablet TAKE 1 TABLET(20 MG) BY MOUTH DAILY Reorder 09/02/2020 09/03/2020 documented as of this encounter Care Teams Research Spec Relationship Specialty Start Date End Date Jorje Coburn DO PCP - General Family Medicine 06/18/18 documented as of this encounter
--- OUTSIDE RECORDS SUMMARY | 2024-03-05 21:53 | XMS_ITS | Encounter Summary ---
Author Organization [facility] Address [address] [place] [address] Care Team Providers Care Call Center Agent Name Role Phone Jorje Coburn DO Primary Care Provider + Encounter Details Date Type Department Care Team (Late st Contact Info) Description 05/21/2019 4:45 PM FABRICATOR FOAM RUBBER Office Visit [facility] Family Medicine [address] [place] [address] Jorje Coburn, [address] [place] [address] Bronchitis (Primary Dx) Social History Tobacco Use Types Packs/Day Years Used Date Smoking Tobacco: Never Smokeless Tobacco: Never Alcohol Use Standard Drinks/Week Comments Yes 0 (1 standard drink = 0.6 oz pur e alcohol) AUDIT-C Answer Date Recorded Frequency of Alcohol Consumption 2-4 times a mon06/18/2018 Average Number of Drinks 1 or 2 019 Frequency of Binge Drinking Not on file 0403/2018 PHQ-2 Answer Date Recorded PHQ-2 Score 0 11/09/2018 Sex and Gender Information Value Date Recorded Sex Assigned at Not on file Legal Sex Male 1:20 AM FABRICATOR FOAM RUBBER Gender Identity Not on file Sexual Orientation Not on file documented as of this encounter Last Filed Vital Signs Vital Sign Reading Time Taken Comments Blood Pressure 130/90 05/21/2019 5:19 PM FABRICATOR FOAM RUBBER Pulse 62 05/21/2019 5:19 PM FABRICATOR FOAM RUBBER Temperature 36.6 ??C (97.9 ??F) 05/21/2019 5:19 PM CS T Respiratory Rate 18 05/21/2019 5:19 PM FABRICATOR FOAM RUBBER Oxygen Saturation 96% 05/21/2019 5:19 PM FABRICATOR FOAM RUBBER Inhaled Oxygen Concentration - - Weight 109.6 kg (241 lb 9.6 oz) 05/21/2019 5:19 PM FABRICATOR FOAM RUBBER Height 177.8 cm (5' 10 ) 05/21/2019 5:19 PM FABRICATOR FOAM RUBBER Body Mass Index 34.67 05/21/2019 5:19 PM FABRICATOR FOAM RUBBER documented in this encounter Ordered Prescriptions Prescription Sig Dispense Quantity Refills Last Filled Start Date End Date azithromycin (ZITHROMAX) 250 mg tablet Take 2 tabs (500 mg) by mouth today, than 1 daily for 4 days. 6 tablet 05/21/2019 05/26/2019 documented in this encounter Progress Notes * Jorje Coburn, DO - 05/21/2019 4:45 PM CST Subjective/Objective Patient ID: Benja Gallagher is a 59 y.o. male. Chief Complaint No chief complaint on file. HPI Cough and congestion Ongoing for 1 week Started with ear pain Past Medical History: Diagnosis Date ??? Hyperlipidemia ??? Inguinal hernia ??? Neck mass Past Surgical History: Procedure Laterality Date ??? HERNIA REPAIR Patient Active Problem List Diagnosis Date Noted ??? Bronchitis 05/21/2019 ??? Acute non-recurrent frontal sinusitis 06/18/2018 ??? Dyslipidemia 06/18/2018 ??? Annual physical exam 06/18/2018 Current Outpatient Medications Medication Sig Dispense Refill ??? cholecalciferol (VITAMIN D-3) 2,000 unit tablet 2,000 Units daily ??? omega-3 fatty acids (LOVAZA) 1 gram capsule Take 1,000 mg by mouth ??? rosuvastatin (CRESTOR) 20 mg tablet Take 1 tablet (20 mg total) by mouth daily 30 tablet 1 ??? sildenafil (VIAGRA) 100 mg tablet TAKE 1 TABLET BY MOUTH ONCE DAILY NEEDED 6 tablet 11 ??? testosterone cypionate (DEPO-TESTOTERONE) 100 mg/mL injection Inject 100 mg/mL into the muscle as instructed No current facility-administered medications for this visit. Allergies as of 05/21/2019 - Reviewed 01/16/2019 Allergen Reaction Noted ??? Iodinated contrast media Swelling 09/25/2016 ??? Morphine Rash 09/25/2016 Social History Socioeconomic History ??? Marital status: Spouse name: None ??? Number of children: None ??? Years of education: None ??? Highest education level: None Occupational History ??? None Social Needs ??? Financial resource strain: None ??? Food insecurity Worry: None Inability: None ??? Transportation needs Medical: None Non-medical: None Tobacco Use ??? Smoking status: Never Smoker ??? Smokeless tobacco: Never Used Substance and Sexual Activity ??? Alcohol use: Yes Frequency: 2-4 times a month Drinks per session: 1 or 2 ??? Drug use: Never ??? Sexual activity: None Lifestyle ??? Physical activity Days per week: None Minutes per session: None ??? Stress: None Relationships ??? Social connections Talks on phone: None Gets together: None Attends yazidi service: None Active member of club or organization: None Attends meetings of clubs or organizations: None Relationship status: None ??? Intimate partner violence Fear of current or ex partner: None Emotionally abused: None Physically abused: None Forced sexual activity: None Other Topics Concern ??? None Social History Narrative ??? None Family History Problem Relation Age of Onset [...] Negative for confusion and sleep disturbance. BP 130/90 (BP Location: Left arm, Patient Position: Sitting) Pulse 62 Temp 36.6 ??C (97.9 ??F) Resp 18 Ht 177.8 cm (5' 10 ) Wt 109.6 kg (241 lb 9.6 oz) SpO2 96% BMI 34.67 kg/m?? Physical Exam Vitals signs and nursing note reviewed. Constitutional: Appearance: He is well-developed. HENT: Head: Normocephalic and atraumatic. Right Ear: External ear normal. Left Ear: External ear normal. Nose: Nose normal. Eyes: Conjunctiva/sclera: Conjunctivae normal. Neck: Musculoskeletal: Normal range of motion and neck supple. Thyroid: No thyromegaly. Cardiovascular: Rate and Rhythm: Normal rate and regular rhythm. Heart sounds: Normal heart sounds. Pulmonary: Effort: Pulmonary effort is normal. Breath sounds: Normal breath sounds. Comments: Few rhonchi Abdominal: General: There is no distension. Palpations: Abdomen is soft. Tenderness: There is no abdominal tenderness. Musculoskeletal: Normal range of motion. General: No deformity. Lymphadenopathy: Cervical: No cervical adenopathy. Skin: General: Skin is warm and dry. Neurological: Mental Status: He is alert and oriented to person, place, and time. Coordination: Coordination normal. Psychiatric: Behavior: Behavior normal. Thought Content: Thought content normal. Judgment: Judgment normal. No visits with results within 2 Week(s) from this visit. Latest known visit with results is: Telephone on 01/16/2019 Component Date Value ??? Cholesterol 04/19/2019 136 ??? HDL 04/19/2019 31* ??? Triglycerides 04/19/2019 285* ??? LDL 04/19/2019 68 ??? Chol/HDL ratio 04/19/2019 4.4 ??? Non-HDL, (LDL+VLDL) 04/19/2019 105 ??? Protein, Total 04/19/2019 7.6 ??? Albumin 04/19/2019 4.4 ??? Globulin 04/19/2019 3.2 ??? Alb/glob ratio 04/19/2019 1.4 ??? Bilirubin, total 04/19/2019 0.7 ??? Bilirubin, direct 04/19/2019 0.2 ??? Bilirubin, indirect 04/19/2019 0.5 ??? Alk phos 04/19/2019 41 ??? AST 04/19/2019 23 ??? ALT (SGPT) 04/19/2019 31 Assessment/Plan Diagnoses and all orders for this visit: Bronchitis (J40) (Primary) Assessment & Plan: z tigre\cbc ICATOR FOAM RUBBER documented in this encounter Miscellaneous Notes * Assessment & Plan Note - Jorje Coburn DO - 05/21/2019 5:52 PM FABRICATOR FOAM RUBBER Associated Problem(s): Bronchitis (Resolved 05/10/2022) z tigre\cbc ICATOR FOAM RUBBER documented in this encounter Plan of Treatment Scheduled Orders Name Type Priority Associated Diagnoses Orde r Schedule CBC with auto differential Lab Routine Bronchitis Expected: 05/21/2019, Expires: 2020 documented as of this encounter Visit Diagnoses Diagnosis Bronchitis- Primary Bronchitis, not specified as acute or chronic documented in this encounter Discontinued Medications Medication Sig Discontinue Reason Start Date End Da te simvastatin (ZOCOR) 40 mg tablet simvastatin 40 mg tablet 05/21/2019 scopolamine 1 mg over 3 days patch [address] 1 patch on the skin every 3 (three) days Therapy completed 05/13/2019 05/21/2019 documented as of this encounter Historical Medications * This list may reflect changes made after this encounter. simvastatin (ZOCOR) 40 mg tablet simvastatin 40 mg tablet 0 added in this encounter Orders Lab Orders Without Results Count Last Ordered D ate First Ordered Date CBC WITH AUTO DIFFERENTIAL 1 05/21/2019 documented in this encounter Care Teams Call Center Agent Relationship Specialty Start Date End Date Jorje Coburn DO PCP - General Family Medicine 06/18/18 documented as of this encounter
--- OUTSIDE RECORDS SUMMARY | 2024-03-05 21:53 | XMS_ITS | Encounter Summary ---
Author Organization [facility] Address [address] [place] [address] Care Team Providers Care Chimney Repairer Name Role Phone Jorje Coburn DO Primary Care Provider + Encounter Details Date Type Department Care Team (Late st Contact Info) Description 09/01/2020 Orders Only [facility] Medical [facility] Family Medicine 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 documented in this encounter Plan of Treatment Not on file documented as of this encounter Procedures Procedure Name Priority Date/Time Associated Diagnosis Comments THYROID FUNCTION CASCADE Routine 10/09/2020 6:08 AM CDT Blood tests for routine general physical examination PSA SCREEN Routine 10/09/2020 6:08 AM CDT Screening for prostate cancer CBC WITH AUTO DIFFERENTIAL Routine 10/09/2020 6:08 AM CDT Blood tests for routine general physical examination HEMOGLOBIN A1C Routine 10/09/2020 6:08 AM CDT Blood tests for routine general physical examination Elevated glucose HEPATIC FUNCTION PANEL Routine 10/09/2020 6:08 AM CDT Blood tests for routine general physical examination LIPID PANEL Routine 10/09/2020 6:08 AM CDT Dyslipidemia BASIC METABOLIC PANEL Routine 10/09/2020 6:08 AM CDT Blood tests for routine general physical examination Elevated glucose documented in this encounter Results * Hepatic function panel (10/09/2020 6:08 AM CDT) Protein, Total 8.1 6.4 - 8.4 g/dL [facility] Albumin 4.4 3.6 - 5.1 g/dL [facility] Globulin 3.7 2.2 - 4.0 g/dL (calc) [facility] Alb/glob ratio 1.2 0.9 - 2.3 (calc) [facility] Bilirubin, total 0.7 0.2 - 1.2 mg/dL [facility] Bilirubin, direct 0.1 < OR = 0.2 mg/dL [facility] Bilirubin, indirect 0.6 0.2 - 1.2 mg/dL (calc) [facility] Alk phos 44 35 - 144 U/L [facility] AST 25 10 - 35 U/L [facility] ALT (SGPT) 31 9 - 46 U/L [facility] Blood specimen (specimen) 10/09/2020 6:08 AM CDT 10/09/2020 6:08 AM CDT Narrative [facility] - 10/10/2020 4:05 AM CDT FASTING:YES FASTING: YES Jorje Coburn DO LAB BLOOD ORDERABLES Fin al Result Performing Organization Address [facility] Co de Phone Number [facility] [address] [place] [address] * PSA screen (10/09/2020 6:08 AM CDT) PSA 1.3 < OR = 4.0 ng/mL [facility] Comment: The total PSA value from this assay system is standardized against the WHO standard. The test result will be approximately 20% lower when compared to the equimolar-standardized total PSA (Alexia Ligonier). Comparison of serial PSA results should be interpreted with this fact in mind. This test was performed using the Siemens chemiluminescent method. Values obtained from different assay methods cannot be used interchangeably. PSA levels, regardless of value, should not be interpreted as absolute evidence of the presence or absence of disease. Blood specimen (specimen) 10/09/2020 6:08 AM CDT 10/09/2020 6:08 AM CDT Narrative [facility] - 10/10/2020 4:05 AM CDT FASTING:YES FASTING: YES Jorje Coburn DO LAB BLOOD ORDERABLES Fin al Result Performing Organization Address [facility] Co de Phone Number [facility] [address] [place] [address] * TSH reflex to free T4 (10/09/2020 6:08 AM CDT) TSH 2.99 0.40 - 4.50 mIU/L [facility] Blood specimen (specimen) 10/09/2020 6:08 AM CDT 10/09/2020 6:08 AM CDT Narrative [facility] - 10/10/2020 4:05 AM CDT FASTING:YES FASTING: YES Jorje Coburn DO LAB BLOOD ORDERABLES Fin al Result Performing Organization Address City/[facility]/ZIP Co de Phone Number [facility] [address] [place] [address] * Hemoglobin A1c (10/09/2020 6:08 AM CDT) Hgb A1C 5.5 <5.7 % [facility] Blood specimen (specimen) 10/09/2020 6:08 AM CDT 10/09/2020 6:08 AM CDT Narrative [facility] - 10/10/2020 4:05 AM CDT FASTING:YES FASTING: YES Jorje Coburn DO LAB BLOOD ORDERABLES Fin al Result Performing Organization Address [facility] Co de Phone Number [facility] [address] [place] [address] * (ABNORMAL) Lipid panel (10/09/2020 6:08 AM CDT) Cholesterol 145 <200 mg/dL [facility] HDL 29(L) > OR = 40 mg/dL [facility] Triglycerides 455(H) <150 mg/dL [facility] Comment: If a non-fasting specimen was collected, consider repeat triglyceride testing on a fasting specimen if clinically indicated. Margi et al. J. of Clin. Lipidol. 2015;9:129-169. LDL mg/dL (calc) [facility] Comment: LDL cholesterol not calculated. Triglyceride levels greater than 400 mg/dL invalidate calculated LDL results. Reference range: <100 Desirable range <100 mg/dL for primary prevention; ?? <70 mg/dL for patients with CHD or diabetic patients with > or = 2 CHD risk factors. LDL-C is now calculated using the Dashawn-Olson calculation, which is a validated novel method providing better accuracy than the Friedewald equation in the estimation of LDL-C. Dashawn SS et al. CM. 2013;310(19): 1448-8220 (http://education.Gazzang/faq/BZW146) Chol/HDL ratio 5.0(H) <5.0 (calc) [facility] Non-HDL, (LDL+VLDL) 116 <130 mg/dL (calc) [facility] Comment: For patients with diabetes plus 1 major ASCVD risk factor, treating to a non-HDL-C goal of <100 mg/dL (LDL-C of <70 mg/dL) is considered a therapeutic option. Blood specimen (specimen) 10/09/2020 6:08 AM CDT 10/09/2020 6:08 AM CDT Narrative [facility] - 10/10/2020 4:05 AM CDT FASTING:YES FASTING: YES Jorje Coburn DO LAB BLOOD ORDERABLES Fin al Result [facility] [address] [place] [address] * Basic metabolic panel (10/09/2020 6:08 AM CDT) [facility] Glucose 97 65 - 99 mg/dL [facility] Comment: ? Fasting reference interval BUN 17 7 - 25 mg/dL [facility] Creatinine 1.15 0.70 - 1.25 mg/dL [facility] Comment: For patients >49 years of age, the reference limit for Creatinine is approximately 13% higher for people identified as -[place]. eGFR NON-AFR. MACEDONIAN 69 > OR = 60 mL/min/1 .73m2 [facility] EGFR 80 > OR = 60 mL/min/1 .73m2 [facility] BUN/creat ratio NOT APPLICABLE 6 - 22 (calc) [facility] Sodium 138 135 - 146 mmol/L [facility] Potassium, pl 4.3 3.5 - 5.3 mmol/L [facility] Chloride 101 98 - 110 mmol/L [facility] CO2 28 20 - 32 mmol/L [facility] Calcium 9.5 8.6 - 10.3 mg/dL [facility] Blood specimen (specimen) 10/09/2020 6:08 AM CDT 10/09/2020 6:08 AM CDT Narrative [facility] - 10/10/2020 4:05 AM CDT FASTING:YES FASTING: YES Jorje Coburn DO LAB BLOOD ORDERABLES Fin al Result [facility] [address] [place] [address] * (ABNORMAL) CBC with auto differential (10/09/2020 6:08 AM CDT) WBC 6.5 3.8 - 10.8 Thousand/u L [facility] RBC, POC 5.78 4.20 - 5.80 Million/uL [facility] Hgb 18.2(H) 13.2 - 17.1 g/dL [facility] Hct 54.1(H) 38.5 - 50.0 % [facility] MCV 93.6 80.0 - 100.0 fL [facility] MCH 31.5 27.0 - 33.0 pg [facility] MCHC 33.6 32.0 - 36.0 g/dL [facility] Rdw 12.7 11.0 - 15.0 % [facility] Platelets 181 140 - 400 Thousand/u L [facility] MPV 10.8 7.5 - 12.5 fL [facility] Neutrophils, abs 3,608 1,500 - 7,800 cells/uL [facility] Lymphocytes, abs 2,113 850 - 3,900 cells/uL [facility] Monocyte abs 546 200 - 950 cells/uL [facility] Eosinophils, abs 182 15 - 500 cells/uL [facility] Basophils, abs 52 0 - 200 cells/uL [facility] Neutrophils 55.5 % [facility] Lymphocyte pct 32.5 % [facility] Monocytes 8.4 % [facility] Eosinophils 2.8 % [facility] Basophils 0.8 % [facility] Blood specimen (specimen) 10/09/2020 6:08 AM CDT 10/09/2020 6:08 AM CDT Narrative [facility] - 10/10/2020 4:05 AM CDT FASTING:YES FASTING: YES Jorje Coburn DO LAB BLOOD ORDERABLES Fin al Result [facility] [address] [place] [address] documented in this encounter Visit Diagnoses Diagnosis Dyslipidemia- Primary Other and unspecified hyperlipidemia Screening for prostate cancer Special screening for malignant neoplasm of prostate Blood tests for routine general physical examination Laboratory examination ordered as part of a routine general medical examination Elevated glucose Other abnormal glucose documented in this encounter Care Teams Chimney Repairer Relationship Specialty Start Date End Date Jorje Coburn DO PCP - General Family Medicine 06/18/18 documented as of this encounter
--- OUTSIDE RECORDS SUMMARY | 2024-03-05 21:53 | XMS_ITS | Encounter Summary ---
Author Organization [facility] Address [address] [place] [address] Care Team Providers Care Product Demonstrator Name Role Phone Jorje Coburn DO Primary Care Provider + Reason for Visit * Reason Onset Date Comments Procedure question/concern 01/03/2019 Encounter Details Date Type Department Care Team (Late st Contact Info) Description 01/03/2019 Telephone [facility] Family Medicine [address] [place] [address] Jorje Coburn DO [address] [place], [place] [address] Procedure question/concern Social History Tobacco Use Types Packs/Day Years [...] on file 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 Gender Identity Not on file Sexual Orientation Not on file documented as of this encounter Miscellaneous Notes * Telephone Encounter - Carmen Brasher MA - 01/04/2019 9:46 AM CDT Pt aware CPK ordered * Telephone Encounter - Jorje Coburn DO - 01/03/2019 1:09 PM CDT Yes take every other day and check a cpk * Telephone Encounter - Carmen Brasher MA - 01/03/2019 11:09 AM CDT Pt called - is having problems with sore muscles/tendons bilaterally in arms - he is taking simvastatin - wants to know if this could possibly be causing the pain documented in this encounter Plan of Treatment Not on file documented as of this encounter Visit Diagnoses Diagnosis Muscle ache- Primary Unspecified myalgia and myositis documented in this encounter Orders Lab Orders Without Results Count Last Ordered D ate First Ordered Date CREATINE KINASE (CK), TOTAL 1 01/04/2019 documented in this encounter Care Teams Product Demonstrator Relationship Specialty Start Date End Date Jorje Coburn DO PCP - General Family Medicine 06/18/18 documented as of this encounter
--- OUTSIDE RECORDS SUMMARY | 2024-03-05 21:53 | XMS_ITS | Encounter Summary ---
Author Organization [facility] Address [address] [place] [address] Care Team Providers Care Portrait Artist Name Role Phone Jorje Coburn DO Primary Care Provider + Reason for Referral * Sleep Medicine (Routine) - Closed Specialty Diagnoses / Procedures Referred By Star gandara Referred To Contact Diagnoses Snoring Sleep disorder Hypersomnia Psychophysiological insomnia Overweight Fatigue, unspecified type Procedures Portable/Home Sleep Study Dona Daniels MD Phone: tel: fax: [address] [phone] Referral ID Status Reason Start Date Expiration Date Visits Re quested Visits Authorized [id number] Closed 09/17/2020 11/15/2020 1 1 Reason for Visit * Sleep Medicine (Routine) - Closed Specialty Diagnoses / Procedures Referred By Star gandara Referred To Contact Diagnoses Snoring Sleep disorder Hypersomnia Psychophysiological insomnia Overweight Fatigue, unspecified type Procedures Portable/Home Sleep Study Dona Daniels MD Phone: tel: fax: [address] [phone] Referral ID Status Reason Start Date Expiration Date Visits Re quested Visits Authorized [id number] Closed 09/17/2020 11/15/2020 1 1 Encounter Details Date Type Department Care Team (Latest Contact Info) Description 11/12/2020 8:50 AM CDT - 11/12/2020 11:59 PM CDT Hospital Encounter [facility] [address] [place] [address] Snoring; Sleep disorder; Hypersomnia; Psychophysiological insomnia; Overweight; Fatigue, unspecified type Discharge Disposition: Discharge to home or self [...] on file 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 Gender Identity Not on file Sexual Orientation [...] 100 mg/mL into the muscle as instructed diclofenac DR (VOLTAREN) 75 mg EC tablet Take 75 mg by mouth 2 (two) times a day 3 rosuvastatin (CRESTOR) 20 mg tablet Take 1 tablet (20 mg total) by mouth daily 90 tablet 09/03/2020 1 documented as of this encounter Discharge Disposition Disposition Code Departure Means Destination Discharge to home or self care documented in this encounter Miscellaneous Notes * Addendum Note - Diane Wilkinson RPSGT - 11/12/2020 9:00 AM CDTEncounter addended by: Diane Wilkinson RPSGT on: 11/12/2020 9:29 AM Actions taken: Charge Capture section accepted documented in this encounter Plan of Treatment Scheduled Orders Name Type Priority Associated Diagnoses Orde r Schedule Portable/Home Sleep Study Sleep Center Routine Snoring Sleep disorder Hypersomnia Psychophysiological insomnia Overweight Fatigue, unspecified type Once for 1 Occurrences starting 11/12/2020 until 11/12/2020 documented as of this encounter Visit Diagnoses Diagnosis Snoring Other dyspnea and respiratory abnormality Sleep disorder Unspecified sleep disturbance Hypersomnia Hypersomnia, unspecified Psychophysiological insomnia Persistent disorder of initiating or maintaining sleep Overweight Fatigue, unspecified type documented in this encounter Care Teams Portrait Artist Relationship Specialty Start Date End Date Jorje Coburn DO PCP - General Family Medicine 06/18/18 documented as of this encounter
--- OUTSIDE RECORDS SUMMARY | 2024-03-05 21:53 | XMS_ITS | Encounter Summary ---
Author Organization [facility] Address [address] [place] [address] Care Team Providers Care Drilling Field Professional Name Role Phone Jorje Coburn DO Primary Care Provider + Reason for Visit * Reason Onset Date Comments Lab order 12/31/2018 Encounter Details Date Type Department Care Team (Late st Contact Info) Description 12/31/2018 Telephone [facility] Family Medicine [address] [place] [address] Lesia Lipscomb, fruit sorter order Social History Tobacco Use Types Packs/Day Years [...] on file 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 Gender Identity Not on file Sexual Orientation Not on file documented as of this encounter Miscellaneous Notes * Telephone Encounter - Lesia Lipscomb RN - 12/31/2018 9:12 AM CDT Pt is needing labs sent to [facility] documented in this encounter Plan of Treatment Not on file documented as of this encounter Procedures Procedure Name Priority Date/Time Associated Diagnosis Comments THYROID FUNCTION CASCADE Routine 01/02/2019 6:45 AM CDT Annual physical exam Dyslipidemia PSA SCREEN Routine 01/02/2019 6:45 AM CDT Screen for colon cancer CBC WITH AUTO DIFFERENTIAL Routine 01/02/2019 6:45 AM CDT Annual physical exam Dyslipidemia HEPATIC FUNCTION PANEL Routine 9 6:45 AM CDT Annual physical exam Dyslipidemia LIPID PANEL Routine 01/02/2019 6:45 AM CDT Annual physical exam Dyslipidemia COMPREHENSIVE METABOLIC PANEL Routine 01/02/2019 6:45 AM CDT Annual physical exam Dyslipidemia documented in this encounter Results * PSA screen (01/02/2019 6:45 AM CDT) PSA 1.8 < OR = 4.0 ng/mL [facility] Comment: The total PSA value from this [...] or absence of disease. Blood specimen (specimen) 01/02/2019 6:45 AM CDT 01/02/2019 6:46 AM CDT Narrative [facility] - 01/03/2019 3:07 AM CDT FASTING:YES FASTING: YES Resulting Agency Comment Performing Organization Information: ?Site ID: [place] ?Name: [facility] ?Address: [address] [place] [phone] ?Director: Jony Roman D.O., MPH us Jorje Coburn DO LAB BLOOD ORDERABLES Fin al Result [facility] [place] * Hepatic function panel (01/02/2019 6:45 AM CDT) Protein, Total 7.6 6.4 - 8.4 g/dL [facility] [place] Albumin 4.4 3.6 - 5.1 g/dL [facility] [place] Globulin 3.2 2.2 - 4.0 g/dL (calc) [facility] [place] Alb/glob ratio 1.4 0.9 - 2.3 (calc) [facility] [place] Bilirubin, total 0.7 0.2 - 1.2 mg/dL [facility] [place] Bilirubin, direct 0.1 < OR = 0.2 mg/dL [facility] [place] Bilirubin, indirect 0.6 0.2 - 1.2 mg/dL (calc) [facility] [place] Alk phos 44 40 - 115 U/L [facility] [place] AST 29 10 - 35 U/L [facility] [place] ALT (SGPT) 44 9 - 46 U/L [facility] [place] Blood specimen (specimen) 01/02/2019 6:45 AM CDT 01/02/2019 6:46 AM CDT Narrative [facility] - 01/03/2019 3:07 AM CDT FASTING:YES FASTING: YES Resulting Agency Comment Performing Organization Information: ?Site ID: [place] ?Name: [facility] ?Address: [address] [place] [address] [place] [phone] ?Director: Jony Roman D.O., MPH Jorje Coburn DO LAB BLOOD ORDERABLES Fin al Result Performing Organization Address [facility]/State/ZIP Co de Phone Number [facility] [place] * (ABNORMAL) Comprehensive metabolic panel (01/02/2019 6:45 AM CDT) Glucose 100(H) 65 - 99 mg/dL [facility] [place] Comment: ? Fasting reference interval For someone without known diabetes, a glucose value between 100 and 125 mg/dL is consistent with prediabetes and should be confirmed with a follow-up test. BUN 13 7 - 25 mg/dL [facility] [place] Creatinine 1.13 0.70 - 1.33 mg/dL [facility] [place] Comment: For patients >49 years of age, the reference limit for Creatinine is approximately 13% higher for people identified as -Dominican. eGFR NON-AFR. UZBEK 71 > OR = 60 mL/min/1 .73m2 [facility] [place] EGFR 83 > OR = 60 mL/min/1 .73m2 [facility] [place] BUN/creat ratio NOT APPLICABLE 6 - 22 (calc) [facility] [place] Sodium 137 135 - 146 mmol/L [facility] [place] Potassium, pl 4.5 3.5 - 5.3 mmol/L [facility] [place] Chloride 102 98 - 110 mmol/L [facility] [place] CO2 27 20 - 32 mmol/L [facility] [place] Calcium 9.2 8.6 - 10.3 mg/dL [facility] [place] Protein, sr 7.6 6.1 - 8.1 g/dL [facility] [place] Albumin 4.4 3.6 - 5.1 g/dL [facility] [place] GLOBULIN 3.2 1.9 - 3.7 g/dL (calc) [facility] [place] Alb/glob ratio 1.4 1.0 - 2.5 (calc) [facility] [place] Bilirubin, total 0.7 0.2 - 1.2 mg/dL [facility] [place] Alk phos 44 40 - 115 U/L [facility] [place] AST 29 10 - 35 U/L [facility] [place] ALT (SGPT) 44 9 - 46 U/L [facility] [place] Blood specimen (specimen) 01/02/2019 6:45 AM CDT 01/02/2019 6:46 AM CDT Narrative [facility] - 01/03/2019 3:07 AM CDT FASTING:YES FASTING: YES Resulting Agency Comment Performing Organization Information: ?Site ID: [place] ?Name: [facility] ?Address: [address] [phone] ?Director: Jony Roman D.O., MPH us Jorje Coburn DO LAB BLOOD ORDERABLES Fin al Result [facility] [place] * (ABNORMAL) CBC with auto differential (01/02/2019 6:45 AM CDT) WBC 5.3 3.8 - 10.8 Thousand/u L [facility] [place] RBC, POC 5.70 4.20 - 5.80 Million/uL [facility] [place] Hgb 18.1(H) 13.2 - 17.1 g/dL [facility] [place] Hct 52.1(H) 38.5 - 50.0 % [facility] [place] MCV 91.4 80.0 - 100.0 fL [facility] [place] MCH 31.8 27.0 - 33.0 pg [facility] [place] MCHC 34.7 32.0 - 36.0 g/dL [facility] [place] Rdw 13.1 11.0 - 15.0 % [facility] [place] Platelets 187 140 - 400 Thousand/u L [facility] [place] MPV 11.0 7.5 - 12.5 fL [facility] [place] Neutrophils, abs 2,772 1,500 - 7,800 cells/uL [facility] [place] Lymphocytes, abs 1,855 850 - 3,900 cells/uL [facility] [place] Monocyte abs 488 200 - 950 cells/uL [facility] [place] Eosinophils, abs 138 15 - 500 cells/uL [facility] [place] Basophils, abs 48 0 - 200 cells/uL [facility] [place] Neutrophils 52.3 % [facility] [place] Lymphocyte pct 35.0 % [facility] [place] Monocytes 9.2 % [facility] [place] Eosinophils 2.6 % [facility] [place] Basophils 0.9 % [facility] [place] Blood specimen (specimen) 01/02/2019 6:45 AM CDT 01/02/2019 6:46 AM CDT Narrative [facility] - 01/03/2019 3:07 AM CDT FASTING:YES FASTING: YES Resulting Agency Comment Performing Organization Information: ?Site ID: [place] ?Name: [facility] ?Address: [address] [phone] ?Director: Jony Roman D.O., MPH Jorje Coburn DO LAB BLOOD ORDERABLES Fin al Result Performing Organization Address City/[facility]/ZIP Co de Phone Number [facility] [place] * TSH reflex to free T4 (01/02/2019 6:45 AM CDT) TSH 2.48 0.40 - 4.50 mIU/L [facility] [employer] [facility] Blood specimen (specimen) 01/02/2019 6:45 AM CDT 01/02/2019 6:46 AM CDT Narrative [facility] - 01/03/2019 3:07 AM CDT FASTING:YES FASTING: YES Resulting Agency Comment Performing Organization Information: ?Site ID: [place] ?Name: [facility] ?Address: [address] [phone] ?Director: Jony Roman D.O., MPH Jorje Coburn DO LAB BLOOD ORDERABLES Fin al Result Performing Organization Address [facility] Co de Phone Number [facility] [place] * (ABNORMAL) Lipid panel (01/02/2019 6:45 AM CDT) Cholesterol 184 <200 mg/dL [facility] [place] HDL 31(L) >40 mg/dL [facility] [place] Triglycerides 555(H) <150 mg/dL [facility] [place] Comment: If a non-fasting specimen was collected, consider repeat triglyceride testing on a fasting specimen if clinically indicated. Kiser et al. J. of Clin. Lipidol. 2015;9:129-169. There is increased risk of pancreatitis when the triglyceride concentration is very high (> or = 500 mg/dL, especially if > or = 1000 mg/dL). Kiser et al. J. of Clin. Lipidol. 2015;9:129-169. LDL mg/dL (calc) [facility] [place] Comment: LDL cholesterol not calculated. Triglyceride levels [...] LDL-C. Dashawn DÍAZ et al. CM. 2013;310(19): 4010-6014 (http://education.Bankfeeinsider.com/faq/SOX197) Chol/HDL ratio 5.9(H) <5.0 (calc) [facility] [place] Non-HDL, (LDL+VLDL) 153(H) <130 mg/dL (calc) [facility] [place] Comment: For patients with diabetes plus 1 major ASCVD risk factor, treating to a non-HDL-C goal of <100 mg/dL (LDL-C of <70 mg/dL) is considered a therapeutic option. Blood specimen (specimen) 01/02/2019 6:45 AM CDT 01/02/2019 6:46 AM CDT Narrative [facility] - 01/03/2019 3:07 AM CDT FASTING:YES FASTING: YES Resulting Agency Comment Performing Organization Information: ?Site ID: [place] ?Name: [facility] ?Address: [address] [phone] ?Director: Jony Roman D.O., MPH Jorje Coburn DO LAB BLOOD ORDERABLES Fin al Result [facility] [place] documented in this encounter Visit Diagnoses Diagnosis Annual physical exam- Primary Routine general medical examination at a health care facility Dyslipidemia Other and unspecified hyperlipidemia Screen for colon cancer Special screening for malignant neoplasms, colon documented in this encounter Care Teams Drilling Field Professional Relationship Specialty Start Date End Date Jorje Coburn DO PCP - General Family Medicine 06/18/18 documented as of this encounter
--- OUTSIDE RECORDS SUMMARY | 2024-03-05 21:53 | XMS_ITS | Encounter Summary ---
Author Organization [facility] Address [address] [place] [address] Care Team Providers Care Quality Assurance Consultant Name Role Phone Jorje Coburn DO Primary Care Provider + Reason for Visit * Reason Comments Annual Exam Encounter Details Date Type Department Care Team (Late st Contact Info) Description 10/12/2020 4:15 PM CDT Office Visit [facility] Family Medicine [address] [place] [address] Jojre Coburn DO [address] [place] [address] Annual physical exam (Primary Dx); Screening for colon cancer; Blood tests for routine general physical examination Social History Tobacco Use Types Packs/Day Years [...] on file 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 Gender Identity Not on file Sexual Orientation Not on file documented as of this encounter Last Filed Vital Signs Vital Sign Reading Time Taken Comments Blood Pressure 132/86 10/12/2020 4:48 PM CDT Pulse 65 10/12/2020 4:48 PM CDT Temperature 36.4 ??C (97.6 ??F) 10/12/2020 4:48 PM CD T Respiratory Rate 16 10/12/2020 4:48 PM CDT Oxygen Saturation 96% 10/12/2020 4:48 PM CDT Inhaled Oxygen Concentration - - Weight 113.3 kg (249 lb 12.8 oz) 10/12/2020 4:48 PM CDT Height 177.8 cm (5' 10 ) 10/12/2020 4:48 PM CDT Body Mass Index 35.84 10/12/2020 4:48 PM CDT documented in this encounter Progress Notes * Jorje Coburn, DO - 10/12/2020 4:15 PM CDT Subjective/Objective Patient ID: Benja Gallagher is a 60 y.o. male. Chief Complaint Annual Exam HPI Annual physical Doing well no complaints Past Medical History: Diagnosis Date ??? Hyperlipidemia ??? Inguinal hernia ??? Neck mass Past Surgical History: Procedure Laterality Date ??? HERNIA REPAIR Patient Active Problem List Diagnosis Date Noted ??? Snoring 09/16/2020 ??? Sleep disorder 09/16/2020 [...] total) by mouth daily 90 tablet 0 ??? sildenafiL (VIAGRA) 100 mg tablet TAKE 1 TABLET BY MOUTH ONCE DAILY NEEDED 6 tablet 0 ??? testosterone cypionate (DEPO-TESTOTERONE) 100 mg/mL injection Inject 100 mg/mL into the muscle as instructed No current facility-administered medications for this visit. Allergies as of 10/12/2020 - Reviewed 10/12/2020 Allergen Reaction Noted ??? Iodinated contrast media Swelling 09/25/2016 ??? Morphine Rash 09/25/2016 Social History Socioeconomic History ??? Marital status: Spouse name: None ??? Number of children: None ??? Years of education: None ??? Highest education level: None Occupational History ??? None Tobacco Use ??? Smoking status: Never Smoker ??? Smokeless tobacco: Never Used Vaping Use ??? Vaping Use: Never used Substance and Sexual Activity ??? Alcohol use: Yes ??? Drug use: Yes Types: Alcohol Comment: occas ??? Sexual activity: None Other Topics Concern ??? None Social History Narrative ??? None Social Determinants of Health Financial Resource Strain: ??? Difficulty of Paying Living Expenses: Food Insecurity: ??? Worried About Running Out of Food in the Last Year: ??? Ran Out of Food in the Last Year: Transportation Needs: ??? Lack of Transportation (Medical): ??? Lack of Transportation (Non-Medical): Physical Activity: ??? Days of Exercise per Week: ??? Minutes of Exercise per Session: Stress: ??? Feeling of Stress : Social Connections: ??? Frequency of Communication with Friends and Family: ??? Frequency of Social Gatherings with Friends and Family: ??? Attends [employer] Services: ??? Active Member of Clubs or Organizations: ??? Attends Club or Organization Meetings: ??? Marital Status: Intimate Partner Violence: ??? Fear of Current or Ex-Partner: ??? Emotionally Abused: ??? Physically Abused: ??? Sexually Abused: Family History Problem Relation Age of Onset [...] Negative for confusion and sleep disturbance. BP 132/86 Pulse 65 Temp 36.4 ??C (97.6 ??F) Resp 16 Ht 177.8 cm (5' 10 ) Wt 113.3 kg (249lb 12.8 oz) SpO2 96% BMI 35.84 kg/m?? Physical Exam Vitals and nursing note reviewed. Constitutional: Appearance: He is well-developed. HENT: Head: Normocephalic and atraumatic. Right Ear: External ear normal. Left Ear: External ear normal. Nose: Nose normal. Eyes: Conjunctiva/sclera: Conjunctivae normal. Neck: Thyroid: No thyromegaly. Cardiovascular: Rate and Rhythm: Normal rate and regular rhythm. Heart sounds: Normal heart sounds. Pulmonary: Effort: Pulmonary effort is normal. Breath sounds: Normal breath sounds. Abdominal: General: There is no distension. Palpations: Abdomen is soft. Tenderness: There is no abdominal tenderness. Musculoskeletal: General: No deformity. Normal range of motion. Cervical back: [...] visit. Latest known visit with results is: Orders Only on 09/01/2020 Component Date Value ??? WBC 10/09/2020 6.5 ??? RBC, POC 10/09/2020 5.78 ??? Hgb 10/09/2020 18.2* ??? Hct 10/09/2020 54.1* ??? MCV 10/09/2020 93.6 ??? MCH 10/09/2020 31.5 ??? MCHC 10/09/2020 33.6 ??? Rdw 10/09/2020 12.7 ??? Platelets 10/09/2020 181 ??? MPV 10/09/2020 10.8 ??? Neutrophils, abs 10/09/2020 3,608 ??? Lymphocytes, abs 10/09/2020 2,113 ??? Monocyte abs 10/09/2020 546 ??? Eosinophils, abs 10/09/2020 182 ??? Basophils, abs 10/09/2020 52 ??? Neutrophils 10/09/2020 55.5 ??? Lymphocyte pct 10/09/2020 32.5 ??? Monocytes 10/09/2020 8.4 ??? Eosinophils 10/09/2020 2.8 ??? Basophils 10/09/2020 0.8 ??? Glucose 10/09/2020 97 ??? BUN 10/09/2020 17 ??? Creatinine 10/09/2020 1.15 ??? eGFR NON-AFR. [place]ORE[place] 10/09/2020 69 ??? EGFR 10/09/2020 80 ??? BUN/creat ratio 10/09/2020 NOT APPLICABLE ??? Sodium 10/09/2020 138 ??? Potassium, pl 10/09/2020 4.3 ??? Chloride 10/09/2020 101 ??? CO2 10/09/2020 28 ??? Calcium 10/09/2020 9.5 ??? Cholesterol 10/09/2020 145 ??? HDL 10/09/2020 29* ??? Triglycerides 10/09/2020 455* ??? LDL 10/09/2020 ??? Chol/HDL ratio 10/09/2020 5.0* ??? Non-HDL, (LDL+VLDL) 10/09/2020 116 ??? Hgb A1C 10/09/2020 5.5 ??? TSH 10/09/2020 2.99 ??? PSA 10/09/2020 1.3 ??? Protein, Total 10/09/2020 8.1 ??? Albumin 10/09/2020 4.4 ??? Globulin 10/09/2020 3.7 ??? Alb/glob ratio 10/09/2020 1.2 ??? Bilirubin, total 10/09/2020 0.7 ??? Bilirubin, direct 10/09/2020 0.1 ??? Bilirubin, indirect 10/09/2020 0.6 ??? Alk phos 10/09/2020 44 ??? AST 10/09/2020 25 ??? ALT (SGPT) 10/09/2020 31 Assessment/Plan Diagnoses and all orders for this visit: Annual physical exam (Z00.00) (Primary) Assessment & Plan: hgb sl high basa Will discuss testosterone with [facility] order a colonoscopy documented in this encounter Miscellaneous Notes * Assessment & Plan Note - Jorje Cbourn DO - 10/12/2020 5:13 PM CDT Associated Problem(s): Annual physical exam hgb sl high basa Will discuss testosterone with [facility] * Addendum Note - Debbi Jiménez MA - 10/12/2020 4:15 PM CDTAddended by: DEBBI JIMÉNEZ on: 10/12/2020 05:28 PM Modules accepted: Orders * Addendum Note - Debbi Jiménez MA - 10/12/2020 4:15 PM CDTAddended by: DEBBI JIMÉNEZ on: 10/12/2020 05:31 PM Modules accepted: Orders documented in this encounter Plan of Treatment Not on file documented as of this encounter Visit Diagnoses Diagnosis Annual physical exam- Primary Routine general medical examination at a [facility] care facility Screening for colon cancer Special screening for malignant neoplasms, colon Blood tests for routine general physical examination Laboratory examination ordered as part of a routine general medical examination documented in this encounter Orders Lab Orders Without Results Count Last Ordered D ate First Ordered Date CBC WITH AUTO DIFFERENTIAL 1 10/12/2020 documented in this encounter Care Teams Quality Assurance Consultant Relationship Specialty Start Date End Date Jorje Coburn DO PCP - General Family Medicine 06/18/18 documented as of this encounter
--- OUTSIDE RECORDS SUMMARY | 2024-03-05 21:53 | XMS_ITS | Encounter Summary ---
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 Mailed copy to patient. documented in this encounter Plan of Treatment Not on file documented as of this encounter Visit Diagnoses Diagnosis Elevated hemoglobin (CMS/HCC) (HCC)- Primary documented in this encounter Orders Lab Orders Without Results Count Last Ordered D ate First Ordered Date CBC WITH AUTO DIFFERENTIAL 1 11/13/2020 documented in this encounter Care Teams Floriculture Teacher Relationship Specialty Start Date End Date Jorje Coburn DO PCP - General Family Medicine 06/18/18 documented as of this encounter
--- OUTSIDE RECORDS SUMMARY | 2024-03-05 21:54 | XMS_ITS | Encounter Summary ---
Author Organization [facility] Care Team Providers Care Communications Scientist Name Role Phone Unavailable Primary Care Provider Unavailabl e Encounter Details Date Type Department Care Team (Late st Contact Info) Description 02/21/2007 - 02/21/2007 11:59 PM COIN TELLER Hospital Encounter 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
--- OUTSIDE RECORDS SUMMARY | 2024-03-05 21:55 | XMS_ITS | Continuity of Care Document ---
Author Organization [facility] Address [address] [place] [address] Phone Care Team Providers Care Senior Accountant Cpa Name Role Phone Car Leger MD Unavailable Unavailable Allergies, Adverse Reactions, Alerts Substance Reaction Status Criticality morphine Active No Information Medications Medication Instructions Dosage Effective Dates (start - stop) Status Comments meloxicam 7.5 mg tablet take 1 tablet (7.5MG) by mouth every day with food - Active simvastatin 40 mg tablet take 1 tablet by oral route every day in the evening 40 MG - Active Procedures Procedure Date OFFICE/OUTPATIENT VISIT EST MRI ANY JT LXTR C-MATRL RADEX KNE 3 VIEWS OFFICE/OUTPATIENT VISIT EST POSTOP FOLLOW-UP VISIT POSTOP FOLLOW-UP VISIT POSTOP FOLLOW-UP VISIT RADEX ELBW 2 VIEWS POSTOP FOLLOW-UP VISIT OFFICE/OUTPATIENT VISIT EST RADEX KNE 3 VIEWS RADEX ELBW COMPL MINIMUM 3 VIEWS 2016 OFFICE/OUTPATIENT VISIT NEW Advance Directives Directive Yes / No Effective Date File Name No Information Encounters Encounter Description Practice Location Reason(s) For Visit Diagnoses Date Provider Providers Copied on Encounter OFFICE/OUTPA TIENT VISIT EST [facility], [address] [facility] [address], [place], [address], [place] tel:[phone] [facility] Chondromalacia , left kneeTear of medial meniscus of left knee, current, unspecified tear type, subsequent encounter 8 Arsen Yoon. [address], [place], [place], [address]. tel:[phone] [facility], [address], [place], [address], [place] tel:[phone] [facility] No Information 8 No Information Referring Provider: Car Leger, [address], [place], [address] . tel:[phone] OFFICE/OUTPA TIENT VISIT EST [facility], [address], [place], [address], [place] tel:[phone] [facility] [place] Left knee pain, unspecified chronicityInte rnal derangement of left knee 8 Boxdorfer Melly. [address] [facility], [place], [place], [address]. tel:[phone] [facility], [address], [place], [address], [place] tel:[phone] [facility] Aftercare following surgery 8 Arsen Yoon. [address], [place], [place], [address]. tel:[phone] [facility], [address], [place], [address], [place] tel:[phone] [facility] Aftercare following surgery 8 Boxdorfer Melly. [address], [place], [place], [address]. tel:[phone] [facility], [address], [place], [address], [place] tel:[phone] [facility] Aftercare following surgery 8 Arsen Yoon. [address], [place], [place], [address]. tel:[phone] [facility], [address] [facility], [place], [address], [place] tel:[phone] [facility] Aftercare following surgeryStrain of muscle, fascia and tendon of triceps, left arm, subsequent encounter 8 Boxdorfer Melly. [address] [facility] [address], [place], [place], [address]. tel:[phone] [facility], [address], [address], [place] tel:[phone] [facility] Rupture of left triceps tendon, initial encounter 8 Arsen Car. [address], [place], [place], [address]. tel:[phone] OFFICE/OUTPA TIENT VISIT EST [facility], [address] [address], [place], [address], [place] tel:[phone] [facility] Rupture of left triceps tendon, initial encounterLeft elbow pain 8 Boxdorfer Melly. [address] [address], [place], [place], [address]. tel:[phone] OFFICE/OUTPA TIENT VISIT NEW [facility], [address] [address], [place], [address], [place] tel:[phone] [facility] Left elbow painRight knee pain, unspecified chronicityOste oarthritis of right knee, unspecified osteoarthritis type 7 Boxdorfer Melly. [address] [address], [place], [place], [address]. tel:[phone] Referring Provider: [address], [place], [address] . tel:[phone] Family History Family Member Type Diagnosis Age At Onset mother Problem (finding) Diabetes Payers Payer name Insurance type Covered green party ID Authoriza tion(s) Blue Access PPO E2 OT [id number] Cign[employer] Choice Fund Open Acces s Plus E2 OT [id number] Social History Type Description Quantity Date Captured Comments Alcohol Use Details Caffeine Use Details Tobacco Use Status Smoking Status No Information Sex Male Chief Complaint And Reason For Visit No Information Reason For Referral Reason For Referral No Information Plan Of Treatment Date Type Action Status Goal Tobacco cessation counseling completed Referral Ordered: RADEX KNE 3 VIEWS LT knee ordered Referral Ordered: MRI ANY JT LXTR C-MATRL LT knee Appointment date/timeframe: 08/30/2017 ordered Referral Ordered: RADEX ELBW 2 VIEWS LT elbow ordered Referral Ordered: RADEX KNE 3 VIEWS RT knee ordered Referral Ordered: RADEX ELBW COMPL MINIMUM 3 VIEWS LT elbow ordered History Of Present Illness Encounter Date Complaint History Of Prese nt Illness No Information Functional Status Date Functional Assessmen t No Information Instructions Date Instruction Additional Infor mation Take medication as directed. Rel ated to Tear of medial meniscus of left knee, current, unspecified tear type, subsequent encounter Home exercise program. Related t o Tear of medial meniscus of left knee, current, unspecified tear type, subsequent encounter Take medication as directed. Rel ated to Internal derangement of left knee Home exercise program. Related t o Internal derangement of left knee Take medication as directed. Rel ated to Aftercare following surgery Home exercise program. Related t o Aftercare following surgery Home exercise program. Related t o Aftercare following surgery Take medication as directed. Rel ated to Aftercare following surgery Home exercise program. Related t o Aftercare following surgery Take medication as directed. Rel ated to Aftercare following surgery Take medication as directed. Rel ated to Aftercare following surgery Home exercise program. Related t o Aftercare following surgery Discussed treatment options Rela angus to Left elbow pain Rest, ice and elevate. Related t o Left elbow pain Take medication as directed. Rel ated to Left elbow pain Home exercise program. Related t o Left elbow pain Home exercise program. Related t o Osteoarthritis of right knee, unspecified osteoarthritis type Weight loss reduces stress on joints. Related to Osteoarthritis of right knee, unspecified osteoarthritis type Assessments Type Assessment Date assessment Chondromalacia, left knee assessment Tear of medial menis cus of left knee, current, unspecified tear type, subsequent encounter Patient Care Teams Name Effective Dates (start - stop) Status Members No Information
--- OUTSIDE RECORDS SUMMARY | 2024-03-05 21:57 | XMS_ITS | Continuity of Care Document ---
Author Organization [facility] Address [address] [place] [address] Phone Care Team Providers Care Maintenance Supervisor Electrical Name Role Phone Car Leger MD Unavailable [...] OFFICE/OUTPA TIENT VISIT EST [facility], [address] [facility], [place], [address], [place] tel:[phone] [facility] Chondromalacia , left kneeTear of medial meniscus of left knee, current, unspecified tear type, subsequent encounter 8 Arsen Yoon. [address], [place], [place], [address]. tel:[phone] [facility], [address] [facility] [address], [place], [address], [place] tel:[phone] [facility] No Information 8 No Information Referring Provider: Car Leger, [address], [place], [address] . tel:[phone] OFFICE/OUTPA TIENT VISIT EST [facility], [address], [place], [address], [place] tel:[phone] [facility] [place] Left knee pain, unspecified chronicityInte rnal derangement of left knee 8 Boxdorfer Melly. [address] [facility], [place], [place], [address]. tel:[phone] [facility], [address] [facility] [address], [place], [address], [place] tel:[phone] [facility] Aftercare following surgery 8 Arsen Yoon. [address], [place], [place], [address]. tel:[phone] [facility], [address] [facility] [address], [place], [address], [place] tel:[phone] [facility] Aftercare following surgery 8 Boxdorfer Melly. [address], [place], [place], [address]. tel:[phone] [facility], [address] [facility] [address], [place], [address], [place] tel:[phone] [facility] Aftercare following surgery 8 Arsen Yoon. [address], [place], [place], [address]. tel:[phone] [facility], [address], [place], [address], [place] tel:[phone] [facility] Aftercare following surgeryStrain of muscle, fascia and tendon of triceps, left arm, subsequent encounter 8 Boxdorfer Melly. [address] [facility] [address], [place], [place], [address]. tel:[phone] [facility], [address], [address], [place] tel:[phone] [facility] Rupture of left triceps tendon, initial encounter 8 Arsen Car. [address], [place], [place], [address]. tel:[phone] OFFICE/OUTPA TIENT VISIT EST [facility], [address] [address], [place], [address], [place] tel:[phone] [facility] Rupture of left triceps tendon, initial encounterLeft elbow pain 8 Boxdorfer Melly. [address] [address], [place], [place], [address]. tel:[phone] OFFICE/OUTPA TIENT VISIT NEW [facility], [address] [address], [place], [address], [place] tel:[phone] [facility] Left elbow painRight knee pain, unspecified chronicityOste oarthritis of right knee, unspecified osteoarthritis type 7 Boxdorfer Melly. [address] [address], [place], [place], [address]. tel:[phone] Referring Provider: [address], [place], [address] . tel:[phone] Family History Family Member Type Diagnosis Age At Onset mother Problem (finding) Diabetes Payers Payer name Insurance type Covered republican ID Authoriza tion(s) Blue Access PPO E2 OT [id number] [employer] Choice Fund Open Acces s Plus E2 OT [id number] Social History Type Description Quantity Date Captured [...] Information Instructions Date Instruction Additional Infor mation Home exercise program. Related t o Tear of medial meniscus of left knee, current, unspecified tear type, subsequent encounter Take medication as directed. Rel ated to Tear of medial meniscus of left knee, current, unspecified tear type, subsequent encounter Home exercise program. Related t o Internal derangement of left knee Take medication as directed. Rel ated to Internal derangement of left knee Home exercise program. Related t o Aftercare [...] directed. Rel ated to Aftercare following surgery Discussed treatment options Rela angus to Left elbow pain Rest, ice and elevate. Related t o Left elbow pain Weight loss reduces stress on joints. Related to Osteoarthritis of right knee, unspecified osteoarthritis type Home exercise program. Related t o Osteoarthritis of right knee, unspecified osteoarthritis type Home exercise program. Related t o Left elbow pain Take medication as directed. Rel ated to Left elbow pain Assessments Type Assessment Date assessment Chondromalacia, left knee assessment Tear of medial menis cus of left knee, current, unspecified tear type, subsequent encounter Patient Care Teams Name Effective Dates (start - stop) Status Members No Information
== END 2024-03-02 08:57 | disposition home or self-care (01) ==
PROVIDERS: Emergency Provider Nurse Practitioner Family; PCP Family Medicine
DX: N30.01 Acute cystitis with hematuria (principal); B95.2 Enterococcus as the cause of diseases classified elsewhere; E78.00 Pure hypercholesterolemia, unspecified
CPT/HCPCS: 81003; 87086; 87181; 99203; G0463

== ENCOUNTER 2024-08-29 15:27 | Outpatient (CLI) | payer BC, SELFPAY ==
--- NOTE | ~2024-08-29 | MR_ITS ---
MRI of the lumbar spine Clinical History: Spinal stenosis Technique: Axial T2-weighted images, and sagittal T1-weighted, T2-weighted, and T2 fat-sat images wer e acquired. Findings: No fracture identified in the lumbar spine. There is 6 mm retrolisthesis of L3 over L4. The re is 3 mm retrolisthesis of L2 over L3. There is 3 mm retrolisthesis of L1 over L2. No bone marrow s ignal abnormality seen. At L1-L2, there is advanced degenerative disc narrowing. There is minimal disc bulge and mild facet h ypertrophy. No spinal canal stenosis. There is minimal right neural foraminal narrowing. Left neural foramen preserved. At L2-L3, there is mild degenerative disc narrowing. There is minimal disc bulge and minimal facet hy pertrophy. No spinal canal stenosis. Probable minimal right neural foraminal narrowing. Left neural f oramen preserved. At L3-L4, there is advanced degenerative disc seen. There is mild disc bulge and mild facet hypertrop hy. There is minimal central canal stenosis. There is moderate to advanced left neural foraminal narr owing. There is moderate right neural foraminal narrowing. At L4-L5, there is severe degenerative disc narrowing. Diffuse disc bulge and advanced facet arthropa thy result in severe spinal canal stenosis/thecal sac compression. There is severe left neural forami nal compress. There is mild right neural foraminal narrowing. At L5-S1, there is moderate degenerative disc narrowing. There is diffuse disc bulge with mild to mod erate facet arthropathy. No central canal stenosis. There is minimal bilateral neural foraminal narro wing. Paravertebral soft tissues are unremarkable. Impression: Severe degenerative spondylosis at L4-L5, as detailed above. Moderate degenerative change in the dung paula of the lumbar spine, with multilevel neural foraminal narrowing. 6 mm retrolisthesis of L3 over L4. 3 mm retrolisthesis of L2 over L3. 3 mm retrolisthesis of L1 over L2. Reviewed, dictated and finalized at [facility]. Impression: Severe degenerative spondylosis at L4-L5, as detailed above. Moderate degenerat abdulkadir change in the remainder of the lumbar spine, with multilevel neural foramin al narrowing. 6 mm retrolisthesis of L3 over L4. 3 mm retrolisthesis of L2 over L3. 3 mm retrolisthesis of L1 over L2.
== END 2024-08-29 15:28 | disposition home or self-care (01) ==
LOC: MICIMG 15:28
PROVIDERS: PCP Physician Assistant Surgical; Visit Provider Physician Assistant Surgical
DX: M48.061 Spinal stenosis, lumbar region without neurogenic claudication (principal); M47.816 Spondylosis without myelopathy or radiculopathy, lumbar region
CPT/HCPCS: 72148

== ENCOUNTER 2024-10-29 02:07 | Day surgery (SDC) | payer BC, SELFPAY ==
[2024-10-17 10:07] VITALS: BMI 34.4
--- NOTE | 2024-10-17 10:31 | PC.NURSE ---
Report to the Outpatient Waiting Room, entrance under the green pavilion located off [facility], at time __1315__ on date __10/29/24__. Planned Procedure Time: __1415__.? Time changes happen often and if your time is changed the preop area will call you the afternoon before. - You and your visitor will be asked to self-screen and do not enter if you have any COVID symptoms. Please call surgeon if you need to reschedule. - A mask is optional within the hospital at this time. 1. It is alright to eat a light breafast/lunch prior to procedure depending on schedule time. Do not eat or drink anything other than scheduled medications with small amounts of clear liquid (water) for two hours prior to procedure. 2. Take a bath/shower the evening before and morning of procedure. 3. Please take your scheduled medications, especially blood pressure and diabetes medications as prescribed, with small sips of water prior to procedure. You may also take your prescribed pain medicaitons as needed. 4. Patient is not allowed to drive 24 hours after procedure. Hold blood thinners for spine injections (SI joint or hip/knee/shoulder joint injections, etc. do not need to hold blood thinners unless otherwise instructed). Follow office instructions from [facility] document for anticoagulant medication instructions 5. Aspirin:[7-day hold] prior to procedure. Take only the following medications with a SIP of water on the morning of surgery: ___Amlodipine__ DO NOT STOP ANY OF YOUR OTHER PRESCRIPTION MEDICATIONS PRIOR TO SURGERY EXCEPT THE FOLLOWING Hold all vitamins and supplements for 3 days per anesthesiologist. Medications to discontinue per physician __HOLD LOSARTAN MORNING OF SURGERY____ Follow any additional instructions given to you from your surgeon. Telephone instructions given to __Silviano__and asked if any additional questions and then verbalized understanding. Patient advised to call surgeon office or pre surgery nurse liaison [phone] if any additional questions.
--- NOTE | ~2024-10-29 | XR_ITS ---
INTRAOPERATIVE FLUOROSCOPY: CLINICAL HISTORY: 64 years old Male; MIDLINE LUMBAR INTERLAMINAR EPIDURAL INJECTION L4-5 PROCEDURE COMMENTS: Limited intraoperative fluoroscopy of the lumbar spine was performed. CUMULATIVE DOSE: 18 mGy FLUOROSCOPY TIME: 19 seconds FINDINGS/IMPRESSION: Please refer to operative note for further details. Reviewed, dictated and finalized at location A.
--- OUTSIDE RECORDS SUMMARY | 2024-10-29 02:10 | XMS_ITS | Encounter Summary ---
Author Organization [facility] Address [facility] [place] [address] Care Team Providers Care Reference Assistant Name Role Phone Jorje Lainez DO Primary Care Provider [phone] Levar Shaikh MD Unavailable [phone] Encounter Details Date Type Department Care Team (Late st Contact Info) Description 01/31/2023 Prep for Procedure [facility] Pre-Admission Testing [place] [address] [address] Ruben Miller MD [address] [facility] [address] [facility] [place] [address] Social History Tobacco Use Types Packs/Day Years Used Date Smoking Tobacco: Former Cigarettes 1.5 30 1 977 - 2006 Smokeless Tobacco: Never Alcohol Use Standard Drinks/Week Comments Yes 6.7 (1 standard drink = 0.6 oz p ure alcohol) social Sex and Gender Information Value Date Recorded Sex Assigned at Male 04/16/2024 3:32 PM [employer] HELPER Legal Sex Male 4:30 PM CDT Gender Identity Not on file Sexual Orientation Not on file documented as of this encounter Plan of Treatment Not on file documented as of this encounter Results * CULTURE URINE (02/01/2023 3:45 PM SKEIN YARN DYER HELPER) SPEC DESCRIPTION URINE CLEAN CATCH 02/01/2023 3:46 PM SKEIN YARN DYER HELPER [facility] SPECIAL REQUESTS NO SPECIAL REQUEST 02/01/2023 3:46 PM SKEIN YARN DYER HELPER [facility] CULTURE RESULT NO GROWTH 2 DAYS 02/03/2023 7:59 AM SKEIN YARN DYER HELPER [facility] URINE SPECIMEN OBTAINED BY CLEAN CATCH PROCEDURE / Unknown 02/01/2023 3:45 PM SKEIN YARN DYER HELPER 02/01/2023 3:46 PM [employer]KEIN YARN DY[employer] HELPER Ruben Miller MD MICROBIOLOGY - GENERAL OR DERABLES Final Result [facility] [address] [place] [address], * URINALYSIS (02/01/2023 3:45 PM SKEIN YARN DYER HELPER) SPECIMEN TYPE URINE CLEAN CATCH 02/01/2023 3:46 PM SKEIN YARN DYER HELPER [facility] COLOR (U) YELLOW 02/01/2023 3:58 PM SKEIN YARN DYER HELPER [facility] TRANSPARENCY CLEAR 02/01/2023 3:58 PM SKEIN YARN DYER HELPER [facility] SPECIFIC GRAVITY (U) 1.029 1.001 - 1.030 02/01/2023 3:58 PM SKEIN YARN DYER HELPER [facility] U PH 6.0 5.0 - 9.0 02/01/2023 3:58 PM SKEIN YARN DYER HELPER [facility] LEUKOCYTES (U) NEGATIVE NEGATIVE 02/01/2023 3:58 PM SKEIN YARN DYER HELPER [facility] NITRITES NEGATIVE NEGATIVE 02/01/2023 3:58 PM SKEIN YARN DYER HELPER [facility] PROTEIN RANDOM (U) 20 <30 MG/DL 02/01/2023 3:58 PM SKEIN YARN DYER HELPER [facility] GLUCOSE (U) NORMAL NORMAL MG/DL 02/01/2023 3:58 PM SKEIN YARN DYER HELPER [facility] KETONES MG/DL (U) NEGATIVE NEGATIVE MG/DL 02/01/2023 3:58 PM SKEIN YARN DYER HELPER [facility] UROBILINOGEN NORMAL NORMAL MG/DL 02/01/2023 3:58 PM SKEIN YARN DYER HELPER [facility] BILIRUBIN (U) NEGATIVE NEGATIVE MG/DL 02/01/2023 3:58 PM SKEIN YARN DYER HELPER [facility] BLOOD (U) NEGATIVE NEGATIVE 02/01/2023 3:58 PM SKEIN YARN DYER HELPER [facility] URINE SPECIMEN OBTAINED BY CLEAN CATCH PROCEDURE / Unknown 02/01/2023 3:45 PM SKEIN [employer]YER HELPER Ruben Miller MD URINE ORDERABLES Final Re sult [facility] [address] [place] [address], documented in this encounter Visit Diagnoses Diagnosis BPH (benign prostatic hyperplasia)- Primary Unspecified hyperplasia of prostate without urinary obstruction and other lower urinary tract symptoms (LUTS) BPH with urinary obstruction Hypertrophy of prostate with urinary obstruction and other lower urinary tract symptoms (LUTS) Frequency of micturition Urinary frequency Hypogonadism male Other testicular hypofunction documented in this encounter Additional Health Concerns Infection Onset Date Last Indicated Resolved Time COVID-19 Rule Out 04/23/2024 04/23/2024 04/23/2024 9:09 AM SKEIN YARN DYER HELPER documented as of this encounter Care Teams Reference Assistant Relationship Specialty Start Date End Date Jorje Lainez DO PCP - General FAMILY PRACTICE 08/12/22 Levar Shaikh MD [address] [place] [phone] CARDIOVASCULAR DISEASE 04/15/24 documented as of this encounter
--- OUTSIDE RECORDS SUMMARY | 2024-10-29 02:10 | XMS_ITS | Continuity of Care Document ---
Author Organization [facility] Address [address] [place] [address] Phone Care Team Providers Care Loan Underwriter Name Role Phone Car Leger MD Unavailable [...] OFFICE/OUTPA TIENT VISIT EST [facility], [address] [facility], [place], [address], [place] tel:[phone] [facility] Chondromalacia , left kneeTear of medial meniscus of left knee, current, unspecified tear type, subsequent encounter 8 Arsen Yoon. [address], [place], [place], [address]. tel:[phone] [facility], [address] [facility] [address], [place], [address], [place] tel:[phone] [facility] No Information 8 No Information Referring Provider: Car Leger, [address], [place], [address] . tel:[phone] OFFICE/OUTPA TIENT VISIT EST [facility], [address] [facility] [address], [place], [address], [place] tel:[phone] [facility] Jennifer Left knee pain, unspecified chronicityInte rnal derangement of left knee 8 Boxdorfer Melly. [address] [facility], [place], [place], [address]. tel:[phone] [facility], [address], [place], [address], [place] tel:[phone] [facility] Aftercare following surgery 8 Arsen Yoon. [address], [place], [place], [address]. tel:[phone] [facility], [address] [facility] [address], [place], [address], [place] tel:[phone] [facility] Aftercare following surgery 8 Box[address] Melly. [address], [place], [place], [id number]. tel:[phone] [facility], [address] [facility] [address], [place], [address], [place] tel:[phone] [facility] Aftercare following surgery 8 Arsen Yoon. [address], [place], [place], [address]. tel:[phone] [facility], [address] [facility] [address], [place], [address], [place] tel:[phone] [facility] Aftercare following surgeryStrain of muscle, fascia and tendon of triceps, left arm, subsequent encounter 8 Boxdorfer Melly. [address] [facility] [address], [place], [place], [address]. tel:[phone] [facility], [address] [address], [place], [address], [place] tel:[phone] [facility] Rupture of left triceps tendon, initial encounter 8 Arsen Car. [address], [place], [place], [address]. tel:[phone] OFFICE/OUTPA TIENT VISIT EST [facility], [address] [address], [place], [address], [place] tel:[phone] [facility] Rupture of left triceps tendon, initial encounterLeft elbow pain 8 Boxdorfer Melly. [address] [address], [place], [place], [address]. tel:[phone] OFFICE/OUTPA TIENT VISIT NEW [facility], [address] [address], [place], [address], [place] tel:[phone] [facility] Left elbow painRight knee pain, unspecified chronicityOste oarthritis of right knee, unspecified osteoarthritis type 7 Boxdorfer Melly. [address] [address], [place], [place], [address]. tel:[phone] Referring Provider: [address], [place], [address] . tel:[phone] Family History Family Member Type Diagnosis Age At Onset mother Problem (finding) Diabetes Payers Payer name Insurance type Covered democrat ID Authoriza tion(s) Blue Access PPO E2 OT [id number] [employer] Choice Fund Open Acces s Plus E2 OT [id number] Social History Type Description Quantity Date Captured [...] program. Related t o Aftercare following surgery Rest, ice and elevate. Related t o Left elbow pain Discussed treatment options Rela angus to Left elbow pain Take medication as directed. [...]
--- OUTSIDE RECORDS SUMMARY | 2024-10-29 02:10 | XMS_ITS | Clinical Summary ---
Author Organization [facility] Address [address] [place] [address] Care Team Providers Care Passenger Rate Clerk Name Role Phone Jorje Lainez DO Primary Care Provider [phone] Levar Shaikh MD Unavailable [phone] Allergies Active Allergy Reactions Criticality Noted Date [...] daily as needed for Erectile Dysfunction. Active testosterone cypionate (DEPO TESTOSTERONE) 100 MG/ML injection Inject 1 mL (100 mg total) into the muscle once a week. Active vitamin D2, ergocalciferol, (DRISDOL) 1.25 mg capsule Take 1 capsule (1.25 mg total) by mouth every 7 days. 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 Legal Sex Male 4:30 PM CDT Gender Identity Not on file Sexual Orientation Not on file Last Filed Vital Signs Vital Sign Reading Time Taken Comments Blood Pressure 169/77 06/05/2024 11:36 AM CDT Pulse 66 06/05/2024 11:36 AM CDT Temperature 36.4 C (97.5 F) 06/05/2024 11:36 AM CDT Respiratory Rate 17 06/05/2024 11:3 6 AM CDT Oxygen Saturation 98% 06/05/2024 11: 36 AM CDT Inhaled Oxygen Concentration - - Weight 109.2 kg (240 lb 11.9 oz) 06/05/2024 4:48 AM CDT Height 177.8 cm (5' 10) 06/04/2024 6: 15 AM CDT Body Mass Index 34.54 06/04/2024 6:15 AM CDT Plan of Treatment Health Maintenance Due Date Last Done Comments Colorectal Cancer Screening Colonoscopy (10 Years) 1960 Annual Physical 05/21/1963 Hepatitis C 1978 DTaP, Tdap and Td Vaccines ( 1 - Tdap) 05/21/1979 Pneumococcal Vaccine: 50+ Years (1 of 1 - PCV) 2010 Zoster Vaccines (1 of 2) 2010 COVID-19 Vaccine (3 - 2023-2 5 season) 2023 11/18/2020, 10/13/2020 RSV Immunization or 60+ Years (1 - 1-dose 75+ series) 05/21/2035 Meningococcal B Vaccine Aged Out No l onger eligible based on patient's age to complete this topic Meningococcal Vaccine Aged Out No anabela dhaval eligible based on patient's age to complete this topic RSV Immunizations Under 20 Months Aged Out No longer eligible b ased on patient's age to complete this topic Medical Devices Implanted Type Area Congressional Representative Device Identifier Shelf Expiration Date Model / Serial / Lot Plate Plate Right: Leg Insurance [facility] Advance Directives * Full Code (Latest Code Status on File) Date Activated Date Inactivated Comments 06/04/2024 9:41 AM 06/05/2024 2:58 PM Care Teams Passenger Rate Clerk Relationship Specialty Start Date End Date Jorje Lainez DO PCP - General FAMILY PRACTICE 08/12/22 Levar Shaikh MD [address] [place] [id number] CARDIOVASCULAR DISEASE 04/15/24
--- OUTSIDE RECORDS SUMMARY | 2024-10-29 02:10 | XMS_ITS | Encounter Summary ---
Author Organization [facility] Address [facility] [place] [address] Care Team Providers Care Bristle Machine Operator Name Role Phone Jorje Lainez DO Primary Care Provider [phone] Levar Shaikh MD Unavailable [phone] Encounter Details Date Type Department Care Team (Late st Contact Info) Description 04/23/2024 Prep for Procedure [facility] [address] Ruben Miller MD [address] [facility] [address] [place] [address] Social History Tobacco Use Types Packs/Day Years Used Date Smoking Tobacco: Former Cigarettes 1.5 30 1 977 - 2006 Smokeless Tobacco: Never Alcohol Use Standard Drinks/Week Comments Yes 6.7 (1 standard drink = 0.6 oz p ure alcohol) social Sex and Gender Information Value Date Recorded Sex Assigned at Male 04/16/2024 3:32 PM [facility] Legal Sex Male 4:30 PM CDT Gender Identity Not on file Sexual Orientation Not on file documented as of this encounter Functional Status * Calculated C-SSRS Risk Score (Lifetime/Recent) Answer Date of Assessment Author Status No Risk Indicated 04/23/2024 7:43 AM [facility] Cassia Figueroa RN Active * [place] Suicide Severity Rating Scale (Screener/Recent Self-Report) Question Answer Date of Assessment Author Status 1. Wish to be (Past 1 Month) No 04/23/2024 7:43 AM [facility] Cassia Figueroa RN Acti ve 2. Non-Specific Active Suicidal Thoughts (Past 1 Month) No 04/23/2024 7:43 AM [facility] Cassia Figueroa RN Activ e 6. Suicidal Behavior (Lifetime) No 04/23/2024 7:43 AM [facility] Cassia Figueroa RN Activ e documented as of this encounter Plan of Treatment Not on file documented as of this encounter Results * URINALYSIS (04/16/2024 3:37 PM [facility]) SPECIMEN TYPE URINE CLEAN CATCH 04/16/2024 3:38 PM [facility] COLOR (U) LIGHT YELLOW 04/16/2024 3:56 PM [facility] TRANSPARENCY CLEAR 04/16/2024 3:56 PM [facility] SPECIFIC GRAVITY (U) 1.028 1.001 - 1.030 04/16/2024 3:56 PM [facility] U PH 5.5 5.0 - 9.0 04/16/2024 3:56 PM [facility] LEUKOCYTES (U) NEGATIVE NEGATIVE 04/16/2024 3:56 PM [facility] NITRITES NEGATIVE NEGATIVE 04/16/2024 3:56 PM [facility] PROTEIN RANDOM (U) 10 <30 MG/DL 04/16/2024 3:56 PM [facility] GLUCOSE (U) NORMAL NORMAL MG/DL 04/16/2024 3:56 PM [facility] KETONES MG/DL (U) NEGATIVE NEGATIVE MG/DL 04/16/2024 3:56 PM [facility] UROBILINOGEN NORMAL NORMAL MG/DL 04/16/2024 3:56 PM [facility] BILIRUBIN (U) NEGATIVE NEGATIVE MG/DL 04/16/2024 3:56 PM [facility] BLOOD (U) NEGATIVE NEGATIVE 04/16/2024 3:56 PM [facility] URINE SPECIMEN OBTAINED BY CLEAN CATCH PROCEDURE / Unknown 04/16/2024 3:37 PM [facility] Ruben Miller MD URINE ORDERABLES Final Re sult Performing Organization Address [facility] Co de Phone Number [facility] [address] [place] [address], [place] [phone] * URINE BACTERIA CULTURE (04/16/2024 3:37 PM [facility]) SPEC DESCRIPTION URINE CLEAN CATCH 04/16/2024 3:38 PM [facility] SPECIAL REQUESTS NO SPECIAL REQUEST 04/16/2024 3:38 PM [facility] CULTURE RESULT NO GROWTH 2 DAYS 04/18/2024 6:46 AM [facility] URINE SPECIMEN OBTAINED BY CLEAN CATCH PROCEDURE / Unknown 04/16/2024 3:37 PM [facility] 04/16/2024 3:38 PM [facility] Ruben Miller MD MICROBIOLOGY - GENERAL OR DERABLES Final Result Performing Organization Address [facility] Co de Phone Number [facility] [address] [place] [address], [place] [phone] * (ABNORMAL) BASIC METABOLIC PANEL (04/16/2024 3:36 PM [facility]) GLUCOSE 147(H) 70 - 99 MG/DL 04/16/2024 4:29 PM [facility] BUN 19(H) 7 - 18 MG/DL 04/16/2024 4:29 PM [facility] CREATININE S/P/B 1.17 0.7 - 1.3 MG/DL 04/16/2024 4:29 PM [facility] SODIUM S/P/B 135(L) 136 - 145 MMOL/L 04/16/2024 4:29 PM [facility] POTASSIUM S/P/B 4.0 3.5 - 5.1 MMOL/L 04/16/2024 4:29 PM [facility] CHLORIDE S/P/B 104 97 - 115 MMOL/L 04/16/2024 4:29 PM [facility] CO2 25.4 21 - 32 MMOL/L 04/16/2024 4:29 PM [facility] CALCIUM S/P/B 8.6 8.5 - 10.1 MG/DL 04/16/2024 4:29 PM [facility] ANION GAP 5.6 2 - 10 MMOL/L 04/16/2024 4:29 PM [facility] BUN CREATININE RATIO 16.2 6 - 26 04/16/2024 4:29 PM [facility] GFR ESTIMATE 70(L) >90 ML/MIN/1.7 3 M2 04/16/2024 4:29 PM [facility] Comment: NOTE: eGFR is not calculated for patients <18 years of age or gender unknown. This is an estimated GFR calculation using the new CKD EPI creatinine equation without race and so does not require a correction factor for race. This estimated GFR should not be used for calculating drug doses. 04/16/2024 3:36 PM [facility] us Ruben Miller MD LABORATORY Final Res ult [facility] [address] [place] [address], [place] [phone] * (ABNORMAL) CBC W/DIFF AUTOMATED (04/16/2024 3:36 PM [facility]) [facility] WBC 6.21 4.5 - 11.0 x10'3/uL 04/16/2024 4:01 PM [facility] RBC 4.67(L) 4.70 - 6.10 x10'6/uL 04/16/2024 4:01 PM [facility] HGB 14.8 14.0 - 18.0 G/DL 04/16/2024 4:01 PM [facility] HCT 40.8(L) 43.0 - 54.0 % 04/16/2024 4:01 PM [facility] MCV 87.4 80.0 - 94.0 FL 04/16/2024 4:01 PM [facility] MCH 31.7(H) 27.0 - 31.0 PG 04/16/2024 4:01 PM [facility] MCHC 36.3(H) 32.0 - 36.0 G/DL 04/16/2024 4:01 PM [facility] RDW 12.6 11.5 - 14.5 % 04/16/2024 4:01 PM [facility] PLT 156 130 - 400 x10'3/uL 04/16/2024 4:01 PM [facility] MPV 10.9 9.3 - 12.2 FL 04/16/2024 4:01 PM [facility] DIFFERENTIAL TYPE AUTOMATED DIFFERENTIAL 04/16/2024 4:01 PM [facility] NEUTROPHILS % 49.8 % 04/16/2024 4:01 PM [facility] LYMPHOCYTES % 36.6 % 04/16/2024 4:01 PM [facility] MONOCYTES % 8.7 % 04/16/2024 4:01 PM [facility] EOSINOPHILS 3.4 % 04/16/2024 4:01 PM [facility] BASOPHILS 0.5 % 04/16/2024 4:01 PM [facility] IMMATURE GRANS % 1.0 % 04/16/19 4:01 PM [facility] ABS. NEUTROPHILS 3.10 1.80 - 7.70 x10'3/uL 04/16/2024 4:01 PM [facility] ABS. LYMPHOCYTES 2.27 1.00 - 4.80 x10'3/uL 04/16/2024 4:01 PM [facility] ABS. MONOCYTES 0.54 0.30 - 0.82 x10'3/uL 04/16/2024 4:01 PM [facility] ABS. EOSINOPHILS 0.21 0.04 - 0.54 x10'3/uL 04/16/2024 4:01 PM [facility] ABS. BASOPHILS 0.03 0.01 - 0.08 x10'3/uL 04/16/2024 4:01 PM [facility] ABS. IMMATURE GRANULOCYTES 0.06 0.00 - 0.49 x10'3/uL 04/16/2024 4:01 PM [facility] 04/16/2024 3:36 PM [facility] us Ruben Miller MD LABORATORY Final Res ult [facility] [address] [place] [address], [place] [phone] * PTT, PARTIAL THROMBOPLASTIN TIME (04/16/2024 3:36 PM [facility]) Pathologist [facility] PTT 31.0 25.1 - 36.5 SEC 04/16/2024 4:41 PM [facility] 04/16/2024 3:36 PM [facility] Ruben Miller MD LABORATORY Final Res ult Performing Organization Address [facility] Co de Phone Number [facility] [address] [place] [address], * PROTIME/INR, VENOUS (04/16/2024 3:36 PM [facility]) PROTIME 10.8 10.2 - 12.9 SEC 04/16/2024 4:41 PM [facility] INR 0.9 04/16/2024 4:41 PM [facility] Comment: Recommended INR Therapeutic Goals: 2.0-3.0 Routine Therapy 2.5-3.5 Mechanical Prosthetic Valves (High Risk) 04/16/2024 3:36 PM [facility] Ruben Miller MD LABORATORY Final Res ult Performing Organization Address [facility] Co de Phone Number [facility] [address] [place] [address], documented in this encounter Visit Diagnoses Diagnosis BPH with obstruction/lower urinary tract symptoms- Primary Hypertrophy of prostate with urinary obstruction and other lower urinary tract symptoms (LUTS) Frequency of micturition Urinary frequency documented in this encounter Additional Health Concerns Infection Onset Date Last Indicated Resolved Time COVID-19 Rule Out 04/23/2024 04/23/2024 04/23/2024 9:09 AM [facility] documented as of this encounter Care Teams Bristle Machine Operator Relationship Specialty Start Date End Date Jorje Lainez DO PCP - General FAMILY PRACTICE 08/12/22 Levar Shaikh MD [address] [place] [phone] CARDIOVASCULAR DISEASE 04/15/24 documented as of this encounter
--- OUTSIDE RECORDS SUMMARY | 2024-10-29 02:10 | XMS_ITS | Encounter Summary ---
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
--- OUTSIDE RECORDS SUMMARY | 2024-10-29 02:10 | XMS_ITS | Clinical Summary ---
Author Organization [facility] Address [address] [place] [address] Care Team Providers Care Data Processing Mechanic Name Role Phone Jorje Coburn DO [...] night Assessment & Plan (05/10/2022 9:16 AM EQUAL OPPORTUNITY REPRESENTATIVE): Add flomax Severe obesity (BMI 35.0-39.9) with comorbidity 04/11/2022 Assessment & Plan (10/04/2022 12:14 PM CDT): Healthy diet Has lost 10 pounds Assessment & Plan (08/09/2022 8:00 AM CDT): Healthy diet Assessment & Plan (05/10/2022 9:08 AM EQUAL OPPORTUNITY REPRESENTATIVE): Healthy diet Weight loss Assessment & Plan (04/11/2022 9:05 AM EQUAL OPPORTUNITY REPRESENTATIVE): Healthy diet Hypertension, essential 08/06/2021 Assessment & [...] recheck. Assessment & Plan (05/10/2022 9:09 AM EQUAL OPPORTUNITY REPRESENTATIVE): Cont amlodipine Assessment & Plan (04/11/2022 9:04 AM EQUAL OPPORTUNITY REPRESENTATIVE): Check bp routinely Update Assessment & Plan [...] screen Assessment & Plan (05/10/2022 9:09 AM EQUAL OPPORTUNITY REPRESENTATIVE): Continue rosuvastatin 20 mg daily Assessment & Plan (06/18/2018 3:55 PM CDT): REFILL MED ROUTINE LAB Annual physical exam 06/18/2018 Assessment & Plan (04/11/2022 8:58 AM EQUAL OPPORTUNITY REPRESENTATIVE): Chart reviewed Lab ordered Assessment & Plan (10/12/2020 5:14 PM CDT): hgb [facility] Will discuss testosterone with [facility] Assessment & Plan (06/18/2018 3:56 PM CDT): ROUTINE LABS Resolved Problems Problem Noted Date Diagnosed Date Resolved Date Snoring 09/16/2020 08/09/2022 Sleep disorder 09/16/2020 08/09/2022 Hypersomnia 09/16/2020 08/09/2022 Overweight 09/16/2020 05/10/2022 Bronchitis 05/21/2019 05/10/2022 Assessment & Plan (05/21/2019 5:52 PM EQUAL OPPORTUNITY REPRESENTATIVE): z tigre\cbc Acute non-recurrent frontal sinusitis 06/18/2018 08/09/2022 Immunizations Immunization Administration Dates Next Due Influenza, Quadrivalent, Spl [...] on file Legal Sex Male 1:20 AM EQUAL OPPORTUNITY REPRESENTATIVE Gender Identity Not on file Sexual Orientation Not on file Obstetrics History Last Filed Vital Signs Vital Sign Reading Time Taken Comments Blood Pressure 136/82 10/04/2022 11:01 AM CDT Pulse 57 10/04/2022 11:01 AM CDT Temperature 36.7 C (98 F) 10/04/2022 11:01 AM CDT Respiratory Rate 18 10/04/2022 11:01 AM CDT Oxygen Saturation 96% 10/04/2022 11:01 AM CDT Inhaled Oxygen Concentration - - Weight 112 kg (247 lb) 10/04/2022 11:01 AM CDT Height 177.8 cm (5' 10) 10/04/2022 11:01 AM CDT Body Mass Index 35.44 10/04/2022 11:01 AM CDT Plan of Treatment Health Maintenance Due Date Last Done Comments DTaP/Tdap/Td Vaccine (1 - Tdap) 05/21/1971 Hepatitis B Screening 1978 Zoster Vaccine (1 of 2) 2010 Regular Well Visit/Exam 18-64 04/11/2023 04/11/2022, 10/12/2020 Depression Screening 08/10/2023 08/09/2022, 08/06/2021, 06/18/2018 Covid-19 Vaccine ( season) 2023 11/18/2020, 10/13/2020 Prostate Cancer Screening-PSA 04/22/2024 04/22/2022, 10/09/2020, 01/02/2019, Additional history exists Influenza Vaccine (#1) 2024 , 01/10/2020, 12/17/2018 Colon Cancer Screening-Colonoscopy 02/24/2031 02/24/2021 Colon Cancer Screening-CT Colonography Discontinued 02/24/2021 Colon Cancer Screening-DNA Stool Discontinued 02/24/2021 Colon Cancer Screening-FIT Discontinued 02/24/2021 Colon Cancer Screening-Sigmoidoscopy Discontinued 02/24/2021 Hepatitis C Screening Completed 04/22/2022 Pneumococcal vaccine <65 Aged Out No longer eligible based on patient's age to complete this topic Procedures Procedure Name Priority Date/Time Associated Diagnosis Comments HEPATITIS C ANTIBODY Routine 04/22/2022 6:16 AM EQUAL OPPORTUNITY REPRESENTATIVE Need for hepatitis C screening test PSA SCREEN Routine 04/22/2022 6:16 AM EQUAL OPPORTUNITY REPRESENTATIVE COLONOSCOPY Routine 02/24/2021 from Last 3 Months or Most Recently Relevant to Health Maintenance Results * PSA screen (04/22/2022 6:16 AM EQUAL OPPORTUNITY REPRESENTATIVE) PSA 1.61 < OR = 4.00 ng/mL [facility] Comment: The total PSA value from this assay system is standardized against the WHO standard. The test result will be approximately 20% lower when compared to the equimolar-standardized total PSA ([place]). Comparison of serial PSA results should be interpreted with this fact in mind. This test was performed using the Siemens chemiluminescent method. Values obtained from different assay methods cannot be used interchangeably. PSA levels, regardless of value, should not be interpreted as absolute evidence of the presence or absence of disease. 04/22/2022 6:16 AM EQUAL OPPORTUNITY REPRESENTATIVE 04/22/2022 6:19 AM EQUAL OPPORTUNITY REPRESENTATIVE Narrative [facility] - 04/23/2022 3:01 AM EQUAL OPPORTUNITY REPRESENTATIVE FASTING:YES FASTING: YES Jorje Coburn DO LAB BLOOD ORDERABLES Fin al Result Performing Organization Address [facility] de Phone Number [facility] [address] [place] [address] * Hepatitis C antibody (04/22/2022 6:16 AM EQUAL OPPORTUNITY REPRESENTATIVE) Hep C Ab NON-REACTI VE NON-REACT GLORIA [facility] SIGNAL TO CUT-OFF 0.06 <1.00 [facility] Comment: HCV antibody was non-reactive. There is no laboratory evidence of HCV infection. In most cases, no further action is required. However, if recent HCV exposure is suspected, a test for HCV RNA (test code 58580) is suggested. For additional information please refer to http://education.ONStor/faq/NXP44n2 (This link is being provided for informational/ educational purposes only.) Blood specimen (specimen) 04/22/2022 6:16 AM EQUAL OPPORTUNITY REPRESENTATIVE 04/22/2022 6:19 AM EQUAL OPPORTUNITY REPRESENTATIVE Narrative [facility] - 04/23/2022 3:01 AM EQUAL OPPORTUNITY REPRESENTATIVE FASTING:YES FASTING: YES Jorje Coburn DO LAB MICROBIOLOGY - GENER AL ORDERABLES Final Result Performing Organization Address [facility] de Phone Number [facility] [address] [place] [address] * (ABNORMAL) Colonoscopy (02/24/2021) Anatomical Region Laterality Modality Other 02/24/2021 Historical Provider ENDOSCOPY PROCEDURES Anna l Result from Last 3 Months or Most Recently Relevant to Health Maintenance Insurance ANTHEM ACCESS CHOICE ANTHEM ACCESS CHOICE Care Teams Data Processing Mechanic Relationship Specialty Start Date End Date Jorje Coburn DO PCP - General Family Medicine 06/18/18
--- OUTSIDE RECORDS SUMMARY | 2024-10-29 02:10 | XMS_ITS | Encounter Summary ---
Author Organization [facility] Address [facility] [place] [address] Care Team Providers Care Medical Education Specialist Name Role Phone Jorje Lainez DO Primary Care Provider [phone] Levar Shaikh MD Unavailable [phone] Encounter Details Date Type Department Care Team (Late st Contact Info) Description 01/23/2024 Prep for Procedure [facility] [place] [address] [place] [address] Ruben Miller MD [address] [facility] [address] [place], [place] [address] Social History Tobacco Use Types Packs/Day Years Used Date Smoking Tobacco: Former Cigarettes 1.5 30 1 977 - 2006 Smokeless Tobacco: Never Alcohol Use Standard Drinks/Week Comments Yes 6.7 (1 standard drink = 0.6 oz p ure alcohol) social Sex and Gender Information Value Date Recorded Sex Assigned at Male 04/16/2024 3:32 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 Legal Sex Male 4:30 PM CDT Gender Identity Not on file Sexual Orientation Not on file documented as of this encounter Plan of Treatment Not on file documented as of this encounter Results * URINALYSIS (01/25/2024 3:35 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) SPECIMEN TYPE URINE CLEAN CATCH 01/25/2024 3:30 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 [facility] COLOR (U) LIGHT YELLOW 01/25/2024 5:07 PM [facility] TRANSPARENCY CLEAR 01/25/2024 5:07 PM [facility] SPECIFIC GRAVITY (U) 1.016 1.001 - 1.030 01/25/2024 5:07 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 [facility] U PH 6.5 5.0 - 9.0 01/25/2024 5:07 PM [facility] LEUKOCYTES (U) NEGATIVE NEGATIVE 01/25/2024 5:07 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 [facility] NITRITES NEGATIVE NEGATIVE 01/25/2024 5:07 PM [facility] PROTEIN RANDOM (U) NEGATIVE <30 MG/DL 01/25/2024 5:07 PM [facility] GLUCOSE (U) NORMAL NORMAL MG/DL 01/25/2024 5:07 PM [facility] KETONES MG/DL (U) NEGATIVE NEGATIVE MG/DL 01/25/2024 5:07 PM [facility] UROBILINOGEN NORMAL NORMAL MG/DL 01/25/2024 5:07 PM [facility] BILIRUBIN (U) NEGATIVE NEGATIVE MG/DL 01/25/2024 5:07 PM [facility] BLOOD (U) NEGATIVE NEGATIVE 01/25/2024 5:07 PM [facility] URINE SPECIMEN OBTAINED BY CLEAN CATCH PROCEDURE / Unknown 01/25/2024 3:35 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 us Ruben Miller MD URINE ORDERABLES Final Re sult [facility] [address] [place] [address], [place] [phone] * (ABNORMAL) URINE BACTERIA CULTURE (01/25/2024 3:35 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) SPEC DESCRIPTION URINE CLEAN CATCH 01/25/2024 3:30 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 [facility] SPECIAL REQUESTS NO SPECIAL REQUEST 01/25/2024 3:30 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 [facility] CULTURE RESULT 10,000-49,000 COL/ML DIPHTHEROIDS SUSCEPTIBILTY NOT ROUTINELY PERFORMED. SAVING ISOLATE FOR 5 DAYS. CONTACT MICROBIOLOGY DEPARTMENT IF FURTHER WORKUP IS INDICATED. (A) 01/27/2024 1:55 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 [facility] URINE SPECIMEN OBTAINED BY CLEAN CATCH PROCEDURE / Unknown 01/25/2024 3:35 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 01/25/2024 3:43 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 us Ruben Miller MD MICROBIOLOGY - GENERAL OR DERABLES Final Result [facility] [address] [place] [address], documented in this encounter Visit Diagnoses Diagnosis Hypertrophy of prostate with urinary obstruction- Primary Hypertrophy of prostate with urinary obstruction and other lower urinary tract symptoms (LUTS) Urinary frequency Male hypogonadism Other testicular hypofunction documented in this encounter Additional Health Concerns Infection Onset Date Last Indicated Resolved Time COVID-19 Rule Out 04/23/2024 04/23/2024 04/23/2024 9:09 AM COMPUTER INSTALLER documented as of this encounter Care Teams Medical Education Specialist Relationship Specialty Start Date End Date Jorje Lainez DO PCP - General FAMILY PRACTICE 08/12/22 Levar Shaikh MD [address] [place] [phone] CARDIOVASCULAR DISEASE 04/15/24 documented as of this encounter
--- NOTE | 2024-10-29 11:16 | PM.HPGS ---
History of Present Illness History of Present Illness Consent: Risks, benefits, and alternatives have been discussed and questions answered. Patient agrees to proceed with procedure. Chief complaint: lumbar stenosis, lumbar radiculopathy Narrative: Benja Gallagher is a 64 year old male with chronic, recalcitrant and disabling low back and lower extremity pain secondary to lumbar radiculopathy with failure to respond to aggressive conservative measures including PT, oral and topical analgesics, opioid and nonopioid analgesics, rest, time and activity/behavioral modification over the past 6-12 months who presents for midline lumbar interlaminar epidural steroid injection at L4-5 under fluoroscopic guidance and with contrast control. Review of Systems Review of Systems: All systems reviewed & are unremarkable except as noted in HPI and below PMFSH Past Medical History Medical History Hypercholesteremia Surgical History Surgical History History of orthopedic surgery ORIF Right Fibula Hx of appendectomy H/O inguinal hernia repair Family History Family History Sibling Cerebrovascular accident Hypertension Diabetes mellitus Mother Hypertension Diabetes mellitus Social History Social History (Updated 09/09/24 @ 15:42 by Mary Carmen Ram CMA) Smoking packs per day: 1 Smoking cigarettes per day: 20.0 Years smoked: 30 Smoking pack-years: 30.00 Smoking status: Former smoker Tobacco type: cigarettes Smoking end date: 03/20/06 Alcohol intake: current Alcohol use details: drink every other week or so Substance use: never Substance use type: does not use Do You Feel Safe in your Home?: Yes Lack of Transportation: No Lack of Food: Never True Current Housing: I Have Housing Concerned About Future Housing: No Difficulty Paying Gas/Electric Bills: No Difficulty Paying for Meds: No Currently Unemployed: No Education: Associate Degree Difficulty w/ Childcare or Family Care: No Living arrangements: with family Spiritual care concerns: No Meds Home Medications and Allergies Home Medications ?Medication ?Instructions ?Recorded ?Confirmed ?Type Amlodipine 5 mg PO DAILY 07/31/24 10/17/24 History Fish Oil 1 cap PO DAILY 07/31/24 10/17/24 History Rosuvastatin 20 mg PO DAILY 07/31/24 10/17/24 History losartan 25 mg tablet 25 mg PO DAILY 07/31/24 10/17/24 History omeprazole magnesium 20 mg 20 mg PO DAILY 07/31/24 10/17/24 History capsule,delayed release aspirin 81 mg tablet,delayed 81 mg PO DAILY 09/09/24 10/17/24 History release (Adult Low Dose Aspirin) coenzyme Q10 200 mg capsule (Co 200 mg PO DAILY 09/09/24 10/17/24 History Q-10) E2/E3/Progesterone/Testosterone applic topical DAILY #1 tube 10/17/24 History 1.25/60MG/1MG/GM Topical Cream 1 tube cream semaglutide (weight loss) 1 mg/0.5 0.25 mg subcut WEEKLY 10/17/24 10/17/24 History mL subcutaneous pen injector (Wegovy) Allergies Allergy/AdvReac Type Severity Reaction Status Date / Time morphine Allergy Mild Rash Verified 10/17/24 10:01 Contrast Media Allergy Unknown Rash Uncoded 10/17/24 10:01 Exam Narrative: The patient's physical exam is essentially unchanged from prior examination on 09/10/2024. Specifically, patient demonstrates normal lung capacity, tidal volume and respiratory rate without wheezes, crackles, rales or rubs. Heart rate and rhythm are regular without murmurs, gallops or rubs. No JVD. Pulses 2+ globally without increasing peripheral edema. AAOx3 with no evidence of confusion, intoxication or altered mental state, NC/AT without acute distress or altered consciousness. Speech, cognition, mood, insight and judgment at baseline and within normal limits. Assessment and Plan Assessment and plan (1) Spinal stenosis, lumbar region with neurogenic claudication: Code(s): M48.062 - Spinal stenosis, lumbar region with neurogenic claudication Status: Acute Assessment and Plan: Proceed as planned with midline lumbar interlaminar epidural steroid injection at L4-5 under fluoroscopic guidance and with contrast control. (2) Lumbosacral radiculopathy: Code(s): M54.17 - Radiculopathy, lumbosacral region Status: Acute (3) Chronic low back pain: Code(s): M54.50 - Low back pain, unspecified; G89.29 - Other chronic pain Status: Acute
--- NOTE | 2024-10-29 11:18 | WPDHPUPDATE1 ---
History and Physical Update Update Date/Time: 10/29/24 11:18 History and Physical has been reviewed, including an updated exam of the patient. There are NO changes in the patient's condition. Risks, benefits, and alternatives have been discussed and questions answered. Patient agrees to proceed with procedure.
--- NOTE | 2024-10-29 11:18 | W.PM.PROC2 ---
Procedure Note - Detailed Date of Procedure 10/29/24 Pre-op Diagnosis lumbar stenosis, lumbar radiculopathy Post-op Diagnosis Same Procedure Performed Midline Lumbar Interlaminar Epidural Steroid Injection at L4-5 under Fluoroscopic Guidance and with Contrast Control. Surgeon Jony Paredes MD Anesthesia Local Description of Procedure INFORMED CONSENT: Risks, benefits and alternatives to the procedure were discussed in detail with the patient who expressed explicit understanding and consent to proceed. Patient was informed verbally and in written form regarding the risks associated with the procedure including the low risk of serious infection, bleeding/bruising, allergic reaction, nerve or organ injury, paralysis, procedural site pain or discomfort, worsening pain and/or mobility, failure to treat and/or disfigurement. The patient expressed explicit understanding and consent to proceed. All materials required for the procedure were available prior to procedure start. Site and side were marked prior to procedure and confirmed in the presence of the patient. PROCEDURE IN DETAIL: The patient was brought to the procedural suite and placed in the prone position. Patient was made comfortable with use of pillows under the head/chest, hips and ankles. Skin overlying the injection site was prepared broadly with ChloraPrep applicator and draped in a sterile manner. Aseptic technique was employed throughout. The endplates of the vertebral body at the site of interest were aligned in the AP view. Slight caudad tilt and ipsilateral oblique angulation was utilized to optimize visualization of the targeted posterior intervertebral foramen at L4-5. Local anesthesia was established by infiltration with approximately 5 mL of 2% lidocaine via a 1-1/2 inch 27-gauge needle. A 20-gauge 4-inch Tuohy epidural needle was advanced intermittently until appropriate loss of resistance to air was identified via plastic loss of resistance syringe. Lateral view was used to confirm the appropriate positioning of the needle tip within the posterior epidural space. After a repeat negative aspiration for blood or other bodily fluid, a 4 mL solution containing 10 mg of dexamethasone in sterile PF Normal Saline was injected after negative repeat aspiration. Appropriate spread of the injectate was confirmed with washout of previously injected contrast. No parasthesias were elicited. Needle was removed completely intact without difficulty. Images were saved and documented in the patient chart. Patient's skin was cleaned and sterile bandage applied. The patient tolerated the procedure well. The patient was transported to the recovery area in stable condition where they were observed for an appropriate amount of time prior to discharge, without evidence of complication. The patient was instructed to avoid excessive activity for the next 48 hours, including climbing and frequent use of stairs. Showers only for 48 hours. They were instructed not to drive or operate heavy machinery for 24 hours. They are to monitor for severe headaches, fevers, chills, night sweats, erythema/swelling at the site or any other signs of infection, bleeding/bruising, bowel or bladder changes as well as new pain, weakness or numbness in the upper or lower extremity. Should they notice these changes, they are instructed to call our office immediately or report directly to the nearest Emergency Department if no answer or if after posted office hours. COMPLICATIONS: None COMMENTS: Due to patient's stated allergy to contrast media, no IV contrast was used during today's procedure. Appropriate needle position was confirmed with lack of positive aspiration, appropriate loss of resistance and appropriate epidural space outlining with injected air contrast (1 cc). Complications No immediate complications Condition Stable Disposition Same day [facility] Billing Surgery - Charge Forward: Surgery Billing
[2024-10-29 13:15] VITALS: BP 148/76; PULSE 64; RESP 16; TEMP 36.7; O2SAT 95
[2024-10-29] MEDS: dexAMETHasone SOD PHOS INJ 10 MG/ML 1 ML VIAL IM (15:08)
[2024-10-29] MEDS: LIDOCAINE 2% PF LOCAL INJ 5 ML VIAL 20 ML INFILTRATE (15:08)
[2024-10-29 15:12] VITALS: BP 160/90; PULSE 64; RESP 16; O2SAT 97
[2024-10-29 15:18] VITALS: BP 148/71; PULSE 65; RESP 16; O2SAT 96
[2024-10-29 15:25] VITALS: BP 160/78; PULSE 60; RESP 18; O2SAT 100
== END 2024-10-29 15:57 | disposition home or self-care (01) ==
PROVIDERS: PCP Family Medicine; Visit Provider Anesthesiology Pain Medicine
PROC: (CPT 62323; principal; 2024-10-29 14:15)
DX: M48.062 Spinal stenosis, lumbar region with neurogenic claudication (principal); G89.29 Other chronic pain; E78.00 Pure hypercholesterolemia, unspecified; Z79.82 Long term (current) use of aspirin; Z79.85 Long-term (current) use of injectable non-insulin antidiabetic drugs; Z98.890 Other specified postprocedural states; Z87.891 Personal history of nicotine dependence
CPT/HCPCS: 62323; 99199; J1100; J2003

== ENCOUNTER 2024-12-18 15:05 | Outpatient (CLI) | payer BC, SELFPAY ==
--- NOTE | ~2024-12-18 | XR_ITS ---
EXAMINATION: XR knee RT 3V, 12/18/2024 15:15 CDT HISTORY: Pain in left and right knee COMPARISON: No comparisons available. Findings: No acute fracture or malalignment. Moderate tricompartmental degenerative changes Soft tissues unremarkable. Impression: No acute fracture or malalignment. Reviewed, dictated and finalized at location P. Impression: No acute fracture or malalignment.
--- NOTE | ~2024-12-18 | XR_ITS ---
EXAMINATION: XR knee LT 3V, 12/18/2024 15:15 CDT HISTORY: Pain in left and right knee COMPARISON: No comparisons available. Findings: No acute fracture or malalignment. Moderate tricompartmental degenerative changes Soft tissues unremarkable. Impression: No acute fracture or malalignment. Reviewed, dictated and finalized at location P. Impression: No acute fracture or malalignment.
== END 2024-12-18 15:06 | disposition home or self-care (01) ==
LOC: MICIMG 15:06
PROVIDERS: PCP Family Medicine; Visit Provider Family Medicine
DX: M25.561 Pain in right knee (principal); M25.562 Pain in left knee; G89.29 Other chronic pain
CPT/HCPCS: 73562

== ENCOUNTER 2025-03-07 07:20 | Outpatient (CLI) | payer BC, SELFPAY ==
--- NOTE | ~2025-03-07 | MR_ITS ---
EXAMINATION: MR knee LT wo con DATE: 03/07/2025 08:23 INDICATION: Knee pain TECHNIQUE: Magnetic resonance imaging (MRI) of the knee was performed without intravenous contrast. Sequences included axial PD-weighted FS FSE, coronal PD- weighted FSE and PD-weighted FS FSE, sagittal PD-weighted FSE, and sagittal T2- weighted FS FSE. COMPARISON: None. FINDINGS: No fracture subluxation or dislocation. Moderately severe diffuse/tricompartmental osteoarthritic degenerative changes present with marginal spur formation, advanced chondral erosion or thinning, and it minimal/very early subchondral cystic changes developing in the femoral condyles. Small joint effusion present. Small posterior horn medial meniscal tear probably degenerative extending to the inferior margin extending to the root on images 11 through 14 of series 7. The anterior horn appears intact, mildly displaced. The lateral meniscus is intact. Cruciate and collateral ligaments appear intact. In the extra articular soft tissues, there is significant thickening of the infrapatellar tendon with unfused ossification, or old apophyseal avulsion injury. The quadriceps tendon appears normal. Large Madrigal's cyst present measures 7.5 x 3.6 x 2.8 cm in the cephalocaudal by AP by transverse dimensions. IMPRESSION: 1. No acute or aggressive bony process. Moderately severe tricompartmental osteoarthritic degenerative changes. 2. Probable small degenerative tear involving the posterior horn of the medial meniscus. 3. Chronic post injury or inflammatory appearing changes involving the infrapatellar tendon and ossification at the tibial tubercle. 4. Large Madrigal's cyst. 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 No acute or aggressive bony process. Moderately severe tricompartmental oste oarthritic degenerative changes. 2. Probable small degenerative tear involving the posterior horn of the medial meniscus. 3. Chronic post injury or inflammatory appearing changes involving the infrapat ellar tendon and ossification at the tibial tubercle. 4. Large Madrigal's cyst.
--- NOTE | ~2025-03-07 | MR_ITS ---
EXAMINATION: MR knee RT wo con DATE: 03/07/2025 08:15 INDICATION: Chronic right knee pain TECHNIQUE: Magnetic resonance imaging (MRI) of the right knee was performed without intravenous contrast. Sequences included coronal PD-weighted FSE, coronal PD-weighted FS FSE, sagittal T2-weighted FSE, sagittal PD-weighted FS FSE and axial PD weighted fat saturated FSE. COMPARISON: Knee radiographs dated 12/18/2024 FINDINGS: Medial compartment: Complex medial meniscal tear which includes a radial tear plane at the posterior root and longitudinal horizontal tear plane extending to the inferior articular surface of the medial extruded meniscal body. Partial-thickness cartilage loss with scattered chondral surface regularity along the anterior to central weightbearing medial femoral condyle and along the medial margin of the medial tibial plateau. There is mild subarticular edema-like signal change along the medial from the medial tibial plateau which could be due to the overlying chondromalacia or stress reaction results from altered weight distribution resulting from the meniscal extrusion. Lateral compartment: Lateral meniscus is normal. Articular cartilage is normal. Patellofemoral compartment: Partial-thickness chondral ulceration with deeper fissuring without degenerative subchondral changes on the medial patellar facet and apical ridge. Deep or chondral ulceration and fissuring with mild underlying cortical irregularity at the caudal half of the trochlear groove and immediately adjacent medial and lateral trochlea. Ligaments and tendons: Anterior and posterior cruciate ligaments are normal. The medial collateral ligament and fibular collateral ligament complex are normal. The extensor mechanism is normal. The visualized medial and lateral hamstring tendons as well as the iliotibial band are normal. Fluid: Small knee joint effusion with mild synovitis at the suprapatellar pouch. Additional synovitis along the posterior margin of Hoffa's fat pad. There is a cluster of 3 small loose osteochondral bodies measuring 4-7 mm in the recess posterior to the posterior cruciate ligament. Osseous/other: Aside from the minimal edema-like signal change at the medial tibial plateau there is normal marrow signal. No fracture or pathologic marrow replacing process. IMPRESSION: 1. Complex medial meniscal tear. 2. Mild to moderate osteoarthritis with moderate and high-grade chondral malacia in the medial and patellofemoral compartments. Reviewed, dictated and finalized at location A. 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 Complex medial meniscal tear. 2. Mild to moderate osteoarthritis with moderate and high-grade chondral malaci a in the medial and patellofemoral compartments.
== END 2025-03-07 07:21 | disposition home or self-care (01) ==
LOC: MICIMG 07:20
PROVIDERS: PCP Family Medicine; Visit Provider Family Medicine
DX: M71.22 Synovial cyst of popliteal space [Baker], left knee (principal); M17.0 Bilateral primary osteoarthritis of knee; G89.29 Other chronic pain; M92.522 Juvenile osteochondrosis of tibia tubercle, left leg
CPT/HCPCS: 73721